=== PATIENT | male | born 1955 | race Two or more races ===

== ENCOUNTER 2020-09-11 06:14 | Outpatient (REF) | payer MEDICARE, MEDICAID, SELFPAY ==
[2020-09-11 07:39] LABS: Alanine Aminotransferase 26 U/L (0-40); Albumin Level 4.2 g/dL (3.5-5.0); Alkaline Phosphatase 49 U/L (39-117); Anion Gap 14 (12-20); Aspartate Amino Transferase 20 U/L (5-37); Bilirubin Total 0.4 mg/dL (0.0-1.0); Blood Urea Nitrogen 15 mg/dL (9-16); Calcium 9.2 mg/dL (8.4-10.2); Carbon Dioxide 29 mmol/L (22-29); Chloride 104 mmol/L (96-108); Cholesterol 137 mg/dL; Estimated Glomerular Filt Rate > 60; Glucose Fasting 113 mg/dL (60-99); HDL Cholesterol 34 mg/dL; LDL Cholesterol Calculated 79 mg/dl; Potassium 4.1 mmol/l (3.3-5.1); Sodium 143 mmol/L (135-145); Total Protein 7.2 g/dL (6.5-8.0); Triglycerides 120 mg/dL
[2020-09-11 07:48] LABS: Vitamin D 25-OH Total 33.4 ng/mL (>30)
== END 2020-09-11 06:15 | disposition home or self-care (01) ==
LOC: HO.LAB 06:14
PROVIDERS: Visit Provider Internal Medicine
DX: E11.9 Type 2 diabetes mellitus without complications (principal); E78.00 Pure hypercholesterolemia, unspecified; E55.9 Vitamin D deficiency, unspecified
CPT/HCPCS: 36415; 80053; 80061; 82306

== ENCOUNTER → 2020-10-04 09:25 | Outpatient (BNVA) | payer MEDICARE, MEDICAID, SELFPAY | PROVIDERS: PCP Internal Medicine; Visit Provider Internal Medicine Cardiovascular Disease | DX: I35.0 Nonrheumatic aortic (valve) stenosis (principal); I25.10 Atherosclerotic heart disease of native coronary artery without angina pectoris; I10 Essential (primary) hypertension; Z86.73 Personal history of transient ischemic attack (TIA), and cerebral infarction without residual deficits | CPT/HCPCS: 93005; 99212 ==

== ENCOUNTER 2020-10-22 11:17 | Emergency (ER) | payer MEDICARE, MEDICAID, SELFPAY ==
[2020-10-22 11:24] VITALS: BP 148/76; PULSE 82; RESP 17; TEMP 36.8; O2SAT 96; BMI 28.7
== END 2020-10-22 14:22 | disposition left against medical advice (07) ==
PROVIDERS: Emergency Provider Emergency Medicine; PCP Internal Medicine
DX: S19.9XXA Unspecified injury of neck, initial encounter (principal); M25.512 Pain in left shoulder; M25.511 Pain in right shoulder; M54.2 Cervicalgia; W01.0XXA Fall on same level from slipping, tripping and stumbling without subsequent striking against object, initial encounter; Y93.9 Activity, unspecified; Y92.002 Bathroom of unspecified non-institutional (private) residence as the place of occurrence of the external cause; Y99.9 Unspecified external cause status
CPT/HCPCS: 99282

== ENCOUNTER 2020-11-08 10:00 | Outpatient (RCR) | payer MEDICARE, MEDICAID, SELFPAY ==
--- NOTE | 2020-10-13 09:54 | MHC.PT.EP ---
[facility] [place] [facility] [place] [facility] [place] [facility] [address] Nael Souza [address] [phone] F: [phone] F: [phone] F: [phone] F: [phone] Physical Therapy Plan of Care Date of Evaluation: 10/13/20 Date of Surgery: L Shoulder Surgery 2014 Diagnosis: Pain in Left Shoulder Assessment: Darrius is a 65-year-old male presenting to physical therapy with a diagnosis of left shoulder pain. He displays significant upper trapezius tightness and guarding, decreased global cervical strength, decreased cervical ROM, and impaired posture. 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 Darrius would benefit from skilled physical therapy to address the aforementioned impairments to reduce his pain and improve his overall quality of life. Frequency and Duration: The patient will be seen 2 visits per week for 4 weeks. Short Term Goals: 1.) Pt will report <2/10 pain at rest to allow him to sleep through the night within 2 weeks. 2.) Pt will display BL cervical rotation >75 degrees to allow him to safely check blind spots when driving within 2 weeks. Image Editor Goals: 1.) Pt will independently check and correct seated posture every 30 minutes when sitting at home to prevent symptom aggravation within 4 weeks. 2.) Pt will be independent with HEP for symptom management and maintenance following discharge from therapy within 4 weeks. Treatment Plan: Modalities to reduce pain, spasms and effusion. Manual therapy to restore motion and function. Therapeutic exercise to improve strength and flexibility. Neuromuscular re-education for posture and balance. Therapeutic activities to return to functional activities of daily living. Electronically signed by: Majo Weems, PT, DPT Please sign and return to therapist. Thank you for your referral.
--- NOTE | 2020-11-08 12:13 | MHC.PT.DC ---
[facility] [place] [facility] [place] [facility] [place] [facility] [address] Nael Souza 140 [facility] [phone] F: [phone] F: [phone] F: [phone] F: [phone] Physical Therapy Discharge Report Diagnosis: Pain in Left Shoulder Date of Surgery: L Shoulder Surgery 2014 Date of Evaluation: 10/13/20 Date of Discharge: 11/08/20 Treatments to Date: 8 Cancellations to Date: 0 No Shows to Date: 0 Discharge Status: Recommend MD Follow-up Discharge Summary: Pt has been able to perform all exercises without any pain and with proper form, however he continues to state that the ball in his shoulder bothers him all of the time. Pt continues to have a trigger point in his R UT, however it has improved significantly since he first began therapy. Pt repeatedly states that he thinks he needs surgery. He is being discharged from therapy today due to lack of progress and continued reports of discomfort in his R shoulder. He states that he has a follow-up appointment schedule with his physician in November. Electronically signed by: Majo Weems DPT Please sign and return to therapist. Thank you for your referral.
== END 2020-11-08 12:15 | disposition other institution (70) ==
LOC: HO.PT 10:00
PROVIDERS: PCP Internal Medicine; Visit Provider Internal Medicine
DX: M25.512 Pain in left shoulder (principal)
CPT/HCPCS: 97110; 97112; 97140; 97161

== ENCOUNTER → 2020-11-09 14:38 | Outpatient (REF) | payer MEDICARE, MEDICAID, SELFPAY ==
--- NOTE | 2020-11-09 14:41 | CA_ITS ---
Transthoracic Echocardiogram Patient (Last, First, Middle): Darrius Arnold, Gender: Male Date of : 1955 Age: 65 Procedure Date: 11/09/2020 Procedure Type: Transthoracic Echocardiogram Location: OP Height: 167.64 cm Weight: 84.37 kg BSA: 1.94 m2 Heart Rate: bpm BP: 130 / 90 mmHg Drafter Geological: CLAUDIA Mast MD: Wilfredo Boland MD Ship Boat Or Barge Mate: Geronimo Ha MD Symptoms: I35.0 - Nonrheumatic aortic (valve) stenosis Study Quality: Good ECG Rhythm: Sinus Conclusions: - 1. Normal LV systolic function with mild LVH with impaired relaxation filling pattern 2. Mildly dilated left atrium 3. Moderate to severe aortic stenosis with mean gradient of 29 mm of mercury 4. Normal RV systolic pressure 5. No pericardial effusion Findings Left Ventricle Normal left ventricular size and systolic function. There is mildly increased left ventricular wall thickness. The visually estimated ejection fraction is between 55-60%. Spectral Doppler is indicative of an impaired relaxation filling pattern. E/E prime ratio is between 8 and 15 consistent with indeterminate filling pressures. Wall Motion Rest Echo Findings The basal inferior segment is hypokinetic. All other scored wall segments showed normal motion. Right Ventricle Normal right ventricular cavity size and systolic function. Atria The left atrium is mildly dilated. There is lipomatous hypertrophy of the interatrial septum. There is no evidence of interatrial shunt. The right atrium is normal in size. Aortic Valve There is moderate calcification of the aortic valve. There is moderate thickening of the aortic valve. There is moderate to severe aortic valve stenosis. The peak aortic gradient is 55 mmHg.The mean gradient is 29 mmHg. The aortic valve area is 1.04 cm2. There is mild aortic valve regurgitation. Mitral Valve There is moderate anterior and posterior mitral leaflet thickening. There is moderate mitral annular calcification. There is trace mitral valve regurgitation. There is no mitral valve stenosis. Pulmonic Valve The pulmonic valve is likely normal. There is trace pulmonic valve regurgitation. Tricuspid Valve Normal tricuspid valve structure. There is mild tricuspid valve regurgitation. The right ventricular systolic pressure is normal. The right ventricular systolic pressure is 30 mmHg. Normal right atrial pressure. There is no evidence of pulmonary hypertension. Great Vessels All visible segments of the aorta are normal in size. The pulmonary artery was not well visualized. Venous The inferior vena cava is normal in size and collapses greater than 50% with inspiration. Pericardium/Pleural There is no evidence of pericardial effusion. Prior Study Comparison Changes noted compared to prior study dated: 07/03/2018. Aortic stenosis is marginally worse Measurements 2D Linear Measurements IVSd: 1.16 0.6-0.9/0.6-1.0 cm LVIDd: 4.94 3.9-5.3/4.2-5.9 cm LVIDd Index: 2.55 2.4-3.2/2.2-3.1 cm/m2 LVIDs: 3.36 2.0-3.6 cm LVPWd: 1.18 0.7-1.1 cm Ao Root: 3.60 2.1-3.5 cm LA Diam: 4.40 2.7-3.8/3.0-4.0 cm LAIDs Index: 2.27 1.5-2.3 cm/m2 LV Mass: 275.89 67-162/88-224 g LV Mass Index: 142.21 43-95/49-115 g/m2 LVOT Diam: 2.20 3.0+(-)1.3 cm Mitral Valve MV Pk E: 0.51 MV PK A: 0.82 MV Decel Time: 278.00 E/A: 0.60 E'Lateral: 3.59 E'Medial: 4.90 E/E' Med: 10.40 E/E' Lat: 14.20 PHT: 82.00 MVA PHT: 2.68 Decel Tate: 1.83 Aortic Valve AoV Pk Evelio: 3.72 AoV Mn Evelio: 2.51 AoV VTI: 0.79 AoV Pk Grad: 55.00 Aov Mn Grad: 29.00 CORNELIUS Cont.VTI: 1.04 AI Pk Evelio: 4.37 AI Tate: 3.77 LVOT LVOT Pk Evelio: 1.02 LVOT Mn Evelio: 0.66 LVOT VTI: 0.22 LVOT Pk Grad: 4.00 LVOT Mn Grad: 2.00 LVOT Diam: 2.20 LVOT Area: 3.80 Diastolic Function MV Pk E: 0.51 MV Pk A: 0.82 E/A: 0.60 E'Medial: 4.90 E/E' Med: 10.40 E' Laterial: 3.59 E/E' Lat: 14.20 Tricuspid Valve TR Pk Evelio: 2.62 TR Pk Grad: 27.00 RA Press: 3.00 RVSP: 30.00 Great Vessels Aorta Ao Root-2D: 3.60 2.0-3.7 cm Ao Asc: 3.40 2.1-3.4 cm Ao Arch: 2.80 Updated in Other Vendor System with Status of Final Geronimo Ha MD electronically signed on 11/10/2020 2:56:33 PM with status of Final
== END ==
LOC: HO.CARD 14:38
PROVIDERS: Visit Provider Internal Medicine Cardiovascular Disease
DX: I35.0 Nonrheumatic aortic (valve) stenosis (principal)
CPT/HCPCS: 93306

== ENCOUNTER 2020-12-11 06:09 | Outpatient (REF) | payer MEDICARE, MEDICAID, SELFPAY ==
[2020-12-11 07:53] LABS: Alanine Aminotransferase 26 U/L (0-40); Albumin Level 4.2 g/dL (3.5-5.0); Alkaline Phosphatase 56 U/L (39-117); Anion Gap 11 (12-20); Aspartate Amino Transferase 17 U/L (5-37); Bilirubin Total 0.8 mg/dL (0.0-1.0); Blood Urea Nitrogen 18 mg/dL (9-16); Calcium 9.3 mg/dL (8.4-10.2); Carbon Dioxide 29 mmol/L (22-29); Chloride 101 mmol/L (96-108); Cholesterol 145 mg/dL; Estimated Glomerular Filt Rate > 60; Glucose Fasting 141 mg/dL (60-99); HDL Cholesterol 29 mg/dL; LDL Cholesterol Calculated 82 mg/dl; Potassium 4.3 mmol/L (3.3-5.1); Sodium 137 mmol/L (135-145); Total Protein 7.3 g/dL (6.5-8.0); Triglycerides 172 mg/dL
== END 2020-12-11 06:10 | disposition home or self-care (01) ==
LOC: HO.LAB 06:09
PROVIDERS: PCP Internal Medicine; Visit Provider Internal Medicine
DX: E78.5 Hyperlipidemia, unspecified (principal); E11.65 Type 2 diabetes mellitus with hyperglycemia
CPT/HCPCS: 36415; 80053; 80061

== ENCOUNTER → 2021-02-07 08:42 | Outpatient (BNVA) | payer MEDICARE, MEDICAID, SELFPAY | PROVIDERS: PCP Internal Medicine; Referring Provider Internal Medicine; Visit Provider Internal Medicine Cardiovascular Disease | DX: I25.10 Atherosclerotic heart disease of native coronary artery without angina pectoris (principal); I35.0 Nonrheumatic aortic (valve) stenosis; I10 Essential (primary) hypertension | CPT/HCPCS: 99212 ==

== ENCOUNTER → 2021-03-07 09:05 | Outpatient (BNVA) | payer MEDICARE, MEDICAID, SELFPAY | PROVIDERS: PCP Internal Medicine; Referring Provider Internal Medicine; Visit Provider Internal Medicine Endocrinology, Diabetes & Metabolism | DX: E55.9 Vitamin D deficiency, unspecified (principal); E83.52 Hypercalcemia | CPT/HCPCS: 99212 ==

== ENCOUNTER 2021-05-21 06:28 | Outpatient (REF) | payer MEDICARE, MEDICAID, SELFPAY ==
[2021-05-21 08:16] LABS: Alanine Aminotransferase 22 U/L (0-40); Albumin Level 3.9 g/dL (3.5-5.0); Alkaline Phosphatase 51 U/L (39-117); Anion Gap 12 (12-20); Aspartate Amino Transferase 14 U/L (5-37); Bilirubin Total 0.5 mg/dL (0.0-1.0); Blood Urea Nitrogen 16 mg/dL (9-16); Calcium 10.1 mg/dL (8.4-10.2); Carbon Dioxide 25 mmol/L (22-29); Chloride 102 mmol/L (96-108); Cholesterol 142 mg/dL; Estimated Glomerular Filt Rate > 60; Glucose Fasting 166 mg/dL (60-99); HDL Cholesterol 26 mg/dL; LDL Cholesterol Calculated 75 mg/dl; Potassium 4.1 mmol/L (3.3-5.1); Sodium 135 mmol/L (135-145); Total Protein 6.8 g/dL (6.5-8.0); Triglycerides 207 mg/dL
[2021-05-21 09:47] LABS: Creatinine Urine 155.94 mg/dL; Microalbum/Creatinine Ratio Ur 12.1 ug/mg cr
[2021-05-22 16:16] LABS: Calcium (PTHI) 9.6 mg/dL (8.6-10.3); PTHI 21 pg/mL (14-64)
[2021-05-26 13:16] LABS: Vitamin D 25-OH, D2 <4 ng/mL; Vitamin D 25-OH, D3 24 ng/mL; Vitamin D 25-OH, Total 24 ng/mL (30-100)
== END 2021-05-21 06:29 | disposition home or self-care (01) ==
LOC: HO.LAB 06:28
PROVIDERS: PCP Internal Medicine; Visit Provider Internal Medicine
DX: E11.65 Type 2 diabetes mellitus with hyperglycemia (principal); R79.89 Other specified abnormal findings of blood chemistry; E55.9 Vitamin D deficiency, unspecified; E78.5 Hyperlipidemia, unspecified
CPT/HCPCS: 36415; 80053; 80061; 82043; 82306; 83970

== ENCOUNTER → 2021-08-08 08:51 | Outpatient (BNVA) | payer MEDICARE, MEDICAID, SELFPAY | PROVIDERS: PCP Internal Medicine; Referring Provider Internal Medicine; Visit Provider Internal Medicine Cardiovascular Disease | DX: I25.10 Atherosclerotic heart disease of native coronary artery without angina pectoris (principal); I35.0 Nonrheumatic aortic (valve) stenosis; I10 Essential (primary) hypertension | CPT/HCPCS: 99212 ==

== ENCOUNTER 2021-10-01 07:01 | Outpatient (REF) | payer MEDICARE, MEDICAID, SELFPAY ==
[2021-10-01 08:04] LABS: Chloride 106 mmol/L (96-108)
[2021-10-01 08:05] LABS: Alanine Aminotransferase 18 U/L (0-40); Albumin Level 4.2 g/dL (3.5-5.0); Alkaline Phosphatase 56 U/L (39-117); Anion Gap 12 (12-20); Aspartate Amino Transferase 16 U/L (5-37); Bilirubin Total 0.5 mg/dL (0.0-1.0); Blood Urea Nitrogen 17 mg/dL (9-16); Calcium 9.7 mg/dL (8.4-10.2); Carbon Dioxide 28 mmol/L (22-29); Cholesterol 136 mg/dL; Estimated Glomerular Filt Rate > 60; Glucose Fasting 152 mg/dL (60-99); HDL Cholesterol 24 mg/dL; LDL Cholesterol Calculated 82 mg/dl; Potassium 4.1 mmol/L (3.3-5.1); Sodium 142 mmol/L (135-145); Total Protein 7.3 g/dL (6.5-8.0); Triglycerides 154 mg/dL
[2021-10-01 09:11] LABS: Creatinine Urine 133.73 mg/dL; Microalbum/Creatinine Ratio Ur 14.2 ug/mg cr
[2021-10-06 13:11] LABS: Vitamin D 25-OH, D2 <4 ng/mL; Vitamin D 25-OH, D3 25 ng/mL; Vitamin D 25-OH, Total 25 ng/mL (30-100)
== END 2021-10-01 07:02 | disposition home or self-care (01) ==
LOC: HO.LAB 07:01
PROVIDERS: PCP Internal Medicine; Visit Provider Internal Medicine
DX: E11.9 Type 2 diabetes mellitus without complications (principal); E55.9 Vitamin D deficiency, unspecified; E78.5 Hyperlipidemia, unspecified; I10 Essential (primary) hypertension
CPT/HCPCS: 36415; 80053; 80061; 82043; 82306

== ENCOUNTER → 2021-10-10 14:27 | Outpatient (REF) | payer MEDICARE, MEDICAID, SELFPAY ==
--- NOTE | 2021-10-10 14:29 | CA_ITS ---
Transthoracic Echocardiogram Patient (Last, First, Middle): Darrius Rodríguez, Gender: Male Date of : 1955 Age: 66 Procedure Date: 10/10/2021 Procedure Type: Transthoracic Echocardiogram Location: OP Height: 175.26 cm Weight: 85.73 kg BSA: 2.02 m2 Heart Rate: bpm BP: 124 / 78 mmHg Legal Document Assistant: Referring MD: Wilfredo Boland MD Dish Network Installer: Wilfredo Boland MD Symptoms: I35.0 - Nonrheumatic aortic (valve) stenosis Study Quality: Good ECG Rhythm: Sinus Conclusions: - Normal left ventricular size and systolic function. There is moderately increased left ventricular wall thickness. The visually estimated ejection fraction is between 55-60%. - E/E prime ratio is between 8 and 15 consistent with indeterminate filling pressures. - Normal right ventricular cavity size and systolic function. - The left atrium is mildly dilated. - There is moderate aortic valve stenosis. - There is mild dilatation of the ascending aorta measuring 3.40 cm. Findings Left Ventricle Normal left ventricular size and systolic function. There is moderately increased left ventricular wall thickness. The visually estimated ejection fraction is between 55-60%. There is no evidence of regional wall motion abnormalities. Abnormal diastolic function is noted. Spectral Doppler is indicative of an impaired relaxation filling pattern. E/E prime ratio is between 8 and 15 consistent with indeterminate filling pressures. Right Ventricle Normal right ventricular cavity size and systolic function. Atria The left atrium is mildly dilated. Aortic Valve There is a normal trileaflet aortic valve. There is moderate calcification of the aortic valve. There is moderate thickening of the aortic valve. There is moderate aortic valve stenosis. The peak aortic velocity is 3.50 m/s. The mean gradient is 28 mmHg. The aortic valve area is 1.02 cm2. There is trace (trivial) aortic valve regurgitation. Mitral Valve There is moderate mitral annular calcification. There is trace mitral valve regurgitation. There is no mitral valve stenosis. Pulmonic Valve Normal pulmonic valve structure and function. There is no pulmonic valve regurgitation. Tricuspid Valve Normal tricuspid valve structure and function. There is trace tricuspid valve regurgitation. Tricuspid regurgitation envelope is inadequate for calculation of right ventricular systolic pressure. Normal right atrial pressure. Great Vessels There is mild dilatation of the ascending aorta measuring 3.40 cm. The visualized portions of the pulmonary artery and branches are normal. Venous The inferior vena cava is normal in size and collapses greater than 50% with inspiration. Pericardium/Pleural There is no evidence of pericardial effusion. Prior Study Comparison No significant change compared to prior study dated: 11/09/2020. Measurements 2D Linear Measurements IVSd: 1.38 0.6-0.9/0.6-1.0 cm LVIDd: 4.92 3.9-5.3/4.2-5.9 cm LVIDd Index: 2.44 2.4-3.2/2.2-3.1 cm/m2 LVIDs: 2.88 2.0-3.6 cm LVPWd: 1.35 0.7-1.1 cm Ao Root: 3.40 2.1-3.5 cm LA Diam: 4.20 2.7-3.8/3.0-4.0 cm LAIDs Index: 2.08 1.5-2.3 cm/m2 LV Mass: 341.75 67-162/88-224 g LV Mass Index: 169.18 43-95/49-115 g/m2 LVOT Diam: 2.10 3.0+(-)1.3 cm Mitral Valve MV Pk E: 0.54 MV PK A: 0.92 MV Decel Time: 229.00 E/A: 0.60 E'Lateral: 3.59 E'Medial: 4.68 E/E' Med: 11.60 E/E' Lat: 15.20 PHT: 67.00 MVA PHT: 3.28 Decel [place]: 2.38 Aortic Valve AoV Pk Evelio: 3.50 AoV Mn Evelio: 2.48 AoV VTI: 0.66 AoV Pk Grad: 49.00 Aov Mn Grad: 28.00 CORNELIUS Cont.VTI: 1.02 LVOT LVOT Pk Evelio: 0.92 LVOT Mn Evelio: 0.62 LVOT VTI: 0.19 LVOT Pk Grad: 3.00 LVOT Mn Grad: 2.00 LVOT Diam: 2.10 LVOT Area: 3.46 Diastolic Function MV Pk E: 0.54 MV Pk A: 0.92 E/A: 0.60 E'Medial: 4.68 E/E' Med: 11.60 E' Laterial: 3.59 E/E' Lat: 15.20 Tricuspid Valve TR Pk Evelio: 1.69 TR Pk Grad: 11.00 Great Vessels Aorta Ao Root-2D: 3.40 2.0-3.7 cm Ao Asc: 3.40 2.1-3.4 cm Pulmonary Valve PV Pk Evelio: 0.91 Peak PV Grad: 3.00 Updated in Other Vendor System with Status of Final Wilfredo Boland MD electronically signed on 10/11/2021 12:26:22 PM with status of Final
== END ==
LOC: HO.CARD 14:27
PROVIDERS: PCP Internal Medicine; Visit Provider Internal Medicine Cardiovascular Disease
DX: I35.0 Nonrheumatic aortic (valve) stenosis (principal)
CPT/HCPCS: 93306

== ENCOUNTER 2021-10-27 09:18 | Outpatient (REF) | payer MEDICARE, MEDICAID, SELFPAY ==
[2021-10-27 10:35] LABS: Alanine Aminotransferase 14 U/L (0-40); Albumin Level 3.9 g/dL (3.5-5.0); Alkaline Phosphatase 51 U/L (39-117); Anion Gap 12 (12-20); Aspartate Amino Transferase 16 U/L (5-37); Bilirubin Total 0.6 mg/dL (0.0-1.0); Blood Urea Nitrogen 8 mg/dL (9-16); Calcium 9.7 mg/dL (8.4-10.2); Carbon Dioxide 29 mmol/L (22-29); Chloride 102 mmol/L (96-108); Estimated Glomerular Filt Rate > 60; Glucose Random 161 mg/dL (60-115); Potassium 3.5 mmol/L (3.3-5.1); Sodium 139 mmol/L (135-145); Total Protein 6.8 g/dL (6.5-8.0)
== END 2021-10-27 09:19 | disposition home or self-care (01) ==
LOC: HO.LAB 09:18
PROVIDERS: PCP Internal Medicine; Visit Provider Nurse Practitioner Family
DX: R19.7 Diarrhea, unspecified (principal)
CPT/HCPCS: 36415; 80053

== ENCOUNTER 2021-11-05 08:00 | Outpatient (REF) | payer MEDICARE, MEDICAID, SELFPAY ==
[2021-11-05 09:16] LABS: CDiff Gene PCR NEGATIVE (Negative)
[2021-11-05 09:26] LABS: Leukocytes Stool Qualitative NEGATIVE (NEGATIVE)
== END 2021-11-05 08:01 | disposition home or self-care (01) ==
LOC: HO.LNP 08:00
PROVIDERS: Visit Provider Nurse Practitioner Family
DX: R19.7 Diarrhea, unspecified (principal)
CPT/HCPCS: 87045; 87046; 87493; 89055

== ENCOUNTER → 2021-12-05 13:31 | Outpatient (BNVA) | payer MEDICARE, MEDICAID, SELFPAY | PROVIDERS: PCP Internal Medicine; Referring Provider Internal Medicine; Visit Provider Internal Medicine Cardiovascular Disease | DX: I25.10 Atherosclerotic heart disease of native coronary artery without angina pectoris (principal); I35.0 Nonrheumatic aortic (valve) stenosis; I10 Essential (primary) hypertension | CPT/HCPCS: 93005; 99212 ==

== ENCOUNTER 2022-01-07 13:14 | Outpatient (REF) | payer MEDICARE, MEDICAID, SELFPAY ==
--- NOTE | ~2022-01-07 | XR_ITS ---
EXAMINATION: XR CHEST CLINICAL INFORMATION: Cough COMPARISON: Previous chest x-ray most recent January [address] June 2018 TECHNIQUE: 2 views of the chest were obtained. FINDINGS: The cardiac and mediastinal contours are stable. There are emphysematous changes. There is increased interstitial markings. There also appears to be increased perihilar attenuation possibly representing groundglass acute alveolitis or pneumonitis. This appears increased from previous exam There is no pleural effusion or pneumothorax. There are degenerative changes of the spine. XR/XR chest 2V IMPRESSION: Emphysema. Increased interstitial markings suggestive of interstitial lung disease. Increased perihilar attenuation questionable for acute alveolitis or pneumonitis. This appears increased from previous exam July 2020.
== END 2022-01-07 13:15 | disposition home or self-care (01) ==
LOC: HO.XRAY 13:14
PROVIDERS: PCP Internal Medicine; Visit Provider Internal Medicine
DX: J44.9 Chronic obstructive pulmonary disease, unspecified (principal); R05.9 Cough, unspecified; Z72.0 Tobacco use
CPT/HCPCS: 71046; 99202

== ENCOUNTER 2022-02-15 07:01 | Outpatient (REF) | payer MEDICARE, MEDICAID, SELFPAY ==
[2022-02-15 08:23] LABS: Alanine Aminotransferase 19 U/L (0-40); Albumin Level 4.1 g/dL (3.5-5.0); Alkaline Phosphatase 58 U/L (39-117); Anion Gap 13 (12-20); Aspartate Amino Transferase 14 U/L (5-37); Bilirubin Total 0.8 mg/dL (0.0-1.0); Blood Urea Nitrogen 17 mg/dL (9-16); Calcium 9.8 mg/dL (8.4-10.2); Carbon Dioxide 29 mmol/L (22-29); Chloride 100 mmol/L (96-108); Cholesterol 137 mg/dL; Estimated Glomerular Filt Rate > 60; Glucose Random 227 mg/dL (60-115); HDL Cholesterol 27 mg/dL; LDL Cholesterol Calculated 79 mg/dl; Potassium 4.1 mmol/L (3.3-5.1); Sodium 138 mmol/L (135-145); Total Protein 7.2 g/dL (6.5-8.0); Triglycerides 157 mg/dL
[2022-02-15 09:38] LABS: Creatinine Urine 115.63 mg/dL; Microalbum/Creatinine Ratio Ur 9.5 ug/mg cr
== END 2022-02-15 07:02 | disposition home or self-care (01) ==
LOC: HO.LAB 07:01
PROVIDERS: PCP Internal Medicine; Visit Provider Internal Medicine
DX: I10 Essential (primary) hypertension (principal); E78.5 Hyperlipidemia, unspecified; E11.9 Type 2 diabetes mellitus without complications
CPT/HCPCS: 36415; 80053; 80061; 82043

== ENCOUNTER → 2022-02-18 08:59 | Outpatient (BNVA) | payer MEDICARE, MEDICAID, SELFPAY | PROVIDERS: PCP Internal Medicine; Visit Provider Internal Medicine | DX: J44.9 Chronic obstructive pulmonary disease, unspecified (principal); R05.9 Cough, unspecified; F17.210 Nicotine dependence, cigarettes, uncomplicated | CPT/HCPCS: 99212 ==

== ENCOUNTER 2022-03-14 13:45 | Outpatient (REF) | payer MEDICARE, MEDICAID, SELFPAY ==
--- NOTE | 2022-03-14 15:05 | PFT_ITS ---
INDICATION: COPD. SPIROMETRY: FEV1 to FVC 72% with an FEV1 of 3.03 L, which is 103% predicted and FVC of 4.23 L, which is 110% predicted. No significant response to bronchodilators noted. Maximum voluntary ventilation 101% predicted. LUNG VOLUMES: Total lung capacity 100% predicted. DIFFUSION CAPACITY: DLCO 56% predicted. COMPARISONS: None. INTERPRETATION: No definitive obstructive nor restrictive ventilatory defects identified. No significant response to bronchodilators noted. Normal maximum voluntary ventilation, although his flow volume loop appears to show some degree of concavity in the expiratory limb consistent with an an obstructive physiology. Lung volumes are within normal limits. The patient does have a moderate isolated diffusion impairment, likely secondary to emphysema and/or the parenchymal lung condition should be considered. Should also correct for hemoglobin. Clinical correlation warranted. Ken Abbasi MD MR/MODL / [id number]
== END 2022-03-14 13:46 | disposition home or self-care (01) ==
LOC: HO.RESP 13:45
PROVIDERS: PCP Internal Medicine; Visit Provider Internal Medicine
DX: J44.9 Chronic obstructive pulmonary disease, unspecified (principal); R05.9 Cough, unspecified; Z72.0 Tobacco use
CPT/HCPCS: 94060; 94727; 94729

== ENCOUNTER 2022-03-15 13:27 | Outpatient (REF) | payer MEDICARE, MEDICAID, SELFPAY ==
--- NOTE | ~2022-03-15 | CT_ITS ---
EXAMINATION: CT CHEST SCREENING CLINICAL INFORMATION: F17.210 - Nicotine dependence, cigarettes, uncomplicated. Current smoker, 53 pack-years. COMPARISON: Chest radiographs 01/07/2022, 02/07/2020, CT chest noncontrast 07/07/2018. TECHNIQUE: Multidetector volumetric CT imaging of the chest is performed without contrast using low dose technique. Additional 2D coronal and sagittal reformatted images and axial 3D maximum intensity projection (MIP) images are generated on the CT workstation. This CT examination was performed using dose optimization techniques as appropriate, variously including the following: *Automated exposure control *Adjustment of mA and/or kV according to patient size (this includes techniques or standardized protocols for targeted exams where dose is matched to indication/reason for exam; i.e. extremities or head) *Use of iterative reconstruction technique DLP: 67 mGy-cm FINDINGS: LUNGS: There are again numerous cysts of varying size in the apices and upper zones with sparing of the lingula and anterior right middle lobe and sparing costophrenic angles. Severity is similar to prior CT 2018 and better characterized on prior exam with standard dose. 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 There is no interval mass or significant nodule, airspace consolidation, or groundglass opacity. Left lung has small nodule under 6 mm lateral upper lobe series 6/179, not seen with certainty on prior CT 2018. There is a stable smaller nodule anterior left upper lobe series 6/114 and an incidental stable calcified granuloma central anterior upper lobe series 6/158. Right lung has stable nodule under 5 mm lateral lower lobe, possibly endobronchial location, stable from 2018 consistent with benign nodule, series 6/286. There is no central endobronchial lesion and no bronchiectasis. There is mild coarsening of the bronchiolar markings likely related to the smoking history. MEDIASTINUM: No hilar or mediastinal adenopathy. No pericardial effusion. There is moderate coronary artery atherosclerotic calcifications. PLEURA: There is no pleural effusion. No pleural mass or thickening. AXILLA: No lymphadenopathy. UPPER ABDOMEN: Incidental splenule left upper quadrant again seen just under 2 cm. OSSEOUS STRUCTURES: Unremarkable. CT/CT lung screening IMPRESSION: -Nodule under 6 mm lateral left upper lobe, not seen with certainty on prior CT 2018. -Other smaller nodule stable. 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 ASSESSMENT: Lung-RADS category 2: Benign RECOMMENDATION: Routine annual low-dose CT screening in 12 months.
== END 2022-03-15 13:28 | disposition home or self-care (01) ==
LOC: HO.CT 13:27
PROVIDERS: PCP Internal Medicine; Visit Provider Physician Assistant Medical
DX: F17.210 Nicotine dependence, cigarettes, uncomplicated (principal)
CPT/HCPCS: 71271; G0296

== ENCOUNTER → 2022-03-19 12:42 | Outpatient (BNVA) | payer MEDICARE, MEDICAID, SELFPAY | PROVIDERS: PCP Internal Medicine; Visit Provider Internal Medicine Endocrinology, Diabetes & Metabolism | DX: E11.65 Type 2 diabetes mellitus with hyperglycemia (principal) | CPT/HCPCS: 82947; 99202 ==

== ENCOUNTER 2022-03-21 07:03 | Outpatient (REF) | payer MEDICARE, MEDICAID, SELFPAY ==
[2022-03-21 08:43] LABS: Creatinine Urine 97.19 mg/dL; Microalbum/Creatinine Ratio Ur 20.5 ug/mg cr
[2022-03-26 19:27] LABS: Glutamic acid decarboxylase Ab <5 IU/mL (<5)
== END 2022-03-21 07:04 | disposition home or self-care (01) ==
LOC: HO.LAB 07:03
PROVIDERS: PCP Internal Medicine; Visit Provider Internal Medicine Endocrinology, Diabetes & Metabolism
DX: E11.65 Type 2 diabetes mellitus with hyperglycemia (principal)
CPT/HCPCS: 36415; 82043; 86341

== ENCOUNTER → 2022-04-01 08:18 | Outpatient (BNVA) | payer MEDICARE, MEDICAID, SELFPAY | PROVIDERS: PCP Internal Medicine; Visit Provider Registered Nurse Diabetes Educator | DX: E11.65 Type 2 diabetes mellitus with hyperglycemia (principal) | CPT/HCPCS: 99211 ==

== ENCOUNTER → 2022-05-07 08:50 | Outpatient (BNVA) | payer MEDICARE, MEDICAID, SELFPAY | PROVIDERS: PCP Internal Medicine; Visit Provider Dietitian, Registered | DX: E11.65 Type 2 diabetes mellitus with hyperglycemia (principal); Z71.3 Dietary counseling and surveillance | CPT/HCPCS: 97803 ==

== ENCOUNTER → 2022-05-29 09:31 | Outpatient (REF) | payer MEDICARE, MEDICAID, SELFPAY ==
--- NOTE | 2022-05-29 09:33 | CA_ITS ---
Transthoracic Echocardiogram Patient (Last, First, Middle): Darrius Rodríguez, Gender: Male Date of : 1955 Age: 67 Procedure Date: 05/29/2022 Procedure Type: Transthoracic Echocardiogram Location: OP Height: 167.64 cm Weight: 79.38 kg BSA: 1.89 m2 Heart Rate: bpm BP: 122 / 80 mmHg Marketing Operations Consultant: Referring MD: Wilfredo Boland MD Forest Fire Lookout: Wilfredo Boland MD Symptoms: I35.0 - Nonrheumatic aortic (valve) stenosis Study Quality: Good ECG Rhythm: Sinus Conclusions: - Normal left ventricular size and systolic function. There is moderately increased left ventricular wall thickness. The visually estimated ejection fraction is between 60-65%. - E/E prime ratio is >15, consistent with elevated filling pressures. - Normal right ventricular cavity size and systolic function. - There is moderate calcification of the aortic valve. There is moderate thickening of the aortic valve. There is moderate to severe aortic valve stenosis. The peak aortic velocity is 3.62 m/s. The mean gradient is 29 mmHg. The aortic valve area is 0.87 cm2. Findings Left Ventricle Normal left ventricular size and systolic function. There is moderately increased left ventricular wall thickness. The visually estimated ejection fraction is between 60-65%. There is no evidence of regional wall motion abnormalities. Abnormal diastolic function is noted. Spectral Doppler is indicative of an impaired relaxation filling pattern. E/E prime ratio is >15, consistent with elevated filling pressures. Right Ventricle Normal right ventricular cavity size and systolic function. Atria The left atrium is moderately dilated. Aortic Valve There is moderate calcification of the aortic valve. There is moderate thickening of the aortic valve. There is moderate to severe aortic valve stenosis. The peak aortic velocity is 3.62 m/s. The mean gradient is 29 mmHg. The aortic valve area is 0.87 cm2. There is trace (trivial) aortic valve regurgitation. Mitral Valve There is moderate mitral annular calcification. There is no mitral valve regurgitation. There is no mitral valve stenosis. Pulmonic Valve Normal pulmonic valve structure and function. There is trace pulmonic valve regurgitation. Tricuspid Valve Normal tricuspid valve structure and function. There is trace tricuspid valve regurgitation. Tricuspid regurgitation envelope is inadequate for calculation of right ventricular systolic pressure. Normal right atrial pressure. Great Vessels The visualized portions of the pulmonary artery and branches are normal. Venous The inferior vena cava is normal in size and collapses greater than 50% with inspiration. Pericardium/Pleural There is no evidence of pericardial effusion. Prior Study Comparison Changes noted compared to prior study. Moderate to severe present. Measurements 2D Linear Measurements IVSd: 1.56 0.6-0.9/0.6-1.0 cm LVIDd: 4.91 3.9-5.3/4.2-5.9 cm LVIDd Index: 2.60 2.4-3.2/2.2-3.1 cm/m2 LVIDs: 3.16 2.0-3.6 cm LVPWd: 1.46 0.7-1.1 cm Ao Root: 3.60 2.1-3.5 cm LA Diam: 4.50 2.7-3.8/3.0-4.0 cm LAIDs Index: 2.38 1.5-2.3 cm/m2 LV Mass: 395.52 67-162/88-224 g LV Mass Index: 209.27 43-95/49-115 g/m2 LVOT Diam: 2.00 3.0+(-)1.3 cm Mitral Valve MV Pk E: 0.69 MV PK A: 0.91 MV Decel Time: 203.00 E/A: 0.80 E'Lateral: 3.59 E'Medial: 4.03 E/E' Med: 17.00 E/E' Lat: 19.10 PHT: 60.00 MVA PHT: 3.67 Decel [place]: 3.37 Aortic Valve AoV Pk Evelio: 3.62 AoV Mn Evelio: 2.53 AoV VTI: 0.83 AoV Pk Grad: 52.00 Aov Mn Grad: 29.00 CORNELIUS Cont.VTI: 0.87 LVOT LVOT Pk Evelio: 0.89 LVOT Mn Evelio: 0.62 LVOT VTI: 0.23 LVOT Pk Grad: 3.00 LVOT Mn Grad: 2.00 LVOT Diam: 2.00 LVOT Area: 3.14 Diastolic Function MV Pk E: 0.69 MV Pk A: 0.91 E/A: 0.80 E'Medial: 4.03 E/E' Med: 17.00 E' Laterial: 3.59 E/E' Lat: 19.10 Tricuspid Valve TR Pk Evelio: 2.40 TR Pk Grad: 23.00 Great Vessels Aorta Ao Root-2D: 3.60 2.0-3.7 cm Ao Asc: 3.50 2.1-3.4 cm Pulmonary Valve PV Pk Evelio: 0.93 Peak PV Grad: 3.00 Updated in Other Vendor System with Status of Final Wilfredo Boland MD electronically signed on 05/29/2022 9:26:48 PM with status of Final
== END ==
LOC: HO.CARD 09:31
PROVIDERS: Visit Provider Internal Medicine Cardiovascular Disease
DX: I35.0 Nonrheumatic aortic (valve) stenosis (principal)
CPT/HCPCS: 93306

== ENCOUNTER → 2022-06-17 09:49 | Outpatient (BNVA) | payer MEDICARE, MEDICAID, SELFPAY | PROVIDERS: PCP Internal Medicine; Visit Provider Internal Medicine | DX: J44.9 Chronic obstructive pulmonary disease, unspecified (principal); F17.210 Nicotine dependence, cigarettes, uncomplicated | CPT/HCPCS: 99212 ==

== ENCOUNTER → 2022-06-19 12:38 | Outpatient (BNVA) | payer MEDICARE, MEDICAID, SELFPAY | PROVIDERS: PCP Internal Medicine; Referring Provider Internal Medicine; Visit Provider Internal Medicine Cardiovascular Disease | DX: I35.0 Nonrheumatic aortic (valve) stenosis (principal); I10 Essential (primary) hypertension; J44.9 Chronic obstructive pulmonary disease, unspecified | CPT/HCPCS: 99212 ==

== ENCOUNTER → 2022-06-27 09:11 | Outpatient (BNVA) | payer MEDICARE, MEDICAID, SELFPAY | PROVIDERS: PCP Internal Medicine; Visit Provider Internal Medicine Endocrinology, Diabetes & Metabolism | DX: E11.65 Type 2 diabetes mellitus with hyperglycemia (principal) | CPT/HCPCS: 82947; 83036; 99212 ==

== ENCOUNTER → 2022-07-01 07:48 | Outpatient (BNVA) | payer MEDICARE, MEDICAID, SELFPAY | PROVIDERS: PCP Internal Medicine; Visit Provider Registered Nurse Diabetes Educator | DX: E11.65 Type 2 diabetes mellitus with hyperglycemia (principal) | CPT/HCPCS: 99211 ==

== ENCOUNTER 2022-07-02 07:33 | Outpatient (REF) | payer MEDICARE, MEDICAID, SELFPAY ==
[2022-07-02 10:58] LABS: Microalbum/Creatinine Ratio Ur 14.4 ug/mg cr
[2022-07-02 11:28] LABS: Alanine Aminotransferase 21 U/L (0-40); Albumin Level 4.3 g/dL (3.5-5.0); Alkaline Phosphatase 51 U/L (39-117); Anion Gap 18 (12-20); Aspartate Amino Transferase 19 U/L (5-37); Bilirubin Total 0.5 mg/dL (0.0-1.0); Blood Urea Nitrogen 12 mg/dL (9-16); Calcium 9.9 mg/dL (8.4-10.2); Carbon Dioxide 26 mmol/L (22-29); Chloride 103 mmol/L (96-108); Cholesterol 120 mg/dL; Estimated Glomerular Filt Rate > 60; HDL Cholesterol 27 mg/dL; LDL Cholesterol Calculated 71 mg/dl; Potassium 4.2 mmol/L (3.3-5.1); Sodium 143 mmol/L (135-145); Total Protein 7.4 g/dL (6.5-8.0); Triglycerides 110 mg/dL
[2022-07-02 11:48] LABS: Vitamin D 25-OH Total 30.4 ng/mL (>30)
[2022-07-02 12:43] LABS: Glucose Fasting 129 mg/dL (60-99)
== END 2022-07-02 07:34 | disposition home or self-care (01) ==
LOC: HO.LAB 07:33
PROVIDERS: PCP Internal Medicine; Visit Provider Internal Medicine
DX: E78.5 Hyperlipidemia, unspecified (principal); E55.9 Vitamin D deficiency, unspecified; E11.9 Type 2 diabetes mellitus without complications
CPT/HCPCS: 36415; 80053; 80061; 82043; 82306

== ENCOUNTER → 2022-07-12 11:24 | Outpatient (BNVA) | payer MEDICARE, MEDICAID, SELFPAY | PROVIDERS: PCP Internal Medicine; Visit Provider Dietitian, Registered | DX: E11.65 Type 2 diabetes mellitus with hyperglycemia (principal) | CPT/HCPCS: 97803 ==

== ENCOUNTER 2022-07-25 13:55 | Outpatient (REF) | payer OTHER, SELFPAY ==
[2022-07-25 15:26] LABS: Magnesium 1.3 mg/dL (1.6-2.6); Potassium 4.4 mmol/L (3.3-5.1)
== END 2022-07-25 13:56 | disposition home or self-care (01) ==
LOC: HO.LAB 13:55
PROVIDERS: PCP Internal Medicine; Visit Provider Internal Medicine
DX: E83.42 Hypomagnesemia (principal); E87.6 Hypokalemia
CPT/HCPCS: 36415; 83735; 84132

== ENCOUNTER 2022-08-02 15:12 | Outpatient (REF) | payer OTHER, SELFPAY ==
--- NOTE | ~2022-08-02 | US_ITS ---
EXAMINATION: US EXTRACRANIAL CAROTID DUPLEX, BILATERAL CLINICAL INFORMATION: This is a 67-year-old male with syncope and collapse. Carotid artery disease. COMPARISON: None TECHNIQUE: Real-time ultrasound and Doppler techniques (integrating B-mode 2-D vascular images, Doppler spectral analysis and color-flow Doppler imaging) were utilized to interrogate the extracranial carotid arteries, the vertebral arteries and proximal subclavian arteries bilaterally. The degree of stenosis is determined by criteria similar to NASCET. FINDINGS: Right Side: 1. There is moderate atherosclerotic plaque seen in the bifurcation/proximal ICA region. 2. The common carotid artery PSV proximally is 80 cm/s and distally 77 cm/s. 3. The proximal internal carotid artery velocities are 143 cm/s systolic and T8 cm/s diastolic. 4. The proximal external carotid artery PSV is 74 cm/s. 5. The vertebral artery shows antegrade flow. 6. The subclavian artery waveforms are normal. Left Side: 1. There is a mall atherosclerotic plaque seen in the bifurcation/proximal ICA region. 2. The common carotid artery PSV proximally is 93 cm/s and distally 74 cm/s. 3. The proximal internal carotid artery velocities are 87 cm/s systolic and 31 cm/s diastolic. 4. The proximal external carotid artery PSV is 74 cm/s. 5. The vertebral artery shows antegrade flow. 6. The subclavian artery waveforms are normal. US/US carotid duplex BI IMPRESSION: 1. RIGHT: Moderate, hemodynamically significant stenosis of the proximal right internal carotid artery corresponding to a 50-79% stenosis by velocity criteria. 2. LEFT: Minimal, non-hemodynamically significant stenosis of the proximal left internal carotid artery corresponding to a 0-49% stenosis by velocity criteria.
== END 2022-08-02 15:13 | disposition home or self-care (01) ==
LOC: HO.US 15:12
PROVIDERS: Visit Provider Internal Medicine
DX: R55 Syncope and collapse (principal); I25.10 Atherosclerotic heart disease of native coronary artery without angina pectoris
CPT/HCPCS: 93880

== ENCOUNTER → 2022-09-24 14:10 | Outpatient (BNVA) | payer OTHER, MEDICAID, SELFPAY | PROVIDERS: PCP Internal Medicine; Visit Provider Surgery Vascular Surgery | DX: I65.29 Occlusion and stenosis of unspecified carotid artery (principal); E11.9 Type 2 diabetes mellitus without complications; F17.210 Nicotine dependence, cigarettes, uncomplicated; Z79.02 Long term (current) use of antithrombotics/antiplatelets; Z79.899 Other long term (current) drug therapy | CPT/HCPCS: 99202 ==

== ENCOUNTER → 2022-09-26 08:05 | Outpatient (BNVA) | payer OTHER, MEDICAID, SELFPAY | PROVIDERS: PCP Internal Medicine; Visit Provider Internal Medicine Endocrinology, Diabetes & Metabolism | DX: E11.65 Type 2 diabetes mellitus with hyperglycemia (principal); Z79.84 Long term (current) use of oral hypoglycemic drugs | CPT/HCPCS: 82947; 83036; 99212 ==

== ENCOUNTER → 2022-09-30 10:16 | Outpatient (REF) | payer OTHER, MEDICAID, SELFPAY ==
--- NOTE | 2022-09-30 10:19 | CA_ITS ---
Transthoracic Echocardiogram Patient (Last, First, Middle): Darrius Rodríguez, Gender: Male Date of : 1955 Age: 67 Procedure Date: 09/30/2022 Procedure Type: Transthoracic Echocardiogram Location: OP Height: 167.64 cm Weight: 81.65 kg BSA: 1.91 m2 Heart Rate: bpm BP: 108 / 74 mmHg Trucking Contractor: RIK Referring MD: Wilfredo Boland MD Grain Cleaner And Transfer Operator: Wilfredo Boland MD Symptoms: I35.0 - Nonrheumatic aortic (valve) stenosis Study Quality: Adequate Conclusions: - Normal left ventricular size and systolic function. There is mildly increased left ventricular wall thickness. The visually estimated ejection fraction is between 60-65%. - Elevated filling pressures. - Normal right ventricular cavity size and systolic function. - There is severe aortic valve stenosis. - There is mild dilatation of the sinuses of Valsalva measuring 3.70 cm and mild dilatation of the ascending aorta measuring 3.50 cm. Findings Left Ventricle Normal left ventricular size and systolic function. There is mildly increased left ventricular wall thickness. The visually estimated ejection fraction is between 60-65%. There is evidence of regional wall motion abnormalities. Abnormal diastolic function is noted. Spectral Doppler is indicative of an impaired relaxation filling pattern. Elevated filling pressures. Global longitudinal strain reduced at -14.5%. Wall Motion Rest Echo Findings The basal inferior segment is akinetic. Right Ventricle Normal right ventricular cavity size and systolic function. Atria The left atrium is mildly dilated. The right atrium is normal in size. Aortic Valve There is a normal trileaflet aortic valve. There is severe calcification of the aortic valve. There is moderate thickening of the aortic valve. There is severe aortic valve stenosis. The peak aortic velocity is 3.83 m/s. The mean gradient is 36 mmHg. The aortic valve area is 0.87 cm2. There is trace (trivial) aortic valve regurgitation. Mitral Valve There is mild anterior mitral leaflet thickening. There is moderate mitral annular calcification. There is trace mitral valve regurgitation. There is no mitral valve stenosis. Pulmonic Valve The pulmonic valve is likely normal. Tricuspid Valve Normal tricuspid valve structure and function. There is trace tricuspid valve regurgitation. Normal right atrial pressure. There is no evidence of pulmonary hypertension. Great Vessels The pulmonary artery was not well visualized. There is mild dilatation of the sinuses of Valsalva measuring 3.70 cm and mild dilatation of the ascending aorta measuring 3.50 cm. Venous The inferior vena cava is normal in size and collapses greater than 50% with inspiration. Pericardium/Pleural There is no evidence of pericardial effusion. Prior Study Comparison Changes noted compared to prior study dated: 05/29/2022. Severe present. Measurements 2D Linear Measurements IVSd: 1.34 0.6-0.9/0.6-1.0 cm LVIDd: 5.03 3.9-5.3/4.2-5.9 cm LVIDd Index: 2.63 2.4-3.2/2.2-3.1 cm/m2 LVIDs: 3.27 2.0-3.6 cm LVPWd: 1.34 0.7-1.1 cm LA Diam: 4.10 2.7-3.8/3.0-4.0 cm LAIDs Index: 2.15 1.5-2.3 cm/m2 LV Mass: 344.29 67-162/88-224 g LV Mass Index: 180.26 43-95/49-115 g/m2 LVOT Diam: 2.00 3.0+(-)1.3 cm 2D Systolic Function EF 4C: 62.50 >55% EF 2C: 57.60 >55% EF BiP: 59.30 >55% Mitral Valve MV Pk E: 0.71 MV PK A: 0.97 MV Decel Time: 242.00 E/A: 0.70 E'Lateral: 3.26 E'Medial: 4.13 E/E' Med: 17.20 E/E' Lat: 21.80 PHT: 71.00 MVA PHT: 3.10 Decel F[place]: 2.93 Aortic Valve AoV Pk Evelio: 3.83 AoV Mn Evelio: 2.89 AoV VTI: 0.86 AoV Pk Grad: 59.00 Aov Mn Grad: 36.00 CORNELIUS Cont.VTI: 0.87 LVOT LVOT Pk Evelio: 1.06 LVOT Mn Evelio: 0.73 LVOT VTI: 0.22 LVOT Pk Grad: 4.00 LVOT Mn Grad: 2.00 LVOT Diam: 2.00 LVOT Area: 3.14 Diastolic Function MV Pk E: 0.71 MV Pk A: 0.97 E/A: 0.70 E'Medial: 4.13 E/E' Med: 17.20 E' Laterial: 3.26 E/E' Lat: 21.80 Right Ventricle TAPSE (mm): 21.20 TVS' Evelio: 16.60 Tricuspid Valve TR Pk Evelio: 2.62 TR Pk Grad: 27.00 RA Press: 3.00 RVSP: 30.00 Great Vessels Aorta Sinus of Valsalva: 3.70 2.0-3.[address] [place]: 2.79 1.7-3.4 cm Ao Asc: 3.50 2.1-3.4 cm Updated in Other Vendor System with Status of Final Wilfredo Boland MD electronically signed on 10/02/2022 12:42:29 PM with status of Final
== END ==
LOC: HO.CARD 10:16
PROVIDERS: PCP Internal Medicine; Visit Provider Internal Medicine Cardiovascular Disease
DX: I35.0 Nonrheumatic aortic (valve) stenosis (principal)
CPT/HCPCS: 93306; 93356

== ENCOUNTER 2022-10-18 09:52 | Outpatient (REF) | payer OTHER, MEDICAID, SELFPAY ==
--- NOTE | ~2022-10-18 | CT_ITS ---
EXAMINATION: CT HEAD WITHOUT CONTRAST CLINICAL INFORMATION: Syncope and collapse. COMPARISON: None. TECHNIQUE: Contiguous axial imaging was performed from the skull base to vertex without intravenous administration of contrast. This CT examination was performed using dose optimization techniques as appropriate, variously including the following: *Automated exposure control *Adjustment of mA and/or kV according to patient size (this includes techniques or standardized protocols for targeted exams where dose is matched to indication/reason for exam; i.e. extremities or head) *Use of iterative reconstruction technique DLP: 763 mGy-cm. FINDINGS: There is no acute intra-axial, extra-axial bleed, masses or midline shift. There is a focal hypodensity in the left central ovale likely lacunar infarction, new since 07/14/2018. There is no acute infarction in evolution. There is no edema. [id number] matter differentiation is maintained normal. Both lateral ventricles are symmetrical size and configuration with mild enlargement. There is mild prominence of cortical sulci. Bone windows reveal no calvarial abnormality. There is diffuse mucoperiosteal thickening bilateral ethmoid and frontal sinuses. CT/CT head/brain wo IV con IMPRESSION: No acute intracranial process seen. Lacunar infarction left centrum semiovale. However, patient has a history of stroke on 07/22/2018 CT head exam but no findings were noted. Chronic pansinusitis.
--- NOTE | 2022-10-18 12:58 | HM_ITS ---
* Total monitoring time about 2 days and 2 hours. * Underlying rhythm is sinus. Average ventricular rate 81/Min. Range 66 to 121/Min. * Occasional PVCs the burden of 1.5%. Some couplets. 3 brief runs noted. Longest 4 beats. * Occasional supraventricular ectopy with a burden of 0.5%. * No significant pauses or AV blocks. * Patient marker used in association with sinus rhythm and PVC. * No diary submitted. MTDD
== END 2022-10-18 09:53 | disposition home or self-care (01) ==
LOC: HO.CT 09:52
PROVIDERS: PCP Internal Medicine; Visit Provider Internal Medicine
DX: R55 Syncope and collapse (principal)
CPT/HCPCS: 70450; 93225

== ENCOUNTER 2022-11-04 08:21 | Outpatient (REF) | payer OTHER, MEDICAID, SELFPAY ==
[2022-11-04 10:15] LABS: Creatinine Urine 185.37 mg/dL
[2022-11-04 10:31] LABS: Cholesterol 129 mg/dL; HDL Cholesterol 27 mg/dL; LDL Cholesterol Calculated 83 mg/dl; Triglycerides 98 mg/dL
[2022-11-04 10:39] LABS: Vitamin D 25-OH Total 26.5 ng/mL (>30)
== END 2022-11-04 08:22 | disposition home or self-care (01) ==
LOC: HO.LAB 08:21
PROVIDERS: PCP Internal Medicine; Visit Provider Internal Medicine
DX: E55.9 Vitamin D deficiency, unspecified (principal); E11.9 Type 2 diabetes mellitus without complications; E78.5 Hyperlipidemia, unspecified
CPT/HCPCS: 36415; 80061; 82043; 82306

== ENCOUNTER → 2022-11-18 12:29 | Outpatient (BNVA) | payer OTHER, MEDICAID, SELFPAY | PROVIDERS: PCP Internal Medicine; Referring Provider Internal Medicine; Visit Provider Internal Medicine Cardiovascular Disease | DX: I35.0 Nonrheumatic aortic (valve) stenosis (principal); R55 Syncope and collapse | CPT/HCPCS: 93005; 99212 ==

== ENCOUNTER 2022-12-16 06:13 | Outpatient (REF) | payer OTHER, MEDICAID, SELFPAY ==
[2022-12-16 08:02] LABS: Basophils Absolute Auto 0.1 X10*3/uL (0.0-0.2); Basophils Percent Auto 0.7 % (0-2); Eosinophils Absolute Auto 0.2 X10*3/uL (0.0-0.4); Eosinophils Percent Auto 2.1 % (0-4); Hematocrit 46.8 % (42.0-52.0); Hemoglobin 15.2 g/dl (14.0-18.0); Imm Gran Abs Auto 0.03 X10*3/uL (0.00-0.03); Imm Gran Pct Auto 0.3 % (0.0-0.4); Lymphocytes Percent Auto 33.4 % (20-40); MANUAL DIFF FLAG NO; Mean Corpuscular HGB Conc 32.5 g/dl (31.0-36.0); Mean Corpuscular Hemoglobin 30.3 pg (27.0-33.0); Mean Corpuscular Volume 93.4 fL (80.0-98.0); Mean Platelet Volume 10.6 fL (9.4-12.4); Monocytes Absolute Auto 0.6 X10*3/uL (0.1-1.2); Monocytes Percent Auto 6.2 % (2-11); Neutrophils Absolute Auto 5.1 x10*3/uL (2.0-8.3); Neutrophils Percent Auto 57.3 % (45-73); Platelet Count 225 X10*3/uL (160-400); Red Blood Count 5.01 X10*6/uL (4.60-5.80); Red Cell Distribution Width 14.2 % (11.0-16.0); White Blood Count 8.9 X10*3/uL (4.8-10.8)
[2022-12-16 08:15] LABS: INTERNATIONAL NORM RATIO 1.1 (0.9-1.1); Prothrombin Time 12.8 SEC (10.0-13.1)
[2022-12-16 08:48] LABS: Anion Gap 14 (12-20); Blood Urea Nitrogen 14 mg/dL (9-16); Calcium 9.9 mg/dL (8.4-10.2); Carbon Dioxide 30 mmol/L (22-29); Chloride 103 mmol/L (96-108); Estimated Glomerular Filt Rate > 60; Glucose Random 114 mg/dL (60-115); Potassium 4.2 mmol/L (3.3-5.1); Sodium 143 mmol/L (135-145)
== END 2022-12-16 06:14 | disposition home or self-care (01) ==
LOC: HO.LAB 06:13
PROVIDERS: PCP Internal Medicine; Visit Provider Internal Medicine Cardiovascular Disease
DX: Z01.812 Encounter for preprocedural laboratory examination (principal); Z20.2 Contact with and (suspected) exposure to infections with a predominantly sexual mode of transmission
CPT/HCPCS: 36415; 80048; 85025; 85610

== ENCOUNTER → 2022-12-18 10:22 | Outpatient (BNVA) | payer OTHER, MEDICAID, SELFPAY | PROVIDERS: PCP Internal Medicine; Visit Provider Internal Medicine | DX: J44.9 Chronic obstructive pulmonary disease, unspecified (principal); R05.9 Cough, unspecified; Z87.891 Personal history of nicotine dependence | CPT/HCPCS: 99212 ==

== ENCOUNTER → 2023-01-09 14:37 | Outpatient (BNVA) | payer OTHER, SELFPAY | PROVIDERS: PCP Internal Medicine; Referring Provider Internal Medicine; Visit Provider Internal Medicine Cardiovascular Disease | DX: R55 Syncope and collapse (principal); I35.0 Nonrheumatic aortic (valve) stenosis; I65.29 Occlusion and stenosis of unspecified carotid artery; Z86.73 Personal history of transient ischemic attack (TIA), and cerebral infarction without residual deficits; F17.210 Nicotine dependence, cigarettes, uncomplicated; Z79.02 Long term (current) use of antithrombotics/antiplatelets | CPT/HCPCS: 99212 ==

== ENCOUNTER → 2023-01-10 09:48 | Outpatient (BNVA) | payer OTHER, SELFPAY | PROVIDERS: PCP Internal Medicine; Visit Provider Registered Nurse Diabetes Educator | DX: E11.9 Type 2 diabetes mellitus without complications (principal) | CPT/HCPCS: 99211 ==

== ENCOUNTER 2023-02-17 16:05 | Observation (INO) | payer OTHER, SELFPAY ==
[2023-02-17] VITALS (13 sets, daily range): BP systolic 61–135; BP diastolic 39–99; PULSE 63–98; RESP 12–18; TEMP 36.2–36.9; O2SAT 88–97; BMI 32.9; BMI 29.6
--- NOTE | ~2023-02-17 | XR_ITS ---
EXAMINATION: XR CHEST CLINICAL INFORMATION: Weakness, hypertension. Rule out pneumonia COMPARISON: None available. TECHNIQUE: Frontal view of the chest was obtained. FINDINGS: The lungs are hyperinflated with increased bilateral interstitial markings but no acute consolidation seen. By CT patient has multiple cysts in the upper lungs No pleural effusion or thickening. Heart size and the great vessels are normal caliber. No gross bony abnormality seen. XR/XR chest 1V IMPRESSION: Hyperinflated lungs likely emphysematous disease with mild increase interstitial markings likely chronic. The findings are stable to several chest x-rays and CT the last being 03/15/2022. There is no acute consolidation or pleural effusion.
--- NOTE | 2023-02-17 16:22 | ED_ITS ---
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 According to his , the patient has been having dizzy spells over the past 2 months. The patient did have a syncopal episode in October of 2022 and apparently was admitted to [facility] for workup. Today, while the patient was in his kitchen he felt dizzy and he almost passed out. His brought him to the emergency department and his blood pressure at triage was 60/40 with a heart rate of 70. He was brought immediately to ED bed and the patient's blood pressure was 75/39. The patient denies fever, chills, rhinorrhea, sore throat. He states that he has a cough secondary to his COPD. He denied chest pain, shortness of breath, dyspnea on exertion, nausea, vomiting, diarrhea. He has not noticed any dark black stools, bloody stools or changes bowel movements. Related Data Home Medications Medication Instructions Recorded Confirmed metformin 500 mg tablet 500 mg PO QPM 06/27/22 01/09/23 Previous Rx's Medication Instructions Recorded blood-glucose meter (FreeStyle #1 ea 03/19/22 Lite Meter kit) blood sugar diagnostic (FreeStyle #100 ea 09/10/22 Test strips) budesonide-formoterol HFA 80 2 puff inhalation BID 30 days 09/10/22 mcg-4.5 mcg/actuation aerosol #10.2 grams inhaler (Symbicort) gabapentin 100 mg capsule 100 mg PO BEDTIME 90 days #90 caps 09/10/22 lancets 28 gauge (FreeStyle #100 ea 09/10/22 Lancets) metoprolol succinate 25 mg 25 mg PO DAILY 90 days #90 tabs 09/10/22 tablet,extended release 24 hr omeprazole 20 mg capsule,delayed 20 mg PO DAILY #90 caps 09/10/22 release blood sugar diagnostic (Accu-Chek #100 ea 09/21/22 Carla Plus test strips) blood-glucose meter (Accu-Chek #1 ea 09/21/22 Carla Plus Meter) lancets (Accu-Chek Softclix #100 ea 09/21/22 Lancets) blood sugar diagnostic (Accu-Chek #100 ea 09/24/22 Guide test strips) blood-glucose meter (Accu-Chek #1 ea 09/24/22 Guide Glucose Meter) lancets (Accu-Chek Softclix #100 ea 09/24/22 Lancets) aspirin 81 mg tablet,delayed 81 mg PO DAILY 90 days #90 tabs 10/22/22 release clopidogrel 75 mg tablet 75 mg PO DAILY #90 tabs 01/09/23 magnesium oxide 400 mg (241.3 mg 400 mg PO DAILY 90 days #90 tabs 01/09/23 magnesium) tablet zolpidem 10 mg tablet 10 mg PO BEDTIME 30 days #30 tabs 01/14/23 cholecalciferol (vitamin D3) 25 25 mcg PO DAILY 90 days #90 caps 01/23/23 mcg (1,000 unit) capsule dulaglutide 1.5 mg/0.5 mL 1.5 mg (0.5 mL) subcut QWEEK #2 mL 02/11/23 subcutaneous [facility]or ([facility]) atorvastatin 80 mg tablet 80 mg PO DAILY 90 days #90 tabs 02/13/23 oxycodone 10 mg tablet 10 mg PO Q6H PRN pain 30 days #120 02/13/23 tabs tamsulosin 0.4 mg capsule 0.4 mg PO BEDTIME 90 days #90 caps 02/13/23 dapagliflozin 5 mg-metformin ER 1 tab PO DAILY 90 days #90 ea 02/17/23 1,000 mg tablet,extended release 24hr (Xigduo XR) lisinopril 40 mg tablet 40 mg PO DAILY 90 days #90 tabs 02/17/23 pioglitazone 15 mg tablet 15 mg PO DAILY 90 days #90 tabs 02/17/23 Allergies Allergy/AdvReac Type Severity Reaction Status Date / Time cyclobenzaprine Allergy Intermediate inadequate Verified 02/17/23 16:37 response morphine Allergy Intermediate urinary Verified 02/17/23 16:37 retention Review of Systems Review of Systems: Yes all other systems are reviewed and are negative [facility] Past Medical History [facility] Narrative: Social history: He does smoke cigarettes. He denies tobacco use. He denies alcohol use. Medical History Aortic stenosis BPH (benign prostatic hyperplasia) Chronic left shoulder pain COPD (chronic obstructive pulmonary disease) Coronary artery disease Cough Essential hypertension GERD (gastroesophageal reflux disease) History of CVA (cerebrovascular accident) (~2017) Hypercalcemia Hyperlipidemia LDL goal <100 Hypertensive retinopathy of both eyes Hypovitaminosis D Inguinal hernia, left Insomnia Left shoulder pain Low serum parathyroid hormone (PTH) Neck pain Type 2 diabetes mellitus with hyperglycemia Surgical History History of cardiac cath History of colonoscopy History of left inguinal hernia repair (~2018) History of right inguinal hernia repair (~1993) History of squamous cell carcinoma excision (~2010) History of surgery on arm (~1995) Family History Family History Father Prostate cancer Mother No problems noted. Brother No problems noted. Sister No problems noted. Son No problems noted. Social History Social History Household Members: Spouse Household Members Other:: sometimes lives with patient Housing: Apartment Alcohol intake: never Patient Tobacco Use Status: Current everyday Tobacco user Tobacco use type: Cigarette Cigarette Packs Per Day: 1.5 Cigarettes Per Day: 20 Years Smoked: (onset 13yo, 1ppd x 53yrs, 50pyh) Smoked in Last 30 Days: Yes e-Cigarette/Vaping Use: Never Used Second Hand Smoke Exposure: Yes Use of substances other than those prescribed or required for medical reasons: No Advance Directives: No Advance Directives Information Provided: No service: No Current occupational status: retired Cognitive needs: No Hearing needs: No Vision needs: Yes Physical Exam Vital Signs: Vital Signs: Last Vital Signs Temp 97.9 F 02/17/23 18:03 Pulse 68 02/17/23 18:03 Resp 14 02/17/23 18:03 BP 112/65 02/17/23 18:03 Pulse Ox 96 02/17/23 18:03 O2 Del Method Room Air 02/17/23 18:03 O2 Flow Rate 1 02/17/23 16:56 BMI result Body Mass Index 32.9 Const: Other: Patient appears weak, he is able answer questions without difficulty, has no complaints except for weakness HEENT: Head: Yes normal to inspection, Yes normocephalic and Yes atraumatic Ears: external ears normal General nose exam: Normal external nose present Face and sinus: Yes normal facial exam Mouth: Normal oral and palatal mucosa present Throat: Yes posterior oropharynx normal Eyes: General: appearance normal, both eyes and all related structures Pupils: Equal, round and reactive pupils present Neck: Neck: Yes normal visual inspection, Yes no lymphadenopathy, Yes trachea midline and Yes supple Chest: Chest palpation & inspection: normal inspection of the chest and normal palpation of entire chest wall Resp: Effort & Inspection: normal respiratory effort and able to speak in complete sentences Auscultation: clear to auscultation bilaterally Cardio: Rate: regular rate Rhythm: regular rhythm Heart sounds: S1 normal heart sound present, S2 normal heart sound present and no murmurs GI: Inspection: Yes normal to inspection Palpation (GI): Soft to palpation, nontender and no guarding Auscultation: normal bowel sounds : General: Yes no CVA tenderness Back/Spine/Pelvis: Back: no CVA tenderness Skin: General skin exam: no rashes or lesions noted Neuro: Cranial nerves: Yes CN's II-XII intact bilaterally and Yes Equal, round and reactive pupils present Cognition (Neuro): normal cognition Motor exam (neuro): 5/5 motor strength present throughout Extrem: General: Yes normal to inspection Psych: Appearance: grossly normal Speech and movement: Normal speech and movement present Affect: normal affect Attitude: cooperative Course Course Course Narrative: RME - 67 y/o Cameroonian speaking male with history of severe aortic stenosis with planned TAVR at [facility] February 28, hx syncope, DM, carotid stenosis, COPD who presents to the ER for evaluation of feeling like he is going to pass out with dizziness and blurred vision. it started this afternoon when he was in his kitchen. BP 60/40s in triage. [place] in color, wax/wane mental status Plan: go to back to treatment room now. Dr. Camarena at bedside Medications Administered Discontinued Medications Generic Name Dose Route Start Last Admin Trade Name Freq PRN Reason Stop Dose Admin Sodium Chloride 1,000 mls @ 999 mls/hr 02/17/23 16:34 02/17/23 16:51 Ns IV 02/17/23 17:34 999 mls/hr .Q1H1M STA Administration Sodium Chloride 500 mls @ 500 mls/hr 02/17/23 17:30 02/17/23 17:23 Ns IV 02/17/23 18:29 500 mls/hr .Q1H CHANTE Administration Medical Decision Making Medical Decision Making [facility] Narrative: 67-year-old male with history of diabetes, hypertension, hyperlipidemia, COPD, GERD, aortic stenosis schedule for procedure February 2023 [facility], BPH, coronary disease, CVA who presents emergency department for evaluation of a syncopal episode and hypotension. Patient did have low blood pressures on presentation to the emergency department with normal pulse. His exam was otherwise unremarkable. Following tests were ordered on the patient: CBC, BMP, liver panel, lipase, BNP, lactic acid, magnesium, troponin, alcohol level, TSH, PT/INR, PTT, blood cultures x2, 12 EKG, chest x-ray 1944 The patient was hypotensive on presentation and was ordered to get normal saline IV bolus. His blood pressure did come up but he was orthostatic on standing so was given another 500 cc of normal saline IV. Patient's laboratory evaluation was unremarkable Patient's magnesium was low 1.3 was ordered to get magnesium 1 g IV. Potassium was also at 3.2 use ordered to get potassium 40 mg consult orally after his magnesium bolus Patient is on metoprolol and lisinopril which may be causing his low blood pressure. I will discuss admission with the covering hospitalist. Differential Diagnosis Differential Diagnoses: The differential diagnosis associated with the presentation includes Differential diagnosis includes was not limited to cardiac arrhythmia, myocardial infarction, myocardial ischemia, electrolyte abnormality, anemia, volume depletion/dehydration, static hypotension, medication related hypot ension, aortic stenosis Admission/Observation Consideration of admission/observation: Escalation of care including admission/observation considered Lab Data [facility] Lab Attestation statement: I reviewed the patient's lab results. [facility] is as follows: [place] [address] with no anemia. INR elevated 1.2. D-dimer below detectable limits. Potassium was low 3.2. Glucose was elevated 128. LFTs normal. Lipase normal. TSH normal. ETOH below detectable limits. COVID- 19 negative. Magnesium was low 1.3. High sensitive troponin I was detectable but not elevated 5.7, repeat will be done in 3 hours. 02/17/23 16:39 02/17/23 16:59 Labs: Lab Results 02/17/23 02/17/23 02/17/23 Range/Units 16:35 16:37 16:39 WBC 10.9 H (4.8-10.8) X10*3/uL RBC 4.90 (4.60-5.80) X10*6/uL Hgb 14.7 (14.0-18.0) g/dl Hct 44.4 (42.0-52.0) % MCV 90.6 (80.0-98.0) fL MCH 30.0 (27.0-33.0) pg MCHC 33.1 (31.0-36.0) g/dl RDW 14.6 (11.0-16.0) % Plt Count 205 (160-400) X10*3/uL MPV 10.2 (9.4-12.4) fL Immature Gran % (Auto) 0.4 (0.0-0.4) % Neut % (Auto) 66.5 (45-73) % Lymph % (Auto) 26.6 (20-40) % Bollinger % (Auto) 5.2 (2-11) % Eos % (Auto) 0.8 (0-4) % Baso % (Auto) 0.5 (0-2) % Lymph # (Auto) 2.9 (1.2-4.9) X10*3/uL Bollinger # (Auto) 0.6 (0.1-1.2) X10*3/uL Eos # (Auto) 0.1 (0.0-0.4) X10*3/uL Baso # (Auto) 0.1 (0.0-0.2) X10*3/uL Abs Immat Gran (auto) 0.04 H (0.00-0.03) X10*3/uL Absolute Neuts (auto) 7.2 (2.0-8.3) x10*3/uL Absolute Nucleated RBC 0.000 (0.0-0.012) X10*3/uL Nucleated RBC % (auto) 0.0 (0.0-0.2) /100WBC PT (10.0-13.1) SEC INR (0.9-1.1) APTT (26.0-36.4) SEC D-Dimer High Sensitivty NG/ML Sodium (135-145) mmol/L Potassium (3.3-5.1) mmol/L Chloride (96-108) mmol/L Carbon Dioxide (22-29) mmol/L Anion Gap (12-20) BUN (9-16) mg/dL Creatinine (0.5-1.4) mg/dL Estim Creat Clear Calc Estimated GFR POC Glucose 138 H (60-115) mg/dL Random Glucose (60-115) mg/dL Lactic Acid 1.6 (0.5-2.0) mmol/L Calcium (8.4-10.2) mg/dL Magnesium (1.6-2.6) mg/dL Total Bilirubin (0.0-1.0) mg/dL AST (5-37) U/L ALT (0-40) U/L Alkaline Phosphatase (39-117) U/L Troponin I High Sens (<3.5-35.0) ng/L B-Natriuretic Peptide (<100) pg/mL Total Protein (6.5-8.0) g/dL Albumin (3.5-5.0) g/dL Lipase (8-78) U/L TSH (0.32-4.0) uIU/mL Ethyl Alcohol mg/dL COVID-19 ([facility]) (Negative) COVID-19 Clin Com Blood Type Antibody Screen 02/17/23 02/17/23 02/17/23 Range/Units 16:39 16:39 16:39 WBC (4.8-10.8) X10*3/uL RBC (4.60-5.80) X10*6/uL Hgb (14.0-18.0) g/dl Hct (42.0-52.0) % MCV (80.0-98.0) fL MCH (27.0-33.0) pg MCHC (31.0-36.0) g/dl RDW (11.0-16.0) % Plt Count (160-400) X10*3/uL MPV (9.4-12.4) fL Immature Gran % (Auto) (0.0-0.4) % Neut % (Auto) (45-73) % Lymph % (Auto) (20-40) % Bollinger % (Auto) (2-11) % Eos % (Auto) (0-4) % Baso % (Auto) (0-2) % Lymph # (Auto) (1.2-4.9) X10*3/uL Bollinger # (Auto) (0.1-1.2) X10*3/uL Eos # (Auto) (0.0-0.4) X10*3/uL Baso # (Auto) (0.0-0.2) X10*3/uL Abs Immat Gran (auto) (0.00-0.03) X10*3/uL Absolute Neuts (auto) (2.0-8.3) x10*3/uL Absolute Nucleated RBC (0.0-0.012) X10*3/uL Nucleated RBC % (auto) (0.0-0.2) /100WBC PT 13.5 H (10.0-13.1) SEC INR 1.2 H (0.9-1.1) APTT 27.7 (26.0-36.4) SEC D-Dimer High Sensitivty NG/ML Sodium (135-145) mmol/L Potassium (3.3-5.1) mmol/L Chloride (96-108) mmol/L Carbon Dioxide (22-29) mmol/L Anion Gap (12-20) BUN (9-16) mg/dL Creatinine (0.5-1.4) mg/dL Estim Creat Clear Calc Estimated GFR POC Glucose (60-115) mg/dL Random Glucose (60-115) mg/dL Lactic Acid (0.5-2.0) mmol/L Calcium (8.4-10.2) mg/dL Magnesium 1.3 L* (1.6-2.6) mg/dL Total Bilirubin (0.0-1.0) mg/dL AST (5-37) U/L ALT (0-40) U/L Alkaline Phosphatase (39-117) U/L Troponin I High Sens 5.6 (<3.5-35.0) ng/L B-Natriuretic Peptide (<100) pg/mL Total Protein (6.5-8.0) g/dL Albumin (3.5-5.0) g/dL Lipase (8-78) U/L TSH (0.32-4.0) uIU/mL Ethyl Alcohol mg/dL COVID-19 ([facility]) (Negative) COVID-19 Clin [facility] Blood Type Antibody Screen 02/17/23 02/17/23 02/17/23 Range/Units 16:39 16:39 16:39 WBC (4.8-10.8) X10*3/uL RBC (4.60-5.80) X10*6/uL Hgb (14.0-18.0) g/dl Hct (42.0-52.0) % MCV (80.0-98.0) fL MCH (27.0-33.0) pg MCHC (31.0-36.0) g/dl RDW (11.0-16.0) % Plt Count (160-400) X10*3/uL MPV (9.4-12.4) fL Immature Gran % (Auto) (0.0-0.4) % Neut % (Auto) (45-73) % Lymph % (Auto) (20-40) % Bollinger % (Auto) (2-11) % Eos % (Auto) (0-4) % Baso % (Auto) (0-2) % Lymph # (Auto) (1.2-4.9) X10*3/uL Bollinger # (Auto) (0.1-1.2) X10*3/uL Eos # (Auto) (0.0-0.4) X10*3/uL Baso # (Auto) (0.0-0.2) X10*3/uL Abs Immat Gran (auto) (0.00-0.03) X10*3/uL Absolute Neuts (auto) (2.0-8.3) x10*3/uL Absolute Nucleated RBC (0.0-0.012) X10*3/uL Nucleated RBC % (auto) (0.0-0.2) /100WBC PT (10.0-13.1) SEC INR (0.9-1.1) APTT (26.0-36.4) SEC D-Dimer High Sensitivty NG/ML Sodium (135-145) mmol/L Potassium (3.3-5.1) mmol/L Chloride (96-108) mmol/L Carbon Dioxide (22-29) mmol/L Anion Gap (12-20) BUN (9-16) mg/dL Creatinine (0.5-1.4) mg/dL Estim Creat Clear Calc Estimated GFR POC Glucose (60-115) mg/dL Random Glucose (60-115) mg/dL Lactic Acid (0.5-2.0) mmol/L Calcium (8.4-10.2) mg/dL Magnesium (1.6-2.6) mg/dL Total Bilirubin (0.0-1.0) mg/dL AST (5-37) U/L ALT (0-40) U/L Alkaline Phosphatase (39-117) U/L Troponin I High Sens (<3.5-35.0) ng/L B-Natriuretic Peptide 71 (<100) pg/mL Total Protein (6.5-8.0) g/dL Albumin (3.5-5.0) g/dL Lipase (8-78) U/L TSH 0.36 (0.32-4.0) uIU/mL Ethyl Alcohol mg/dL COVID-19 ([facility]) Negative (Negative) COVID-19 Clin Com See Note Blood Type Antibody Screen 02/17/23 02/17/23 02/17/23 Range/Units 16:59 16:59 16:59 WBC (4.8-10.8) X10*3/uL RBC (4.60-5.80) X10*6/uL Hgb (14.0-18.0) g/dl Hct (42.0-52.0) % MCV (80.0-98.0) fL MCH (27.0-33.0) pg MCHC (31.0-36.0) g/dl RDW (11.0-16.0) % Plt Count (160-400) X10*3/uL MPV (9.4-12.4) fL Immature Gran % (Auto) (0.0-0.4) % Neut % (Auto) (45-73) % Lymph % (Auto) (20-40) % Bollinger % (Auto) (2-11) % Eos % (Auto) (0-4) % Baso % (Auto) (0-2) % Lymph # (Auto) (1.2-4.9) X10*3/uL Bollinger # (Auto) (0.1-1.2) X10*3/uL Eos # (Auto) (0.0-0.4) X10*3/uL Baso # (Auto) (0.0-0.2) X10*3/uL Abs Immat Gran (auto) (0.00-0.03) X10*3/uL Absolute Neuts (auto) (2.0-8.3) x10*3/uL Absolute Nucleated RBC (0.0-0.012) X10*3/uL Nucleated RBC % (auto) (0.0-0.2) /100WBC PT (10.0-13.1) SEC INR (0.9-1.1) APTT (26.0-36.4) SEC D-Dimer High Sensitivty < 150 NG/ML Sodium 138 (135-145) mmol/L Potassium 3.2 L D (3.3-5.1) mmol/L Chloride 106 (96-108) mmol/L Carbon Dioxide 23 (22-29) mmol/L Anion Gap 12 (12-20) BUN 16 (9-16) mg/dL Creatinine 0.78 (0.5-1.4) mg/dL Estim Creat Clear Calc 85.0 Estimated GFR > 60 POC Glucose (60-115) mg/dL Random Glucose 128 H (60-115) mg/dL Lactic Acid (0.5-2.0) mmol/L Calcium 9.4 (8.4-10.2) mg/dL Magnesium (1.6-2.6) mg/dL Total Bilirubin 0.5 (0.0-1.0) mg/dL AST 17 (5-37) U/L ALT 17 (0-40) U/L Alkaline Phosphatase 39 (39-117) U/L Troponin I High Sens (<3.5-35.0) ng/L B-Natriuretic Peptide (<100) pg/mL Total Protein 5.9 L (6.5-8.0) g/dL Albumin 3.3 L (3.5-5.0) g/dL Lipase 34 (8-78) U/L TSH (0.32-4.0) uIU/mL Ethyl Alcohol < 10 mg/dL COVID-19 ([facility]) (Negative) COVID-19 Clin Com Blood Type A Positive Antibody Screen NEGATIVE Independent Interpretation I performed an independent interpretation of an: EKG and Plain X-Ray (One-view chest x-ray) Interpretation: My independent interpretation patient's one-view chest x-ray is as follows: Increased interstitial markings consistent with COPD My independent interpretation patient's 12 EKG done at 16:41 is as follows: Sinus rhythm with a rate of 68, first-degree AV block with OH interval 204 milliseconds, inverted T-wave in 3 and V1, no ST segment elevation, no ST segment depression, occasional PVC. Radiology Impression Discussion of test interpretation with radiology: I discussed test interpr etation with the radiologist and I have reviewed the radiologist's reading. Radiologist Impression: XR chest 1V IMPRESSION: Hyperinflated lungs likely emphysematous disease with mild increase interstitial markings likely chronic. The findings are stable to several chest x-rays and CT the last being 03/15/2022. There is no acute consolidation or pleural effusion. Dictated By:Yoel Gregg MD Critical Care Time Critical Care Time Critical Care Time: Yes Total Critical Care Time: 45 Attestation: Critical Care: The patient was critically ill with a high probability of imminent or life threatening deterioration. I spent greater than 30 minutes of discontinuous time evaluating the patient,delivering critical care at the bedside, discussing and evaluating pertinent data with consultants. Critical care time does not include time spent performing separately billable procedures or teaching. Total time spent performing critical care was 45 minutes. Discharge Plan Discharge Clinical Impression: Near syncope, Aortic valve stenosis, Orthostatic hypotension, Fluid volume depletion Prescriptions: No Action (DME) FreeStyle Test Strip See Rx Instructions .Route Qty: 100 3RF Rx Instructions: Use 1 test strip once a day budesonide-formoterol [Symbicort] 80-4.5 mcg/actuation HFA aerosol inhaler 2 puff inhalation BID 30 Days Qty: 10.2 6RF gabapentin 100 mg capsule 100 mg PO BEDTIME 90 Days Qty: 90 1RF (DME) lancets [FreeStyle Lancets] 28 gauge misc See Rx Instructions .Route Qty: 100 3RF Rx Instructions: Use 1 lancet once a day metoprolol succinate 25 mg tablet extended release 24 hr 25 mg PO DAILY 90 Days Qty: 90 4RF omeprazole 20 mg capsule,delayed release(DR/EC) 20 mg PO DAILY Qty: 90 3RF (DME) Accu-Chek Carla Plus test strp Strip See Rx Instructions .Route Qty: 100 3RF Rx Instructions: Use 1 test strip once a day (DME) blood-glucose meter [Accu-Chek Carla Plus Meter] Misc See Rx Instructions .Route Qty: 1 0RF Rx Instructions: As directed (DME) lancets [Accu-Chek Softclix Lancets] Misc See Rx Instructions .Route Qty: 100 3RF Rx Instructions: Use 1 lancet once a day (DME) blood-glucose meter [Accu-Chek Guide Glucose Meter] Misc See Rx Instructions .Route Qty: 1 0RF Rx Instructions: As directed (DME) Accu-Chek Guide test strips Strip See Rx Instructions .Route Qty: 100 3RF Rx Instructions: Use 1 test strip once a day (DME) lancets [Accu-Chek Softclix Lancets] Misc See Rx Instructions .Route Qty: 100 3RF Rx Instructions: Use 1 lancet once a day aspirin 81 mg tablet,delayed release (DR/EC) 81 mg PO DAILY 90 Days Qty: 90 1RF clopidogrel 75 mg tablet 75 mg PO DAILY Qty: 90 3RF magnesium oxide 400 mg (241.3 mg magnesium) tablet 400 mg PO DAILY 90 Days Qty: 90 1RF zolpidem 10 mg tablet 10 mg PO BEDTIME 30 Days Qty: 30 0RF cholecalciferol (vitamin D3) 25 mcg (1,000 unit) capsule 25 mcg PO DAILY 90 Days Qty: 90 4RF Trulicity 1.5 mg/0.5 mL pen injector 1.5 mg subcut QWEEK Qty: 2 4RF atorvastatin 80 mg tablet 80 mg PO DAILY 90 Days Qty: 90 3RF oxycodone 10 mg tablet 10 mg PO Q6H PRN (Reason: pain) 30 Days Qty: 120 0RF tamsulosin 0.4 mg capsule 0.4 mg PO BEDTIME 90 Days Qty: 90 0RF Xigduo XR 5-1,000 mg tablet, IR - ER, biphasic 24hr 1 tab PO DAILY 90 Days Qty: 90 3RF lisinopril 40 mg tablet 40 mg PO DAILY 90 Days Qty: 90 3RF pioglitazone 15 mg tablet 15 mg PO DAILY 90 Days Qty: 90 1RF (DME) blood-glucose meter [FreeStyle Lite Meter] Kit See Rx Instructions .Route Qty: 1 0RF Rx Instructions: tests 4 X/day metformin 500 mg tablet 500 mg PO QPM
--- NOTE | 2023-02-17 16:26 | ECG_ITS ---
Test Reason : HYPOTENSION Blood Pressure : / mmHG Vent. Rate : 068 BPM Atrial Rate : 068 BPM P-R Int : 204 ms QRS Dur : 094 ms QT Int : 410 ms P-R-T Axes : -08 067 024 degrees QTc Int : 435 ms Sinus rhythm with occasional Premature ventricular complexes Otherwise normal ECG When compared to the previous EKG of Premature ventricular complexes Present Referred By: Eduardo Camarena Electronically Signed By:Wilfredo Boland
[2023-02-17 16:47] LABS: Glucose, Whole Blood 138 mg/dL (60-115)
[2023-02-17 16:47] LABS: MANUAL DIFF FLAG NO
[2023-02-17] MEDS: 0.9 % Sodium Chloride 1,000 ML 999 ML IV (16:51)
--- NOTE | 2023-02-17 16:53 | PC.NURSE ---
patient a&ox3, pt lethargic upon arrival to room, assisted to bed by RN, ekg monitor tech applied nrs 60s, ivs inserted, labs drawn, ivf hung on pressure bag per request of md, covid swab obtained, ekg obtained, pt denies pain/discomfort, call hernadez within reach, will continue to monitor.
--- NOTE | 2023-02-17 16:56 | PC.NURSE ---
pts O2 sat upon arrival initially was 88%, pt placed on 2L NC and titrated down to 1L NC is holding sats in low 90s.
[2023-02-17 17:03] LABS: Basophils Absolute Auto 0.1 X10*3/uL (0.0-0.2); Basophils Percent Auto 0.5 % (0-2); Eosinophils Absolute Auto 0.1 X10*3/uL (0.0-0.4); Eosinophils Percent Auto 0.8 % (0-4); Hematocrit 44.4 % (42.0-52.0); Hemoglobin 14.7 g/dl (14.0-18.0); Imm Gran Abs Auto 0.04 X10*3/uL (0.00-0.03); Imm Gran Pct Auto 0.4 % (0.0-0.4); Lymphocytes Absolute Auto 2.9 X10*3/uL (1.2-4.9); Lymphocytes Percent Auto 26.6 % (20-40); Mean Corpuscular HGB Conc 33.1 g/dl (31.0-36.0); Mean Corpuscular Volume 90.6 fL (80.0-98.0); Mean Platelet Volume 10.2 fL (9.4-12.4); Monocytes Absolute Auto 0.6 X10*3/uL (0.1-1.2); Monocytes Percent Auto 5.2 % (2-11); Neutrophils Absolute Auto 7.2 x10*3/uL (2.0-8.3); Neutrophils Percent Auto 66.5 % (45-73); Platelet Count 205 X10*3/uL (160-400); Red Cell Distribution Width 14.6 % (11.0-16.0); White Blood Count 10.9 X10*3/uL (4.8-10.8)
[2023-02-17 17:13] LABS: Lactic Acid 1.6 mmol/L (0.5-2.0)
--- NOTE | 2023-02-17 17:15 | PC.NURSE ---
orthostats performed, 500ml bag of ns hung per verbal request of provider
[2023-02-17 17:19] LABS: COVID-19 Test Negative (Negative); IDNOW Serial# 08D9AD1C; INTERNATIONAL NORM RATIO 1.2 (0.9-1.1); Prothrombin Time 13.5 SEC (10.0-13.1)
[2023-02-17 17:21] LABS: B Type Natriuretic Peptide 71 pg/mL (<100)
[2023-02-17 17:22] LABS: Partial Thromboplastin Time 27.7 SEC (26.0-36.4)
[2023-02-17] MEDS: 0.9 % Sodium Chloride 500 ML IV (17:23)
--- NOTE | 2023-02-17 17:24 | PC.NURSE ---
pt alert and oriented, orthostatics performed showing positive decrease in BP, NS administered per provider order, XR in room per orders, pt's BP is soft but steadily increasing, crackles noted in both lower lobes upon auscultation, another set of orthostatics will be performed when IVF is finished, call hernadez within reach, will continue to monitor.
[2023-02-17 17:26] LABS: Troponin-I High Sensitivity 5.6 ng/L (<3.5-35.0)
[2023-02-17 17:37] LABS: Alanine Aminotransferase 17 U/L (0-40); Albumin Level 3.3 g/dL (3.5-5.0); Alkaline Phosphatase 39 U/L (39-117); Anion Gap 12 (12-20); Aspartate Amino Transferase 17 U/L (5-37); Bilirubin Total 0.5 mg/dL (0.0-1.0); Blood Urea Nitrogen 16 mg/dL (9-16); Calcium 9.4 mg/dL (8.4-10.2); Carbon Dioxide 23 mmol/L (22-29); Chloride 106 mmol/L (96-108); Estimated Glomerular Filt Rate > 60; Ethanol < 10 mg/dL; Glucose Random 128 mg/dL (60-115); Lipase 34 U/L (8-78); Potassium 3.2 mmol/L (3.3-5.1); Sodium 138 mmol/L (135-145); Total Protein 5.9 g/dL (6.5-8.0)
[2023-02-17 17:40] LABS: Magnesium 1.3 mg/dL (1.6-2.6); TSH reflex Free T4 0.36 uIU/mL (0.32-4.0)
[2023-02-17 17:57] LABS: D Dimer High Sensitivity < 150 NG/ML
--- NOTE | 2023-02-17 18:09 | PC.NURSE ---
pt vitals reassessed, VSS, pt tolerating fluid bolus, NSR on monitoring tech, call hernadez within reach, will continue to monitor.
[2023-02-17] MEDS: Magnesium Sulfate/D5W 1 GM/100 ML PIGGYBACK IV (20:04)
[2023-02-17] MEDS: Potassium Chloride Packet 20 MEQ PACKET 40 MEQ PO (20:05)
--- NOTE | 2023-02-17 20:17 | PC.NURSE ---
patient received in bed with eyes open patient stated he stated he is not in any pain at this time patient received all medications with no issues patient ortho vitals are recorded patient will continue to be monitored patient was notified he is being admitted
[2023-02-17 20:26] LABS: Glucose, Whole Blood 140 mg/dL (60-115)
--- NOTE | 2023-02-17 20:43 | PC.NURSE ---
patient up in bed with a snack due to patient stated he was hungry patient swallows with nio issues patient in the process of being admitted patient will continue to be montiored for safety
--- NOTE | 2023-02-17 21:01 | P.HPHOSP_ITS ---
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 Patient reports that every time he stood or walked he started feeling very dizzy and lightheaded and passed it he denied head chest pain, no palpitations shortness of breath. Had no nausea or vomiting, no diarrhea constipation, no urinary symptoms and no lower extremity edema. Reports eating and drinking well, no recent outside or yd work, and no evidence of dehydration. On arrival to the ED patient noted to have a blood pressure in the 60s over 40s, with significantly positive orthostatic vitals. Patient given IV fluids with improvement his blood pressure. Labs are significant for WBC count of 10.9, magnesium of 1.3, labs otherwise unremarkable Chest x-ray negative Review of Systems Review of Systems: Yes all other systems are reviewed and are negative [facility] Medical History Aortic stenosis BPH (benign prostatic hyperplasia) Chronic left shoulder pain COPD (chronic obstructive pulmonary disease) Coronary artery disease Cough Essential hypertension GERD (gastroesophageal reflux disease) History of CVA (cerebrovascular accident) (~2017) Hypercalcemia Hyperlipidemia LDL goal <100 Hypertensive retinopathy of both eyes Hypovitaminosis D Inguinal hernia, left Insomnia Left shoulder pain Low serum parathyroid hormone (PTH) Neck pain Type 2 diabetes mellitus with hyperglycemia Family History Father Prostate cancer Mother No problems noted. Brother No problems noted. Sister No problems noted. Son No problems noted. Surgical History History of cardiac cath History of colonoscopy History of left inguinal hernia repair (~2018) History of right inguinal hernia repair (~1993) History of squamous cell carcinoma excision (~2010) History of surgery on arm (~1995) Social History Household Members: Spouse Household Members Other:: sometimes lives with patient Housing: Apartment Alcohol intake: never Patient Tobacco Use Status: Current everyday Tobacco user Tobacco use type: Cigarette Cigarette Packs Per Day: 1.5 Cigarettes Per Day: 20 Years Smoked: (onset 13yo, 1ppd x 53yrs, 50pyh) Smoked in Last 30 Days: Yes e-Cigarette/Vaping Use: Never Used Patient Interested in Nicotine Replacement: No Patient Given Instructions on How to Stop Smoking: Yes Date Education Initiated: 02/17/23 Second Hand Smoke Exposure: Yes Use of substances other than those prescribed or required for medical reasons: No Advance Directives: No (Pt would like to wait to discuss tomorrow once his GF comes) Advance Directives Information Provided: No service: No Current occupational status: retired Cognitive needs: No Hearing needs: No Vision needs: Yes Meds Allergies Allergy/AdvReac Type Severity Reaction Status Date / Time cyclobenzaprine Allergy Intermediate inadequate Verified 02/17/23 16:37 response morphine Allergy Intermediate urinary Verified 02/17/23 16:37 retention Active Medications: Current Medications Pharmacy Consult (Consult Rx Perform Med Rec) 1 each MISCELLANE ONCE PRN PRN Reason: Consult order Home Medications Medication Instructions Recorded Confirmed Last Taken Type dulaglutide 1.5 mg/0.5 mL 1.5 mg subcut TH 02/17/23 02/17/23 Unknown History subcutaneous pen injector (Trulicity) terazosin 10 mg capsule 10 mg PO BEDTIME 02/17/23 02/17/23 Unknown History Physical Exam Vital Signs and Narrative: Vital Signs: Last Vital Signs Temp 98.4 F 02/17/23 20:00 Pulse 70 02/17/23 20:14 Resp 16 02/17/23 20:00 BP 105/67 02/17/23 20:14 Pulse Ox 94 02/17/23 20:00 O2 Del Method Room Air 02/17/23 20:00 O2 Flow Rate 1 02/17/23 16:56 BMI result Body Mass Index 32.9 Const: General: cooperative and no acute distress Orientation/consciousness: patient oriented x3 Eyes: General: appearance normal, both eyes and all related structures Resp: Effort & Inspection: normal respiratory effort Auscultation: clear to auscultation bilaterally Cardio: Rate: regular rate Rhythm: regular rhythm GI: Palpation (GI): Soft to palpation Auscultation: normal bowel sounds Skin: General skin exam: no rashes or lesions noted Neuro: General: patient oriented x3 Cognition (Neuro): normal cognition Extrem: General: Yes normal to inspection and Yes no pedal edema Results Labs 02/17/23 16:39 02/17/23 16:59 Labs: Laboratory Results - last 24 hr 02/17/23 02/17/23 02/17/23 16:35 16:37 16:39 MCV 90.6 MCH 30.0 MCHC 33.1 RDW 14.6 Plt Count 205 MPV 10.2 Immature Gran % (Auto) 0.4 Neut % (Auto) 66.5 Lymph % (Auto) 26.6 [place] % (Auto) 5.2 Eos % (Auto) 0.8 Baso % (Auto) 0.5 Lymph # (Auto) 2.9 [place] # (Auto) 0.6 Eos # (Auto) 0.1 Baso # (Auto) 0.1 Abs Immat Gran (auto) 0.04 H Absolute Neuts (auto) 7.2 Absolute Nucleated RBC 0.000 Nucleated RBC % (auto) 0.0 PT INR APTT D-Dimer High Sensitivty Anion Gap Estim Creat Clear Calc Estimated GFR POC Glucose 138 H Random Glucose Lactic Acid 1.6 Calcium Magnesium Total Bilirubin AST ALT Alkaline Phosphatase Troponin I High Sens B-Natriuretic Peptide Total Protein Albumin Lipase TSH Ethyl Alcohol COVID-19 ([facility]) COVIDDocuSpeak Blood Type Antibody Screen 02/17/23 02/17/23 02/17/23 16:39 16:39 16:39 MCV MCH MCHC RDW Plt Count MPV Immature Gran % (Auto) Neut % (Auto) Lymph % (Auto) [place] % (Auto) Eos % (Auto) Baso % (Auto) Lymph # (Auto) [place] # (Auto) Eos # (Auto) Baso # (Auto) Abs Immat Gran (auto) Absolute Neuts (auto) Absolute Nucleated RBC Nucleated RBC % (auto) PT 13.5 H INR 1.2 H APTT 27.7 D-Dimer High Sensitivty Anion Gap Estim Creat Clear Calc Estimated GFR POC Glucose Random Glucose Lactic Acid Calcium Magnesium 1.3 L* Total Bilirubin AST ALT Alkaline Phosphatase Troponin I High Sens 5.6 B-Natriuretic Peptide Total Protein Albumin Lipase TSH Ethyl Alcohol COVID-19 ([facility]) COVIDDocuSpeak Blood Type Antibody Screen 02/17/23 02/17/23 02/17/23 16:39 16:39 16:39 MCV MCH MCHC RDW Plt Count MPV Immature Gran % (Auto) Neut % (Auto) Lymph % (Auto) [place] % (Auto) Eos % (Auto) Baso % (Auto) Lymph # (Auto) [place] # (Auto) Eos # (Auto) Baso # (Auto) Abs Immat Gran (auto) Absolute Neuts (auto) Absolute Nucleated RBC Nucleated RBC % (auto) PT INR APTT D-Dimer High Sensitivty Anion Gap Estim Creat Clear Calc Estimated GFR POC Glucose Random Glucose Lactic Acid Calcium Magnesium Total Bilirubin AST ALT Alkaline Phosphatase Troponin I High Sens B-Natriuretic Peptide 71 Total Protein Albumin Lipase TSH 0.36 Ethyl Alcohol COVID-19 ([facility]) Negative COVID-19 Site Lock Com See Note Blood Type Antibody Screen 02/17/23 02/17/23 02/17/23 16:59 16:59 16:59 MCV MCH MCHC RDW Plt Count MPV Immature Gran % (Auto) Neut % (Auto) Lymph % (Auto) [place] % (Auto) Eos % (Auto) Baso % (Auto) Lymph # (Auto) [place] # (Auto) Eos # (Auto) Baso # (Auto) Abs Immat Gran (auto) Absolute Neuts (auto) Absolute Nucleated RBC Nucleated RBC % (auto) PT INR APTT D-Dimer High Sensitivty < 150 Anion Gap 12 Estim Creat Clear Calc 85.0 Estimated GFR > 60 POC Glucose Random Glucose 128 H Lactic Acid Calcium 9.4 Magnesium Total Bilirubin 0.5 AST 17 ALT 17 Alkaline Phosphatase 39 Troponin I High Sens B-Natriuretic Peptide Total Protein 5.9 L Albumin 3.3 L Lipase 34 TSH Ethyl Alcohol < 10 COVID-19 ([facility]) COVID-19 Site Lock Com Blood Type A Positive Antibody Screen NEGATIVE 02/17/23 20:22 MCV MCH MCHC RDW Plt Count MPV Immature Gran % (Auto) Neut % (Auto) Lymph % (Auto) [place] % (Auto) Eos % (Auto) Baso % (Auto) Lymph # (Auto) [place] # (Auto) Eos # (Auto) Baso # (Auto) Abs Immat Gran (auto) Absolute Neuts (auto) Absolute Nucleated RBC Nucleated RBC % (auto) PT INR APTT D-Dimer High Sensitivty Anion Gap Estim Creat Clear Calc Estimated GFR POC Glucose 140 H Random Glucose Lactic Acid Calcium Magnesium Total Bilirubin AST ALT Alkaline Phosphatase Troponin I High Sens B-Natriuretic Peptide Total Protein Albumin Lipase TSH Ethyl Alcohol COVID-19 ([facility]) COVID-19 Clin Com Blood Type Antibody Screen Imaging Radiologist's Impressions: Impressions Chest X-Ray 02/17/23 17:24 IMPRESSION: Hyperinflated lungs likely emphysematous disease with mild increase interstitial markings likely chronic. The findings are stable to several chest x-rays and CT the last being 03/15/2022. There is no acute consolidation or pleural effusion. Assessment and Plan (1) Near syncope: Status: Acute (2) Aortic stenosis: Status: Acute (3) Orthostatic hypotension: Status: Acute Plan 67-year-old male with past medical history of severe aortic stenosis planned for surgical intervention in February she presents with for near syncope and hypotension # near syncope - pre secondary to orthostatic hypotension versus aortic stenosis - treated with IV fluids - will place on IV fluid - repeat orthostatic vitals before discharge - given his severe aortic stenosis patient is very sensitive to volume depletion # orthostatic hypotension - unclear etiology - does not appear to be dehydrated - will hold lisinopril, continue metoprolol - re-evaluate prior to discharge # diabetes - hold oral antihyperglycemics - placed on low-dose sliding scale insulin - diabetic diet # hypotension - not due to sepsis - no evidence of infection - likely secondary to dehydration - resolved with IV fluids - hold lisinopril - monitor # hyperlipidemia - continue statin # history of CAD - continue aspirin, Plavix DVT prophylaxis: Early ambulation Time Spent With Patient Time: Total time managing care of this patient today ____ minutes. Quality Stroke Does the patient have a stroke diagnosis?: No VTE Prior VTE?: No VTE Risk Level:: Medical - low VTE Device Contraindication: Treatment Not Indicated VTE Drug Contraindication: N/A - Med Ordered
[2023-02-17 21:04] LABS: Amphetamine Screen Urine Not Detected (Not Detect); Barbiturates, Urine Not Detected (Not Detect); Benzodiazepines Screen Urine Not Detected (Not Detect); Cannabinoid Screen Urine Not Detected (Not Detect); Cocaine Screen Urine Not Detected (Not Detect); Fentanyl, urine Not Detected (Not Detect); Opiate Screen Urine Not Detected (Not Detect); Phencyclidine Screen Urine Not Detected (Not Detect)
[2023-02-17 21:12] LABS: Magnesium 1.8 mg/dL (1.6-2.6)
[2023-02-17 21:19] LABS: Troponin-I High Sensitivity 2.9 ng/L (<3.5-35.0)
--- NOTE | 2023-02-17 21:21 | PHA.MEDREC ---
Pharmacy Consult ? Medication Reconciliation Pharmacy has completed the medication reconciliation. Patient confirmed all medications. Yumiko Berman, JonnieD
[2023-02-17 21:33] LABS: Appearance Urine Clear; Color Urine Yellow; Glucose Urine UA >=1000 mg/dL (Negative); Leukocyte Esterase Urine Negative (Negative); Nitrite Urine Negative (Negative); UMIC TRIGGER UACC YES; Urine Blood Negative (Negative); Urine Ketones Negative (Negative); Urine Protein Negative (Neg-Trace)
[2023-02-17] MEDS: polyethylene glycoL 3350 17 GM POWD.PACK PO (21:43)
[2023-02-17 21:45] LABS: Bacteria Urine None Seen (None Seen); Hyaline Casts Urine 0-2 /LPF (0-2); RBC Urine 0-2 /HPF (0-2); Squamous Epithelial Cell Urine 0-2 /HPF (0-2); WBC Urine 0-5 /HPF (0-5)
--- NOTE | 2023-02-17 22:45 | PC.NURSE ---
patient report was given to darrell the receiving nurse patient will continue to be monitored for safety
[2023-02-17] MEDS: 0.9 % Sodium Chloride Flush 3 ML SYRINGE IVFLUSH (23:52)
[2023-02-18] VITALS (9 sets, daily range): BP systolic 125–148; BP diastolic 65–85; PULSE 71–87; RESP 18–20; TEMP 36.8–37.3; O2SAT 92–93
[2023-02-18] MEDS: Lactated Ringers 1,000 ML 100 ML IVCONT (06:23)
[2023-02-18 06:49] LABS: Alanine Aminotransferase 20 U/L (0-40); Albumin Level 3.7 g/dL (3.5-5.0); Alkaline Phosphatase 48 U/L (39-117); Anion Gap 13 (12-20); Aspartate Amino Transferase 19 U/L (5-37); Bilirubin Total 0.5 mg/dL (0.0-1.0); Blood Urea Nitrogen 12 mg/dL (9-16); Calcium 10.2 mg/dL (8.4-10.2); Carbon Dioxide 23 mmol/L (22-29); Chloride 107 mmol/L (96-108); Creatinine Clr Calc Pharmacy 95.4; Estimated Glomerular Filt Rate > 60; Glucose Random 113 mg/dL (60-115); Potassium 4.3 mmol/L (3.3-5.1); Sodium 139 mmol/L (135-145); Total Protein 7.2 g/dL (6.5-8.0)
[2023-02-18 06:50] LABS: Magnesium 1.6 mg/dL (1.6-2.6)
[2023-02-18] MEDS: Omeprazole 20 MG CAPSULE.DR PO (08:06)
[2023-02-18] MEDS: Magnesium Oxide 400 MG TABLET PO (08:06)
[2023-02-18] MEDS: Clopidogrel Bisulfate 75 MG TABLET PO (08:06)
[2023-02-18] MEDS: Atorvastatin Calcium 80 MG TABLET PO (08:06)
[2023-02-18] MEDS: Aspirin Enteric Coated 81 MG TABLET.DR PO (08:06)
[2023-02-18] MEDS: Metoprolol Succinate ER 25 MG TAB.ER.24H PO (08:06)
[2023-02-18] MEDS: polyethylene glycoL 3350 17 GM POWD.PACK PO (08:06)
[2023-02-18] MEDS: Cholecalciferol (Vitamin D3) 25 MCG TABLET PO (08:06)
--- NOTE | 2023-02-18 09:02 | MHC.CM.PN ---
CM met with Patient at bedside with the assist of a Guidance Counselor and addressed HERNANDEZ with Patient (original was given to him and a copy has been placed on the chart). 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 Home/self care vs new VNA is the goal and CM has initiated and will follow for dc planning. Patient's Girlfriend is his HCP and his PCP is Dr. Angela Franco. Patient is tita william.
[2023-02-18 10:54] LABS: Glucose, Whole Blood 108 mg/dL (60-115)
[2023-02-18 11:06] LABS: Glucose, Whole Blood 78 mg/dL (60-115)
--- NOTE | 2023-02-18 12:50 | PM.DS ---
DS: Providers Provider Date of Service: 02/18/23 Date of admission: 02/17/23 20:59 Primary care physician: Angela Nava MD DS: Diagnosis Discharge Diagnosis (1) Near syncope: Status: Acute (2) Aortic stenosis: Status: Acute (3) Orthostatic hypotension: Status: Acute DS: Summary Hospital Course Hospital Course: Date of Service: 02/17/23 Chief Complaint: Near syncope, dizziness Occitan-speaking, history is obtained with the help of an rosin barrel filler ?67-year-old male past medical history of aortic stenosis plan for surgery in February, type 2 diabetes, COPD, HTN, HLD, presents the hospital with complaints of near syncopal episode and feeling very dizzy.? Patient reports that every time he stood or walked he started feeling very dizzy and lightheaded and passed it he denied head chest pain, no palpitations shortness of breath.? Had no nausea or vomiting, no diarrhea constipation, no urinary symptoms and no lower extremity edema.? Reports eating and drinking well, no recent outside or yd work, and no evidence of dehydration.? On arrival to the ED patient noted to have a blood pressure in the 60s over 40s, with significantly positive orthostatic vitals.? Patient given IV fluids with improvement his blood pressure.? Labs are significant for WBC count of 10.9, magnesium of 1.3, labs otherwise unremarkable Chest x-ray negative hospital course: 67-year-old male with past medical history of severe aortic stenosis planned for surgical intervention in February she presents with for near syncope and hypotension # near syncope likely secondary to orthostatic hypotension patient treated with IV fluids repeat orthostatic blood pressures have normalized, given his severe aortic stenosis patient is very sensitive to volume depletion, recommend to discontinue metoprolol and follow-up with PCP and Cardiology as outpatient. # diabetes type 2 now on insulin continue home medications follow blood sugars and adjust dose of medication if noted to have low blood sugars. # history of CAD - continue aspirin, Plavix and statins # hypo magnesemia repleted and normalized. Time Spent with Patient Time attestation: Total time managing care of this patient today ____ minutes. Discharge coordination time: Greater than 30 minutes Quality: Safe Use of Opioids Does Pt have an Active Cancer Diagnosis on the Problem List?: No Quality: Stroke Does the patient have a stroke diagnosis?: No Physical Exam Vital Signs: Vital Signs: Last Vital Signs Temp 98.3 F 02/18/23 11:15 Pulse 87 02/18/23 12:14 Resp 20 02/18/23 11:15 BP 125/71 02/18/23 12:14 Pulse Ox 93 02/18/23 11:15 O2 Del Method Room Air 02/18/23 11:15 O2 Flow Rate 1 02/17/23 16:56 BMI result Body Mass Index 29.6 Const: Other: General awake alert x3, sitting comfortably in no acute distress. Neck is supple no JVD. CVS regular rate rhythm, systolic murmur left sternal border Respiratory lungs clear to auscultation, no respiratory distress, no wheeze, no rhonchi. Gastrointestinal abdomen soft, nontender, bowel sounds audible, no guarding , no rigidity. Extremities no edema. Neuro nonfocal Skin no rash psych appropriate affect DS: Data Data Completed and Pending Labs on day of discharge: Laboratory Results - last 24 hr 02/17/23 02/17/23 02/17/23 16:35 16:37 16:39 WBC 10.9 H RBC 4.90 Hgb 14.7 Hct 44.4 MCV 90.6 MCH 30.0 MCHC 33.1 RDW 14.6 Plt Count 205 MPV 10.2 Immature Gran % (Auto) 0.4 Neut % (Auto) 66.5 Lymph % (Auto) 26.6 [place] % (Auto) 5.2 Eos % (Auto) 0.8 Baso % (Auto) 0.5 Lymph # (Auto) 2.9 [place] # (Auto) 0.6 Eos # (Auto) 0.1 Baso # (Auto) 0.1 Abs Immat Gran (auto) 0.04 H Absolute Neuts (auto) 7.2 Absolute Nucleated RBC 0.000 Nucleated RBC % (auto) 0.0 PT INR APTT D-Dimer High Sensitivty Sodium Potassium Chloride Carbon Dioxide Anion Gap BUN Creatinine Estim Creat Clear Calc Estimated GFR POC Glucose 138 H Random Glucose Lactic Acid 1.6 Calcium Magnesium Total Bilirubin AST ALT Alkaline Phosphatase Troponin I High Sens B-Natriuretic Peptide Total Protein Albumin Lipase TSH Urine Color Urine Appearance Urine pH Ur Specific [place] Urine Protein Urine Glucose (UA) Urine Ketones Urine Blood Urine Nitrite Ur Leukocyte Esterase Urine RBC Urine WBC Ur Squamous Epith Cells Urine Bacteria Hyaline Casts Urine Opiates Screen Urine Fentanyl Screen Ur Barbiturates Screen Ur Phencyclidine Scrn Ur Amphetamines Screen U Benzodiazepines Scrn Urine Cocaine Screen U Marijuana (THC) Screen Ethyl Alcohol COVID-19 ([facility]) COVID-19 [employer] Blood Type Antibody Screen 02/17/23 02/17/23 02/17/23 16:39 16:39 16:39 WBC RBC Hgb Hct MCV MCH MCHC RDW Plt Count MPV Immature Gran % (Auto) Neut % (Auto) Lymph % (Auto) [place] % (Auto) Eos % (Auto) Baso % (Auto) Lymph # (Auto) [place] # (Auto) Eos # (Auto) Baso # (Auto) Abs Immat Gran (auto) Absolute Neuts (auto) Absolute Nucleated RBC Nucleated RBC % (auto) PT 13.5 H INR 1.2 H APTT 27.7 D-Dimer High Sensitivty Sodium Potassium Chloride Carbon Dioxide Anion Gap BUN Creatinine Estim Creat Clear Calc Estimated GFR POC Glucose Random Glucose Lactic Acid Calcium Magnesium 1.3 L* Total Bilirubin AST ALT Alkaline Phosphatase Troponin I High Sens 5.6 B-Natriuretic Peptide Total Protein Albumin Lipase TSH Urine Color Urine Appearance Urine pH Ur Specific [place] Urine Protein Urine Glucose (UA) Urine Ketones Urine Blood Urine Nitrite Ur Leukocyte Esterase Urine RBC Urine WBC Ur Squamous Epith Cells Urine Bacteria Hyaline Casts Urine Opiates Screen Urine Fentanyl Screen Ur Barbiturates Screen Ur Phencyclidine Scrn Ur Amphetamines Screen U Benzodiazepines Scrn Urine Cocaine Screen U Marijuana (THC) Screen Ethyl Alcohol COVID-19 ([facility]) COVID-19 [employer] Blood Type Antibody Screen 02/17/23 02/17/23 02/17/23 16:39 16:39 16:39 WBC RBC Hgb Hct MCV MCH MCHC RDW Plt Count MPV Immature Gran % (Auto) Neut % (Auto) Lymph % (Auto) [place] % (Auto) Eos % (Auto) Baso % (Auto) Lymph # (Auto) [place] # (Auto) Eos # (Auto) Baso # (Auto) Abs Immat Gran (auto) Absolute Neuts (auto) Absolute Nucleated RBC Nucleated RBC % (auto) PT INR APTT D-Dimer High Sensitivty Sodium Potassium Chloride Carbon Dioxide Anion Gap BUN Creatinine Estim Creat Clear Calc Estimated GFR POC Glucose Random Glucose Lactic Acid Calcium Magnesium Total Bilirubin AST ALT Alkaline Phosphatase Troponin I High Sens B-Natriuretic Peptide 71 Total Protein Albumin Lipase TSH 0.36 Urine Color Urine Appearance Urine pH Ur Specific [place] Urine Protein Urine Glucose (UA) Urine Ketones Urine Blood Urine Nitrite Ur Leukocyte Esterase Urine RBC Urine WBC Ur Squamous Epith Cells Urine Bacteria Hyaline Casts Urine Opiates Screen Urine Fentanyl Screen Ur Barbiturates Screen Ur Phencyclidine Scrn Ur Amphetamines Screen U Benzodiazepines Scrn Urine Cocaine Screen U Marijuana (THC) Screen Ethyl Alcohol COVID-19 ([facility]) Negative COVID-19 Clin Com See Note Blood Type Antibody Screen 02/17/23 02/17/23 02/17/23 16:59 16:59 16:59 WBC RBC Hgb Hct MCV MCH MCHC RDW Plt Count MPV Immature Gran % (Auto) Neut % (Auto) Lymph % (Auto) [place] % (Auto) Eos % (Auto) Baso % (Auto) Lymph # (Auto) [place] # (Auto) Eos # (Auto) Baso # (Auto) Abs Immat Gran (auto) Absolute Neuts (auto) Absolute Nucleated RBC Nucleated RBC % (auto) PT INR APTT D-Dimer High Sensitivty < 150 Sodium 138 Potassium 3.2 L D Chloride 106 Carbon Dioxide 23 Anion Gap 12 BUN 16 Creatinine 0.78 Estim Creat Clear Calc 85.0 Estimated GFR > 60 POC Glucose Random Glucose 128 H Lactic Acid Calcium 9.4 Magnesium Total Bilirubin 0.5 AST 17 ALT 17 Alkaline Phosphatase 39 Troponin I High Sens B-Natriuretic Peptide Total Protein 5.9 L Albumin 3.3 L Lipase 34 TSH Urine Color Urine Appearance Urine pH Ur Specific [place] Urine Protein Urine Glucose (UA) Urine Ketones Urine Blood Urine Nitrite Ur Leukocyte Esterase Urine RBC Urine WBC Ur Squamous Epith Cells Urine Bacteria Hyaline Casts Urine Opiates Screen Urine Fentanyl Screen Ur Barbiturates Screen Ur Phencyclidine Scrn Ur Amphetamines Screen U Benzodiazepines Scrn Urine Cocaine Screen U Marijuana (THC) Screen Ethyl Alcohol < 10 COVID-19 ([facility]) COVID-19 Clin Com Blood Type A Positive Antibody Screen NEGATIVE 02/17/23 02/17/23 02/17/23 20:22 20:44 20:44 WBC RBC Hgb Hct MCV MCH MCHC RDW Plt Count MPV Immature Gran % (Auto) Neut % (Auto) Lymph % (Auto) [place] % (Auto) Eos % (Auto) Baso % (Auto) Lymph # (Auto) [place] # (Auto) Eos # (Auto) Baso # (Auto) Abs Immat Gran (auto) Absolute Neuts (auto) Absolute Nucleated RBC Nucleated RBC % (auto) PT INR APTT D-Dimer High Sensitivty Sodium Potassium Chloride Carbon Dioxide Anion Gap BUN Creatinine Estim Creat Clear Calc Estimated GFR POC Glucose 140 H Random Glucose Lactic Acid Calcium Magnesium Total Bilirubin AST ALT Alkaline Phosphatase Troponin I High Sens B-Natriuretic Peptide Total Protein Albumin Lipase TSH Urine Color Yellow Urine Appearance Clear Urine pH 7.0 Ur Specific [place] 1.010 Urine Protein Negative Urine Glucose (UA) >=1000 H Urine Ketones Negative Urine Blood Negative Urine Nitrite Negative Ur Leukocyte Esterase Negative Urine RBC 0-2 Urine WBC 0-5 Ur Squamous Epith Cells 0-2 Urine Bacteria None Seen Hyaline Casts 0-2 Urine Opiates Screen Not Detected Urine Fentanyl Screen Not Detected Ur Barbiturates Screen Not Detected Ur Phencyclidine Scrn Not Detected Ur Amphetamines Screen Not Detected U Benzodiazepines Scrn Not Detected Urine Cocaine Screen Not Detected U Marijuana (THC) Screen Not Detected Ethyl Alcohol COVID-19 ([facility]) COVID-19 Clin Com Blood Type Antibody Screen 02/17/23 02/17/23 02/18/23 20:44 20:44 06:21 WBC RBC Hgb Hct MCV MCH MCHC RDW Plt Count MPV Immature Gran % (Auto) Neut % (Auto) Lymph % (Auto) [place] % (Auto) Eos % (Auto) Baso % (Auto) Lymph # (Auto) [place] # (Auto) Eos # (Auto) Baso # (Auto) Abs Immat Gran (auto) Absolute Neuts (auto) Absolute Nucleated RBC Nucleated RBC % (auto) PT INR APTT D-Dimer High Sensitivty Sodium 139 Potassium 4.3 D Chloride 107 Carbon Dioxide 23 Anion Gap 13 BUN 12 Creatinine 0.76 Estim Creat Clear Calc 95.4 Estimated GFR > 60 POC Glucose Random Glucose 113 Lactic Acid Calcium 10.2 D Magnesium 1.8 Total Bilirubin 0.5 AST 19 ALT 20 Alkaline Phosphatase 48 Troponin I High Sens 2.9 B-Natriuretic Peptide Total Protein 7.2 Albumin 3.7 Lipase TSH Urine Color Urine Appearance Urine pH Ur Specific [place] Urine Protein Urine Glucose (UA) Urine Ketones Urine Blood Urine Nitrite Ur Leukocyte Esterase Urine RBC Urine WBC Ur Squamous Epith Cells Urine Bacteria Hyaline Casts Urine Opiates Screen Urine Fentanyl Screen Ur Barbiturates Screen Ur Phencyclidine Scrn Ur Amphetamines Screen U Benzodiazepines Scrn Urine Cocaine Screen U Marijuana (THC) Screen Ethyl Alcohol COVID-19 ([facility]) COVID-19 Clin Com Blood Type Antibody Screen 02/18/23 02/18/23 02/18/23 06:21 07:14 10:57 WBC RBC Hgb Hct MCV MCH MCHC RDW Plt Count MPV Immature Gran % (Auto) Neut % (Auto) Lymph % (Auto) [place] % (Auto) Eos % (Auto) Baso % (Auto) Lymph # (Auto) [place] # (Auto) Eos # (Auto) Baso # (Auto) Abs Immat Gran (auto) Absolute Neuts (auto) Absolute Nucleated RBC Nucleated RBC % (auto) PT INR APTT D-Dimer High Sensitivty Sodium Potassium Chloride Carbon Dioxide Anion Gap BUN Creatinine Estim Creat Clear Calc Estimated GFR POC Glucose 108 78 Random Glucose Lactic Acid Calcium Magnesium 1.6 Total Bilirubin AST ALT Alkaline Phosphatase Troponin I High Sens B-Natriuretic Peptide Total Protein Albumin Lipase TSH Urine Color Urine Appearance Urine pH Ur Specific [place] Urine Protein Urine Glucose (UA) Urine Ketones Urine Blood Urine Nitrite Ur Leukocyte Esterase Urine RBC Urine WBC Ur Squamous Epith Cells Urine Bacteria Hyaline Casts Urine Opiates Screen Urine Fentanyl Screen Ur Barbiturates Screen Ur Phencyclidine Scrn Ur Amphetamines Screen U Benzodiazepines Scrn Urine Cocaine Screen U Marijuana (THC) Screen Ethyl Alcohol COVID-19 ([facility]) COVID-19 Clin Com Blood Type Antibody Screen Discharge Plan Discharge Anticipated Discharge Date/Time: 02/18/23 12:42 Patient Disposition: Home, Self-Care Discharge Diagnosis: orthostatic hypotension Referrals: Angela Guzman MD [Primary Care Provider] - 1 Week Discharge Medications: Continued (DME) FreeStyle Test Strip See Rx Instructions .Route Qty: 100 3RF Rx Instructions: Use 1 test strip once a day budesonide-formoterol [Symbicort] 80-4.5 mcg/actuation HFA aerosol inhaler 2 puff inhalation BID 30 Days Qty: 10.2 6RF (DME) lancets [FreeStyle Lancets] 28 gauge misc See Rx Instructions .Route Qty: 100 3RF Rx Instructions: Use 1 lancet once a day metoprolol succinate 25 mg tablet extended release 24 hr 25 mg PO DAILY 90 Days Qty: 90 4RF omeprazole 20 mg capsule,delayed release(DR/EC) 20 mg PO DAILY Qty: 90 3RF (DME) Accu-Chek Carla Plus test strp Strip See Rx Instructions .Route Qty: 100 3RF Rx Instructions: Use 1 test strip once a day (DME) blood-glucose meter [Accu-Chek Carla Plus Meter] Misc See Rx Instructions .Route Qty: 1 0RF Rx Instructions: As directed (DME) lancets [Accu-Chek Softclix Lancets] Misc See Rx Instructions .Route Qty: 100 3RF Rx Instructions: Use 1 lancet once a day (DME) blood-glucose meter [Accu-Chek Guide Glucose Meter] Misc See Rx Instructions .Route Qty: 1 0RF Rx Instructions: As directed (DME) Accu-Chek Guide test strips Strip See Rx Instructions .Route Qty: 100 3RF Rx Instructions: Use 1 test strip once a day (DME) lancets [Accu-Chek Softclix Lancets] Mis See Rx Instructions .Route Qty: 100 3RF Rx Instructions: Use 1 lancet once a day aspirin 81 mg tablet,delayed release (DR/EC) 81 mg PO DAILY 90 Days Qty: 90 1RF clopidogrel 75 mg tablet 75 mg PO DAILY Qty: 90 3RF magnesium oxide 400 mg (241.3 mg magnesium) tablet 400 mg PO DAILY 90 Days Qty: 90 1RF zolpidem 10 mg tablet 10 mg PO BEDTIME 30 Days Qty: 30 0RF cholecalciferol (vitamin D3) 25 mcg (1,000 unit) capsule 25 mcg PO DAILY 90 Days Qty: 90 4RF atorvastatin 80 mg tablet 80 mg PO DAILY 90 Days Qty: 90 3RF oxycodone 10 mg tablet 10 mg PO Q6H PRN (Reason: pain) 30 Days Qty: 120 0RF tamsulosin 0.4 mg capsule 0.4 mg PO BEDTIME 90 Days Qty: 90 0RF Xigduo XR 5-1,000 mg tablet, IR - ER, biphasic 24hr 1 tab PO DAILY 90 Days Qty: 90 3RF pioglitazone 15 mg tablet 15 mg PO DAILY 90 Days Qty: 90 1RF terazosin 10 mg capsule 10 mg PO BEDTIME Trulicity 1.5 mg/0.5 mL pen injector 1.5 mg subcut TH (DME) blood-glucose meter [FreeStyle Lite Meter] Kit See Rx Instructions .Route Qty: 1 0RF Rx Instructions: tests 4 X/day Discontinued lisinopril 40 mg tablet 40 mg PO DAILY 90 Days Qty: 90 3RF Discharge Orders: Discharge Order (Routine); Ordered 02/18/23 Ordered By: Emperatriz Arriaga Diet: Diabetic diet Activity on Discharge: As tolerated Stand Alone Forms: Patient Portal Discharge page Care Plan Goals: stop lisinopril due to low blood pressures and dizziness minimize use of narcotics follow blood sugars if noted to have low blood sugars discuss home medications with PCP Health Concerns: aortic stenosis/diabetes mellitus Plan of Treatment: outpatient follow-up with PCP call for appointment. Assessment: as above
--- NOTE | 2023-02-18 13:01 | MHC.CM.PN ---
Patient has been medically cleared for dc to home today, self care.
== END 2023-02-18 14:03 | disposition home or self-care (01) ==
LOC: HO.ED 20:04 → HO.EDOVER 21:03 → HO.IMC 22:10
PROVIDERS: Physician Assistant; Admitting Provider Internal Medicine; Emergency Provider Emergency Medicine Emergency Medical Services; PCP Internal Medicine; Visit Provider Hospitalist
DX: I35.0 Nonrheumatic aortic (valve) stenosis (principal); I95.1 Orthostatic hypotension; E86.9 Volume depletion, unspecified; J44.9 Chronic obstructive pulmonary disease, unspecified; H53.8 Other visual disturbances; I10 Essential (primary) hypertension; I25.10 Atherosclerotic heart disease of native coronary artery without angina pectoris; N40.0 Benign prostatic hyperplasia without lower urinary tract symptoms; E78.5 Hyperlipidemia, unspecified; E11.9 Type 2 diabetes mellitus without complications; Z79.899 Other long term (current) drug therapy
CPT/HCPCS: 36415; 71045; 80053; 80307; 81001; 81003; 82947; 83605; 83690; 83735; 83880; 84443; 84484; 85025; 85379; 85610; 85730; 86850; 86900; 86901; 87040; 87635; 93005; 96361; 96365; 96366; 99222; 99285; J3475

== ENCOUNTER 2023-03-06 06:39 | Outpatient (REF) | payer OTHER, SELFPAY ==
[2023-03-06 07:59] LABS: Estimated Average Glucose 123 mg/dL; Hemoglobin A1c % 5.9 %
[2023-03-06 08:44] LABS: Alanine Aminotransferase 22 U/L (0-40); Albumin Level 3.9 g/dL (3.5-5.0); Alkaline Phosphatase 57 U/L (39-117); Anion Gap 13 (12-20); Aspartate Amino Transferase 18 U/L (5-37); Bilirubin Total 0.5 mg/dL (0.0-1.0); Blood Urea Nitrogen 15 mg/dL (9-16); Calcium 10.5 mg/dL (8.4-10.2); Carbon Dioxide 28 mmol/L (22-29); Chloride 102 mmol/L (96-108); Cholesterol 137 mg/dL; Estimated Glomerular Filt Rate > 60; Glucose Fasting 119 mg/dL (60-99); HDL Cholesterol 27 mg/dL; LDL Cholesterol Calculated 85 mg/dl; Magnesium 1.4 mg/dL (1.6-2.6); Potassium 3.9 mmol/L (3.3-5.1); Sodium 139 mmol/L (135-145); Total Protein 7.4 g/dL (6.5-8.0); Triglycerides 126 mg/dL
[2023-03-06 08:58] LABS: Vitamin D 25-OH Total 34.8 ng/mL (>30)
[2023-03-06 10:45] LABS: Creatinine Urine 105.85 mg/dL; Microalbum/Creatinine Ratio Ur 11.3 ug/mg cr
== END 2023-03-06 06:40 | disposition home or self-care (01) ==
LOC: HO.LAB 06:39
PROVIDERS: PCP Internal Medicine; Visit Provider Internal Medicine
DX: E78.5 Hyperlipidemia, unspecified (principal); I65.29 Occlusion and stenosis of unspecified carotid artery; E11.40 Type 2 diabetes mellitus with diabetic neuropathy, unspecified; E55.9 Vitamin D deficiency, unspecified
CPT/HCPCS: 36415; 80053; 80061; 82043; 82306; 83036; 83735

== ENCOUNTER 2023-03-10 13:31 | Outpatient (AMB) | payer OTHER, MEDICAID, SELFPAY ==
--- NOTE | 2023-03-10 13:55 | A.OFFPC_ITS ---
Vital Signs 03/10/23 13:56 Height 5 ft 6 in Weight 181 lb BMI 29.2 BP 118/80 Blood Pressure Location Lt brachial Position Sitting Intake Visit Reasons: dm Intake Note: Patient here for a follow up DM Bull Bucker Required: No Accompanied by: Self / Same As Patient Allergies cyclobenzaprine Allergy (Intermediate, Verified 03/10/23 14:18) inadequate response morphine Allergy (Intermediate, Verified 03/10/23 14:18) urinary retention Medication List - Last Reconciled 03/10/23 by Angela Nava MD aspirin 81 mg PO DAILY 90 days atorvastatin 80 mg PO DAILY 90 days blood sugar diagnostic (FreeStyle Test strips) Use 1 test strip once a day blood sugar diagnostic (Accu-Chek Carla Plus test strips) Use 1 test strip once a day blood sugar diagnostic (Accu-Chek Guide test strips) Use 1 test strip once a day blood-glucose meter (Accu-Chek Carla Plus Meter) As directed blood-glucose meter (Accu-Chek Guide Glucose Meter) As directed blood-glucose meter (FreeStyle Lite Meter kit) tests 4 X/day budesonide-formoterol 80-4.5 mcg/actuation (Symbicort) 2 puffs inhalation BID 30 days cholecalciferol (vitamin D3) 25 mcg PO DAILY 90 days clopidogrel 75 mg PO DAILY dapagliflozin-metformin 5-1,000 mg ER (Xigduo XR) 1 tab PO DAILY 90 days dulaglutide (Trulicity) 1.5 mg subcut TH famotidine 40 mg PO DAILY 90 days lancets (Accu-Chek Softclix Lancets) Use 1 lancet once a day lancets (Accu-Chek Softclix Lancets) Use 1 lancet once a day lancets (FreeStyle Lancets) Use 1 lancet once a day magnesium oxide 400 mg PO DAILY 90 days metoprolol succinate ER 25 mg PO DAILY 90 days oxycodone 10 mg PO Q6H PRN 30 days pioglitazone 15 mg PO DAILY 90 days tamsulosin 0.4 mg PO BEDTIME 90 days terazosin 10 mg PO BEDTIME zolpidem 10 mg PO BEDTIME 30 days Tobacco use date assessed: 11/06/22 Fall risk assessment: No Falls in past year Last assessed Fall Risk: 03/10/23 Dental Screening Dental Screen Date: 03/10/23 Did you have a dental visit in the last 12 months?: No Did you have a dental problem in the last 6 months where you did not have access to dental care?: No Was dental information given to patient?: Patient declined HPI HPI Comments History of Present Illness Details This is a 67-year-old male with diabetes mellitus type 2, hy perlipidemia, COPD, chronic GERD and hypomagnesemia that comes today for follow- up on his conditions. Blood glucose well control. LDL close to goal. COPD stable with Symbicort and use rescue inhaler as needed about once a month. Has low magnesium and this is why I will replace omeprazole with famotidine for his GERD. Denies any symptoms such as tachycardia, did any and seizures. Will continue magnesium supplement and magnesium will be repeated in about month. Also has elevated calcium that will also be repeated. [facility] Medical History Aortic stenosis Aortic stenosis BPH (benign prostatic hyperplasia) Chronic left shoulder pain COPD (chronic obstructive pulmonary disease) Coronary artery disease Cough Essential hypertension GERD (gastroesophageal reflux disease) History of CVA (cerebrovascular accident) (~2017) Hypercalcemia Hyperlipidemia LDL goal <100 Hypertensive retinopathy of both eyes Hypovitaminosis D Inguinal hernia, left Insomnia Left shoulder pain Low serum parathyroid hormone (PTH) Neck pain Type 2 diabetes mellitus with hyperglycemia Surgical History History of cardiac cath History of colonoscopy History of left inguinal hernia repair (~2018) History of right inguinal hernia repair (~1993) History of squamous cell carcinoma excision (~2010) History of surgery on arm (~1995) Family History Father Prostate cancer Mother No problems noted. Brother No problems noted. Sister No problems noted. Son No problems noted. Social History Household Members: Spouse Household Members Other:: sometimes lives with patient Housing: Apartment Alcohol intake: never Patient Tobacco Use Status: Current everyday Tobacco user Tobacco use type: Cigarette Cigarette Packs Per Day: 1.5 Cigarettes Per Day: 20 Years Smoked: (onset 13yo, 1ppd x 53yrs, 50pyh) e-Cigarette/Vaping Use: Never Used Second Hand Smoke Exposure: Yes service: No Current occupational status: retired Cognitive needs: No Hearing needs: No Vision needs: Yes Questionnaire Thrive Questionnaire Date Thrive assessed: 02/18/23 EARNESTINE-7 AMB Questionnaire EARNESTINE-7 Date EARNESTINE - 7 assessed: 11/06/22 Source: Developed by Drs. Lenard Donald, Dina Lopez, Phil Law and colleagues, with an educational stan from [employer]. Review of Systems Const All systems reviewed & are unremarkable except as noted in HPI and below Eyes Reports no additional complaints, Denies change in vision and Denies other visual disturbances Card Denies chest pain at rest, Denies chest pain with activity, Denies edema, Denies irregular heart rhythm, Denies claudication, Denies dyspnea, Denies dyspnea on exertion, Denies orthopnea, Denies paroxysmal nocturnal dyspnea and Denies slow heart rate Resp Denies cough, Denies dyspnea and Denies dyspnea on exertion GI Denies abdominal pain, Denies change in bowel habits, Denies excessive flatus, Denies nausea and Denies vomiting Denies urinary hesitancy, Denies urinary incontinence and Denies urinary urgency Musc Denies abnormal gait, Denies atrophy, Denies deformity and Denies limited range of motion Skin/Breast Denies bleeding lesions, Denies changing lesions and Denies rash Neuro Denies abnormal gait and Denies lack of coordination Physical exam (Primary Care) Vital Signs: Last Vital Signs BP 118/80 03/10/23 13:56 BMI result Body Mass Index 29.2 Tobacco/Smoking Status: Tobacco use Status Tobacco use date assessed 11/06/22 03/10/23 14:00 Patient Tobacco Use Status Current everyday Tobacco 03/10/23 14:00 Tobacco use type Cigarette 03/10/23 14:00 e-Cigarette/Vaping Use Never Used 03/10/23 14:00 Thrive Assessment: Date of Thrive Assessment Date Thrive assessed 02/18/23 03/10/23 14:00 Eyes General: appearance normal, both eyes and all related structures Eyelids: Yes eyelids normal Conjunctivae: conjunctivae normal Neck Neck: Yes normal visual inspection and Yes supple Resp Effort & Inspection: normal respiratory effort Auscultation: clear to auscultation bilaterally Cardio Jugular venous distension: no JVD Rate: regular rate Rhythm: regular rhythm Heart sounds: S1 normal heart sound present and S2 normal heart sound present Extrem General: Yes full ROM Assessment and Plan Assessment & Plan (1) Diabetes mellitus, controlled: Code(s): E11.9 - Type 2 diabetes mellitus without complications Plan: Continue Trulicity and Xigduo. A1c goal is equal or less than 7%. (2) Hyperlipidemia LDL goal <70: Code(s): E78.5 - Hyperlipidemia, unspecified Plan: Continue statins. LDL goal should be less than 70. (3) Hypomagnesemia: Code(s): E83.42 - Hypomagnesemia Plan: Continue magnesium supplements. Discontinue omeprazole. (4) COPD (chronic obstructive pulmonary disease): Comment: Pulmonary function test is basically normal except for decreased DLCO.( sec to Emphysematous changes ) (TX : Use Symbicort 80-4.5 2 puffs b.i.d. but only p.r.n.. Code(s): J44.9 - Chronic obstructive pulmonary disease, unspecified Qualifiers: COPD type: unspecified COPD Qualified Code(s): J44.9 - Chronic obstructive pulmonary disease, unspecified Plan: Continue Symbicort. Use rescue inhaler as needed. (5) GERD (gastroesophageal reflux disease): Code(s): K21.9 - Gastro-esophageal reflux disease without esophagitis Qualifiers: Esophagitis presence: esophagitis presence not specified Qualified Code(s): K21.9 - Gastro-esophageal reflux disease without esophagitis Plan: Discontinue omeprazole. Start famotidine. Orders: Orders Creatinine Today E83.42 - Hypomagnesemia Magnesium, Random Urine Today E83.42 - Hypomagnesemia Medications: Discontinued dulaglutide 1.5 mg (0.5 mL) subcut QWEEK 2 mL 4RF Coding Level of Care Code Est Pt Level 4 (53469) Diagnoses Diabetes mellitus, controlled E11.9 Hyperlipidemia LDL goal <70 E78.5 Hypomagnesemia E83.42 COPD (chronic obstructive pulmonary disease) J44.9 COPD type: unspecified COPD GERD (gastroesophageal reflux disease) K21.9 Esophagitis presence: esophagitis presence not specified Time Spent (min) 24
[2023-03-10 13:56] VITALS: BP 118/80; BMI 29.2
== END 2023-03-10 14:35 | disposition home or self-care (01) ==
PROVIDERS: PCP Internal Medicine; Visit Provider Internal Medicine
DX: E11.9 Type 2 diabetes mellitus without complications (principal); E83.42 Hypomagnesemia; J44.9 Chronic obstructive pulmonary disease, unspecified; K21.9 Gastro-esophageal reflux disease without esophagitis; E78.5 Hyperlipidemia, unspecified
CPT/HCPCS: 99214

== ENCOUNTER 2023-03-11 09:44 | Outpatient (REF) | payer OTHER, SELFPAY ==
--- NOTE | ~2023-03-11 | US_ITS ---
EXAMINATION: US EXTRACRANIAL CAROTID DUPLEX, BILATERAL CLINICAL INFORMATION: Carotid occlusion and stenosis. COMPARISON: Carotid ultrasound 08/02/2022. TECHNIQUE: Real-time ultrasound and Doppler techniques (integrating B-mode 2-D vascular images, Doppler spectral analysis and color-flow Doppler imaging) were utilized to interrogate the extracranial carotid arteries, the vertebral arteries and proximal subclavian arteries bilaterally. The degree of stenosis is determined by criteria similar to NASCET. FINDINGS: RIGHT SIDE: There is moderate atherosclerotic plaque seen in the bifurcation/proximal ICA region. The common carotid artery PSV proximally is 53 cm/s and distally 69 cm/s. The proximal internal carotid artery velocities are 136 cm/s systolic and 47 cm/s diastolic. The proximal external carotid artery PSV is 101 cm/s. The vertebral artery shows antegrade flow. The subclavian artery waveforms are normal. LEFT SIDE: There is mild atherosclerotic plaque seen in the bifurcation/proximal ICA region. The common carotid artery PSV proximally is 84 cm/s and distally 75 cm/s. The proximal internal carotid artery velocities are 61 cm/s systolic and 27 cm/s diastolic. The proximal external carotid artery PSV is 104 cm/s. The vertebral artery shows antegrade flow. The subclavian artery waveforms are normal. US/US carotid duplex BI IMPRESSION: 1. RIGHT: Moderate, hemodynamically significant stenosis of the proximal right internal carotid artery corresponding to a 50-79% stenosis by velocity criteria. 2. LEFT: Minimal, non-hemodynamically significant stenosis of the proximal left internal carotid artery corresponding to a 0-49% stenosis by velocity criteria. 3. There is no change in the category severity of disease when compared to the previous study dated 08/02/2022.
== END 2023-03-11 09:45 | disposition home or self-care (01) ==
LOC: HO.US 09:44
PROVIDERS: PCP Internal Medicine; Visit Provider Surgery Vascular Surgery
DX: I65.23 Occlusion and stenosis of bilateral carotid arteries (principal)
CPT/HCPCS: 93880

== ENCOUNTER → 2023-04-07 13:32 | Outpatient (REF) | payer OTHER, SELFPAY ==
--- NOTE | 2023-04-07 13:35 | CA_ITS ---
Transthoracic Echocardiogram Patient (Last, First, Middle): Darrius Rodríguez, Gender: Male Date of : 1955 Age: 67 Procedure Date: 04/07/2023 Procedure Type: Transthoracic Echocardiogram Location: OP Height: 167.64 cm Weight: 81.65 kg BSA: 1.91 m2 Heart Rate: 72 bpm BP: 110 / 70 mmHg Central Office Inspector: CAMILO Mast MD: Wilfredo Boland MD Tube Mill Operator: Wilfredo Boland MD Symptoms: Z95.2 - Presence of prosthetic heart valve Study Quality: Fair ECG Rhythm: Sinus Conclusions: - 1. Normal LV ejection fraction of 60 65% with [id number] LVH with regional wall motion abnormality suggestive of underlying coronary artery disease 2. Normally functioning bioprosthetic aortic valve 3. Normal RV systolic pressure 4. Upper limits of normal normal ascending aortic size at 3.6 cm 5. No pericardial effusion Findings Left Ventricle Normal left ventricular size and systolic function. There is mildly increased left ventricular wall thickness. The visually estimated ejection fraction is between 60-65%. Spectral Doppler is indicative of an impaired relaxation filling pattern. Elevated filling pressures. E/E prime ratio is >15, consistent with elevated filling pressures. Wall Motion Rest Echo Findings The basal inferior and basal inferoseptal segments are akinetic. All other scored wall segments showed normal motion. Right Ventricle Normal right ventricular cavity size and systolic function. Atria The left atrium is likely dilated. There is lipomatous hypertrophy of the interatrial septum. There is no evidence of interatrial shunt. The right atrium is normal in size. Aortic Valve A bioprosthetic aortic valve is present. The prosthetic aortic valve appears to be functioning normally. The mean gradient is 11 mmHg. There is no aortic valve regurgitation. The bioprosthetic valve is well seated without abnormal rocking motion. Mitral Valve There is mild anterior and moderate posterior mitral leaflet thickening. There is moderate mitral annular calcification. There is trace mitral valve regurgitation. There is no mitral valve stenosis. Pulmonic Valve The pulmonic valve was not well visualized. Tricuspid Valve Likely normal tricuspid valve structure and function. There is mild tricuspid valve regurgitation. The right ventricular systolic pressure is normal. The right ventricular systolic pressure is 25 mmHg. Normal right atrial pressure. There is no evidence of pulmonary hypertension. Great Vessels The pulmonary artery was not well visualized. There is no dilatation of the ascending aorta. Venous The inferior vena cava is normal in size and collapses greater than 50% with inspiration. Pericardium/Pleural There is no evidence of pericardial effusion. Prior Study Comparison Changes noted compared to prior study dated: 09/30/2022. Normally function bioprosthetic aortic valve is noted Measurements 2D Linear Measurements IVSd: 1.50 0.6-0.9/0.6-1.0 cm LVIDd: 4.80 3.9-5.3/4.2-5.9 cm LVIDd Index: 2.51 2.4-3.2/2.2-3.1 cm/m2 LVIDs: 3.20 2.0-3.6 cm LVPWd: 1.30 0.7-1.1 cm Ao Root: 3.60 2.1-3.5 cm LA Diam: 4.20 2.7-3.8/3.0-4.0 cm LAIDs Index: 2.20 1.5-2.3 cm/m2 LV Mass: 341.52 67-162/88-224 g LV Mass Index: 178.81 43-95/49-115 g/m2 LVOT Diam: 2.20 3.0+(-)1.3 cm 2D Systolic Function EF 4C: 63.50 >55% EF 2C: 57.80 >55% EF BiP: 60.10 >55% Mitral Valve MV Pk E: 0.80 MV PK A: 1.18 MV Decel Time: 219.00 E/A: 0.70 E'Lateral: 4.13 E'Medial: 4.35 E/E' Med: 18.40 E/E' Lat: 19.30 PHT: 64.00 MVA PHT: 3.44 Decel Young: 3.64 Aortic Valve AoV Pk Evelio: 2.29 AoV Mn Evelio: 1.55 AoV VTI: 0.45 AoV Pk Grad: 21.00 Aov Mn Grad: 11.00 CORNELIUS Cont.VTI: 1.94 LVOT LVOT Pk Evelio: 1.08 LVOT Mn Evelio: 0.80 LVOT VTI: 0.23 LVOT Pk Grad: 5.00 LVOT Mn Grad: 3.00 LVOT Diam: 2.20 LVOT Area: 3.80 Diastolic Function MV Pk E: 0.80 MV Pk A: 1.18 E/A: 0.70 E'Medial: 4.35 E/E' Med: 18.40 E' Laterial: 4.13 E/E' Lat: 19.30 Right Ventricle TAPSE (mm): 23.90 TVS' Evelio: 13.30 Tricuspid Valve TR Pk Evelio: 2.33 TR Pk Grad: 22.00 RA Press: 3.00 RVSP: 25.00 Great Vessels Aorta Ao Root-2D: 3.60 2.0-3.7 cm Ao Asc: 3.60 2.1-3.4 cm Pulmonary Valve PV Pk Evelio: 0.90 Peak PV Grad: 3.00 Updated in Other Vendor System with Status of Final Geronimo Ha MD electronically signed on 04/08/2023 12:21:49 PM with status of Final
== END ==
LOC: HO.CARD 13:32
PROVIDERS: PCP Internal Medicine; Visit Provider Internal Medicine Cardiovascular Disease
DX: Z95.2 Presence of prosthetic heart valve (principal)
CPT/HCPCS: 93306

== ENCOUNTER → 2023-04-07 13:35 | Outpatient (BNV) | payer OTHER, SELFPAY | PROVIDERS: PCP Internal Medicine; Visit Provider Internal Medicine Cardiovascular Disease | DX: I34.81 Nonrheumatic mitral (valve) annulus calcification (principal); Z95.2 Presence of prosthetic heart valve | CPT/HCPCS: 93306 ==

== ENCOUNTER 2023-05-15 10:42 | Outpatient (AMB) | payer OTHER, SELFPAY ==
--- NOTE | 2023-05-15 10:43 | MHC.OFFVIS ---
Intake Vital Signs 05/15/23 10:49 05/15/23 10:50 Height 5 ft 6 in Weight 181 lb BMI 29.2 BP 118/78 126/84 Blood Pressure Location Lt brachial Rt brachial Position Sitting Sitting Intake Visit Reasons: 6 mth s/p carotid US 03/11/23 Intake Note: 6 mo follow up carotid US 03/11/23, no blurred vision or dizziness Accompanied by: Spouse Allergies cyclobenzaprine Allergy (Intermediate, Verified 05/15/23 10:53) inadequate response morphine Allergy (Intermediate, Verified 05/15/23 10:53) urinary retention HPI 6 mth s/p carotid US 03/11/23 HPI Details Very pleasant 67-year-old gentleman presents for carotid surveillance follow-up. He has had no interval issues and reports he is doing relatively well. He remains asymptomatic. He continues to smoke about a pack a day. He has been a diabetic since 2016. Of note he has quits drinking. He also reports he can easily ambulate 1 block with no difficulty. He now presents for follow-up with carotid ultrasound. [facility] Medical History Aortic stenosis Hypertensive retinopathy of both eyes Cough Hyperlipidemia LDL goal <100 Hypercalcemia Low serum parathyroid hormone (PTH) Coronary artery disease Aortic stenosis Neck pain Inguinal hernia, left History of CVA (cerebrovascular accident) (~2017) COPD (chronic obstructive pulmonary disease) BPH (benign prostatic hyperplasia) GERD (gastroesophageal reflux disease) Type 2 diabetes mellitus with hyperglycemia Essential hypertension Insomnia Chronic left shoulder pain Left shoulder pain Hypovitaminosis D Surgical History History of cardiac cath History of squamous cell carcinoma excision (~2010) History of colonoscopy History of right inguinal hernia repair (~1993) History of left inguinal hernia repair (~2018) History of surgery on arm (~1995) Family History Father Prostate cancer Mother No problems noted. Brother No problems noted. Sister No problems noted. Son No problems noted. Social History Household Members: Spouse Household Members Other:: sometimes lives with patient Housing: Apartment Alcohol intake: never Patient Tobacco Use Status: Current everyday Tobacco user Tobacco use type: Cigarette Cigarette Packs Per Day: 1.5 Cigarettes Per Day: 20 Years Smoked: (onset 13yo, 1ppd x 53yrs, 50pyh) e-Cigarette/Vaping Use: Never Used Second Hand Smoke Exposure: Yes service: No Current occupational status: retired Cognitive needs: No Hearing needs: No Vision needs: Yes Review of Systems Const All systems reviewed & are unremarkable except as noted in HPI and below Reports no additional complaints ENT Reports Normal hearing present Card Denies chest pain, Denies chest pain at rest, Denies chest pain with activity and Denies pedal edema Resp Denies cough GI Denies abdominal pain Musc Denies abnormal gait, Denies muscle cramps and Denies radiating pain into limb Skin/Breast Denies skin ulcer and Denies wounds Neuro Reports Normal hearing present and Denies abnormal gait Psych Reports no additional complaints Physical Exam Vital Signs: Last Vital Signs BP 126/84 05/15/23 10:50 BMI result Body Mass Index 29.2 Const General: cooperative, healthy appearing and comfortable Orientation/consciousness: oriented to person, oriented to place and oriented to time HEENT Head: Yes normal to inspection Neck Neck: Yes normal visual inspection Carotids: no bruits Chest Chest palpation & inspection: normal inspection of the chest Resp Effort & Inspection: normal respiratory effort and able to speak in complete sentences Auscultation: clear to auscultation bilaterally, no crackles, no rales, no rhonchi and no wheezes Cardio Rate: regular rate Rhythm: regular rhythm Heart sounds: S1 normal heart sound present and S2 normal heart sound present Bruits: no carotid bruits Peripheral pulses: Peripheral pulses 2+ throughout GI Inspection: Yes normal to inspection Skin Wounds: no wounds Hair: normal Neuro General: oriented to person, oriented to place and oriented to time Cranial nerves: Yes CN's II-XII intact bilaterally and Yes Normal hearing present Cognition (Neuro): normal cognition Motor exam (neuro): 5/5 motor strength present throughout Extrem Other: venous exam: No significant superficial varicosities or spider telangiectasias, minimal edema General: No clubbing, No cyanosis and No edema Psych Appearance: grossly normal Mental Status: mental status grossly normal Speech and movement: Normal speech and movement present Results Reviewed Results Reviewed: Carotid ultrasound dated 03/11/2023 demonstrates right side 50-79 with a peak systolic of 136 and the left side 0-49 with a peak systolic of 61. Assessment & Plan Assessment & Plan (1) Carotid artery stenosis: Code(s): I65.29 - Occlusion and stenosis of unspecified carotid artery Qualifiers: Laterality: bilateral Qualified Code(s): I65.23 - Occlusion and stenosis of bilateral carotid arteries Plan: In short patient has asymptomatic carotid disease. We have reviewed signs and symptoms of a stroke. We also discussed risk factor modification inclusive a healthy diet low in cholesterol. The patient will follow up with us with surveillance ultrasound of the carotids 1 year. Should there be any changes or signs or symptoms of a stroke we will be happy to see them back sooner. Thank you for allowing us to participate in this patient's care. If there are any questions or concerns please do not hesitate to contact us. Orders: Orders US carotid duplex BI 364 Days I65.23 - Occlusion and stenosis of bilateral carotid arteries Coding Level of Care Code Est Pt Level 4 (46903) Diagnoses Bilateral carotid artery stenosis I65.23 Laterality: bilateral
[2023-05-15 10:49] VITALS: BP 118/78; BMI 29.2
[2023-05-15 10:50] VITALS: BP 126/84
== END 2023-05-15 11:13 | disposition home or self-care (01) ==
PROVIDERS: PCP Internal Medicine; Visit Provider Surgery Vascular Surgery
DX: I65.23 Occlusion and stenosis of bilateral carotid arteries (principal)
CPT/HCPCS: 99213

== ENCOUNTER → 2023-05-15 10:42 | Outpatient (BNVA) | payer OTHER, SELFPAY | PROVIDERS: PCP Internal Medicine; Visit Provider Surgery Vascular Surgery | DX: I65.23 Occlusion and stenosis of bilateral carotid arteries (principal); F17.210 Nicotine dependence, cigarettes, uncomplicated; Z98.890 Other specified postprocedural states | CPT/HCPCS: 99212 ==

== ENCOUNTER 2023-06-18 10:09 | Outpatient (AMB) | payer OTHER, SELFPAY ==
--- NOTE | 2023-06-18 10:31 | A.OFFVIS_ITS ---
Intake Vital Signs 06/18/23 10:34 Height 5 ft 6 in Weight 180 lb BMI 29.0 BP 130/72 Blood Pressure Location Rt brachial Position Sitting Pulse 80 Pulse Source Pulse Oximeter Pulse Oximetry (%) 95 Oxygen Delivery Method Room Air Intake Visit Reasons: COPD Intake Note: pt is here for follow up and states he is feeling good no issues. Respiratory Therapy Manager Required: Yes Respiratory Therapy Manager Name: [id number] Allergies cyclobenzaprine Allergy (Intermediate, Verified 06/18/23 11:04) inadequate response morphine Allergy (Intermediate, Verified 06/18/23 11:04) urinary retention Medication List - Last Reconciled 06/18/23 by Khoa Bolton MD aspirin 81 mg PO DAILY 90 days atorvastatin 80 mg PO DAILY 90 days blood sugar diagnostic (FreeStyle Test strips) Use 1 test strip once a day blood sugar diagnostic (Accu-Chek Guide test strips) Use 1 test strip once a day blood sugar diagnostic (Accu-Chek Carla Plus test strips) Use 1 test strip once a day blood-glucose meter (Accu-Chek Carla Plus Meter) As directed blood-glucose meter (Accu-Chek Guide Glucose Meter) As directed blood-glucose meter (FreeStyle Lite Meter kit) tests 4 X/day budesonide-formoterol 80-4.5 mcg/actuation (Symbicort) 2 puffs inhalation BID PRN cholecalciferol (vitamin D3) 25 mcg PO DAILY 90 days clopidogrel 75 mg PO DAILY dapaglifloz propaned-metformin 5-1,000 mg ER (Xigduo XR) 1 tab PO DAILY 90 days dulaglutide (Trulicity) 1.5 mg (0.5 mL) subcut QWEEK 90 days famotidine 40 mg PO DAILY 90 days lancets (Accu-Chek Softclix Lancets) Use 1 lancet once a day lancets (Accu-Chek Softclix Lancets) Use 1 lancet once a day lancets (FreeStyle Lancets) Use 1 lancet once a day magnesium oxide 400 mg PO DAILY 90 days metoprolol succinate ER 25 mg PO DAILY 90 days oxycodone 10 mg PO Q6H PRN 30 days pantoprazole 40 mg PO DAILY PRN 90 days pioglitazone 15 mg PO DAILY 90 days tamsulosin 0.4 mg PO BEDTIME 90 days terazosin 10 mg PO BEDTIME 90 days zolpidem 10 mg PO BEDTIME 30 days Do you need a note to return to daycare/school/sports/work: No HPI COPD HPI Details 68 years old gentleman, Congolese-speaking , very pleasant, is here for 6 months follow-up. He still smoking 1 pack of cigarettes a day. He has mild intermittent cough. Denies any shortness of breath or attacks of wheezing. Uses Symbicort 80-4.5 1 or 2 puffs only p.r.n. not on a daily basis. He has had no respiratory infection. He was admitted to [facility] in January of this year but this was m ainly due to syncope and. Question of a rhythm problem [facility] Medical History Aortic stenosis Hypertensive retinopathy of both eyes Cough Hyperlipidemia LDL goal <100 Hypercalcemia Low serum parathyroid hormone (PTH) Coronary artery disease Aortic stenosis Neck pain Inguinal hernia, left History of CVA (cerebrovascular accident) (~2017) COPD (chronic obstructive pulmonary disease) BPH (benign prostatic hyperplasia) GERD (gastroesophageal reflux disease) Type 2 diabetes mellitus with hyperglycemia Essential hypertension Insomnia Chronic left shoulder pain Left shoulder pain Hypovitaminosis D Surgical History History of cardiac cath History of squamous cell carcinoma excision (~2010) History of colonoscopy History of right inguinal hernia repair (~1993) History of left inguinal hernia repair (~2018) History of surgery on arm (~1995) Family History Father Prostate cancer Mother No problems noted. Brother No problems noted. Sister No problems noted. Son No problems noted. Social History Household Members: Spouse Household Members Other:: sometimes lives with patient Housing: Apartment Alcohol intake: never Patient Tobacco Use Status: Current everyday Tobacco user Tobacco use type: Cigarette Cigarette Packs Per Day: 1.5 Cigarettes Per Day: 20 Years Smoked: (onset 13yo, 1ppd x 53yrs, 50pyh) e-Cigarette/Vaping Use: Never Used Second Hand Smoke Exposure: Yes service: No Current occupational status: retired Cognitive needs: No Hearing needs: No Vision needs: Yes Review of Systems Const All systems reviewed & are unremarkable except as noted in HPI and below Eyes Reports no additional complaints ENT Reports no additional complaints Card Denies chest pain, Denies pedal edema, Denies irregular heart rhythm and Reports dyspnea on exertion (Mild ) Resp Reports as per HPI and Reports dyspnea on exertion (Mild ) GI Reports heartburn (Controlled with med) Reports nocturia Musc Reports back pain and Reports arthralgias (Shoulders) Skin/Breast Reports system reviewed and no additional complaints, except as documented Neuro Reports no additional complaints Psych Reports no additional complaints Physical Exam Vital Signs: Last Vital Signs Pulse 80 06/18/23 10:34 BP 130/72 06/18/23 10:34 Pulse Ox 95 06/18/23 10:34 Oxygen Delivery Method Room Air 06/18/23 10:34 BMI result Body Mass Index 29.0 Const General: comfortable, no acute distress, alert and awake Orientation/consciousness: patient oriented x3 HEENT Head: Yes normal to inspection Ears: hearing grossly normal bilaterally General nose exam: No nasal polyps present and No nasal discharge present Face and sinus: Yes sinuses nontender Mouth: oropharynx normal Throat: Yes posterior oropharynx normal Eyes General: appearance normal, both eyes and all related structures Neck Neck: Yes normal visual inspection, Yes no lymphadenopathy, Yes trachea midline and Yes no JVD Thyroid: Thyroid normal Chest Chest palpation & inspection: normal inspection of the chest, normal palpation of entire chest wall and no tenderness Resp Other: Percussion note resonant, good breath sounds on both sides , No wheezes or rhonchi are heard , a few basilar crepitations over the right base. Cardio Palpation: normal PMI Rate: regular rate Rhythm: regular rhythm Heart sounds: no gallops and no murmurs GI Palpation (GI): Soft to palpation, nontender, No hepatosplenomegaly present, no masses and Other GI palpation findings present (Abdomen is slightly protuberant) Auscultation: normal bowel sounds Back/Spine/Pelvis Thoracic/Lumbar Spine: thoracic and lumbar spine normal to inspection Skin General skin exam: no rashes or lesions noted Neuro General: patient oriented x3 and no focal motor deficits Cranial nerves: Yes CN's II-XII intact bilaterally Extrem General: Yes normal to inspection, Yes no clubbing, cyanosis or edema and Yes no calf tenderness Psych Appearance: grossly normal and well kempt Speech and movement: Normal speech and movement present Assessment & Plan Assessment & Plan (1) COPD (chronic obstructive pulmonary disease): Comment: Pulmonary function test is basically normal except for decreased DLCO.( sec to Emphysematous changes ) ([place] : Use Symbicort 80-4.5 2 puffs b.i.d. but only p.r.n.. Code(s): J44.9 - Chronic obstructive pulmonary disease, unspecified Qualifiers: COPD type: unspecified COPD Qualified Code(s): J44.9 - Chronic obstructive pulmonary disease, unspecified (2) Personal history of nicotine dependence: Comment: (current smoker - onset 13yo, 1ppd x 53yrs, 50pyh) Tried to quit smoking by using nicotine patches but failed. He continues to smoke 1 pack of cigarettes a day. Counseled once again but he has no intention to quit. Advised to continue participating in the annual lung screening program. Code(s): Z87.891 - Personal history of nicotine dependence Coding Level of Care Code Est Pt Level 3 (91562) Diagnoses Chronic obstructive pulmonary disease, unspecified COPD type J44.9 COPD type: unspecified COPD Personal history of nicotine dependence Z87.891
[2023-06-18 10:34] VITALS: BP 130/72; PULSE 80; O2SAT 95; BMI 29.0
== END 2023-06-18 11:05 | disposition home or self-care (01) ==
PROVIDERS: PCP Internal Medicine; Visit Provider Internal Medicine
DX: J44.9 Chronic obstructive pulmonary disease, unspecified (principal); Z87.891 Personal history of nicotine dependence
CPT/HCPCS: 99213

== ENCOUNTER → 2023-06-18 10:09 | Outpatient (BNVA) | payer OTHER, SELFPAY | PROVIDERS: Visit Provider Internal Medicine | DX: J44.9 Chronic obstructive pulmonary disease, unspecified (principal); Z87.891 Personal history of nicotine dependence | CPT/HCPCS: 99212 ==

== ENCOUNTER 2023-07-18 07:09 | Outpatient (REF) | payer OTHER, SELFPAY ==
[2023-07-18 07:55] LABS: Estimated Glomerular Filt Rate > 60
[2023-07-18 07:57] LABS: Vitamin D 25-OH Total 37.5 ng/mL (>30)
[2023-07-18 08:24] LABS: Magnesium 1.4 mg/dL (1.6-2.6)
[2023-07-21 14:23] LABS: Calcium (PTHI) 9.9 mg/dL (8.6-10.3); PTHI 22 pg/mL (16-77)
[2023-07-21 16:18] LABS: Calcium, Random Urine 1.2 mg/dL
[2023-07-21 23:48] LABS: Calcium, Ionized 5.3 mg/dL (4.7-5.5)
[2023-07-21 23:48] LABS: Creatinine, Random Urine 136 mg/dL (20-320); Magnesium, Random Urine 4 mg/g creat (22-130)
[2023-07-22 15:43] LABS: Calcitonin <2 pg/mL (<=10)
== END 2023-07-18 07:10 | disposition home or self-care (01) ==
LOC: HO.LAB 07:09
PROVIDERS: PCP Internal Medicine; Visit Provider Internal Medicine
DX: E83.42 Hypomagnesemia (principal); E83.52 Hypercalcemia
CPT/HCPCS: 36415; 82306; 82308; 82310; 82330; 82565; 83735; 83970

== ENCOUNTER 2023-07-22 13:45 | Outpatient (AMB) | payer OTHER, SELFPAY ==
--- NOTE | 2023-07-22 13:49 | MHC.PC.OV ---
Vital Signs 07/22/23 13:53 Height 5 ft 6 in Weight 180 lb BMI 29.0 BP 122/80 Blood Pressure Location Lt brachial Position Sitting Intake Visit Reasons: dm Intake Note: Patient here for a follow up DM Can Sorter Required: No Accompanied by: Self / Same As Patient Allergies cyclobenzaprine Allergy (Intermediate, Verified 07/22/23 14:05) inadequate response morphine Allergy (Intermediate, Verified 07/22/23 14:05) urinary retention Medication List - Last Reconciled 07/22/23 by Angela Nava MD aspirin 81 mg PO DAILY 90 days atorvastatin 80 mg PO DAILY 90 days blood sugar diagnostic (FreeStyle Test strips) Use 1 test strip once a day blood sugar diagnostic (Accu-Chek Guide test strips) Use 1 test strip once a day blood sugar diagnostic (Accu-Chek Carla Plus test strips) Use 1 test strip once a day blood-glucose meter (Accu-Chek Carla Plus Meter) As directed blood-glucose meter (Accu-Chek Guide Glucose Meter) As directed blood-glucose meter (FreeStyle Lite Meter kit) tests 4 X/day budesonide-formoterol 80-4.5 mcg/actuation (Symbicort) 2 puffs inhalation BID PRN cholecalciferol (vitamin D3) 25 mcg PO DAILY 90 days clopidogrel 75 mg PO DAILY dapaglifloz propaned-metformin 5-1,000 mg ER (Xigduo XR) 1 tab PO DAILY 90 days dulaglutide (Trulicity) 1.5 mg (0.5 mL) subcut QWEEK 90 days famotidine 40 mg PO DAILY 90 days lancets (Accu-Chek Softclix Lancets) Use 1 lancet once a day lancets (Accu-Chek Softclix Lancets) Use 1 lancet once a day lancets (FreeStyle Lancets) Use 1 lancet once a day magnesium oxide 400 mg PO BID 90 days metoprolol succinate ER 25 mg PO DAILY 90 days oxycodone 10 mg PO Q6H PRN 30 days pantoprazole 40 mg PO DAILY PRN 90 days pioglitazone 15 mg PO DAILY 90 days tamsulosin 0.4 mg PO BEDTIME 90 days terazosin 10 mg PO BEDTIME 90 days zolpidem 10 mg PO BEDTIME 30 days Tobacco use date assessed: 11/06/22 Fall risk assessment: No Falls in past year Last assessed Fall Risk: 07/22/23 Dental Screening Dental Screen Date: 07/22/23 Did you have a dental visit in the last 12 months?: No Did you have a dental problem in the last 6 months where you did not have access to dental care?: No Was dental information given to patient?: Patient has dentist HPI HPI Comments History of Present Illness Details This is a 68-year-old male with diabetes mellitus type 2, hyperlipidemia, COPD and hypomagnesemia that comes today for follow-up on his conditions. A1c within goal. Cholesterol was stable with statins. COPD well controlled with Symbicort which she use as needed and I told him to discuss that with pulmonology. Magnesium is low and I will increase magnesium supplement to twice a day. No chest pain or shortness of breath. [facility] Medical History Aortic stenosis Hypertensive retinopathy of both eyes Cough Hyperlipidemia LDL goal <100 Hypercalcemia Low serum parathyroid hormone (PTH) Coronary artery disease Aortic stenosis Neck pain Inguinal hernia, left History of CVA (cerebrovascular accident) (~2017) COPD (chronic obstructive pulmonary disease) BPH (benign prostatic hyperplasia) GERD (gastroesophageal reflux disease) Type 2 diabetes mellitus with hyperglycemia Essential hypertension Insomnia Chronic left shoulder pain Left shoulder pain Hypovitaminosis D Surgical History History of cardiac cath History of squamous cell carcinoma excision (~2010) History of colonoscopy History of right inguinal hernia repair (~1993) History of left inguinal hernia repair (~2018) History of surgery on arm (~1995) Family History Father Prostate cancer Mother No problems noted. Brother No problems noted. Sister No problems noted. Son No problems noted. Social History Household Members: Spouse Household Members Other:: sometimes lives with patient Housing: Apartment Alcohol intake: never Patient Tobacco Use Status: Current everyday Tobacco user Tobacco use type: Cigarette Cigarette Packs Per Day: 1.5 Cigarettes Per Day: 20 Years Smoked: (onset 13yo, 1ppd x 53yrs, 50pyh) e-Cigarette/Vaping Use: Never Used Second Hand Smoke Exposure: Yes service: No Current occupational status: retired Cognitive needs: No Hearing needs: No Vision needs: Yes Questionnaire Thrive Questionnaire Date Thrive assessed: 02/18/23 EARNESTINE-7 AMB Questionnaire EARNESTINE-7 Date EARNESTINE - 7 assessed: 11/06/22 Source: Developed by Drs. Lenard Donald, Dina Lopez, Phil Law and colleagues, with an educational stan from [employer]. Review of Systems Const All systems reviewed & are unremarkable except as noted in HPI and below Eyes Reports no additional complaints, Denies change in vision and Denies other visual disturbances Card Denies chest pain at rest, Denies chest pain with activity, Denies edema, Denies irregular heart rhythm, Denies claudication, Denies dyspnea, Denies dyspnea on exertion, Denies orthopnea, Denies paroxysmal nocturnal dyspnea and Denies slow heart rate Resp Denies cough, Denies dyspnea and Denies dyspnea on exertion GI Denies abdominal pain, Denies change in bowel habits, Denies excessive flatus, Denies nausea and Denies vomiting Denies urinary hesitancy, Denies urinary incontinence and Denies urinary urgency Musc Denies abnormal gait, Denies atrophy, Denies deformity and Denies limited range of motion Skin/Breast Denies bleeding lesions, Denies changing lesions and Denies rash Neuro Denies abnormal gait, Denies behavioral changes and Denies lack of coordination Psych Denies behavioral changes Physical exam (Primary Care) Vital Signs: Last Vital Signs BP 122/80 07/22/23 13:53 BMI result Body Mass Index 29.0 Tobacco/Smoking Status: Tobacco use Status Tobacco use date assessed 11/06/22 07/22/23 13:49 Patient Tobacco Use Status Current everyday Tobacco 07/22/23 13:49 Tobacco use type Cigarette 07/22/23 13:49 e-Cigarette/Vaping Use Never Used 07/22/23 13:49 Thrive Assessment: Date of Thrive Assessment Date Thrive assessed 02/18/23 07/22/23 13:49 Eyes General: appearance normal, both eyes and all related structures Eyelids: Yes eyelids normal Conjunctivae: conjunctivae normal Neck Neck: Yes normal visual inspection and Yes supple Resp Effort & Inspection: normal respiratory effort Auscultation: clear to auscultation bilaterally Cardio Jugular venous distension: no JVD Rate: regular rate Rhythm: regular rhythm Heart sounds: S1 normal heart sound present and S2 normal heart sound present Extrem General: Yes full ROM Office Procedures Flu Questionnaire Does the patient have a severe egg allergy?: No Results AMB Hemoglobin A1c AMB Hemoglobin A1c 6.9 % Last Edit by JAMIA Hirsch on 07/22/23 13:59 Immunizations flu vacc [id number] 6mos up(PF) 60 mcg(15 mcgx4)/0.5 mL IM syringe Performing Provider: Angela Nava MD Performing Location: [facility] Documented (not given) by: JAMIA Hirsch on 07/22/23 13:49 Reason Not Given: Patient Refused Results Reviewed Results Reviewed: Laboratory Last Values Hgb A1c (Clinic) 6.9 % (4.0-6.0) H 07/22/23 13:48 Assessment and Plan Assessment & Plan (1) Diabetes mellitus, controlled: Code(s): E11.9 - Type 2 diabetes mellitus without complications Plan: Continue Xigduo and Actos. A1c goal is equal or less than 7% (2) Hyperlipidemia LDL goal <70: Code(s): E78.5 - Hyperlipidemia, unspecified Plan: Continue statins. LDL goal is less than 70. (3) COPD (chronic obstructive pulmonary disease): Comment: Pulmonary function test is basically normal except for decreased DLCO.( sec to Emphysematous changes ) ([place] : Use Symbicort 80-4.5 2 puffs b.i.d. but only p.r.n.. Code(s): J44.9 - Chronic obstructive pulmonary disease, unspecified Qualifiers: COPD type: unspecified COPD Qualified Code(s): J44.9 - Chronic obstructive pulmonary disease, unspecified Plan: Continue Symbicort. Use rescue inhaler as needed. Follow-up with pulmonology. (4) Hypomagnesemia: Code(s): E83.42 - Hypomagnesemia Plan: Increase magnesium supplement to twice a day. Orders: Orders Vitamin D 25-OH Total 4 Months E55.9 - Vitamin D deficiency, unspecified AMB Hemoglobin A1c Today E11.9 - Type 2 diabetes mellitus without complications Influenza [id number] Immunization Today Z23 - Encounter for immunization Lipid Panel 4 Months E78.5 - Hyperlipidemia, unspecified Microalbumin, Random (w Creat) 4 Months E11.9 - Type 2 diabetes mellitus without complications Comprehensive [place]. Panel Fast 4 Months E11.9 - Type 2 diabetes mellitus without complications Magnesium 4 Months E83.42 - Hypomagnesemia Medications: Discontinued famotidine Discontinued Reason: Patient Completed Course 40 mg PO DAILY 90 days 90 tabs 1RF Coding Level of Care Code Est Pt Level 4 (17118) Diagnoses Diabetes mellitus, controlled E11.9 Hyperlipidemia LDL goal <70 E78.5 Chronic obstructive pulmonary disease, unspecified COPD type J44.9 COPD type: unspecified COPD Hypomagnesemia E83.42 Time Spent (min) 23
[2023-07-22 13:53] VITALS: BP 122/80; BMI 29.0
== END 2023-07-22 14:15 | disposition home or self-care (01) ==
PROVIDERS: PCP Internal Medicine; Visit Provider Internal Medicine
DX: E11.69 Type 2 diabetes mellitus with other specified complication (principal); E78.5 Hyperlipidemia, unspecified; J44.9 Chronic obstructive pulmonary disease, unspecified; E83.42 Hypomagnesemia
CPT/HCPCS: 83036; 99214

== ENCOUNTER 2023-11-17 07:10 | Outpatient (REF) | payer OTHER, SELFPAY ==
[2023-11-17 08:42] LABS: Alanine Aminotransferase 20 U/L (0-40); Albumin Level 3.8 g/dL (3.5-5.0); Alkaline Phosphatase 76 U/L (39-117); Anion Gap 13 (12-20); Aspartate Amino Transferase 15 U/L (5-37); Bilirubin Total 0.5 mg/dL (0.0-1.0); Blood Urea Nitrogen 16 mg/dL (9-16); Calcium 9.6 mg/dL (8.4-10.2); Carbon Dioxide 27 mmol/L (22-29); Chloride 103 mmol/L (96-108); Cholesterol 145 mg/dL (<200); Estimated Glomerular Filt Rate > 60; Glucose Fasting 140 mg/dL (60-99); HDL Cholesterol 29 mg/dL (>40); LDL Cholesterol Calculated 89 mg/dL (<100); Magnesium 1.6 mg/dL (1.6-2.6); Potassium 3.9 mmol/L (3.3-5.1); Sodium 139 mmol/L (135-145); Total Protein 7.5 g/dL (6.5-8.0); Triglycerides 138 mg/dL (<150)
[2023-11-17 08:45] LABS: Creatinine Urine 128.72 mg/dL
[2023-11-17 08:52] LABS: Vitamin D 25-OH Total 28.3 ng/mL (>30)
== END 2023-11-17 07:11 | disposition home or self-care (01) ==
LOC: HO.LAB 07:10
PROVIDERS: PCP Internal Medicine; Visit Provider Internal Medicine
DX: E78.5 Hyperlipidemia, unspecified (principal); E11.9 Type 2 diabetes mellitus without complications; E55.9 Vitamin D deficiency, unspecified
CPT/HCPCS: 36415; 80053; 80061; 82043; 82306; 82570; 83735

== ENCOUNTER 2023-11-19 12:39 | Outpatient (AMB) | payer OTHER, SELFPAY ==
--- NOTE | 2023-11-19 12:55 | MHC.PC.OV ---
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 Required: No Accompanied by: Self / Same As Patient Allergies cyclobenzaprine Allergy (Intermediate, Verified 11/19/23 13:18) inadequate response morphine Allergy (Intermediate, Verified 11/19/23 13:18) urinary retention Medication List - Last Reconciled 11/19/23 by Angela Nava MD aspirin 81 mg PO DAILY 90 days atorvastatin 80 mg PO DAILY 90 days blood sugar diagnostic (FreeStyle Test strips) Use 1 test strip once a day blood sugar diagnostic (Accu-Chek Guide test strips) Use 1 test strip once a day blood sugar diagnostic (Accu-Chek Carla Plus test strips) Use 1 test strip once a day blood-glucose meter (Accu-Chek Carla Plus Meter) As directed blood-glucose meter (Accu-Chek Guide Glucose Meter) As directed blood-glucose meter (FreeStyle Lite Meter kit) tests 4 X/day budesonide-formoterol 80-4.5 mcg/actuation (Symbicort) 2 puffs inhalation BID PRN cholecalciferol (vitamin D3) 25 mcg PO DAILY 90 days clopidogrel 75 mg PO DAILY dapaglifloz propaned-metformin 5-1,000 mg ER (Xigduo XR) 1 tab PO DAILY 90 days dulaglutide (Trulicity) 1.5 mg (0.5 mL) subcut QWEEK 90 days lancets (Accu-Chek Softclix Lancets) Use 1 lancet once a day lancets (Accu-Chek Softclix Lancets) Use 1 lancet once a day lancets (FreeStyle Lancets) Use 1 lancet once a day magnesium oxide 400 mg PO BID 90 days metoprolol succinate ER 25 mg PO DAILY 90 days oxycodone 10 mg PO Q6H PRN 30 days pantoprazole 40 mg PO DAILY PRN 90 days pioglitazone 15 mg PO DAILY 90 days tamsulosin 0.4 mg PO BEDTIME 90 days terazosin 10 mg PO BEDTIME 90 days zolpidem 10 mg PO BEDTIME 30 days Tobacco use date assessed: 11/19/23 Fall risk assessment: No Falls in past year Last assessed Fall Risk: 11/19/23 Dental Screening Dental Screen Date: 11/19/23 Did you have a dental visit in the last 12 months?: No Did you have a dental problem in the last 6 months where you did not have access to dental care?: No Was dental information given to patient?: Patient has dentist HPI HPI Comments History of Present Illness Details This is a 68-year-old male with diabetes mellitus type 2, hypertension, hyperlipidemia, COPD, GERD and chronic left shoulder pain that comes today for follow-up on his conditions. A1c slightly elevated today and I will increase Actos from 15 mg to 30 mg. Blood pressure stable. LDL close to goal and dietary changes were advised. COPD stable with long-acting inhaler and this is follow by pulmonology. Denies any chest pain or shortness of breath. GERD stable with PPIs. Chronic left shoulder pain has been well control with opiates as needed. Patient is aware that opiates can cause addiction and sedation. Complains of occasional constipation most likely due to opiates and I will give senna as needed. [facility] Medical History (Updated 11/19/23 @ 13:46 by Angela Nava MD) Diabetes mellitus, controlled Aortic stenosis Hypertensive retinopathy of both eyes Cough Hyperlipidemia LDL goal <100 Hypercalcemia Low serum parathyroid hormone (PTH) Coronary artery disease Aortic stenosis Neck pain Inguinal hernia, left History of CVA (cerebrovascular accident) (~2017) COPD (chronic obstructive pulmonary disease) BPH (benign prostatic hyperplasia) GERD (gastroesophageal reflux disease) Type 2 diabetes mellitus with hyperglycemia Essential hypertension Insomnia Chronic left shoulder pain Left shoulder pain Hypovitaminosis D Surgical History History of cardiac cath History of squamous cell carcinoma excision (~2010) History of colonoscopy History of right inguinal hernia repair (~1993) History of left inguinal hernia repair (~2018) History of surgery on arm (~1995) Family History Father Prostate cancer Mother No problems noted. Brother No problems noted. Sister No problems noted. Son No problems noted. Social History Household Members: Spouse Household Members Other:: sometimes lives with patient Housing: Apartment Alcohol intake: never Patient Tobacco Use Status: Current everyday Tobacco user Tobacco use type: Cigarette Cigarette Packs Per Day: 1 Cigarettes Per Day: 20 Years Smoked: (onset 13yo, 1ppd x 53yrs, 50pyh) e-Cigarette/Vaping Use: Never Used Second Hand Smoke Exposure: Yes service: No Current occupational status: retired Cognitive needs: No Hearing needs: No Vision needs: Yes Questionnaire PHQ-9 Over the last 2 weeks, how often have you been bothered by any of the following problems? 1. Little interest or pleasure in doing things: not at all 2. Feeling down, depressed, or hopeless: not at all 3. Trouble falling or staying asleep, or sleeping too much: not at all 4. Feeling tired or having little energy: not at all 5. Poor appetite or overeating: not at all 6. Feeling bad about yourself - or that you are a failure or have let yourself or your family down: not at all 7. Trouble concentrating on things, such as reading the newspaper or watching television: not at all 8. Moving or speaking so slowly that other people could have noticed. Or the opposite - being so fidgety or restless that you have been moving around a lot more than usual: not at all 9. Thoughts that you would be better off or of hurting yourself in some way: not at all Total score: 0 Depression Screening Interpretation: Negative Depression Screening Done: Yes 58002 - PHQ-9 Billing: Yes Source: Developed by Drs. Lenard Donald, Dina Lopez, Phil Law and colleagues, with an educational stan from [employer]. Thrive Questionnaire Date Thrive assessed: 11/19/23 I am a: Patient What is your living situation today?: I have a steady place to live Within the past 12 months, did the food you bought not last and you didn't have the money to get more?: Never true Within the past 12 months, did you worry whether your food would run out before you got money to buy more?: Never true Do you have trouble paying for medicines?: No Do you have trouble getting transportation to medical appointments?: No Do you have trouble paying your heating and electricity bill?: No Do you have trouble taking care of your child, family member or friend?: No Do you have trouble with day-to-day activities such as bathing, preparing meals, shopping, managing finances, etc.?: No Are you currently unemployed and looking for a job?: No Are you interested in more education?: No Please select the resources that you would like help with: None Currently or been in a relationship where the following occur: no concerns reported THRIVE Score: 0 AUDIT C Alcohol Use Questionnaire (AUDIT-C) 1. How often do you have a drink containing alcohol?: Never Total Score: 0 Score Reviewed/Action Taken: No EARNESTINE-7 AMB Questionnaire EARNESTINE-7 Date EARNESTINE - 7 assessed: 11/19/23 Feeling nervous, anxious, or on edge: 0 = Not at all Not being able to stop or control worryin = Not at all Worrying too much about different things: 0 = Not at all Trouble relaxin = Not at all Being so restless that it is hard to sit still: 0 = Not at all Becoming easily annoyed or irritable: 0 = Not at all Feeling afraid as if something awful might happen: 0 = Not at all Total EARNESTINE-7 score (0-4 normal; 5-9 mild; 10-14 moderate; 15-21 severe): 0 Source: Developed by Drs. Lenard Donald, Dina Lopez, Phil Law and colleagues, with an educational stan from [employer]. EARNESTINE-7 Assessment Billing EARNESTINE-7 Assessment Tool: EARNESTINE-7 Assessment 93857 Review of Systems Const All systems reviewed & are unremarkable except as noted in HPI and below Eyes Reports no additional complaints, Denies change in vision and Denies other visual disturbances Card Denies chest pain at rest, Denies chest pain with activity, Denies edema, Denies irregular heart rhythm, Denies claudication, Denies dyspnea, Denies dyspnea on exertion, Denies orthopnea, Denies paroxysmal nocturnal dyspnea and Denies slow heart rate Resp Denies cough, Denies dyspnea and Denies dyspnea on exertion GI Denies abdominal pain, Denies change in bowel habits, Reports constipation, Denies excessive flatus, Denies nausea and Denies vomiting Denies urinary hesitancy, Denies urinary incontinence and Denies urinary urgency Physical exam (Primary Care) Vital Signs: Last Vital Signs BP 122/80 11/19/23 12:56 BMI result Body Mass Index 29.5 Tobacco/Smoking Status: Tobacco use Status Tobacco use date assessed 11/19/23 11/19/23 13:01 Patient Tobacco Use Status Current everyday Tobacco 11/19/23 13:01 Tobacco use type Cigarette 11/19/23 13:01 e-Cigarette/Vaping Use Never Used 11/19/23 13:01 PHQ-9: PHQ-9 Score PHQ-9: Total score 0 11/19/23 13:31 Depression Screening Interpretation: Negative Thrive Assessment: Date of Thrive Assessment Date Thrive assessed 11/19/23 11/19/23 13:01 Currently or been in a relationship where the following occur: no concerns reported Resp Effort & Inspection: normal respiratory effort Auscultation: clear to auscultation bilaterally Cardio Jugular venous distension: no JVD Rate: regular rate Rhythm: regular rhythm Heart sounds: S1 normal heart sound present and S2 normal heart sound present Extrem General: Yes full ROM Results AMB Hemoglobin A1c AMB Hemoglobin A1c 7.1 % Last Edit by JAMIA Hirsch on 11/19/23 13:01 Results Reviewed Results Reviewed: Laboratory Last Values Hgb A1c (Clinic) 7.1 % (4.0-6.0) H 11/19/23 12:52 Assessment and Plan Assessment & Plan (1) Diabetes mellitus, without long-term current use of insulin: Code(s): E11.9 - Type 2 diabetes mellitus without complications Qualifiers: Diabetes mellitus type: type 2 Diabetes mellitus complication status: with hyperglycemia Qualified Code(s): E11.65 - Type 2 diabetes mellitus with hyperglycemia Plan: Continue Xigduo and Trulicity. Increase Actos to 30 mg. A1c goal is equal or less than 7%. (2) Hyperlipidemia LDL goal <70: Code(s): E78.5 - Hyperlipidemia, unspecified Plan: Continue statins. LDL goal is less than 70. (3) Essential hypertension: Code(s): I10 - Essential (primary) hypertension Plan: Continue metoprolol. Blood pressure goal is equal or less than 130/80. (4) COPD (chronic obstructive pulmonary disease): Comment: Pulmonary function test is basically normal except for decreased DLCO.( sec to Emphysematous changes ) ([place] : Use Symbicort 80-4.5 2 puffs b.i.d. but only p.r.n.. Code(s): J44.9 - Chronic obstructive pulmonary disease, unspecified Qualifiers: COPD type: unspecified COPD Qualified Code(s): J44.9 - Chronic obstructive pulmonary disease, unspecified Plan: Continue Symbicort. Use rescue inhaler as needed. Follow-up with pulmonology. (5) GERD (gastroesophageal reflux disease): Code(s): K21.9 - Gastro-esophageal reflux disease without esophagitis Qualifiers: Esophagitis presence: esophagitis presence not specified Qualified Code(s): K21.9 - Gastro-esophageal reflux disease without esophagitis Plan: Continue PPIs as needed. (6) Chronic left shoulder pain: Comment: History of rotator cuff tear partial Code(s): M25.512 - Pain in left shoulder; G89.29 - Other chronic pain Plan: Continue opiates as needed. Orders: Orders Comprehensive [place]. Panel Fast 4 Months E11.9 - Type 2 diabetes mellitus without complications Magnesium 4 Months E83.42 - Hypomagnesemia AMB Hemoglobin A1c Today E11.9 - Type 2 diabetes mellitus without complications Lipid Panel 4 Months E78.5 - Hyperlipidemia, unspecified Microalbumin, Random (w Creat) 4 Months E11.9 - Type 2 diabetes mellitus without complications Vitamin D 25-OH Total 4 Months E55.9 - Vitamin D deficiency, unspecified Complete Blood Count Auto Diff 4 Months J44.9 - Chronic obstructive pulmonary disease, unspecified Referrals Gastroenterology Referral Z12.11 - Encounter for screening for malignant neoplasm of colon Medications: New sennosides (senna) 8.6 mg PO BEDTIME 30 days PRN 30 caps 0RF constipation pioglitazone 30 mg PO DAILY 90 days 90 tabs 1RF E11.9 - Type 2 diabetes mellitus without complications Refilled dulaglutide (Trulicity) 1.5 mg (0.5 mL) subcut QWEEK 90 days 6.5 mL 3RF Discontinued pioglitazone Discontinued Reason: No Longer Medically Relevant 15 mg PO DAILY 90 days 90 tabs 1RF E11.65 - Type 2 diabetes mellitus with hyperglycemia Coding Level of Care Code Est Pt Level 4 (52055) Diagnoses Type 2 diabetes mellitus with hyperglycemia, without long-term current use of insulin E11.65 Diabetes mellitus type: type 2 Diabetes mellitus complication status: with hyperglycemia Hyperlipidemia LDL goal <70 E78.5 Essential hypertension I10 Chronic obstructive pulmonary disease, unspecified COPD type J44.9 COPD type: unspecified COPD Gastroesophageal reflux disease, unspecified whether esophagitis present K21.9 Esophagitis presence: esophagitis presence not specified Chronic left shoulder pain M25.512; G89.29 Additional Codes EARNESTINE-7 Assessment Billing - EARNESTINE-7 Assessment Tool: EARNESTINE-7 Assessment 10982 ([id number]) Time Spent (min) 25
[2023-11-19 12:56] VITALS: BP 122/80; BMI 29.5
== END 2023-11-19 13:29 | disposition home or self-care (01) ==
PROVIDERS: PCP Internal Medicine; Visit Provider Internal Medicine
DX: E11.65 Type 2 diabetes mellitus with hyperglycemia (principal); E78.5 Hyperlipidemia, unspecified; I10 Essential (primary) hypertension; J44.9 Chronic obstructive pulmonary disease, unspecified; K21.9 Gastro-esophageal reflux disease without esophagitis; M25.512 Pain in left shoulder; G89.29 Other chronic pain; E11.9 Type 2 diabetes mellitus without complications
CPT/HCPCS: 83036; 99214

== ENCOUNTER 2023-12-17 10:31 | Outpatient (AMB) | payer OTHER, SELFPAY ==
[2023-12-17 10:37] VITALS: BP 110/60; PULSE 74; O2SAT 96; BMI 30.4
--- NOTE | 2023-12-17 10:37 | A.OFFVIS_ITS ---
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 Allergies cyclobenzaprine Allergy (Intermediate, Verified 12/17/23 10:44) inadequate response morphine Allergy (Intermediate, Verified 12/17/23 10:44) urinary retention Medication List - Last Reconciled 12/17/23 by Khoa Bolton MD aspirin 81 mg PO DAILY 90 days atorvastatin 80 mg PO DAILY 90 days blood sugar diagnostic (FreeStyle Test strips) Use 1 test strip once a day blood sugar diagnostic (Accu-Chek Guide test strips) Use 1 test strip once a day blood sugar diagnostic (Accu-Chek Carla Plus test strips) Use 1 test strip once a day blood-glucose meter (Accu-Chek Carla Plus Meter) As directed blood-glucose meter (Accu-Chek Guide Glucose Meter) As directed blood-glucose meter (FreeStyle Lite Meter kit) tests 4 X/day budesonide-formoterol 80-4.5 mcg/actuation (Symbicort) 2 puffs inhalation BID PRN cholecalciferol (vitamin D3) 25 mcg PO DAILY 90 days clopidogrel 75 mg PO DAILY dapaglifloz propaned-metformin 5-1,000 mg ER (Xigduo XR) 1 tab PO DAILY 90 days dulaglutide (Trulicity) 1.5 mg (0.5 mL) subcut QWEEK 90 days dulaglutide (Trulicity) 0.75 mg (0.5 mL) subcut QWEEK 30 days lancets (Accu-Chek Softclix Lancets) Use 1 lancet once a day lancets (Accu-Chek Softclix Lancets) Use 1 lancet once a day lancets (FreeStyle Lancets) Use 1 lancet once a day magnesium oxide 400 mg PO BID 90 days metoprolol succinate ER 25 mg PO DAILY 90 days oxycodone 10 mg PO Q6H PRN 30 days pantoprazole 40 mg PO DAILY PRN 90 days pioglitazone 30 mg PO DAILY 90 days sennosides (senna) 8.6 mg PO BEDTIME PRN 30 days tamsulosin 0.4 mg PO BEDTIME 90 days terazosin 10 mg PO BEDTIME 90 days tirzepatide (Mounjaro) 2.5 mg (0.5 mL) subcut QWEEK 4 weeks zolpidem 10 mg PO BEDTIME 30 days Do you need a note to return to daycare/school/sports/work: No HPI HPI COPD: Details: 68 years old gentleman is here for 6 months follow-up. He is an ongoing smoker, with mild chronic obstructive pulmonary disease manifesting in the form of intermittent cough. Uses Symbicort 80-4.5 1 or 2 puffs only as needed, not on regular basis. He claims that breathing handy he has been stable. He does get short of breath when he walks fast or climbs stairs. Continues to smoke 1 pack of 6 cigarettes a day, a light brand. He used to be in annual lung screening program, last CT scan in 2021 and then he missed last year. [facility] Medical History (Updated 12/17/23 @ 10:56 by Khoa Bolton MD) Diabetes mellitus, controlled Aortic stenosis Hypertensive retinopathy of both eyes Cough Hyperlipidemia LDL goal <100 Hypercalcemia Low serum parathyroid hormone (PTH) Coronary artery disease Aortic stenosis Neck pain Inguinal hernia, left History of CVA (cerebrovascular accident) (~2017) COPD (chronic obstructive pulmonary disease) BPH (benign prostatic hyperplasia) GERD (gastroesophageal reflux disease) Type 2 diabetes mellitus with hyperglycemia Essential hypertension Insomnia Chronic left shoulder pain Left shoulder pain Hypovitaminosis D Surgical History History of cardiac cath History of squamous cell carcinoma excision (~2010) History of colonoscopy History of right inguinal hernia repair (~1993) History of left inguinal hernia repair (~2018) History of surgery on arm (~1995) Family History Father Prostate cancer Mother No problems noted. Brother No problems noted. Sister No problems noted. Son No problems noted. Social History Household Members: Spouse Household Members Other:: sometimes lives with patient Housing: Apartment Alcohol intake: never Patient Tobacco Use Status: Current everyday Tobacco user Tobacco use type: Cigarette Cigarette Packs Per Day: 1 Cigarettes Per Day: 20 Years Smoked: (onset 13yo, 1ppd x 53yrs, 50pyh) e-Cigarette/Vaping Use: Never Used Second Hand Smoke Exposure: Yes service: No Current occupational status: retired Cognitive needs: No Hearing needs: No Vision needs: Yes Review of Systems Const All systems reviewed & are unremarkable except as noted in HPI and below Eyes Reports no additional complaints ENT Reports no additional complaints Card Denies chest pain, Denies pedal edema, Denies irregular heart rhythm and Reports dyspnea on exertion (Mild ) Resp Reports as per HPI and Reports dyspnea on exertion (Mild ) GI Reports heartburn (Controlled with med) Reports nocturia Musc Reports back pain and Reports arthralgias (Shoulders) Skin/Breast Reports system reviewed and no additional complaints, except as documented Neuro Reports no additional complaints Psych Reports no additional complaints Physical Exam Vital Signs: Last Vital Signs Pulse 74 12/17/23 10:37 BP 110/60 12/17/23 10:37 Pulse Ox 96 12/17/23 10:37 Oxygen Delivery Method Room Air 12/17/23 10:37 BMI result Body Mass Index 30.4 Const General: comfortable, no acute distress, alert and awake Orientation/consciousness: patient oriented x3 HEENT Head: Yes normal to inspection Ears: hearing grossly normal bilaterally General nose exam: No nasal polyps present and No nasal discharge present Face and sinus: Yes sinuses nontender Mouth: oropharynx normal Throat: Yes posterior oropharynx normal Eyes General: appearance normal, both eyes and all related structures Neck Neck: Yes normal visual inspection, Yes no lymphadenopathy, Yes trachea midline and Yes no JVD Thyroid: Thyroid normal Chest Chest palpation & inspection: normal inspection of the chest, normal palpation of entire chest wall and no tenderness Resp Other: Percussion note resonant, good breath sounds on both sides , No wheezes , creps or rhonchi are heard . Cardio Palpation: normal PMI Rate: regular rate Rhythm: regular rhythm Heart sounds: no gallops and no murmurs GI Palpation (GI): Soft to palpation, nontender, No hepatosplenomegaly present, no masses and Other GI palpation findings present (Abdomen is slightly protuberant) Auscultation: normal bowel sounds Back/Spine/Pelvis Thoracic/Lumbar Spine: thoracic and lumbar spine normal to inspection Skin General skin exam: no rashes or lesions noted Neuro General: patient oriented x3 and no focal motor deficits Cranial nerves: Yes CN's II-XII intact bilaterally Extrem General: Yes normal to inspection, Yes no clubbing, cyanosis or edema and Yes no calf tenderness Psych Appearance: grossly normal and well kempt Speech and movement: Normal speech and movement present Assessment & Plan Assessment & Plan (1) COPD (chronic obstructive pulmonary disease): Comment: Pulmonary function test is basically normal except for decreased DLCO.( sec to Emphysematous changes ) Code(s): J44.9 - Chronic obstructive pulmonary disease, unspecified Category: Medical Qualifiers: COPD type: unspecified COPD Qualified Code(s): J44.9 - Chronic obstructive pulmonary disease, unspecified Plan: (TX : Use Symbicort 80-4.5 2 puffs b.i.d. but only p.r.n.. (2) Cough: Comment: (chronic intermittent cough , smokers, cough . Code(s): R05.9 - Cough, unspecified Category: Medical Plan: Explained that the cough is usually related to smoking and he should try to quit smoking (3) Personal history of nicotine dependence: Comment: (current smoker - onset 13yo, 1ppd x 53yrs, 50pyh) Tried to quit smoking by using nicotine patches but failed. He continues to smoke 1 pack of cigarettes a day. Code(s): Z87.891 - Personal history of nicotine dependence Category: Medical Plan: Counseled once again but he has no intention to quit. Advised to continue participating in the annual lung screening program. He is referred once again . Coding Level of Care Code Est Pt Level 3 (13908) Diagnoses Chronic obstructive pulmonary disease, unspecified COPD type J44.9 COPD type: unspecified COPD Cough R05.9 Personal history of nicotine dependence Z87.891
== END 2023-12-17 10:53 | disposition home or self-care (01) ==
PROVIDERS: PCP Internal Medicine; Visit Provider Internal Medicine
DX: J44.9 Chronic obstructive pulmonary disease, unspecified (principal); R05.9 Cough, unspecified; Z87.891 Personal history of nicotine dependence
CPT/HCPCS: 99213

== ENCOUNTER → 2023-12-17 10:31 | Outpatient (BNVA) | payer OTHER, SELFPAY | PROVIDERS: PCP Internal Medicine; Visit Provider Internal Medicine | DX: J44.9 Chronic obstructive pulmonary disease, unspecified (principal); R50.9 Fever, unspecified; Z87.891 Personal history of nicotine dependence | CPT/HCPCS: 99212 ==

== ENCOUNTER 2024-02-18 09:11 | Outpatient (REF) | payer OTHER, SELFPAY ==
--- NOTE | ~2024-02-18 | CT_ITS ---
EXAMINATION: CT CHEST LOW-DOSE SCREENING WITHOUT CONTRAST HISTORY: Asymptomatic patient meeting criteria for lung screening. PATIENT PACK-YEAR HISTORY: 55 Current Smoker: Yes If former smoker, years since quitting: COMPARISON: 03/15/2022 TECHNIQUE: Multidetector volumetric non-contrast CT imaging of the chest was performed using low dose screening CT technique. Axial thin section 0.625 mm reformations in soft tissue and lung windows were obtained. Sagittal and coronal reformations were obtained. Axial MIP images were also created and reviewed. RECONSTRUCTED WIDTH: 1.25 mm x 1.25 mm TOTAL EXAM DLP: 53 mGy-cm CTDIvol: 1.33 L mGy FINDINGS: LUNGS: Moderate to marked centrilobular and paraseptal emphysema. No suspicious pulmonary nodule. There are numerous pulmonary nodules new from prior study. The largest nodule in the right hemithorax measures 6 mm on image 153 series 6. The largest nodule in the left hemithorax measures 7 mm on image 137 of series 6. Subpleural reticular changes at the lung bases. Central airways are patent. PLEURA: No pleural effusion. LYMPH NODES: No bulky mediastinal, hilar or axillary adenopathy or free fluid collection. MEDIASTINUM: Great vessels are of normal caliber. Heart size is normal. Status post TAVR. No pericardial effusion. CORONARY ARTERY CALCIFICATIONS: Marked. CHEST WALL/BREASTS: No acute abnormality. UPPER ABDOMEN: This study was performed without contrast and with lower than standard dose, reducing the sensitivity for detection of small lesions in the upper abdomen. OSSEOUS STRUCTURES: No destructive bone lesions. CT/CT lung screening IMPRESSION: Multiple new pulmonary nodules measuring up to 7 mm. LUNG-RADS CATEGORY ASSESSMENT: 3. Probably benign. Probably benign findings, including nodules with a low likelihood of becoming a clinically active cancer. Recommend 6 month followup low-dose CT scan. Probability of malignancy 1 to 2%. INCIDENTAL FINDINGS (S CATEGORY): Finding: No incidental findings. Significance category: Normal or normal variant. RECOMMENDATION: Low dose lung CT. overall in 6 months. Visual estimate of coronary calcified plaque burden: Severe. However, this exam cannot replace a dedicated cardiac CT calcium score for accurate assessment. LUNG-RADS CATEGORY: 3 -- PROBABLY BENIGN
== END 2024-02-18 09:12 | disposition home or self-care (01) ==
LOC: HO.CT 09:11
PROVIDERS: PCP Internal Medicine; Visit Provider Physician Assistant Medical
DX: Z12.2 Encounter for screening for malignant neoplasm of respiratory organs (principal); F17.210 Nicotine dependence, cigarettes, uncomplicated
CPT/HCPCS: 71271

== ENCOUNTER 2024-03-09 14:30 | Outpatient (AMB) | payer OTHER, SELFPAY ==
--- NOTE | 2024-03-09 14:58 | MHC.OFFVIS ---
Vital Signs 03/09/24 15:05 Height 5 ft 6 in Weight 192 lb 3.889 oz BMI 31.0 BP 146/76 H Blood Pressure Location Lt brachial Position Sitting Pulse 66 Pulse Source Pulse Oximeter Pulse Oximetry (%) 95 Oxygen Delivery Method Room Air Intake Visit Reasons: Colonoscopy screening Intake Note: Darrius presents in office today for a scheduled colo scrn. CC; Pt states that they are doing well and they are here for recall colo purposes. 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 male with past medical history of CAD, aortic stenosis, status post TAVR, hypertension, hyperlipidemia, diabetes, COPD, GERD, hypokalemia, hypomagnesemia, BPH, hypocalcemia is here today for pre colonoscopy screening.? Patient was sent to us by his PCP.? Last colonoscopy 01/16/[address] Singh. Hyperplastic polyp found..? Patient denies any gastrointestinal symptoms in the past or at present.? Denies any personal or family history of gastrointestinal disease, colon polyps, or CRC.? Denies history of difficulty with sedation or anesthesia in the past.? Negative for history of sleep apnea.? Denies any history of cardiac, renal, pulmonary, or hepatic disease.?? No history of infectious? diseases like hepatitis A, B, C, HIV or tuberculosis.? Patient is on low-dose aspirin and Plavix. [facility] Medical History History of CVA (cerebrovascular accident) (~2017) Coronary artery disease Aortic stenosis Aortic stenosis Hypertensive retinopathy of both eyes Essential hypertension Hyperlipidemia LDL goal <100 Diabetes mellitus, without long-term current use of insulin COPD (chronic obstructive pulmonary disease) Cough Nicotine dependence, cigarettes, uncomplicated GERD (gastroesophageal reflux disease) BPH (benign prostatic hyperplasia) Hypercalcemia Low serum parathyroid hormone (PTH) Neck pain Inguinal hernia, left Insomnia Chronic left shoulder pain Left shoulder pain Hypovitaminosis D Surgical History History of cardiac cath History of squamous cell carcinoma excision (~2010) History of colonoscopy History of right inguinal hernia repair (~1993) History of left inguinal hernia repair (~2018) History of surgery on arm (~1995) Family History Father Prostate cancer Mother No problems noted. Brother No problems noted. Sister No problems noted. Son No problems noted. Social History Household Members: Spouse Household Members Other:: sometimes lives with patient Housing: Apartment Alcohol intake: never Patient Tobacco Use Status: Current everyday Tobacco user Tobacco use type: Cigarette Cigarette Packs Per Day: 1 Cigarettes Per Day: 20 Years Smoked: (onset 13yo, 1ppd x 53yrs, 50pyh) e-Cigarette/Vaping Use: Never Used Second Hand Smoke Exposure: Yes service: No Current occupational status: retired Cognitive needs: No Hearing needs: No Vision needs: Yes Review of Systems Const Denies weight gain and Denies weight loss ENT Reports no additional complaints, Denies dysphagia and Denies odynophagia Card Reports no additional complaints Resp Reports no additional complaints GI Denies abdominal pain, Denies belching, Denies melena, Denies bloating, Denies change in bowel habits, Denies dysphagia, Denies excessive flatus, Denies dyspepsia, Denies heartburn, Denies diarrhea, Denies loose stools, Denies nausea, Denies odynophagia and Denies vomiting Reports no additional complaints Musc Reports no additional complaints Neuro Reports no additional complaints Psych Reports no additional complaints Endo Reports no additional complaints Physical Exam Vital Signs: Last Vital Signs Pulse 66 03/09/24 15:05 BP 146/76 H 03/09/24 15:05 Pulse Ox 95 03/09/24 15:05 Oxygen Delivery Method Room Air 03/09/24 15:05 BMI result Body Mass Index 31.0 Const General: healthy appearing, no acute distress and well developed Nutritional Appearance: well nourished Orientation/consciousness: patient oriented x3 Resp Effort & Inspection: normal respiratory effort, able to speak in complete sentences, no tracheal deviation and symmetric chest movement Auscultation: clear to auscultation bilaterally Cardio Rate: regular rate GI Inspection: Yes normal to inspection and No distended Palpation (GI): Soft to palpation, not firm, nontender and No hepatosplenomegaly present Auscultation: normal bowel sounds General: Yes no CVA tenderness Back/Spine/Pelvis Back: no CVA tenderness Skin General skin exam: elasticity normal, turgor normal and dry skin Neuro General: patient oriented x3 Psych Appearance: grossly normal Mental Status: mental status grossly normal Assessment & Plan Assessment & Plan (1) Screen for colon cancer: Code(s): Z12.11 - Encounter for screening for malignant neoplasm of colon Category: Medical (2) GERD (gastroesophageal reflux disease): Code(s): K21.9 - Gastro-esophageal reflux disease without esophagitis Category: Medical Qualifiers: Esophagitis presence: esophagitis presence not specified Qualified Code(s): K21.9 - Gastro-esophageal reflux disease without esophagitis Plan Patient denies any GI, cardiac or respiratory symptoms.? Denies any issues with anesthesia in the past.? Denies any history of sleep apnea.? No history infectious diseases in the past or present.? Patient is on low-dose aspirin and Plavix. History of TAVR, coronary artery disease. Patient has not followed up with Dr. Boland for over a year. Will send him for follow-up and clearance for procedure. ? No family or personal history of colon cancer or polyps.? Patient denies melena, hematochezia, unintentional weight loss or ribbon like stools.? What to expect before during and after procedure discussed with patient. The importance of clear liquid diet and good bowel prep stressed before procedure. Follow-up in the office after the procedure, sooner on as needed basis. He is agreeable to this plan and verbalizes understanding of instructions. He was given the opportunity to ask questions and all questions answered. Thank you for allowing me to participate in his care Medications: New bisacodyl (Dulcolax (bisacodyl)) take 4 tabs at noon the day before your colonoscopy 20 mg (4 x 5 mg) PO ONCE 1 day 4 tabs 0RF Z12.11 - Encounter for screening for malignant neoplasm of colon polyethylene glycol 3350 (Miralax) As directed by gastroenterology department at [facility] 238 grams PO ONCE 238 grams 0RF Z12.11 - Encounter for screening for malignant neoplasm of colon Discontinued dulaglutide (Trulicity) Discontinued Reason: Patient no longer taking 0.75 mg (0.5 mL) subcut QWEEK 30 days 2.5 mL 0RF dulaglutide (Trulicity) Discontinued Reason: Patient no longer taking 1.5 mg (0.5 mL) subcut QWEEK 90 days 6.5 mL 3RF Coding Level of Care Code New Pt Level 3 (03582) Diagnoses Screen for colon cancer Z12.11 Gastroesophageal reflux disease, unspecified whether esophagitis present K21.9 Esophagitis presence: esophagitis presence not specified Time Spent (min) 40 Comment 30 minutes spent with patient and additional 10 minutes spent reviewing his records
[2024-03-09 15:05] VITALS: BP 146/76; PULSE 66; O2SAT 95; BMI 31.0
== END 2024-03-09 16:07 | disposition home or self-care (01) ==
PROVIDERS: PCP Internal Medicine; Visit Provider Nurse Practitioner Family
DX: Z01.818 Encounter for other preprocedural examination (principal); Z12.11 Encounter for screening for malignant neoplasm of colon; K21.9 Gastro-esophageal reflux disease without esophagitis
CPT/HCPCS: 99024

== ENCOUNTER → 2024-03-09 14:30 | Outpatient (BNVA) | payer OTHER, SELFPAY | PROVIDERS: PCP Internal Medicine; Visit Provider Nurse Practitioner Family | DX: Z01.818 Encounter for other preprocedural examination (principal); K21.9 Gastro-esophageal reflux disease without esophagitis | CPT/HCPCS: 99212 ==

== ENCOUNTER 2024-03-22 06:08 | Outpatient (REF) | payer OTHER, SELFPAY ==
[2024-03-22 06:25] LABS: MANUAL DIFF FLAG NO
[2024-03-22 07:31] LABS: Basophils Absolute Auto 0.1 X10*3/uL (0.0-0.2); Basophils Percent Auto 0.8 % (0-2); Eosinophils Absolute Auto 0.2 X10*3/uL (0.0-0.4); Eosinophils Percent Auto 2.1 % (0-4); Hematocrit 48.2 % (42.0-52.0); Imm Gran Abs Auto 0.02 X10*3/uL (0.00-0.03); Imm Gran Pct Auto 0.2 % (0.0-0.4); Lymphocytes Absolute Auto 3.5 X10*3/uL (1.2-4.9); Lymphocytes Percent Auto 38.6 % (20-40); Mean Corpuscular HGB Conc 33.2 g/dl (31.0-36.0); Mean Corpuscular Hemoglobin 30.1 pg (27.0-33.0); Mean Corpuscular Volume 90.8 fL (80.0-98.0); Mean Platelet Volume 10.4 fL (9.4-12.4); Monocytes Absolute Auto 0.6 X10*3/uL (0.1-1.2); Monocytes Percent Auto 6.5 % (2-11); Neutrophils Absolute Auto 4.7 x10*3/uL (2.0-8.3); Neutrophils Percent Auto 51.8 % (45-73); Platelet Count 187 X10*3/uL (160-400); Red Blood Count 5.31 X10*6/uL (4.60-5.80); Red Cell Distribution Width 15.6 % (11.0-16.0)
[2024-03-22 08:16] LABS: Vitamin D 25-OH Total 35.2 ng/mL (>30)
[2024-03-22 08:17] LABS: Alanine Aminotransferase 20 U/L (0-40); Alkaline Phosphatase 61 U/L (39-117); Anion Gap 12 (12-20); Aspartate Amino Transferase 18 U/L (5-37); Bilirubin Total 0.4 mg/dL (0.0-1.0); Blood Urea Nitrogen 15 mg/dL (9-16); Calcium 10.1 mg/dL (8.4-10.2); Carbon Dioxide 29 mmol/L (22-29); Chloride 103 mmol/L (96-108); Cholesterol 136 mg/dL (<200); Estimated Glomerular Filt Rate > 60; Glucose Fasting 135 mg/dL (60-99); HDL Cholesterol 25 mg/dL (>40); LDL Cholesterol Calculated 87 mg/dL (<100); Potassium 4.1 mmol/L (3.3-5.1); Sodium 140 mmol/L (135-145); Total Protein 7.6 g/dL (6.5-8.0); Triglycerides 121 mg/dL (<150)
[2024-03-22 08:19] LABS: Magnesium 1.4 mg/dL (1.6-2.6)
[2024-03-22 09:22] LABS: Creatinine Urine 131.01 mg/dL; Microalbum/Creatinine Ratio Ur 10.6 ug/mg cr (<30)
== END 2024-03-22 06:09 | disposition home or self-care (01) ==
LOC: HO.LAB 06:08
PROVIDERS: PCP Internal Medicine; Visit Provider Internal Medicine
DX: E83.42 Hypomagnesemia (principal); E78.5 Hyperlipidemia, unspecified; E11.9 Type 2 diabetes mellitus without complications; J44.9 Chronic obstructive pulmonary disease, unspecified; E55.9 Vitamin D deficiency, unspecified
CPT/HCPCS: 36415; 80053; 80061; 82043; 82306; 82570; 83735; 85025

== ENCOUNTER 2024-03-22 14:30 | Outpatient (AMB) | payer OTHER, SELFPAY ==
[2024-03-22 14:33] VITALS: BP 134/78; BMI 30.3
--- NOTE | 2024-03-22 14:33 | A.OFFPC_ITS ---
Vital Signs 03/22/24 14:33 Height 5 ft 6 in Weight 188 lb BMI 30.3 BP 134/78 Blood Pressure Location Lt brachial Position Sitting Intake Visit Reasons: f/u - see comments Intake Note: Patient here for a follow up Arts Administrator Or Manager Required: No Accompanied by: Self / Same As Patient Allergies cyclobenzaprine Allergy (Intermediate, Verified 03/22/24 14:48) inadequate response morphine Allergy (Intermediate, Verified 03/22/24 14:48) urinary retention Medication List - Last Reconciled 03/22/24 by Angela Nava MD aspirin 81 mg PO DAILY 90 days atorvastatin 80 mg PO DAILY 90 days bisacodyl (Dulcolax (bisacodyl)) 20 mg (4 x 5 mg) PO ONCE 1 day blood sugar diagnostic (FreeStyle Test strips) Use 1 test strip once a day blood sugar diagnostic (Accu-Chek Guide test strips) Use 1 test strip once a day blood sugar diagnostic (Accu-Chek Carla Plus test strips) Use 1 test strip once a day blood-glucose meter (Accu-Chek Carla Plus Meter) As directed blood-glucose meter (Accu-Chek Guide Glucose Meter) As directed blood-glucose meter (FreeStyle Lite Meter kit) tests 4 X/day budesonide-formoterol 80-4.5 mcg/actuation (Symbicort) 2 puffs inhalation BID PRN cholecalciferol (vitamin D3) 25 mcg PO DAILY 90 days clopidogrel 75 mg PO DAILY dapaglifloz propaned-metformin 5-1,000 mg ER (Xigduo XR) 1 tab PO DAILY 90 days lancets (Accu-Chek Softclix Lancets) Use 1 lancet once a day lancets (Accu-Chek Softclix Lancets) Use 1 lancet once a day lancets (FreeStyle Lancets) Use 1 lancet once a day magnesium oxide 400 mg PO BID 90 days metoprolol succinate ER 25 mg PO DAILY 90 days oxycodone 10 mg PO Q6H PRN 30 days pantoprazole 40 mg PO DAILY PRN 90 days pioglitazone 30 mg PO DAILY 90 days polyethylene glycol 3350 (Miralax) 238 grams PO ONCE sennosides (senna) 8.6 mg PO BEDTIME PRN 30 days tamsulosin 0.4 mg PO BEDTIME 90 days terazosin 10 mg PO BEDTIME 90 days tirzepatide (Mounjaro) 2.5 mg (0.5 mL) subcut QWEEK 4 weeks zolpidem 10 mg PO BEDTIME 30 days Tobacco use date assessed: 11/19/23 Fall risk assessment: No Falls in past year Last assessed Fall Risk: 03/22/24 Dental Screening Dental Screen Date: 11/19/23 HPI HPI Comments History of Present Illness Details This is a 68-year-old male with COPD, diabetes mellitus type 2, hypertension and hyperlipidemia that comes today for follow-up on his conditions. A1c about the same as last time which is very close to goal. COPD stable with long-acting inhaler and follow by pulmonology. Blood pressure stable. LDL also close to goal. He denies any chest pain or shortness on breath. No leg swelling. He has low magnesium and I will increase magnesium to twice a day. Hypomagnesemia is most likely due to pantoprazole. CT of the chest was discussed and aware that needs to be repeated in 6 months. [facility] Medical History (Updated 03/22/24 @ 15:04 by Angela Nava MD) History of CVA (cerebrovascular accident) (~2017) Coronary artery disease Aortic stenosis Aortic stenosis Hypertensive retinopathy of both eyes Essential hypertension Hyperlipidemia LDL goal <100 Diabetes mellitus, without long-term current use of insulin COPD (chronic obstructive pulmonary disease) Cough Nicotine dependence, cigarettes, uncomplicated GERD (gastroesophageal reflux disease) BPH (benign prostatic hyperplasia) Hypercalcemia Low serum parathyroid hormone (PTH) Neck pain Inguinal hernia, left Insomnia Chronic left shoulder pain Left shoulder pain Hypovitaminosis D Surgical History History of cardiac cath History of squamous cell carcinoma excision (~2010) History of colonoscopy History of right inguinal hernia repair (~1993) History of left inguinal hernia repair (~2018) History of surgery on arm (~1995) Family History Father Prostate cancer Mother No problems noted. Brother No problems noted. Sister No problems noted. Son No problems noted. Social History Household Members: Spouse Household Members Other:: sometimes lives with patient Housing: Apartment Alcohol intake: never Patient Tobacco Use Status: Current everyday Tobacco user Tobacco use type: Cigarette Cigarette Packs Per Day: 1 Cigarettes Per Day: 20 Years Smoked: (onset 13yo, 1ppd x 53yrs, 50pyh) e-Cigarette/Vaping Use: Never Used Second Hand Smoke Exposure: Yes service: No Current occupational status: retired Cognitive needs: No Hearing needs: No Vision needs: Yes Questionnaire Thrive Questionnaire Date Thrive assessed: 11/19/23 EARNESTINE-7 AMB Questionnaire EARNESTINE-7 Date EARNESTINE - 7 assessed: 11/19/23 Source: Developed by Drs. Lenard Donald, Dina Lopez, Phil Law and colleagues, with an educational stan from [employer]. Review of Systems Const All systems reviewed & are unremarkable except as noted in HPI and below Card Denies chest pain at rest, Denies chest pain with activity, Denies edema, Denies irregular heart rhythm, Denies claudication, Denies dyspnea, Denies dyspnea on exertion, Denies orthopnea, Denies paroxysmal nocturnal dyspnea and Denies slow heart rate Resp Denies cough, Denies dyspnea and Denies dyspnea on exertion Neuro Denies behavioral changes and Denies lack of coordination Psych Denies behavioral changes Physical exam (Primary Care) Vital Signs: Last Vital Signs BP 134/78 03/22/24 14:33 BMI result Body Mass Index 30.3 Tobacco/Smoking Status: Tobacco use Status Tobacco use date assessed 11/19/23 03/22/24 14:41 Patient Tobacco Use Status Current everyday Tobacco 03/22/24 14:41 Tobacco use type Cigarette 03/22/24 14:41 e-Cigarette/Vaping Use Never Used 03/22/24 14:41 Are you ready to quit: No Tobacco cessation counseling provided: Yes Relapse Prevention: discussed negative mood or depression after quitting and weight gain after smoking is common Number of minutes spent counselin CPT code: Less than 3 minutes Thrive Assessment: Date of Thrive Assessment Date Thrive assessed 11/19/23 03/22/24 14:41 Resp Effort & Inspection: normal respiratory effort Auscultation: clear to auscultation bilaterally Cardio Jugular venous distension: no JVD Rate: regular rate Rhythm: regular rhythm Heart sounds: S1 normal heart sound present and S2 normal heart sound present Extrem General: Yes full ROM Results AMB Hemoglobin A1c AMB Hemoglobin A1c 7.1 % Last Edit by JAMIA Hirsch on 03/22/24 14:4 4 Results Reviewed Results Reviewed: Laboratory Last Values Hgb A1c (Clinic) 7.1 % (4.0-6.0) H 03/22/24 14:32 Assessment and Plan Assessment & Plan (1) Diabetes mellitus, without long-term current use of insulin: Code(s): E11.9 - Type 2 diabetes mellitus without complications Qualifiers: Diabetes mellitus type: type 2 Diabetes mellitus complication status: with hyperglycemia Qualified Code(s): E11.65 - Type 2 diabetes mellitus with hyperglycemia Plan: Continue Xigduo. A1c goal is equal or less than 7%. (2) COPD (chronic obstructive pulmonary disease): Comment: Pulmonary function test is basically normal except for decreased DLCO.( sec to Emphysematous changes ) Code(s): J44.9 - Chronic obstructive pulmonary disease, unspecified Qualifiers: COPD type: unspecified COPD Qualified Code(s): J44.9 - Chronic obstructive pulmonary disease, unspecified Plan: Continue long-acting inhaler. Use rescue inhaler as needed. Follow-up with pulmonology. (3) Hyperlipidemia LDL goal <70: Code(s): E78.5 - Hyperlipidemia, unspecified Plan: Continue statins. LDL goal is less than 70. (4) Hypomagnesemia: Code(s): E83.42 - Hypomagnesemia Plan: Increase magnesium to twice a day. Orders: Orders Magnesium 4 Months E83.42 - Hypomagnesemia AMB Hemoglobin A1c Today E11.65 - Type 2 diabetes mellitus with hyperglycemia Medications: New methocarbamol 750 mg PO Q8H 7 days 21 tabs 0RF Refilled magnesium oxide 400 mg PO BID 90 days 180 tabs 1RF Discontinued tamsulosin Discontinued Reason: Patient Completed Course 0.4 mg PO BEDTIME 90 days 90 caps 0RF Coding Level of Care Code Est Pt Level 4 (23203) Complex EM visit Add On G2211 Diagnoses Type 2 diabetes mellitus with hyperglycemia, without long-term current use of insulin E11.65 Diabetes mellitus type: type 2 Diabetes mellitus complication status: with hyperglycemia Chronic obstructive pulmonary disease, unspecified COPD type J44.9 COPD type: unspecified COPD Hyperlipidemia LDL goal <70 E78.5 Hypomagnesemia E83.42 Time Spent (min) 24
== END 2024-03-22 15:00 | disposition home or self-care (01) ==
PROVIDERS: PCP Internal Medicine; Visit Provider Internal Medicine
DX: E11.65 Type 2 diabetes mellitus with hyperglycemia (principal); J44.9 Chronic obstructive pulmonary disease, unspecified; E78.5 Hyperlipidemia, unspecified; E83.42 Hypomagnesemia
CPT/HCPCS: 83036; 99214; G2211

== ENCOUNTER 2024-03-31 13:51 | Outpatient (AMB) | payer OTHER, SELFPAY ==
--- NOTE | 2024-03-31 13:57 | MHC.OFFVIS ---
Vital Signs 03/31/24 13:58 Height 5 ft 6 in Weight 185 lb 3.013 oz BMI 29.9 BP 130/80 Blood Pressure Location Lt brachial Position Sitting Pulse 74 Intake Visit Reasons: clear for gastric procedures KM pt Intake Note: Pre-op clearance gastric procedure feeling good Trucksmith Required: Yes Trucksmith Services: Trucksmith Present Trucksmith Name: Karla [id number] Allergies cyclobenzaprine Allergy (Intermediate, Verified 03/22/24 14:48) inadequate response morphine Allergy (Intermediate, Verified 03/22/24 14:48) urinary retention HPI Comments Details: 68-year-old male presents today with a overdue follow-up and for pre-operative clearance for a colonoscopy. He has a history of coronary artery disease, CVA, aortic stenosis s/p TAVR, current smoker, hypertension, hyperlipidemia, and diabetes. He had last seen Dr. Boland in December 2022. He says he doesnt do too much as his neuropathy in his feet bother him. Denies any chest pains, shortness of breath, swelling, palpitations, or orthopnea. [facility] Medical History (Updated 04/01/24 @ 08:05 by Moni Carias NP) Pre-operative cardiovascular examination History of CVA (cerebrovascular accident) (~2017) Coronary artery disease Aortic stenosis Aortic stenosis Hypertensive retinopathy of both eyes Essential hypertension Hyperlipidemia LDL goal <100 Diabetes mellitus, without long-term current use of insulin COPD (chronic obstructive pulmonary disease) Cough Nicotine dependence, cigarettes, uncomplicated GERD (gastroesophageal reflux disease) BPH (benign prostatic hyperplasia) Hypercalcemia Low serum parathyroid hormone (PTH) Neck pain Inguinal hernia, left Insomnia Chronic left shoulder pain Left shoulder pain Hypovitaminosis D Surgical History History of cardiac cath History of squamous cell carcinoma excision (~2010) History of colonoscopy History of right inguinal hernia repair (~1993) History of left inguinal hernia repair (~2018) History of surgery on arm (~1995) Family History Father Prostate cancer Mother No problems noted. Brother No problems noted. Sister No problems noted. Son No problems noted. Social History Household Members: Spouse Household Members Other:: sometimes lives with patient Housing: Apartment Alcohol intake: never Patient Tobacco Use Status: Current everyday Tobacco user Tobacco use type: Cigarette Cigarette Packs Per Day: 1 Cigarettes Per Day: 20 Years Smoked: (onset 13yo, 1ppd x 53yrs, 50pyh) e-Cigarette/Vaping Use: Never Used Second Hand Smoke Exposure: Yes service: No Current occupational status: retired Cognitive needs: No Hearing needs: No Vision needs: Yes Review of Systems Const Denies chills, Denies fatigue, Denies fever(s), Denies frequent falls, Denies weakness, Denies weight gain and Denies weight loss ENT Denies dizziness Card Denies chest pain, Denies leg edema, Denies lightheadedness, Denies palpitations, Denies dyspnea, Denies dyspnea on exertion, Denies orthopnea and Denies other (loss of consciousness) Resp Denies cough, Denies dyspnea and Denies dyspnea on exertion GI Denies hematochezia and Denies change in stool character Musc Denies abnormal gait, Denies muscle weakness, Denies numbness, Denies radiating pain into limb and Denies tingling Neuro Denies abnormal gait, Denies dizziness, Denies frequent falls, Denies numbness, Denies tingling and Denies weakness Endo Denies fatigue and Denies palpitations Physical Exam Vital Signs: Last Vital Signs Pulse 74 03/31/24 13:58 BP 130/80 03/31/24 13:58 BMI result Body Mass Index 29.9 Const General: healthy appearing and no acute distress Orientation/consciousness: patient oriented x3 HEENT Head: Yes normal to inspection Eyes General: appearance normal, both eyes and all related structures Neck Neck: Yes normal visual inspection Chest Chest palpation & inspection: normal inspection of the chest Resp Effort & Inspection: normal respiratory effort Auscultation: clear to auscultation bilaterally Cardio Jugular venous distension: no JVD Palpation: normal PMI Rate: regular rate Rhythm: regular rhythm Heart sounds: S1 normal heart sound present, S2 normal heart sound present, no click, no gallops, no murmurs and no rubs GI Inspection: Yes normal to inspection Palpation (GI): Soft to palpation Skin General skin exam: no rashes or lesions noted Neuro General: patient oriented x3 Extrem General: Yes normal to inspection Psych Appearance: grossly normal Office Procedures EKG Details: EKG today. Normal Sinus Rhythm. Rate 74 bpm. QRS 92ms. QTc 410ms. CA 130ms. [id number], Complete Assessment & Plan Assessment & Plan (1) Coronary artery disease: Code(s): I25.10 - Atherosclerotic heart disease of [place] coronary artery without angina pectoris Category: Medical (2) Pre-operative cardiovascular examination: Code(s): Z01.810 - Encounter for preprocedural cardiovascular examination Category: Medical (3) Hyperlipidemia LDL goal <70: Code(s): E78.5 - Hyperlipidemia, unspecified Category: Medical (4) Essential hypertension: Code(s): I10 - Essential (primary) hypertension Category: Medical (5) Aortic stenosis: Comment: severe aortic stenosis Code(s): I35.0 - Nonrheumatic aortic (valve) stenosis Category: Medical Plan Patient due for colonoscopy soon. Will order echocardiogram and pharmacological stress test to assess for structural changes, valve replacement, and ischemia. Multiple risk factors/comorbities. His last LDL was 87 and last A1C was 7.1. Patient is on low dose aspirin, beta blockers, statins. Blood pressure within range. Orders: Orders CA echo transthoracic complete 03/31/24 I25.10 - Atherosclerotic heart disease of [place] coronary artery without angina pectoris CA lexiscan stress w jj 03/31/24 I25.10 - Atherosclerotic heart disease of [place] coronary artery without angina pectoris NM cardiolite stress test 03/31/24 I25.10 - Atherosclerotic heart disease of [place] coronary artery without angina pectoris Coding Level of Care Code Est Pt Level 4 (58648) Diagnoses Coronary artery disease I25.10 Pre-operative cardiovascular examination Z01.810 Hyperlipidemia LDL goal <70 E78.5 Essential hypertension I10 Aortic stenosis I35.0 CPT Codes EKG - CPT: [id number], Complete ([id number])
[2024-03-31 13:58] VITALS: BP 130/80; PULSE 74; BMI 29.9
== END 2024-03-31 14:31 | disposition home or self-care (01) ==
PROVIDERS: PCP Internal Medicine; Visit Provider Nurse Practitioner
DX: I25.10 Atherosclerotic heart disease of native coronary artery without angina pectoris (principal); Z01.810 Encounter for preprocedural cardiovascular examination; E78.5 Hyperlipidemia, unspecified; I10 Essential (primary) hypertension; I35.0 Nonrheumatic aortic (valve) stenosis
CPT/HCPCS: 93010; 99214

== ENCOUNTER → 2024-03-31 13:51 | Outpatient (BNVA) | payer OTHER, SELFPAY | PROVIDERS: PCP Internal Medicine; Visit Provider Nurse Practitioner | DX: Z01.810 Encounter for preprocedural cardiovascular examination (principal); I25.10 Atherosclerotic heart disease of native coronary artery without angina pectoris; I10 Essential (primary) hypertension; I35.0 Nonrheumatic aortic (valve) stenosis; E78.5 Hyperlipidemia, unspecified | CPT/HCPCS: 93005; 99212 ==

== ENCOUNTER 2024-04-28 12:44 | Outpatient (REF) | payer OTHER, SELFPAY ==
--- NOTE | ~2024-04-28 | US_ITS ---
EXAMINATION: US EXTRACRANIAL CAROTID DUPLEX, BILATERAL CLINICAL INFORMATION: Carotid stenosis. COMPARISON: Carotid ultrasound 03/11/2023. TECHNIQUE: Real-time ultrasound and Doppler techniques (integrating B-mode 2-D vascular images, Doppler spectral analysis and color-flow Doppler imaging) were utilized to interrogate the extracranial carotid arteries, the vertebral arteries and proximal subclavian arteries bilaterally. The degree of stenosis is determined by criteria similar to NASCET. FINDINGS: Right Side: 1. There is moderate atherosclerotic plaque seen in the bifurcation/proximal ICA region. 2. The common carotid artery PSV proximally is 80 cm/s and distally 106 cm/s. 3. The proximal internal carotid artery velocities are 76 cm/s systolic and 20 cm/s diastolic. 4. The proximal external carotid artery PSV is 76 cm/s. 5. The vertebral artery shows antegrade flow. 6. The subclavian artery waveforms are biphasic. Left Side: 1. There is moderate atherosclerotic plaque seen in the bifurcation/proximal ICA region. 2. The common carotid artery PSV proximally is 133 cm/s and distally 82 cm/s. 3. The proximal internal carotid artery velocities are 82 cm/s systolic and 37 cm/s diastolic. 4. The proximal external carotid artery PSV is 89 cm/s. 5. The vertebral artery shows antegrade flow. 6. The subclavian artery waveforms are biphasic. US/US carotid duplex BI IMPRESSION: 1. RIGHT: Minimal, non-hemodynamically significant stenosis of the proximal right internal carotid artery corresponding to a 0-49% stenosis by velocity criteria. 2. LEFT: Minimal, non-hemodynamically significant stenosis of the proximal left internal carotid artery corresponding to a 0-49% stenosis by velocity criteria. 3. Disease severity has decreased on the right by velocity criteria which could potentially be technical. No change on the left. Electronically signed by: Pacheco Cutler MD 04/29/2024 09:40 AM EDT
== END 2024-04-28 12:45 | disposition home or self-care (01) ==
LOC: HO.US 12:44
PROVIDERS: PCP Internal Medicine; Visit Provider Surgery Vascular Surgery
DX: I65.23 Occlusion and stenosis of bilateral carotid arteries (principal)
CPT/HCPCS: 93880

== ENCOUNTER → 2024-05-05 07:40 | Outpatient (REF) | payer OTHER, SELFPAY ==
--- NOTE | 2024-05-05 07:53 | CA_ITS ---
Transthoracic Echocardiogram Patient (Last, First, Middle): Darrius Rodríguez, Gender: Male Date of : 1955 Age: 68 Procedure Date: 05/05/2024 Procedure Type: Transthoracic Echocardiogram Location: OP Height: 167.64 cm Weight: 81. kg BSA: 1.91 m2 Heart Rate: bpm BP: 130 / 80 mmHg Environmental Science Instructor: CLAUDIA Mast MD: Moni Carias NP Business Travel Consultant: Geronimo Ha MD Symptoms: I25.10 - Atherosclerotic heart disease of [place] coronary artery without... Study Quality: Fair ECG Rhythm: Sinus Conclusions: - 1. Normal LV ejection fraction of 55-60% with mild LVH with impaired relaxation filling pattern and elevated filling pressures 2. Mildly dilated left atrium 3. Normally function bioprosthetic aortic valve with mean gradient of 12 mmHg 4. Normal RV systolic pressure 5. Upper limits of normal ascending aortic size at 3.6 cm 6. No gross pericardial effusion Findings Left Ventricle Normal left ventricular size and systolic function. There is mildly increased left ventricular wall thickness. The visually estimated ejection fraction is between 55-60%. Spectral Doppler is indicative of an impaired relaxation filling pattern. Elevated filling pressures. E/E prime ratio is >15, consistent with elevated filling pressures. Wall Motion Rest Echo Findings The basal inferior, basal inferoseptal, and basal inferolateral segments are hypokinetic. All other scored wall segments showed normal motion. Right Ventricle Normal right ventricular cavity size and systolic function. Atria The left atrium is mildly dilated. There is no evidence of interatrial shunt. The right atrium is normal in size. Aortic Valve A bioprosthetic aortic valve is present. The prosthetic aortic valve appears to be functioning normally. The mean gradient is 12 mmHg. There is trace (trivial) aortic valve regurgitation. Mitral Valve There is mild anterior and moderate posterior mitral leaflet thickening. There is moderate mitral annular calcification. There is trace mitral valve regurgitation. There is no mitral valve stenosis. Pulmonic Valve The pulmonic valve was not well visualized. Tricuspid Valve Likely normal tricuspid valve structure and function. There is trace tricuspid valve regurgitation. The right ventricular systolic pressure is normal. The right ventricular systolic pressure is 18 mmHg. Normal right atrial pressure. There is no evidence of pulmonary hypertension. Great Vessels The pulmonary artery was not well visualized. Small plaque is seen in the sino tubular ridge. Venous The inferior vena cava is normal in size and collapses greater than 50% with inspiration. Pericardium/Pleural There is no evidence of pericardial effusion. Prior Study Comparison No significant change compared to prior study dated: 04/07/2023. Measurements 2D Linear Measurements IVSd: 1.21 0.6-0.9/0.6-1.0 cm LVIDd: 5.00 3.9-5.3/4.2-5.9 cm LVIDd Index: 2.62 2.4-3.2/2.2-3.1 cm/m2 LVIDs: 3.28 2.0-3.6 cm LVPWd: 1.21 0.7-1.1 cm Ao Root: 3.60 2.1-3.5 cm LA Diam: 4.40 2.7-3.8/3.0-4.0 cm LAIDs Index: 2.30 1.5-2.3 cm/m2 LV Mass: 294.86 67-162/88-224 g LV Mass Index: 154.38 43-95/49-115 g/m2 LVOT Diam: 2.00 3.0+(-)1.3 cm Mitral Valve MV Pk E: 0.61 MV PK A: 1.10 MV Decel Time: 299.00 E/A: 0.60 E'Lateral: 3.37 E'Medial: 3.59 E/E' Med: 17.10 E/E' Lat: 18.20 PHT: 88.00 MVA PHT: 2.50 Decel [place]: 2.05 Aortic Valve AoV Pk Evelio: 2.47 AoV Mn Evelio: 1.66 AoV VTI: 0.51 AoV Pk Grad: 24.00 Aov Mn Grad: 12.00 CORNELIUS Cont.VTI: 1.27 LVOT LVOT Pk Evelio: 0.83 LVOT Mn Evelio: 0.59 LVOT VTI: 0.21 LVOT Pk Grad: 3.00 LVOT Mn Grad: 2.00 LVOT Diam: 2.00 LVOT Area: 3.14 Diastolic Function MV Pk E: 0.61 MV Pk A: 1.10 E/A: 0.60 E'Medial: 3.59 E/E' Med: 17.10 E' Laterial: 3.37 E/E' Lat: 18.20 Right Ventricle TAPSE (mm): 23.20 TVS' Evelio: 12.00 Tricuspid Valve TR Pk Evelio: 1.93 TR Pk Grad: 15.00 RA Press: 3.00 RVSP: 18.00 Great Vessels Aorta Ao Root-2D: 3.60 2.0-3.7 cm Ao Asc: 3.60 2.1-3.4 cm Updated in Other Vendor System with Status of Final Geronimo Ha MD electronically signed on 05/05/2024 1:42:15 PM with status of Final
== END ==
LOC: HO.CARD 07:40
PROVIDERS: PCP Internal Medicine; Visit Provider Nurse Practitioner
DX: I25.10 Atherosclerotic heart disease of native coronary artery without angina pectoris (principal)
CPT/HCPCS: 93306

== ENCOUNTER → 2024-05-05 07:53 | Outpatient (BNV) | payer OTHER, SELFPAY | PROVIDERS: PCP Internal Medicine; Visit Provider Internal Medicine Cardiovascular Disease | DX: I34.81 Nonrheumatic mitral (valve) annulus calcification (principal); Z95.3 Presence of xenogenic heart valve | CPT/HCPCS: 93306 ==

== ENCOUNTER → 2024-05-12 08:17 | Outpatient (REF) | payer OTHER, SELFPAY ==
--- NOTE | ~2024-05-12 | NM_ITS ---
Lexiscan Myocardial perfusion study Indication: Preoperative cardiac evaluation Technique: The patient was brought in for a Lexiscan perfusion study on 05/12/2024 and was injected 0.4 mg of Lexiscan intravenously. Within a minute of this injection 30 mCi of sestamibi was given intravenously. Images were obtained using the SPECT gamma camera interlaced with the gating device. Images were obtained in supine position. Resting perfusion study was performed on 05/13/2024. Patient was administered 30 mCi of sestamibi intravenously at rest. Images were then obtained in supine position. Total DLP 99 mGy-cm. Images were processed with the software and compared side to side in short axis, horizontal long axis and vertical long axis views. Findings: Raw aquisition reviewed. The stress perfusion study showed markedly diminished radiotracer uptake along the inferior wall, most prominently in the basal portion. There is also adjacent subdiaphragmatic tracer uptake. With CT attenuation correction, there is improvement. The gated study shows normal LV systolic function with calculated LVEF of 64%. LV cavity is normal in size. The gated study shows diminished contractility in the inferior wall. Resting study shows markedly diminished tracer uptake in the inferior wall, basal and midportion. There is also adjacent subdiaphragmatic tracer uptake. With CT attenuation correction, some improvement. Gating at rest reveals diminished contractility in the basal to midportion of inferior wall that gated LVEF 46%. The findings are consistent with mostly fixed perfusion defect along the inferior wall with some reversibility towards the apex. Some improvement with CT admission correction as well as presence of subdiaphragmatic uptake could indicate at least some artifactual components. NM/NM cardiolite stress test Impression: 1. Myocardial perfusion imaging study shows infarct pattern in the basal to mid inferior wall with some ischemia towards the apex, with some artifactual components due to diaphragmatic attenuation artifact and subdiaphragmatic tracer uptake. 2. Gated LVEF is 64% during stress and 46% during rest. Correlate with echocardiogram. 3. Transient ischemic dilatation not present. EKG component of the test reported separately. Electronically signed by: Jose Rushing MD 05/13/2024 03:54 PM EDT
--- NOTE | 2024-05-12 08:21 | CA_ITS ---
Acquisition Time: 2024-05-12 08:25:50 Total Exercise Time: 00:02:00 Test Indications: PREOP Medications: SEE H Protocol: LEXISCAN Max HR: 086 BPM 56% of Pred: 152 BPM Max BP: 118/072 mmHG Max Work Load: 1.0 METS Pharmacological stress test with Lexiscan injection while sirtting and kicking his legs, without anginal symptoms, with isolated PVCs, venticular cuplet, with normotensive response to injection, with nondiagnositiic EKGs. Aminophylline 75mg IVP given to reverse Lexiscan. Nuclear images pending. Test reviewed with Dr. Ha Referred By: Moni Carias Overread By: Moni Carias
== END ==
LOC: HO.CARD 08:17
PROVIDERS: PCP Internal Medicine; Visit Provider Nurse Practitioner
DX: I25.10 Atherosclerotic heart disease of native coronary artery without angina pectoris (principal)
CPT/HCPCS: 78452; 93017; A9500; J0280; J2785

== ENCOUNTER → 2024-05-12 08:21 | Outpatient (BNV) | payer OTHER, SELFPAY | PROVIDERS: PCP Internal Medicine; Visit Provider Nurse Practitioner | DX: Z01.810 Encounter for preprocedural cardiovascular examination (principal) | CPT/HCPCS: 78452; 93016; 93018 ==

== ENCOUNTER 2024-05-25 12:46 | Outpatient (AMB) | payer OTHER, SELFPAY ==
--- NOTE | 2024-05-25 12:47 | MHC.OFFVIS ---
Vital Signs 05/25/24 12:51 Height 5 ft 6 in Weight 180 lb 12.465 oz BMI 29.2 BP 110/60 Blood Pressure Location Lt brachial Position Sitting Pulse 78 Pulse Source Pulse Oximeter Intake Visit Reasons: f/up mibi/ echo Qualitative Executive Researcher Required: Yes Qualitative Executive Researcher Services: Qualitative Executive Researcher Offered & Declined Allergies cyclobenzaprine Allergy (Intermediate, Verified 03/22/24 14:48) inadequate response morphine Allergy (Intermediate, Verified 03/22/24 14:48) urinary retention Medication List - Last Reconciled 05/25/24 by Moni Carias NP aspirin 81 mg PO DAILY 90 days atorvastatin 80 mg PO DAILY 90 days bisacodyl (Dulcolax (bisacodyl)) 20 mg (4 x 5 mg) PO ONCE 1 day blood sugar diagnostic (FreeStyle Test strips) Use 1 test strip once a day blood sugar diagnostic (Accu-Chek Guide test strips) Use 1 test strip once a day blood sugar diagnostic (Accu-Chek Carla Plus test strips) Use 1 test strip once a day blood-glucose meter (Accu-Chek Carla Plus Meter) As directed blood-glucose meter (Accu-Chek Guide Glucose Meter) As directed blood-glucose meter (FreeStyle Lite Meter kit) tests 4 X/day budesonide-formoterol 80-4.5 mcg/actuation (Symbicort) 2 puffs inhalation BID PRN cholecalciferol (vitamin D3) 25 mcg PO DAILY 90 days clopidogrel 75 mg PO DAILY dapaglifloz propaned-metformin 5-1,000 mg ER (Xigduo XR) 1 tab PO DAILY 90 days lancets (Accu-Chek Softclix Lancets) Use 1 lancet once a day lancets (Accu-Chek Softclix Lancets) Use 1 lancet once a day lancets (FreeStyle Lancets) Use 1 lancet once a day lisinopril 40 mg PO DAILY magnesium oxide 400 mg PO BID 90 days metoprolol succinate ER 25 mg PO DAILY 90 days oxycodone 10 mg PO Q6H PRN 30 days pantoprazole 40 mg PO DAILY PRN 90 days pioglitazone 30 mg PO DAILY 90 days pioglitazone 15 mg PO DAILY polyethylene glycol 3350 (Miralax) 238 grams PO ONCE tamsulosin 0.4 mg PO BEDTIME terazosin 10 mg PO BEDTIME 90 days tirzepatide (Mounjaro) 5 mg (0.5 mL) subcut QWEEK 4 weeks zolpidem 10 mg PO BEDTIME 30 days HPI Comments Details: 68-year-old male presents today with for pre-operative clearance for a colonoscopy and test results. He has a history of coronary artery disease, CVA, aortic stenosis s/p TAVR, current smoker, hypertension, hyperlipidemia, and diabetes. He had last seen Dr. Boland in December 2022. He says he doesn't do too much as his neuropathy in his feet bother him. Denies any chest pains, shortness of breath, swelling, palpitations, or orthopnea. [facility] Medical History Pre-operative cardiovascular examination History of CVA (cerebrovascular accident) (~2017) Coronary artery disease Aortic stenosis Aortic stenosis Hypertensive retinopathy of both eyes Essential hypertension Hyperlipidemia LDL goal <100 Diabetes mellitus, without long-term current use of insulin COPD (chronic obstructive pulmonary disease) Cough Nicotine dependence, cigarettes, uncomplicated GERD (gastroesophageal reflux disease) BPH (benign prostatic hyperplasia) Hypercalcemia Low serum parathyroid hormone (PTH) Neck pain Inguinal hernia, left Insomnia Chronic left shoulder pain Left shoulder pain Hypovitaminosis D Surgical History History of cardiac cath History of squamous cell carcinoma excision (~2010) History of colonoscopy History of right inguinal hernia repair (~1993) History of left inguinal hernia repair (~2018) History of surgery on arm (~1995) Family History Father Prostate cancer Mother No problems noted. Brother No problems noted. Sister No problems noted. Son No problems noted. Social History Household Members: Spouse Household Members Other:: sometimes lives with patient Housing: Apartment Alcohol intake: never Patient Tobacco Use Status: Current everyday Tobacco user Tobacco use type: Cigarette Cigarette Packs Per Day: 1 Cigarettes Per Day: 20 Years Smoked: (onset 13yo, 1ppd x 53yrs, 50pyh) e-Cigarette/Vaping Use: Never Used Second Hand Smoke Exposure: Yes service: No Current occupational status: retired Cognitive needs: No Hearing needs: No Vision needs: Yes Review of Systems Const Denies weakness ENT Denies dizziness Card Denies chest pain, Denies chest pain with activity, Denies syncope, Denies rapid heart rate, Denies pedal edema, Denies edema, Denies leg edema, Denies lightheadedness, Denies palpitations, Denies dyspnea, Denies dyspnea on exertion and Denies orthopnea Resp Denies cough, Denies dyspnea and Denies dyspnea on exertion GI Denies hematochezia and Denies change in stool character Musc Denies abnormal gait, Denies muscle cramps, Denies muscle weakness, Denies numbness, Denies radiating pain into limb and Denies tingling Neuro Denies abnormal gait, Denies dizziness, Denies syncope, Denies numbness, Denies tingling and Denies weakness Endo Denies palpitations Physical Exam Const General: healthy appearing and no acute distress Orientation/consciousness: patient oriented x3 HEENT Head: Yes normal to inspection Eyes General: appearance normal, both eyes and all related structures Neck Neck: Yes normal visual inspection Chest Chest palpation & inspection: normal inspection of the chest Resp Effort & Inspection: normal respiratory effort Auscultation: clear to auscultation bilaterally Cardio Jugular venous distension: no JVD Palpation: normal PMI Rate: regular rate Rhythm: regular rhythm Heart sounds: S1 normal heart sound present, S2 normal heart sound present, no click, no gallops, no murmurs and no rubs GI Inspection: Yes normal to inspection Palpation (GI): Soft to palpation Skin General skin exam: no rashes or lesions noted Neuro General: patient oriented x3 Extrem General: Yes normal to inspection Psych Appearance: grossly normal Results Reviewed Results Reviewed: NM/NM cardiolite stress test Impression: 1. Myocardial perfusion imaging study shows infarct pattern in the basal to mid inferior wall with some ischemia towards the apex, with some artifactual components due to diaphragmatic attenuation artifact and subdiaphragmatic tracer uptake. 2. Gated LVEF is 64% during stress and 46% during rest. Correlate with echocardiogram. 3. Transient ischemic dilatation not present. Conclusions: - 1. Normal LV ejection fraction of 55-60% with mild LVH with impaired relaxation filling pattern and elevated filling pressures 2. Mildly dilated left atrium 3. Normally function bioprosthetic aortic valve with mean gradient of 12 mmHg 4. Normal RV systolic pressure 5. Upper limits of normal ascending aortic size at 3.6 cm 6. No gross pericardial effusion Assessment & Plan Assessment & Plan (1) Pre-operative cardiovascular examination: Code(s): Z01.810 - Encounter for preprocedural cardiovascular examination Category: Medical (2) Essential hypertension: Code(s): I10 - Essential (primary) hypertension Category: Medical Plan: On lisinopril. Stable. (3) Coronary artery disease: Code(s): I25.10 - Atherosclerotic heart disease of [place] coronary artery without angina pectoris Category: Medical Plan: On beta omid, aspirin, and statins. Continue (4) Aortic stenosis: Comment: severe aortic stenosis Code(s): I35.0 - Nonrheumatic aortic (valve) stenosis Category: Medical Plan: A bioprosthetic aortic valve is present. The prosthetic aortic valve appears to be functioning normally. Plan Cardiac catherization showed no significant CAD. Echocardiogra shows no significant changes. Nuclear images showed infarct pattern in the basal to mid inferior wall with some ischemia towards the apex No transient ischemic dilation present. Intermidiate cardiac risk for upcoming procedure. He understands in the meantime if he experiences any new symptoms to call or go to the emergency room. He is on aspirin indefinitely, may hold as needed for procedure and resume as soon as able. Coding Level of Care Code Est Pt Level 4 (21883) Diagnoses Pre-operative cardiovascular examination Z01.810 Essential hypertension I10 Coronary artery disease I25.10 Aortic stenosis I35.0
[2024-05-25 12:51] VITALS: BP 110/60; PULSE 78; BMI 29.2
== END 2024-05-25 13:14 | disposition home or self-care (01) ==
PROVIDERS: PCP Internal Medicine; Visit Provider Nurse Practitioner
DX: Z01.810 Encounter for preprocedural cardiovascular examination (principal); I10 Essential (primary) hypertension; I25.10 Atherosclerotic heart disease of native coronary artery without angina pectoris; I35.0 Nonrheumatic aortic (valve) stenosis
CPT/HCPCS: 99214

== ENCOUNTER → 2024-05-25 12:46 | Outpatient (BNVA) | payer OTHER, SELFPAY | PROVIDERS: PCP Internal Medicine; Visit Provider Nurse Practitioner | DX: Z01.810 Encounter for preprocedural cardiovascular examination (principal); I25.10 Atherosclerotic heart disease of native coronary artery without angina pectoris; I10 Essential (primary) hypertension; I35.0 Nonrheumatic aortic (valve) stenosis; E78.5 Hyperlipidemia, unspecified; F17.210 Nicotine dependence, cigarettes, uncomplicated; Z86.73 Personal history of transient ischemic attack (TIA), and cerebral infarction without residual deficits | CPT/HCPCS: 99212 ==

== ENCOUNTER 2024-05-27 13:44 | Outpatient (AMB) | payer OTHER, SELFPAY ==
--- NOTE | 2024-05-27 13:49 | A.OFFVIS_ITS ---
Intake Visit Reasons: 1yr follow up s/p carotid US 04/28/24 Intake Note: Patient presents for 1 year follow up carotid . He has no complaints. Allergies cyclobenzaprine Allergy (Intermediate, Verified 05/27/24 13:51) inadequate response morphine Allergy (Intermediate, Verified 05/27/24 13:51) urinary retention HPI HPI 1yr follow up s/p carotid US 04/28/24: Details: Very pleasant 69-year-old gentleman presents for routine surveillance follow-up regarding his carotids. He has no interval issues. He reports he smokes about a pack a day. He has been a diabetic since 2016. He also reports that he can walk about a block with no difficulty. He now presents for routine carotid surveillance. [facility] Medical History Pre-operative cardiovascular examination History of CVA (cerebrovascular accident) (~2017) Coronary artery disease Aortic stenosis Aortic stenosis Hypertensive retinopathy of both eyes Essential hypertension Hyperlipidemia LDL goal <100 Diabetes mellitus, without long-term current use of insulin COPD (chronic obstructive pulmonary disease) Cough Nicotine dependence, cigarettes, uncomplicated GERD (gastroesophageal reflux disease) BPH (benign prostatic hyperplasia) Hypercalcemia Low serum parathyroid hormone (PTH) Neck pain Inguinal hernia, left Insomnia Chronic left shoulder pain Left shoulder pain Hypovitaminosis D Surgical History History of cardiac cath History of squamous cell carcinoma excision (~2010) History of colonoscopy History of right inguinal hernia repair (~1993) History of left inguinal hernia repair (~2018) History of surgery on arm (~1995) Family History Father Prostate cancer Mother No problems noted. Brother No problems noted. Sister No problems noted. Son No problems noted. Social History Household Members: Spouse Household Members Other:: sometimes lives with patient Housing: Apartment Alcohol intake: never Patient Tobacco Use Status: Current everyday Tobacco user Tobacco use type: Cigarette Cigarette Packs Per Day: 1 Cigarettes Per Day: 20 Years Smoked: (onset 13yo, 1ppd x 53yrs, 50pyh) e-Cigarette/Vaping Use: Never Used Second Hand Smoke Exposure: Yes service: No Current occupational status: retired Cognitive needs: No Hearing needs: No Vision needs: Yes Review of Systems Const All systems reviewed & are unremarkable except as noted in HPI and below Reports no additional complaints ENT Reports Normal hearing present Card Denies chest pain, Denies chest pain at rest, Denies chest pain with activity and Denies pedal edema Resp Denies cough GI Denies abdominal pain Musc Denies abnormal gait, Denies muscle cramps and Denies radiating pain into limb Skin/Breast Denies skin ulcer and Denies wounds Neuro Reports Normal hearing present and Denies abnormal gait Psych Reports no additional complaints Physical Exam Const General: cooperative, healthy appearing and comfortable Orientation/consciousness: oriented to person, oriented to place and oriented to time HEENT Head: Yes normal to inspection Neck Neck: Yes normal visual inspection Carotids: no bruits Chest Chest palpation & inspection: normal inspection of the chest Resp Effort & Inspection: normal respiratory effort and able to speak in complete sentences Auscultation: clear to auscultation bilaterally, no crackles, no rales, no rh onchi and no wheezes Cardio Rate: regular rate Rhythm: regular rhythm Heart sounds: S1 normal heart sound present and S2 normal heart sound present Bruits: no carotid bruits Peripheral pulses: Peripheral pulses 2+ throughout GI Inspection: Yes normal to inspection Skin Wounds: no wounds Hair: normal Neuro General: oriented to person, oriented to place and oriented to time Cranial nerves: Yes CN's II-XII intact bilaterally and Yes Normal hearing present Cognition (Neuro): normal cognition Motor exam (neuro): 5/5 motor strength present throughout Extrem Other: venous exam: No significant superficial varicosities or spider telangiectasias, minimal edema General: No clubbing, No cyanosis and No edema Psych Appearance: grossly normal Mental Status: mental status grossly normal Speech and movement: Normal speech and movement present Results Reviewed Results Reviewed: Noninvasive carotid testing dated 04/28/2024 demonstrates bilateral 0-49% stenosis with peak systolic on the right of 76 and on the left of 82. Suspect it is on the lower end of that spectrum. Assessment & Plan Assessment & Plan (1) Carotid artery stenosis: Code(s): I65.29 - Occlusion and stenosis of unspecified carotid artery Category: Medical Qualifiers: Laterality: bilateral Qualified Code(s): I65.23 - Occlusion and stenosis of bilateral carotid arteries Plan: In short patient has asymptomatic carotid disease. We have reviewed signs and symptoms of a stroke. We also discussed risk factor modification inclusive a healthy diet low in cholesterol. The patient will follow up with us with surveillance ultrasound of the carotids 1 year. Should there be any changes or signs or symptoms of a stroke we will be happy to see them back sooner. Thank you for allowing us to participate in this patient's care. If there are any questions or concerns please do not hesitate to contact us. Please note a longitudinal relationship has been created with the patient and we have been following and surveillance this chronic condition. Orders: Orders US carotid duplex BI 1 Year I65.23 - Occlusion and stenosis of bilateral carotid arteries Coding Level of Care Code Est Pt Level 4 (25322) Complex EM visit Add On G2211 Diagnoses Bilateral carotid artery stenosis I65.23 Laterality: bilateral
== END 2024-05-27 14:06 | disposition home or self-care (01) ==
PROVIDERS: PCP Internal Medicine; Visit Provider Surgery Vascular Surgery
DX: I65.23 Occlusion and stenosis of bilateral carotid arteries (principal)
CPT/HCPCS: 99214; G2211

== ENCOUNTER → 2024-05-27 13:44 | Outpatient (BNVA) | payer OTHER, SELFPAY | PROVIDERS: PCP Internal Medicine; Visit Provider Surgery Vascular Surgery | DX: I65.23 Occlusion and stenosis of bilateral carotid arteries (principal) | CPT/HCPCS: 99212 ==

== ENCOUNTER 2024-06-14 10:15 | Outpatient (AMB) | payer OTHER, SELFPAY ==
[2024-06-14 10:39] VITALS: BP 120/74; PULSE 69; O2SAT 96; BMI 30.1
--- NOTE | 2024-06-14 10:39 | MHC.OFFVIS ---
Vital Signs 06/14/24 10:39 Height 5 ft 6 in Weight 186 lb 4.65 oz BMI 30.1 BP 120/74 Blood Pressure Location Lt brachial Position Sitting Pulse 69 Pulse Source Pulse Oximeter Pulse Oximetry (%) 96 Oxygen Delivery Method Room Air Intake Visit Reasons: COPD Intake Note: pt is here for follow up of breathing and states he is doing well. Coordinator Of Genetic Services Required: No Allergies cyclobenzaprine Allergy (Intermediate, Verified 06/14/24 11:01) inadequate response morphine Allergy (Intermediate, Verified 06/14/24 11:01) urinary retention Medication List - Last Reconciled 06/14/24 by Khoa Bolton MD aspirin 81 mg PO DAILY 90 days atorvastatin 80 mg PO DAILY 90 days bisacodyl (Dulcolax (bisacodyl)) 20 mg (4 x 5 mg) PO ONCE 1 day blood sugar diagnostic (FreeStyle Test strips) Use 1 test strip once a day blood sugar diagnostic (Accu-Chek Guide test strips) Use 1 test strip once a day blood sugar diagnostic (Accu-Chek Carla Plus test strips) Use 1 test strip once a day blood-glucose meter (Accu-Chek Carla Plus Meter) As directed blood-glucose meter (Accu-Chek Guide Glucose Meter) As directed blood-glucose meter (FreeStyle Lite Meter kit) tests 4 X/day budesonide-formoterol 80-4.5 mcg/actuation (Symbicort) 2 puffs inhalation BID PRN cholecalciferol (vitamin D3) 25 mcg PO DAILY 90 days clopidogrel 75 mg PO DAILY dapaglifloz propaned-metformin 5-1,000 mg ER (Xigduo XR) 1 tab PO DAILY 90 days lancets (Accu-Chek Softclix Lancets) Use 1 lancet once a day lancets (Accu-Chek Softclix Lancets) Use 1 lancet once a day lancets (FreeStyle Lancets) Use 1 lancet once a day lisinopril 40 mg PO DAILY magnesium oxide 400 mg PO BID 90 days metoprolol succinate ER 25 mg PO DAILY 90 days oxycodone 10 mg PO Q6H PRN 30 days pantoprazole 40 mg PO DAILY PRN 90 days pioglitazone 30 mg PO DAILY 90 days pioglitazone 15 mg PO DAILY polyethylene glycol 3350 (Miralax) 238 grams PO ONCE tamsulosin 0.4 mg PO BEDTIME terazosin 10 mg PO BEDTIME 90 days tirzepatide (Mounjaro) 5 mg (0.5 mL) subcut QWEEK 4 weeks zolpidem 10 mg PO BEDTIME 30 days Do you need a note to return to daycare/school/sports/work: No HPI HPI COPD: Details: 69 YEARS OLD GENTLEMAN IS A CASE OF SMOKING AND CHRONIC OBSTRUCTIVE PULMONARY DISEASE. HE COMES AFTER 6 MONTHS FOR ROUTINE FOLLOW-UP AND LUCKILY HE HAS HAD NO ACUTE EXACERBATION IN THE LAST 6 MONTHS. STILL SMOKES 1 PACK A DAY OF CIGARLETS , OFFERS HIS APOLOGIES SAYING THAT HE JUST CAN NOT QUIT. BREATHING HAS BEEN FAIRLY STABLE. HE USES BUDESONIDE-FORMOTEROL 80-4.5 ONLY P.R.N. AND ALTERNATES WITH VENTOLIN 2 PUFFS P.R.N.. MOST OF THE TIME HE IS OKAY WITHOUT MUCH COUGH OR WHEEZING. HE CAN WALK AROUND WITHOUT SHORTNESS OF BREATH. [facility] Medical History Pre-operative cardiovascular examination History of CVA (cerebrovascular accident) (~2017) Coronary artery disease Aortic stenosis Aortic stenosis Hypertensive retinopathy of both eyes Essential hypertension Hyperlipidemia LDL goal <100 Diabetes mellitus, without long-term current use of insulin COPD (chronic obstructive pulmonary disease) Cough Nicotine dependence, cigarettes, uncomplicated GERD (gastroesophageal reflux disease) BPH (benign prostatic hyperplasia) Hypercalcemia Low serum parathyroid hormone (PTH) Neck pain Inguinal hernia, left Insomnia Chronic left shoulder pain Left shoulder pain Hypovitaminosis D Surgical History History of cardiac cath History of squamous cell carcinoma excision (~2010) History of colonoscopy History of right inguinal hernia repair (~1993) History of left inguinal hernia repair (~2018) History of surgery on arm (~1995) Family History Father Prostate cancer Mother No problems noted. Brother No problems noted. Sister No problems noted. Son No problems noted. Social History Household Members: Spouse Household Members Other:: sometimes lives with patient Housing: Apartment Alcohol intake: never Patient Tobacco Use Status: Current everyday Tobacco user Tobacco use type: Cigarette Cigarette Packs Per Day: 1 Cigarettes Per Day: 20 Years Smoked: (onset 13yo, 1ppd x 53yrs, 50pyh) e-Cigarette/Vaping Use: Never Used Second Hand Smoke Exposure: Yes service: No Current occupational status: retired Cognitive needs: No Hearing needs: No Vision needs: Yes Review of Systems Const All systems reviewed & are unremarkable except as noted in HPI and below Eyes Reports no additional complaints ENT Reports no additional complaints Card Denies chest pain, Denies pedal edema, Denies irregular heart rhythm and Reports dyspnea on exertion (Mild ) Resp Reports as per HPI and Reports dyspnea on exertion (Mild ) GI Reports heartburn (Controlled with med) Reports nocturia Musc Reports back pain and Reports arthralgias (Shoulders) Skin/Breast Reports system reviewed and no additional complaints, except as documented Neuro Reports no additional complaints Psych Reports no additional complaints Physical Exam Vital Signs: Last Vital Signs Pulse 69 06/14/24 10:39 BP 120/74 06/14/24 10:39 Pulse Ox 96 06/14/24 10:39 Oxygen Delivery Method Room Air 06/14/24 10:39 BMI result Body Mass Index 30.1 Const General: comfortable, no acute distress, alert and awake Orientation/consciousness: patient oriented x3 HEENT Head: Yes normal to inspection Ears: hearing grossly normal bilaterally General nose exam: No nasal polyps present and No nasal discharge present Face and sinus: Yes sinuses nontender Mouth: oropharynx normal Throat: Yes posterior oropharynx normal Eyes General: appearance normal, both eyes and all related structures Neck Neck: Yes normal visual inspection, Yes no lymphadenopathy, Yes trachea midline and Yes no JVD Thyroid: Thyroid normal Chest Chest palpation & inspection: normal inspection of the chest, normal palpation of entire chest wall and no tenderness Resp Other: Percussion note resonant . Breath sounds are equal on both sides, slightly distant. No wheezes , creps or rhonchi are heard . Cardio Palpation: normal PMI Rate: regular rate Rhythm: regular rhythm Heart sounds: no gallops and no murmurs GI Palpation (GI): Soft to palpation, nontender, No hepatosplenomegaly present, no masses and Other GI palpation findings present (Abdomen is slightly protuberant) Auscultation: normal bowel sounds Back/Spine/Pelvis Thoracic/Lumbar Spine: thoracic and lumbar spine normal to inspection Skin General skin exam: no rashes or lesions noted Neuro General: patient oriented x3 and no focal motor deficits Cranial nerves: Yes CN's II-XII intact bilaterally Extrem General: Yes normal to inspection, Yes no clubbing, cyanosis or edema and Yes no calf tenderness Psych Appearance: grossly normal and well kempt Speech and movement: Normal speech and movement present Assessment & Plan Assessment & Plan (1) COPD (chronic obstructive pulmonary disease): Comment: Pulmonary function test is basically normal except for decreased DLCO.( sec to Emphysematous changes ) Breathing status has been very stable, except for occasional need to use the rescue inhaler. Code(s): J44.9 - Chronic obstructive pulmonary disease, unspecified Category: Medical Qualifiers: COPD type: unspecified COPD Qualified Code(s): J44.9 - Chronic obstructive pulmonary disease, unspecified Plan: Symbicort 80-4.5 2 puffs b.i.d. to use only p.r.n. if there are any bouts of acute cough or wheezing. Ordinarily just use Ventolin 2 puffs Q 6 hours p.r.n.. (2) Cough: Comment: (chronic intermittent cough , smokers cough . Code(s): R05.9 - Cough, unspecified Category: Medical Plan: Best thing is to quit smoking (3) Nicotine dependence, cigarettes, uncomplicated: Comment: (current smoker - onset 13yo, 1ppd x 53yrs, 50pyh) He smokes cigarlets , and admits that it is just difficult for him to quit. Code(s): F17.210 - Nicotine dependence, cigarettes, uncomplicated Category: Medical Plan: Continue in annual lung screening program Coding Level of Care Code Est Pt Level 3 (92750) Diagnoses Chronic obstructive pulmonary disease, unspecified COPD type J44.9 COPD type: unspecified COPD Cough R05.9 Nicotine dependence, cigarettes, uncomplicated F17.210
== END 2024-06-14 11:01 | disposition home or self-care (01) ==
PROVIDERS: PCP Internal Medicine; Visit Provider Internal Medicine
DX: J44.9 Chronic obstructive pulmonary disease, unspecified (principal); R05.9 Cough, unspecified; F17.210 Nicotine dependence, cigarettes, uncomplicated
CPT/HCPCS: 99213

== ENCOUNTER → 2024-06-14 10:15 | Outpatient (BNVA) | payer OTHER, SELFPAY | PROVIDERS: PCP Internal Medicine; Visit Provider Internal Medicine | DX: J44.9 Chronic obstructive pulmonary disease, unspecified (principal); R05.9 Cough, unspecified; F17.210 Nicotine dependence, cigarettes, uncomplicated | CPT/HCPCS: 99212 ==

== ENCOUNTER 2024-07-16 06:56 | Outpatient (REF) | payer OTHER, SELFPAY ==
[2024-07-16 08:11] LABS: Magnesium 1.9 mg/dL (1.6-2.6)
== END 2024-07-16 06:57 | disposition home or self-care (01) ==
LOC: HO.LAB 06:56
PROVIDERS: PCP Internal Medicine; Visit Provider Internal Medicine
DX: E83.42 Hypomagnesemia (principal)
CPT/HCPCS: 36415; 83735

== ENCOUNTER 2024-07-19 12:32 | Outpatient (AMB) | payer OTHER, SELFPAY ==
--- NOTE | 2024-07-19 12:44 | A.OFFPC_ITS ---
Vital Signs 07/19/24 12:45 Height 5 ft 6 in Weight 180 lb BMI 29.0 BP 126/80 Blood Pressure Location Lt brachial Position Sitting Intake Visit Reasons: dm 4 MONTH - see comments Intake Note: Patient here for a 4 month follow up Numerical Control Programmer Required: No Accompanied by: Self / Same As Patient Allergies cyclobenzaprine Allergy (Intermediate, Verified 07/19/24 13:03) inadequate response morphine Allergy (Intermediate, Verified 07/19/24 13:03) urinary retention Medication List - Last Reconciled 07/19/24 by Angela Nava MD aspirin 81 mg PO DAILY 90 days atorvastatin 80 mg PO DAILY 90 days bisacodyl (Dulcolax (bisacodyl)) 20 mg (4 x 5 mg) PO ONCE 1 day blood sugar diagnostic (FreeStyle Test strips) Use 1 test strip once a day blood sugar diagnostic (Accu-Chek Guide test strips) Use 1 test strip once a day blood sugar diagnostic (Accu-Chek Carla Plus test strips) Use 1 test strip once a day blood-glucose meter (Accu-Chek Carla Plus Meter) As directed blood-glucose meter (Accu-Chek Guide Glucose Meter) As directed blood-glucose meter (FreeStyle Lite Meter kit) tests 4 X/day budesonide-formoterol 80-4.5 mcg/actuation (Symbicort) 2 puffs inhalation BID PRN cholecalciferol (vitamin D3) 25 mcg PO DAILY 90 days clopidogrel 75 mg PO DAILY dapaglifloz propaned-metformin 5-1,000 mg ER (Xigduo XR) 1 tab PO DAILY 90 days lancets (Accu-Chek Softclix Lancets) Use 1 lancet once a day lancets (Accu-Chek Softclix Lancets) Use 1 lancet once a day lancets (FreeStyle Lancets) Use 1 lancet once a day lisinopril 40 mg PO DAILY magnesium oxide 400 mg PO BID 90 days metoprolol succinate ER 25 mg PO DAILY 90 days oxycodone 10 mg PO Q6H PRN 30 days pantoprazole 40 mg PO DAILY PRN 90 days pioglitazone 30 mg PO DAILY 90 days pioglitazone 15 mg PO DAILY polyethylene glycol 3350 (Miralax) 238 grams PO ONCE tamsulosin 0.4 mg PO BEDTIME terazosin 10 mg PO BEDTIME 90 days tirzepatide (Mounjaro) 5 mg (0.5 mL) subcut QWEEK 4 weeks zolpidem 10 mg PO BEDTIME 30 days Tobacco use date assessed: 11/19/23 Fall risk assessment: No Falls in past year Last assessed Fall Risk: 07/19/24 Dental Screening Dental Screen Date: 07/19/24 Did you have a dental visit in the last 12 months?: No Did you have a dental problem in the last 6 months where you did not have access to dental care?: No Was dental information given to patient?: Patient has dentist HPI HPI Comments History of Present Illness Details The patient is a 69-year-old male presenting for follow-up care of essential hypertension, diabetes mellitus, hyperlipidemia, and chronic obstructive pulmonary disease (COPD). The patient is currently managed on a regimen that includes lisinopril, atorvastatin, and multiple other medications. Reports indicate a recent evaluation of magnesium, which is currently maintained within normal limits. The patient's hypertension is being managed with lisinopril and metoprolol, with pressures reported to be stable. The diabetes is managed with Cigduo and Monjaro, with the most recent hemoglobin A1c recorded at 6.4%. Hyperlipidemia management includes atorvastatin, and lipid levels were previously close to normal range. COPD management includes the use of Symbicort. The patient also reports recent ischemic changes identified in a cardiac evaluation, and he is on aspirin and clopidogrel. The patient experiences chronic shoulder pain for which oxycodone was initially prescribed. He also takes pantoprazole for gastroesophageal reflux disease and tamsulosin for prostate enlargement. Lastly, he uses zolpidem for insomnia without reported episodes of chest pain or dyspnea lately. [facility] Medical History Pre-operative cardiovascular examination History of CVA (cerebrovascular accident) (~2018) Coronary artery disease Aortic stenosis Aortic stenosis Hypertensive retinopathy of both eyes Essential hypertension Hyperlipidemia LDL goal <100 Diabetes mellitus, without long-term current use of insulin COPD (chronic obstructive pulmonary disease) Cough Nicotine dependence, cigarettes, uncomplicated GERD (gastroesophageal reflux disease) BPH (benign prostatic hyperplasia) Hypercalcemia Low serum parathyroid hormone (PTH) Neck pain Inguinal hernia, left Insomnia Chronic left shoulder pain Left shoulder pain Hypovitaminosis D Surgical History History of cardiac cath History of squamous cell carcinoma excision (~2010) History of colonoscopy History of right inguinal hernia repair (~1993) History of left inguinal hernia repair (~2018) History of surgery on arm (~1995) Family History Father Prostate cancer Mother No problems noted. Brother No problems noted. Sister No problems noted. Son No problems noted. Social History Household Members: Spouse Household Members Other:: sometimes lives with patient Housing: Apartment Alcohol intake: never Patient Tobacco Use Status: Current everyday Tobacco user Tobacco use type: Cigarette Cigarette Packs Per Day: 1 Cigarettes Per Day: 20 Years Smoked: (onset 13yo, 1ppd x 53yrs, 50pyh) e-Cigarette/Vaping Use: Never Used Second Hand Smoke Exposure: Yes service: No Current occupational status: retired Cognitive needs: No Hearing needs: No Vision needs: Yes Questionnaire Thrive Questionnaire Date Thrive assessed: 11/19/23 EARNESTINE-7 AMB Questionnaire EARNESTINE-7 Date EARNESTINE - 7 assessed: 11/19/23 Source: Developed by Drs. Lenard Donald, Dina Lopez, Phil Law and colleagues, with an educational stan from [employer]. Review of Systems Const All systems reviewed & are unremarkable except as noted in HPI and below Card Denies chest pain at rest, Denies chest pain with activity, Denies edema, Denies irregular heart rhythm, Denies claudication, Denies dyspnea, Denies dyspnea on exertion, Denies orthopnea, Denies paroxysmal nocturnal dyspnea and Denies slow heart rate Resp Denies cough, Denies dyspnea and Denies dyspnea on exertion Physical exam (Primary Care) Vital Signs: Last Vital Signs BP 126/80 07/19/24 12:45 BMI result Body Mass Index 29.0 BMI Assessment/Plan discussion: High BMI High, discussed plan: lifestyle, weight reduction, dietary and physical activity Tobacco/Smoking Status: Tobacco use Status Tobacco use date assessed 11/19/23 07/19/24 12:52 Patient Tobacco Use Status Current everyday Tobacco 07/19/24 12:52 Tobacco use type Cigarette 07/19/24 12:52 e-Cigarette/Vaping Use Never Used 07/19/24 12:52 Are you ready to quit: No Tobacco cessation counseling provided: Yes Items discussed: Nicotine replacement and QuitWorks Relapse Prevention: discussed the importance of a supportive environment Number of minutes spent counselin CPT code: Less than 3 minutes Thrive Assessment: Date of Thrive Assessment Date Thrive assessed 11/19/23 07/19/24 12:52 Resp Effort & Inspection: normal respiratory effort Auscultation: clear to auscultation bilaterally Cardio Jugular venous distension: no JVD Rate: regular rate Rhythm: regular rhythm Heart sounds: S1 normal heart sound present and S2 normal heart sound present Extrem General: Yes full ROM Office Procedures Flu Questionnaire Does the patient have a severe egg allergy?: No Results AMB Hemoglobin A1c AMB Hemoglobin A1c 6.4 % Last Edit by JAMIA Hirsch on 07/19/24 13:0 5 Immunizations Fluarix Triv [id number] (PF) 45 mcg (15 mcg x 3)/0.5 mL IM syringe Performing Provider: Angela Nava MD [facility] Documented (not given) by: JAMIA Hirsch on 07/19/24 13:15 Reason Not Given: Not Given Results Reviewed Results Reviewed: Laboratory Last Values Hgb A1c (Clinic) 6.4 % (4.0-6.0) H 07/19/24 12:43 Coding Level of Care Code Est Pt Level 4 (21403) Complex EM visit Add On G2211 Diagnoses Essential hypertension I10 Type 2 diabetes mellitus with hyperglycemia, without long-term current use of insulin E11.65 Diabetes mellitus type: type 2 Diabetes mellitus complication status: with hyperglycemia Hyperlipidemia LDL goal <70 E78.5 Chronic obstructive pulmonary disease, unspecified COPD type J44.9 COPD type: unspecified COPD Time Spent (min) 21 Assessment & Plan Assessment & Plan (1) Essential hypertension: Code(s): I10 - Essential (primary) hypertension Category: Medical (2) Diabetes mellitus, without long-term current use of insulin: Code(s): E11.9 - Type 2 diabetes mellitus without complications Category: Medical Qualifiers: Diabetes mellitus type: type 2 Diabetes mellitus complication status: with hyperglycemia Qualified Code(s): E11.65 - Type 2 diabetes mellitus with hyperglycemia (3) Hyperlipidemia LDL goal <70: Code(s): E78.5 - Hyperlipidemia, unspecified Category: Medical (4) COPD (chronic obstructive pulmonary disease): Comment: Pulmonary function test is basically normal except for decreased DLCO.( sec to Emphysematous changes ) Breathing status has been very stable, except for occasional need to use the rescue inhaler. Code(s): J44.9 - Chronic obstructive pulmonary disease, unspecified Category: Medical Qualifiers: COPD type: unspecified COPD Qualified Code(s): J44.9 - Chronic obstructive pulmonary disease, unspecified Plan - Essential Hypertension: Continue current antihypertensive regimen. Re-assess blood pressure at routine intervals. - Diabetes Mellitus: Continue current medications, recheck A1c in four months. - Hyperlipidemia: Continue atorvastatin, retest lipid panel in four months. - Chronic Obstructive Pulmonary Disease COPD): Continue Symbicort. Monitor for changes in symptoms. - Prostate Enlargement: Continue taking tamsulosin; monitor symptoms. - Gastroesophageal Reflux Disease: Continue pantoprazole therapy. - Shoulder Pain: Evaluate need for ongoing pain management if current therapy insufficient. - Ischemic Heart Disease: Continue aspirin and clopidogrel; follow-up with interlocking installer scheduled for November. - Insomnia: Continue zolpidem; reassess if symptoms persist. Patient was informed and verbally consented to the use of an ambient scribe for clinic note documentation during this visit. During the visit, I discussed at length the current management of his chronic conditions including hypertension, diabetes, hyperlipidemia, and COPD. I emphasized the importance of maintaining adherence to the prescribed medications including lisinopril, atorvastatin, and diabetes medications. We reviewed his recent cardiac study, which showed patterns suggestive of ischemic heart disease. I explained the rationale for continued use of aspirin and clopidogrel. I encouraged smoking cessation given its impact on his COPD and overall cardiovascular risk. I provided reassurance regarding his stable A1c and lipid l evels. We discussed future follow-up plans, including retesting his lipid panel and A1c in four months and the upcoming appointment with his interlocking installer. Orders: Orders AMB Hemoglobin A1c Today E11.65 - Type 2 diabetes mellitus with hyperglycemia Lipid Panel 4 Months E78.5 - Hyperlipidemia, unspecified Microalbumin, Random (w Creat) 4 Months R80.9 - Proteinuria, unspecified Vitamin D 25-OH Total 4 Months E55.9 - Vitamin D deficiency, unspecified Comprehensive [place]. Panel Fast 4 Months I25.10 - Atherosclerotic heart disease of [place] coronary artery without angina pectoris Magnesium 4 Months E83.42 - Hypomagnesemia Influenza [id number] Immunization Today Z23 - Encounter for immunization Patient Instructions: - Continue all current medications as prescribed. - Maintain follow-up appointments with specialists, particularly the interlocking installer in November. - Return for lab work in four months to monitor cholesterol and blood sugar levels. - Consider strategies for smoking cessation and discuss any support needed. - Monitor and report any new symptoms, including chest pain or shortness of breath, immediately.
[2024-07-19 12:45] VITALS: BP 126/80; BMI 29.0
== END 2024-07-19 13:17 | disposition home or self-care (01) ==
PROVIDERS: PCP Internal Medicine; Visit Provider Internal Medicine
DX: I10 Essential (primary) hypertension (principal); E11.65 Type 2 diabetes mellitus with hyperglycemia; E78.5 Hyperlipidemia, unspecified; J44.9 Chronic obstructive pulmonary disease, unspecified; Z23 Encounter for immunization

== ENCOUNTER → 2024-07-19 12:32 | Outpatient (BNVA) | payer OTHER, SELFPAY | PROVIDERS: PCP Internal Medicine; Visit Provider Internal Medicine | DX: I10 Essential (primary) hypertension (principal); E11.65 Type 2 diabetes mellitus with hyperglycemia; E78.5 Hyperlipidemia, unspecified; J44.9 Chronic obstructive pulmonary disease, unspecified | CPT/HCPCS: 83036; 90471; 99212 ==

== ENCOUNTER 2024-10-15 06:49 | Outpatient (REF) | payer OTHER, SELFPAY ==
--- OUTSIDE RECORDS SUMMARY | 2024-10-15 06:51 | XMS_ITS | Clinical Summary ---
Author Organization [facility] Address [address] [place] [address] Care Team Providers Care Epic Ambulatory Analyst Name Role Phone Unavailable Primary Care Provider Unavailabl e Allergies No known active allergies Medications atorvastatin (Lipitor) 80 MG tablet TAKE 1 TABLET ORALLY DAILY FOR 90 DAYS 3 Active D3-1000 25 MCG (1000 UT) capsule Take 25 mcg by mouth in the morning. 3 Active prazosin (Minipress) 1 MG capsule TAKE 1 CAPSULE BY MOUTH EVERY DAY AT BEDTIME 2 Active tamsulosin (Flomax) 0.4 MG 24 hr capsule Take 0.4 mg by mouth at bedtime. 3 Active lisinopril 40 MG tablet TAKE 1 TABLET ORALLY DAILY FOR 90 DAYS 3 Active pioglitazone (Actos) 15 MG tablet Take 15 mg by mouth in the morning. 3 Active clopidogrel (Plavix) 75 MG tablet Take 75 mg by mouth in the morning. 3 Active magnesium oxide (Mag-Ox) 400 MG tablet Take 1 tablet by mouth in the morning. 3 Active Xigduo XR 5-1000 MG Take 1 tablet by mouth in the morning. 3 Active metoprolol succinate XL (Toprol-XL) 25 MG 24 hr tablet Take 25 mg by mouth in the morning. 3 Active pantoprazole (ProtoNix) 40 MG EC tablet TAKE 1 TABLET BY MOUTH EVERY DAY NEEDED FOR HEARTBURN 3 Active terazosin (Hytrin) 10 MG capsule Take 10 mg by mouth at bedtime. 3 Active zolpidem (Ambien) 10 MG tablet Take 10 mg by mouth at bedtime. 3 Active Symbicort 80-4.5 MCG/ACT inhaler TAKE 2 PUFF INHALED 2 TIMES A DAY FOR 30 DAYS 3 Active famotidine (Pepcid) 40 MG tablet Take 40 mg by mouth in the morning. 3 Active Trulicity 1.5 MG/0.5ML solution pen-injector INJECT 1 PREFILLED SYRINGE SUBCUTANEOUSLY EVERY WEEK FOR 90 DAYS 3 Active Accu-Chek Guide test strip USE 1 TEST STRIP ONCE A DAY 3 Active Social History Tobacco Use Types Packs/Day Years Used Date Smoking Tobacco: Every Day Cigarettes Smokeless Tobacco: Never Tobacco Cessation:Ready to Q uit: No; Counseling Given: No Alcohol Use Standard Drinks/Week Comments Never 0 (1 standard drink = 0.6 oz pur e alcohol) Sex and Gender Information Value Date Recorded Sex Assigned at Male 04/02/2023 2:44 PM EDT Legal Sex Male 2:37 PM EDT Gender Identity Male 04/02/2023 2:44 PM EDT Sexual Orientation Straight 04/02/2023 2: 44 PM EDT Plan of Treatment Health Maintenance Due Date Last Done Comments CT Colonography 1955 Colonoscopy 1955 Colorectal Cancer Screening 1955 Dental Oral Exam 1955 Dental Prophylaxis 1955 Dental X-Ray: Bitewings 1955 Dental X-Ray: Full Mouth 1955 Depression Screening 1955 FIT DNA/Cologuard 1955 FIT 1955 FOBT 1955 Lipid Panel 1955 SDOH Screening 1955 Sigmoidoscopy 1955 Alcohol/Substance Use Screening 1967 Hepatitis C Screening 1973 DTaP/Tdap/Td Vaccines (1 - Tdap) 1974 Zoster Vaccines (1 of 2) 2005 Tobacco Screening 04/08/2024 04/08/2023 COVID-19 Vaccine ( season) 2024 01/09/2022, 07/21/2021, 12/06/2020, Additional history exists Influenza Vaccine (#1) 2024 2, 06/28/2020, 2019, Additional history exists RSV Patients and Patients Aged 60 years or older (1 - 1-dose 75+ series) 2030 Pneumococcal Vaccine: 50+ Years Completed 02/12/2023, 09/01/2015 HIB Vaccines Aged Out No longer eligi ble based on patient's age to complete this topic HPV Vaccines Aged Out No longer eligi ble based on patient's age to complete this topic Hepatitis A Vaccines Aged Out No long er eligible based on patient's age to complete this topic Hepatitis B Vaccines Aged Out No long er eligible based on patient's age to complete this topic IPV Vaccines Aged Out No longer eligi ble based on patient's age to complete this topic Meningococcal Vaccine Aged Out No barb laurie eligible based on patient's age to complete this topic RSV under 20 months Aged Out No longe r eligible based on patient's age to complete this topic Rotavirus Vaccines Aged Out No longer eligible based on patient's age to complete this topic
[2024-10-15 08:23] LABS: Alanine Aminotransferase 32 U/L (0-40); Alkaline Phosphatase 68 U/L (39-117); Anion Gap 10 (12-20); Aspartate Amino Transferase 29 U/L (5-37); Bilirubin Total 0.4 mg/dL (0.0-1.0); Blood Urea Nitrogen 13 mg/dL (9-16); Calcium 9.8 mg/dL (8.4-10.2); Carbon Dioxide 29 mmol/L (22-29); Chloride 103 mmol/L (96-108); Cholesterol 137 mg/dL (<200); Estimated Glomerular Filt Rate > 60; Glucose Fasting 101 mg/dL (60-99); HDL Cholesterol 33 mg/dL (>40); LDL Cholesterol Calculated 86 mg/dL (<100); Magnesium 1.7 mg/dL (1.6-2.6); Potassium 4.2 mmol/L (3.3-5.1); Sodium 138 mmol/L (135-145); Total Protein 7.8 g/dL (6.5-8.0); Triglycerides 92 mg/dL (<150)
[2024-10-15 08:32] LABS: Creatinine Urine 91.73 mg/dL; Microalbum/Creatinine Ratio Ur 7.6 ug/mg cr (<30)
[2024-10-15 08:43] LABS: Vitamin D 25-OH Total 32.8 ng/mL (>30)
== END 2024-10-15 06:50 | disposition home or self-care (01) ==
LOC: HO.LAB 06:49
PROVIDERS: PCP Internal Medicine; Visit Provider Internal Medicine
DX: R05.3 Chronic cough (principal); I25.10 Atherosclerotic heart disease of native coronary artery without angina pectoris; E78.5 Hyperlipidemia, unspecified; E83.42 Hypomagnesemia; R80.9 Proteinuria, unspecified; E55.9 Vitamin D deficiency, unspecified
CPT/HCPCS: 36415; 80053; 80061; 82043; 82306; 82570; 83735; 96127; 99212

== ENCOUNTER 2024-10-15 08:13 | Outpatient (AMB) | payer OTHER, SELFPAY ==
--- OUTSIDE RECORDS SUMMARY | 2024-10-15 08:16 | XMS_ITS | Clinical Summary ---
Author Organization [facility] Address [address] [place] [address] Care Team Providers Care Collection Card Clerk Name Role Phone Unavailable Primary Care Provider [...]
--- NOTE | 2024-10-15 08:44 | A.OFFPC_ITS ---
Vital Signs 10/15/24 08:47 Height 5 ft 6 in Weight 185 lb 6 oz BMI 29.9 BP 110/70 Blood Pressure Location Rt brachial Pulse 51 Pulse Source Pulse Oximeter Temp 97.3 F Temp Source Temporal Artery Scan Pulse Oximetry (%) 98 Oxygen Delivery Method Room Air Intake Visit Reasons: sore throat Intake Note: Patient is here to follow up on sore throat. Manager Facility Required: Yes Manager Facility Language: Labor Supervisor Name: Carlos ([id number]) Information Interpreted: non-clinical & clinical Assistant Winemaker: Not Required per policy Accompanied by: Self / Same As Patient Allergies cyclobenzaprine Allergy (Intermediate, Verified 10/15/24 08:47) inadequate response morphine Allergy (Intermediate, Verified 10/15/24 08:47) urinary retention Tobacco use date assessed: 10/15/24 Fall risk assessment: No Falls in past year Last assessed Fall Risk: 10/15/24 Dental Screening Dental Screen Date: 10/15/24 Did you have a dental visit in the last 12 months?: Yes Did you have a dental problem in the last 6 months where you did not have access to dental care?: No Was dental information given to patient?: Patient has dentist HPI HPI Comments History of Present Illness Details 69 y/o male patient who presents to the clinic for the same day appointment. Pt c/o throat swelling , cough and feeling like something growing inside his throat. Reports voice changes. Denies problems with swallowing. He does have a long h/o chronic cigarette smoking with dry cough. [facility] Medical History (Updated 10/15/24 @ 09:21 by Soni Levine NP) History of transcatheter aortic valve replacement (TAVR) Pre-operative cardiovascular examination Nicotine dependence, cigarettes, uncomplicated Diabetes mellitus, without long-term current use of insulin Hypertensive retinopathy of both eyes Cough Hyperlipidemia LDL goal <100 Hypercalcemia Low serum parathyroid hormone (PTH) Coronary artery disease Aortic stenosis Neck pain Inguinal hernia, left History of CVA (cerebrovascular accident) (~2017) COPD (chronic obstructive pulmonary disease) BPH (benign prostatic hyperplasia) GERD (gastroesophageal reflux disease) Essential hypertension Insomnia Chronic left shoulder pain Left shoulder pain Hypovitaminosis D Surgical History History of cardiac cath History of squamous cell carcinoma excision (~2010) History of colonoscopy History of right inguinal hernia repair (~1993) History of left inguinal hernia repair (~2018) History of surgery on arm (~1995) Family History Father Prostate cancer Mother No problems noted. Brother No problems noted. Sister No problems noted. Son No problems noted. Social History Household Members: Spouse Household Members Other:: sometimes lives with patient Housing: Apartment Alcohol intake: never Patient Tobacco Use Status: Current everyday Tobacco user Tobacco use type: Cigarette Cigarette Packs Per Day: 1 Cigarettes Per Day: 20 Years Smoked: (onset 13yo, 1ppd x 53yrs, 50pyh) e-Cigarette/Vaping Use: Never Used Second Hand Smoke Exposure: Yes service: No Current occupational status: retired Cognitive needs: No Hearing needs: No Vision needs: Yes Questionnaire PHQ-9 Over the last 2 weeks, how often have you been bothered by any of the following problems? 1. Little interest or pleasure in doing things: not at all 2. Feeling down, depressed, or hopeless: not at all 3. Trouble falling or staying asleep, or sleeping too much: not at all 4. Feeling tired or having little energy: not at all 5. Poor appetite or overeating: not at all 6. Feeling bad about yourself - or that you are a failure or have let yourself or your family down: not at all 7. Trouble concentrating on things, such as reading the newspaper or watching television: not at all 8. Moving or speaking so slowly that other people could have noticed. Or the opposite - being so fidgety or restless that you have been moving around a lot more than usual: not at all 9. Thoughts that you would be better off or of hurting yourself in some way: not at all Total score: 0 Depression Screening Interpretation: Negative Depression Screening Done: Yes Source: Developed by Drs. Lenard Donald, Dina Lopez, Phil Law and colleagues, with an educational stan from [employer]. Thrive Questionnaire Date Thrive assessed: 10/15/24 I am a: Patient What is your living situation today?: I have a steady place to live Within the past 12 months, did the food you bought not last and you didn't have the money to get more?: Never true Within the past 12 months, did you worry whether your food would run out before you got money to buy more?: Never true Do you have trouble paying for medicines?: No Do you have trouble getting transportation to medical appointments?: No Do you have trouble paying your heating and electricity bill?: No Do you have trouble taking care of your child, family member or friend?: No Do you have trouble with day-to-day activities such as bathing, preparing meals, shopping, managing finances, etc.?: No Are you currently unemployed and looking for a job?: No Are you interested in more education?: No Please select the resources that you would like help with: None Currently or been in a relationship where the following occur: No concerns reported THRIVE Score: 0 AUDIT C Alcohol Use Questionnaire (AUDIT-C) 1. How often do you have a drink containing alcohol?: Never Total Score: 0 EARNESTINE-7 AMB Questionnaire EARNESTINE-7 Date EARNESTINE - 7 assessed: 10/15/24 Feeling nervous, anxious, or on edge: 0 = Not at all Not being able to stop or control worryin = Not at all Worrying too much about different things: 0 = Not at all Trouble relaxin = Not at all Being so restless that it is hard to sit still: 0 = Not at all Becoming easily annoyed or irritable: 0 = Not at all Feeling afraid as if something awful might happen: 0 = Not at all Total EARNESTINE-7 score (0-4 normal; 5-9 mild; 10-14 moderate; 15-21 severe): 0 Source: Developed by Drs. Lenard Donald, Dina Lopez, Phil Law and colleagues, with an educational stan from [employer]. Review of Systems Const All systems reviewed & are unremarkable except as noted in HPI and below Physical exam (Primary Care) Vital Signs: Last Vital Signs Temp 97.3 F 10/15/24 08:47 Pulse 51 10/15/24 08:47 BP 110/70 10/15/24 08:47 Pulse Ox 98 10/15/24 08:47 Oxygen Delivery Method Room Air 10/15/24 08:47 BMI result Body Mass Index 29.9 Tobacco/Smoking Status: Tobacco use Status Tobacco use date assessed 10/15/24 10/15/24 08:55 Patient Tobacco Use Status Current everyday Tobacco 10/15/24 08:55 Tobacco use type Cigarette 10/15/24 08:55 e-Cigarette/Vaping Use Never Used 10/15/24 08:55 PHQ-9: PHQ-9 Score PHQ-9: Total score 0 10/15/24 08:55 Depression Screening Interpretation: Negative Thrive Assessment: Date of Thrive Assessment Date Thrive assessed 10/15/24 10/15/24 08:55 Currently or been in a relationship where the following occur: No concerns reported Const General: no acute distress Orientation/consciousness: patient oriented x3 HENMT Head: Yes normocephalic Mouth: moist mucous membranes Throat: Yes uvula midline, Yes abnormal tonsil (Enlarged tonsils), No peritonsillar mass and No uvular edema Neck Neck: Yes full ROM, Yes no lymphadenopathy and Yes trachea midline Resp Effort & Inspection: normal respiratory effort and able to speak in complete sentences Auscultation: clear to auscultation bilaterally, no crackles, no rales, no rhonchi and no wheezes Cardio Heart sounds: S1 normal heart sound present and S2 normal heart sound present Neuro General: patient oriented x3 Coding Level of Care Code Est Pt Level 4 (76630) Diagnoses Chronic cough R05.3 Cough type: chronic Time Spent (min) 20 Assessment & Plan Assessment & Plan (1) Cough: Code(s): R05.9 - Cough, unspecified Category: Medical Qualifiers: Cough type: chronic Qualified Code(s): R05.3 - Chronic cough Plan: Has chronic cough hx No growth or swelling seen Advised to treat the cough now, and f/u with PCP in 1 week if symptoms not improved. Medications: New dextromethorphan polistirex ER (Delsym 12 hour) 10 mL PO Q12H 89 mL 0RF cough R05.3 - Chronic cough benzonatate 100 mg PO TID 60 caps 0RF R05.3 - Chronic cough
[2024-10-15 08:47] VITALS: BP 110/70; PULSE 51; TEMP 36.3; O2SAT 98; BMI 29.9
== END 2024-10-15 09:17 | disposition home or self-care (01) ==
PROVIDERS: PCP Internal Medicine; Visit Provider Nurse Practitioner Family
DX: R05.3 Chronic cough (principal)

== ENCOUNTER 2024-10-28 07:08 | Outpatient (REF) | payer OTHER, SELFPAY ==
--- NOTE | ~2024-10-28 | CT_ITS ---
CLINICAL HISTORY: R91.8 - Other nonspecific abnormal finding of lung field CT lung cancer screening (LDCT) Comparison: Chest CT from 02/18/2024 Technique: Axial CT images of the chest using low-dose technique. Referring provider counseled the patient on shared decision-making for LDCT screening. Additional counseling was provided on smoking cessation. Effective radiation dose total: DLP 50.1 mGycm, CTDIvol 1.4 mGy. Findings: Lung: Previous index right nodule as resolved. Index solid left lower lobe nodule measures 4 mm (image 67 of series 6), previously 7 mm (category 2) 5 mm solid pulmonary nodule is unchanged medially in the superior segment of the right lower lobe abuts medial pleural surface, image number 83 of series 4 (category 2). Moderate to severe bilateral emphysematous changes. Mild atelectasis and scarring of both lungs. Mild pleural thickening without significant pleural effusion. No pneumothorax. New mild ground-glass is nonspecific and may be infectious/inflammatory such as mild pneumonitis including periphery of the right lung Coronary artery calcifications: Severe, with mild cardiomegaly and aortic valve replacement metal Limited upper abdomen: Variant superior positioning of the imaged hepatic flexure Other: Degenerative changes include imaged spine and imaged right shoulder Impression: Category 2s: Mild ground-glass may reflect mild pneumonitis. Otherwise, Category 2: Benign appearance or behavior, continue annual screening This document has been electronically signed by: Chun Marie MD on 10/29/2024 02:11:11
--- OUTSIDE RECORDS SUMMARY | 2024-10-28 07:10 | XMS_ITS | Clinical Summary ---
Author Organization [employer] Address [address] [facility] [address] [place] [address] Care Team Providers Care Private Branch Exchange Operator Name Role Phone Unavailable Primary Care Provider [...]
== END 2024-10-28 07:09 | disposition home or self-care (01) ==
LOC: HO.CT 07:08
PROVIDERS: PCP Internal Medicine; Visit Provider Physician Assistant Medical
DX: R91.8 Other nonspecific abnormal finding of lung field (principal); F17.210 Nicotine dependence, cigarettes, uncomplicated
CPT/HCPCS: 71250

== ENCOUNTER → 2024-10-28 07:11 | Outpatient (BNV) | payer OTHER, SELFPAY | PROVIDERS: PCP Internal Medicine; Visit Provider Radiology Neuroradiology | DX: R91.8 Other nonspecific abnormal finding of lung field (principal) | CPT/HCPCS: 71250 ==

== ENCOUNTER 2024-11-16 13:39 | Outpatient (AMB) | payer OTHER, SELFPAY ==
[2024-11-16 14:08] VITALS: BP 120/72; BMI 29.4
--- NOTE | 2024-11-16 14:08 | A.OFFPC_ITS ---
Vital Signs 11/16/24 14:08 Height 5 ft 6 in Weight 182 lb BMI 29.4 BP 120/72 Blood Pressure Location Lt brachial Position Sitting Intake Visit Reasons: DM Intake Note: Patient here for a follow up DM Sales Incentive Analyst Required: Yes Sales Incentive Analyst Language: Engagement Engineer Name: Angela Nava MD Information Interpreted: non-clinical & clinical Accompanied by: Self / Same As Patient Allergies cyclobenzaprine Allergy (Intermediate, Verified 11/16/24 14:21) inadequate response morphine Allergy (Intermediate, Verified 11/16/24 14:21) urinary retention Medication List - Last Reconciled 11/16/24 by Angela Nava MD aspirin 81 mg PO DAILY 90 days atorvastatin 80 mg PO DAILY 90 days budesonide-formoterol 80-4.5 mcg/actuation (Symbicort) 2 puffs inhalation BID 30 days cholecalciferol (vitamin D3) 25 mcg PO DAILY 90 days clopidogrel 75 mg PO DAILY dapaglifloz propaned-metformin 5-1,000 mg ER (Xigduo XR) 1 tab PO DAILY 90 days lancets (Accu-Chek Softclix Lancets) Use 1 lancet once a day lancets (Accu-Chek Softclix Lancets) Use 1 lancet once a day lancets (FreeStyle Lancets) Use 1 lancet once a day lisinopril 40 mg PO DAILY magnesium oxide 400 mg PO BID 90 days metoprolol succinate ER 25 mg PO DAILY 90 days oxycodone 10 mg PO Q6H PRN 30 days pantoprazole 40 mg PO DAILY PRN 90 days pioglitazone 30 mg PO DAILY 90 days tamsulosin 0.4 mg PO BEDTIME terazosin 10 mg PO BEDTIME 90 days tirzepatide (Mounjaro) 5 mg (0.5 mL) subcut QWEEK 4 weeks zolpidem 10 mg PO BEDTIME 30 days Tobacco use date assessed: 10/15/24 Fall risk assessment: No Falls in past year Last assessed Fall Risk: 11/16/24 Dental Screening Dental Screen Date: 10/15/24 HPI HPI Comments History of Present Illness Details The patient is a 69-year-old male presenting for follow-up on his chronic medical conditions, specifically concerning a thyroid abnormality and swallowing difficulty. He has a history of Chronic Obstructive Pulmonary Disease (COPD), Type 2 Diabetes Mellitus, Hypertension, and Hyperlipidemia, among other chronic conditions. The patient's visit includes the evaluation of his thyroid after noting a protrusion on one side. An ultrasound of the thyroid has been discussed. Additionally, he reports some difficulty swallowing solids, and a barium swallow study was suggested to assess this issue further. The patient's LDL cholesterol level has decreased from a previous 88 mg/dL to 86 mg/dL, yet remains above the target of 70 mg/dL. His A1c is at 5.9%, showing good management of his diabetes. The patient experiences chronic shoulder pain, for which he takes laoxicodone. He has a previous history of using morphine, which led to urinary retention. His current medications for chronic conditions include atorvastatin, metoprolol, pantoprazole for GERD, and tamsulosin for prostatic hyperplasia. He also receives Mounjaro injections at a dosage of 2.5 mg weekly, which he reports tolerating well. [facility] Medical History (Updated 11/16/24 @ 14:42 by Angela Nava MD) Coronary artery calcification seen on CAT scan History of transcatheter aortic valve replacement (TAVR) Nicotine dependence, cigarettes, uncomplicated Diabetes mellitus, without long-term current use of insulin Hypertensive retinopathy of both eyes Cough Hyperlipidemia LDL goal <100 Hypercalcemia Low serum parathyroid hormone (PTH) Coronary artery disease Aortic stenosis Neck pain Inguinal hernia, left History of CVA (cerebrovascular accident) (~2017) COPD (chronic obstructive pulmonary disease) BPH (benign prostatic hyperplasia) GERD (gastroesophageal reflux disease) Essential hypertension Insomnia Chronic left shoulder pain Left shoulder pain Hypovitaminosis D Surgical History History of cardiac cath History of squamous cell carcinoma excision (~2010) History of colonoscopy History of right inguinal hernia repair (~1993) History of left inguinal hernia repair (~2018) History of surgery on arm (~1995) Family History Father Prostate cancer Mother No problems noted. Brother No problems noted. Sister No problems noted. Son No problems noted. Social History Household Members: Spouse Household Members Other:: sometimes lives with patient Housing: Apartment Alcohol intake: never Patient Tobacco Use Status: Current everyday Tobacco user Tobacco use type: Cigarette Cigarette Packs Per Day: 1 Cigarettes Per Day: 20 Years Smoked: (onset 13yo, 1ppd x 53yrs, 50pyh) e-Cigarette/Vaping Use: Never Used Second Hand Smoke Exposure: Yes service: No Current occupational status: retired Cognitive needs: No Hearing needs: No Vision needs: Yes Questionnaire Thrive Questionnaire Date Thrive assessed: 10/15/24 EARNESTINE-7 AMB Questionnaire EARNESTINE-7 Date EARNESTINE - 7 assessed: 10/15/24 Source: Developed by Drs. Lenard Donald, Dina Lopez, Phil Law and colleagues, with an educational stan from [employer]. Review of Systems Const All systems reviewed & are unremarkable except as noted in HPI and below ENT Reports dysphagia Card Denies chest pain at rest, Denies chest pain with activity, Denies edema, Denies irregular heart rhythm, Denies claudication, Denies dyspnea, Denies dyspnea on exertion, Denies orthopnea, Denies paroxysmal nocturnal dyspnea and Denies slow heart rate Resp Denies cough, Denies dyspnea and Denies dyspnea on exertion GI Denies abdominal pain, Denies change in bowel habits, Reports dysphagia, Denies excessive flatus, Denies nausea and Denies vomiting Physical exam (Primary Care) Vital Signs: Last Vital Signs BP 120/72 11/16/24 14:08 BMI result Body Mass Index 29.4 Tobacco/Smoking Status: Tobacco use Status Tobacco use date assessed 10/15/24 11/16/24 14:13 Patient Tobacco Use Status Current everyday Tobacco 11/16/24 14:13 Tobacco use type Cigarette 11/16/24 14:13 e-Cigarette/Vaping Use Never Used 11/16/24 14:13 Are you ready to quit: No Tobacco cessation counseling provided: No Thrive Assessment: Date of Thrive Assessment Date Thrive assessed 10/15/24 11/16/24 14:13 Neck Neck: Yes anterior neck swelling Thyroid: diffusely enlarged Resp Effort & Inspection: normal respiratory effort Auscultation: clear to auscultation bilaterally Cardio Jugular venous distension: no JVD Rate: regular rate Rhythm: regular rhythm Heart sounds: S1 normal heart sound present and S2 normal heart sound present Extrem General: Yes full ROM Results AMB Hemoglobin A1c AMB Hemoglobin A1c 5.9 % Last Edit by JAMIA Hirsch on 11/16/24 14:1 5 Results Reviewed Results Reviewed: Laboratory Last Values Hgb A1c (Clinic) 5.9 % (4.0-6.0) 11/16/24 14:05 Coding Level of Care Code Est Pt Level 4 (19337) Complex EM visit Add On G2211 Diagnoses Dysphagia R13.10 Goiter E04.9 Hyperlipidemia LDL goal <70 E78.5 Essential hypertension I10 Type 2 diabetes mellitus with hyperglycemia, without long-term current use of insulin E11.65 Diabetes mellitus type: type 2 Diabetes mellitus complication status: with hyperglycemia Chronic obstructive pulmonary disease, unspecified COPD type J44.9 COPD type: unspecified COPD Gastroesophageal reflux disease, unspecified whether esophagitis present K21.9 Esophagitis presence: esophagitis presence not specified Primary insomnia F51.01 Insomnia type: primary Time Spent (min) 24 Assessment & Plan Assessment & Plan (1) Dysphagia: Code(s): R13.10 - Dysphagia, unspecified Category: Medical (2) Goiter: Code(s): E04.9 - Nontoxic goiter, unspecified Category: Medical (3) Hyperlipidemia LDL goal <70: Code(s): E78.5 - Hyperlipidemia, unspecified Category: Medical (4) Essential hypertension: Code(s): I10 - Essential (primary) hypertension Category: Medical (5) Diabetes mellitus, without long-term current use of insulin: Code(s): E11.9 - Type 2 diabetes mellitus without complications Category: Medical Qualifiers: Diabetes mellitus type: type 2 Diabetes mellitus complication status: with hyperglycemia Qualified Code(s): E11.65 - Type 2 diabetes mellitus with hyperglycemia (6) COPD (chronic obstructive pulmonary disease): Comment: Pulmonary function test is basically normal except for decreased DLCO.( sec to Emphysematous changes ) Breathing status has been very stable, except for occasional need to use the rescue inhaler. Code(s): J44.9 - Chronic obstructive pulmonary disease, unspecified Category: Medical Qualifiers: COPD type: unspecified COPD Qualified Code(s): J44.9 - Chronic obstructive pulmonary disease, unspecified (7) GERD (gastroesophageal reflux disease): Code(s): K21.9 - Gastro-esophageal reflux disease without esophagitis Category: Medical Qualifiers: Esophagitis presence: esophagitis presence not specified Qualified Code(s): K21.9 - Gastro-esophageal reflux disease without esophagitis (8) Insomnia: Code(s): G47.00 - Insomnia, unspecified Category: Medical Qualifiers: Insomnia type: primary Qualified Code(s): F51.01 - Primary insomnia Plan Monitoring for side effects or emerging symptoms will guide any future changes in therapy. Order barium swallow for dysphagia to rule out any obstruction. Order thyroid u/s for goiter. Keep A1c within goal. Keep BP within goal. Patient was informed and verbally consented to the use of an ambient scribe for clinic note documentation during this visit. I have discussed the current management strategies for the patient's chronic conditions, including diabetes, hyperlipidemia, and COPD. We have considered adjusting medications based on laboratory results and current symptoms, emphasizing the importance of achieving LDL cholesterol control. The thyroid evaluation and swallowing difficulty prompted the recommendation of a thyroid ul trasound and a barium swallow test. I explained the purpose of these studies and the potential findings. The patient expressed understanding of his treatment plan and agreed to the indicated follow-up studies and interventions. Orders: Orders FL barium swallow Today R13.10 - Dysphagia, unspecified US thyroid Today E04.9 - Nontoxic goiter, unspecified Thyroid Stimulating Hormone 4 Months E04.9 - Nontoxic goiter, unspecified Free T4 (Free Thyroxine) 4 Months E04.9 - Nontoxic goiter, unspecified AMB Hemoglobin A1c Today E11.65 - Type 2 diabetes mellitus with hyperglycemia Vitamin D 25-OH Total 4 Months E55.9 - Vitamin D deficiency, unspecified Lipid Panel 4 Months E78.5 - Hyperlipidemia, unspecified Microalbumin, Random (w Creat) 4 Months R80.9 - Proteinuria, unspecified Comprehensive [place]. Panel Fast 4 Months E11.65 - Type 2 diabetes mellitus with hyperglycemia Magnesium 4 Months E83.42 - Hypomagnesemia Thyroid Peroxidase Antibodies 4 Months E04.9 - Nontoxic goiter, unspecified Thyroglobulin Antibodies 4 Months E04.9 - Nontoxic goiter, unspecified Patient Instructions: - Continue current medications as prescribed for chronic conditions. - Schedule and complete the thyroid ultrasound and barium swallow study as discussed. - Receive pneumococcal vaccination today. - Contact the clinic if any new symptoms develop or current symptoms worsen. - Maintain current lifestyle modifications to support overall health.
== END 2024-11-16 14:38 | disposition home or self-care (01) ==
LOC: HO.HMCH 13:39
PROVIDERS: PCP Internal Medicine; Visit Provider Internal Medicine
DX: R13.10 Dysphagia, unspecified (principal); E11.65 Type 2 diabetes mellitus with hyperglycemia; J44.9 Chronic obstructive pulmonary disease, unspecified; E04.9 Nontoxic goiter, unspecified; E78.5 Hyperlipidemia, unspecified; I10 Essential (primary) hypertension; K21.9 Gastro-esophageal reflux disease without esophagitis; F51.01 Primary insomnia

== ENCOUNTER → 2024-11-16 13:39 | Outpatient (BNVA) | payer OTHER, SELFPAY | PROVIDERS: PCP Internal Medicine; Visit Provider Internal Medicine | DX: R13.10 Dysphagia, unspecified (principal); E78.5 Hyperlipidemia, unspecified; E04.9 Nontoxic goiter, unspecified; I10 Essential (primary) hypertension; E11.65 Type 2 diabetes mellitus with hyperglycemia; J44.9 Chronic obstructive pulmonary disease, unspecified; K21.9 Gastro-esophageal reflux disease without esophagitis; F51.01 Primary insomnia | CPT/HCPCS: 83036; 99212 ==

== ENCOUNTER 2024-11-24 12:19 | Outpatient (AMB) | payer OTHER, SELFPAY ==
--- NOTE | 2024-11-24 12:44 | MHC.OFFVIS ---
Vital Signs 11/24/24 12:47 Height 5 ft 6 in Weight 183 lb 13.848 oz BMI 29.7 BP 122/64 Blood Pressure Location Lt brachial Position Sitting Pulse 76 Pulse Source Pulse Oximeter Intake Visit Reasons: 6 mth f/up Intake Note: 6 mth f/up Personal Lines Advisor Required: Yes Personal Lines Advisor Language: Receiving Teller Name: [id number] Accompanied by: Self / Same As Patient Allergies cyclobenzaprine Allergy (Intermediate, Verified 11/16/24 14:21) inadequate response morphine Allergy (Intermediate, Verified 11/16/24 14:21) urinary retention Medication List - Last Reconciled 11/24/24 by Wilfredo Boland MD aspirin 81 mg PO DAILY 90 days atorvastatin 80 mg PO DAILY 90 days budesonide-formoterol 80-4.5 mcg/actuation (Symbicort) 2 puffs inhalation BID 30 days cholecalciferol (vitamin D3) 25 mcg PO DAILY 90 days clopidogrel 75 mg PO DAILY dapaglifloz propaned-metformin 5-1,000 mg ER (Xigduo XR) 1 tab PO DAILY 90 days lancets (Accu-Chek Softclix Lancets) Use 1 lancet once a day lancets (Accu-Chek Softclix Lancets) Use 1 lancet once a day lancets (FreeStyle Lancets) Use 1 lancet once a day lisinopril 40 mg PO DAILY magnesium oxide 400 mg PO BID 90 days metoprolol succinate ER 25 mg PO DAILY 90 days oxycodone 10 mg PO Q6H PRN 30 days pantoprazole 40 mg PO DAILY PRN 90 days pioglitazone 30 mg PO DAILY 90 days tamsulosin 0.4 mg PO BEDTIME terazosin 10 mg PO BEDTIME 90 days tirzepatide (Mounjaro) 5 mg (0.5 mL) subcut QWEEK 4 weeks zolpidem 10 mg PO BEDTIME 30 days HPI Comments Details: Mr Rodríguez is here for follow-up. He was seen previously for an abnormal stress test when he developed ischemic EKG changes and hypertensive response to exercise. He did not have any perfusion defect. He also has moderate aortic stenosis. He has significant dyspnea on exertion. Due to these symptoms was taken for left and right heart catheterization. His filling pressures were normal. He had moderate coronary artery disease. He had TIA and was started on Plavix which he has been taking. He continues to smoke a pack to pack and half per day. Recently had its syncope. It appears he was standing in a line outside [facility] when he passed out. I did look through his chart at [facility] and he was thought to have vasovagal event as his blood pressure was in 70s when EMS arrived. He was also found to be hypomagnesemic but no arrhythmia was noticed. Subsequent to that he had repeat echocardiography performed which showed severe aortic valve stenosis with peak velocity of 3.83 m/sec and valve area 0.87 sent meters sq. He is here for follow-up. He has not had any further dizziness. He has some shortness of breath due to underlying lung disease and continues to smoke. He also was diagnosed with right carotid moderate stenosis and following with Dr. Soto. Denies chest discomfort. Echocardiography report discuss in detail with the patient. He was taken for cardiac catheterization again which showed no significant coronary artery disease. We confirmed severe aortic valve stenosis and referred him for transcatheter aortic valve replacement. He is due to see the heart team by end of this month. He has no significant change in status. Continues to smoke. He has dyspnea on exertion. He had few episodes of lightheadedness while changing posture but did not have any significant episodes like before. He was advised to keep himself well hydrated. 11/24/2024: He is here for follow-up. He had transcatheter aortic valve replacement in November 2022 with a 26 mm Susi S3 ultra valve. He is saying he is feeling fine. He continues to smoke and he is saying that he does not plan to quit. He got little upset when I started talking about smoking cessation. He is quite clear that this habit will kill him and he is ready for that and does not want to quit. [facility] Medical History Coronary artery calcification seen on CAT scan History of transcatheter aortic valve replacement (TAVR) Nicotine dependence, cigarettes, uncomplicated Diabetes mellitus, without long-term current use of insulin Hypertensive retinopathy of both eyes Cough Hyperlipidemia LDL goal <100 Hypercalcemia Low serum parathyroid hormone (PTH) Coronary artery disease Aortic stenosis Neck pain Inguinal hernia, left History of CVA (cerebrovascular accident) (~2018) COPD (chronic obstructive pulmonary disease) BPH (benign prostatic hyperplasia) GERD (gastroesophageal reflux disease) Essential hypertension Insomnia Chronic left shoulder pain Left shoulder pain Hypovitaminosis D Surgical History History of cardiac cath History of squamous cell carcinoma excision (~2010) History of colonoscopy History of right inguinal hernia repair (~1993) History of left inguinal hernia repair (~2018) History of surgery on arm (~1995) Family History Father Prostate cancer Mother No problems noted. Brother No problems noted. Sister No problems noted. Son No problems noted. Social History Household Members: Spouse Household Members Other:: sometimes lives with patient Housing: Apartment Alcohol intake: never Patient Tobacco Use Status: Current everyday Tobacco user Tobacco use type: Cigarette Cigarette Packs Per Day: 1 Cigarettes Per Day: 20 Years Smoked: (onset 13yo, 1ppd x 53yrs, 50pyh) e-Cigarette/Vaping Use: Never Used Second Hand Smoke Exposure: Yes service: No Current occupational status: retired Cognitive needs: No Hearing needs: No Vision needs: Yes Review of Systems Const Denies chills, Denies fatigue, Denies fever(s), Denies frequent falls, Denies weakness, Denies weight gain and Denies weight loss ENT Denies dizziness Card Denies chest pain, Denies leg edema, Denies lightheadedness, Denies palpitations, Denies dyspnea and Denies dyspnea on exertion Resp Denies cough, Denies dyspnea and Denies dyspnea on exertion GI Denies hematochezia Musc Denies abnormal gait, Denies muscle weakness, Denies numbness, Denies radiating pain into limb and Denies tingling Neuro Denies abnormal gait, Denies dizziness, Denies frequent falls, Denies numbness, Denies tingling and Denies weakness Endo Denies fatigue and Denies palpitations Physical Exam Vital Signs: Last Vital Signs Pulse 76 11/24/24 12:47 BP 122/64 11/24/24 12:47 BMI result Body Mass Index 29.7 GENERAL APPEARANCE: in no acute distress. NECK/THYROID: Left carotid bruit. SKIN: warm and dry. HEART: Normal S1 plus S2. No murmurs. LUNGS: clear to auscultation bilaterally. ABDOMEN: soft, nontender, nondistended. EXTREMITIES: no edema. PERIPHERAL PULSES: equal. NEUROLOGIC: alert and oriented, nonfocal. Assessment & Plan Assessment & Plan (1) Carotid artery stenosis: Code(s): I65.29 - Occlusion and stenosis of unspecified carotid artery Category: Medical Qualifiers: Laterality: bilateral Qualified Code(s): I65.23 - Occlusion and stenosis of bilateral carotid arteries (2) Status post transcatheter aortic valve replacement: Code(s): Z95.2 - Presence of prosthetic heart valve Category: Medical (3) Essential hypertension: Code(s): I10 - Essential (primary) hypertension Category: Medical Plan [age] year gentleman who is here for follow-up. He has background history of CVA, hypertension, diabetes and severe aortic valve stenosis status post transcatheter aortic valve replacement with Susi S3 ultra 26 mm valve in November 2022. He has been a smoker all his life and continues to smoke. We have discussed many times about smoking cessation but he plans not to quit. He was quite upset when I started talking about smoking cessation again today. He is quite clear that he is not going to stop. Blood pressure is well controlled. He has carotid bruit and had previous CVA. Continue dual antiplatelet therapy and atorvastatin. Follow-up in 1 year with nurse practitioner. Thank you for allowing me to participate in the care of your patient. Please feel free to contact me if you have any questions. Coding Level of Care Code Est Pt Level 4 (28420) Complex EM visit Add On G2211 Diagnoses Bilateral carotid artery stenosis I65.23 Laterality: bilateral Status post transcatheter aortic valve replacement Z95.2 Essential hypertension I10
[2024-11-24 12:47] VITALS: BP 122/64; PULSE 76; BMI 29.7
--- OUTSIDE RECORDS SUMMARY | 2024-11-24 14:50 | XMS_ITS | Clinical Summary ---
Author Organization [employer] Address [address] [facility] [address] [place] [address] Care Team Providers Care Typecasting Machine Operator Name Role Phone Unavailable Primary Care [...]
== END 2024-11-24 13:07 | disposition home or self-care (01) ==
LOC: HO.HCS 12:20
PROVIDERS: PCP Internal Medicine; Visit Provider Internal Medicine Cardiovascular Disease
DX: I65.23 Occlusion and stenosis of bilateral carotid arteries (principal); Z95.2 Presence of prosthetic heart valve; I10 Essential (primary) hypertension
CPT/HCPCS: 99214; G2211

== ENCOUNTER → 2024-11-24 12:19 | Outpatient (BNVA) | payer OTHER, SELFPAY | PROVIDERS: PCP Internal Medicine; Visit Provider Internal Medicine Cardiovascular Disease | DX: I65.23 Occlusion and stenosis of bilateral carotid arteries (principal); I10 Essential (primary) hypertension; Z95.2 Presence of prosthetic heart valve | CPT/HCPCS: 99212 ==

== ENCOUNTER 2024-12-01 10:44 | Outpatient (AMB) | payer OTHER, SELFPAY ==
[2024-12-01 11:00] VITALS: BP 96/58; PULSE 79; O2SAT 95; BMI 30.2
--- NOTE | 2024-12-01 11:00 | A.OFFVIS_ITS ---
Vital Signs 12/01/24 11:00 Height 5 ft 6 in Weight 187 lb 6.287 oz BMI 30.2 BP 96/58 L Blood Pressure Location Lt brachial Position Sitting Pulse 79 Pulse Source Pulse Oximeter Pulse Oximetry (%) 95 Oxygen Delivery Method Room Air Intake Visit Reasons: COPD Intake Note: pt is here for follow up and states he has a lot of phelgm, needs to discuss ct scan results per low dose program Metal Stamper Required: Yes Metal Stamper Services: Metal Stamper Present Metal Stamper Name: [id number] Allergies cyclobenzaprine Allergy (Intermediate, Verified 12/01/24 11:02) inadequate response morphine Allergy (Intermediate, Verified 12/01/24 11:02) urinary retention Medication List - Last Reconciled 12/01/24 by Khoa Bolton MD aspirin 81 mg PO DAILY 90 days atorvastatin 80 mg PO DAILY 90 days budesonide-formoterol 80-4.5 mcg/actuation (Symbicort) 2 puffs inhalation BID 30 days cholecalciferol (vitamin D3) 25 mcg PO DAILY 90 days clopidogrel 75 mg PO DAILY dapaglifloz propaned-metformin 5-1,000 mg ER (Xigduo XR) 1 tab PO DAILY 90 days lancets (Accu-Chek Softclix Lancets) Use 1 lancet once a day lancets (Accu-Chek Softclix Lancets) Use 1 lancet once a day lancets (FreeStyle Lancets) Use 1 lancet once a day lisinopril 40 mg PO DAILY magnesium oxide 400 mg PO BID 90 days metoprolol succinate ER 25 mg PO DAILY 90 days oxycodone 10 mg PO Q6H PRN 30 days pantoprazole 40 mg PO DAILY PRN 90 days pioglitazone 30 mg PO DAILY 90 days tamsulosin 0.4 mg PO BEDTIME terazosin 10 mg PO BEDTIME 90 days tirzepatide (Mounjaro) 5 mg (0.5 mL) subcut QWEEK 4 weeks zolpidem 10 mg PO BEDTIME 30 days Do you need a note to return to daycare/school/sports/work: No HPI HPI COPD: Details: THIS 69 YEARS OLD VERY PLEASANT GENTLEMAN COMES AFTER 6 MONTHS FOR FOLLOW-UP. HE CONTINUES TO SMOKE( CIGARLETS) 1 PACK A DAY, AND APOLOGIZES FOR NOT BEING ABLE TO QUIT. HAS MILD INTERMITTENT COUGH AND SOMETIMES GETS MORE CONGESTED. HE HAS MILD COPD , USES SYMBICORT 80-4.52 PUFFS B.I.D.. AND ALBUTEROL HFA A FEW TIMES A DAY NEEDED. HE HAS HAD NO ACUTE RESPIRATORY INFECTION BUT EVERY NOW AND THEN HE GETS MORE CONGESTED, WHICH IS RELATED TO SMOKING AND ALSO CHANGES IN THE WEATHER. HE WALKS AROUND WITHOUT ANY SHORTNESS OF BREATH. HE DID HAVE LOW-DOSE CT SCAN ABOUT 4 WEEKS AGO AND WANTS TO GO OVER THE FINDINGS. [facility] Medical History Coronary artery calcification seen on CAT scan History of transcatheter aortic valve replacement (TAVR) Nicotine dependence, cigarettes, uncomplicated Diabetes mellitus, without long-term current use of insulin Hypertensive retinopathy of both eyes Cough Hyperlipidemia LDL goal <100 Hypercalcemia Low serum parathyroid hormone (PTH) Coronary artery disease Aortic stenosis Neck pain Inguinal hernia, left History of CVA (cerebrovascular accident) (~2018) COPD (chronic obstructive pulmonary disease) BPH (benign prostatic hyperplasia) GERD (gastroesophageal reflux disease) Essential hypertension Insomnia Chronic left shoulder pain Left shoulder pain Hypovitaminosis D Surgical History History of cardiac cath History of squamous cell carcinoma excision (~2010) History of colonoscopy History of right inguinal hernia repair (~1993) History of left inguinal hernia repair (~2018) History of surgery on arm (~1995) Family History Father Prostate cancer Mother No problems noted. Brother No problems noted. Sister No problems noted. Son No problems noted. Social History Household Members: Spouse Household Members Other:: sometimes lives with patient Housing: Apartment Alcohol intake: never Patient Tobacco Use Status: Current everyday Tobacco user Tobacco use type: Cigarette Cigarette Packs Per Day: 1 Cigarettes Per Day: 20 Years Smoked: (onset 13yo, 1ppd x 53yrs, 50pyh) e-Cigarette/Vaping Use: Never Used Second Hand Smoke Exposure: Yes service: No Current occupational status: retired Cognitive needs: No Hearing needs: No Vision needs: Yes Review of Systems Const All systems reviewed & are unremarkable except as noted in HPI and below Eyes Reports no additional complaints ENT Reports no additional complaints Card Denies chest pain, Denies pedal edema, Denies irregular heart rhythm and Reports dyspnea on exertion (Mild ) Resp Reports as per HPI and Reports dyspnea on exertion (Mild ) GI Reports heartburn (Controlled with med) Reports nocturia Musc Reports back pain and Reports arthralgias (Shoulders) Skin/Breast Reports system reviewed and no additional complaints, except as documented Neuro Reports no additional complaints Psych Reports no additional complaints Physical Exam Vital Signs: Last Vital Signs Pulse 79 12/01/24 11:00 BP 96/58 L 12/01/24 11:00 Pulse Ox 95 12/01/24 11:00 Oxygen Delivery Method Room Air 12/01/24 11:00 BMI result Body Mass Index 30.2 Const General: comfortable, no acute distress, alert and awake Orientation/consciousness: patient oriented x3 HEENT Head: Yes normal to inspection Ears: hearing grossly normal bilaterally General nose exam: No nasal polyps present and No nasal discharge present Face and sinus: Yes sinuses nontender Mouth: oropharynx normal Throat: Yes posterior oropharynx normal Eyes General: appearance normal, both eyes and all related structures Neck Neck: Yes normal visual inspection, Yes no lymphadenopathy, Yes trachea midline and Yes no JVD Thyroid: Thyroid normal Chest Chest palpation & inspection: normal inspection of the chest, normal palpation of entire chest wall and no tenderness Resp Other: Percussion note resonant . Breath sounds are equal on both sides, slightly distant. No wheezes , creps or rhonchi are heard . Cardio Palpation: normal PMI Rate: regular rate Rhythm: regular rhythm Heart sounds: no gallops and no murmurs GI Palpation (GI): Soft to palpation, nontender, No hepatosplenomegaly present, no masses and Other GI palpation findings present (Abdomen is slightly protuberant) Auscultation: normal bowel sounds Back/Spine/Pelvis Thoracic/Lumbar Spine: thoracic and lumbar spine normal to inspection Skin General skin exam: no rashes or lesions noted Neuro General: patient oriented x3 and no focal motor deficits Cranial nerves: Yes CN's II-XII intact bilaterally Extrem General: Yes normal to inspection, Yes no clubbing, cyanosis or edema and Yes no calf tenderness Psych Appearance: grossly normal and well kempt Speech and movement: Normal speech and movement present Office Procedures Spirometry Testing Spirometry Comments: Spirometry done in the office, Dr. Bolton has the results results scanned to his chart. [id number]- Spirometry Results Reviewed Results Reviewed: LDCT 10/29/2024 Category 2s: Mild ground-glass may reflect mild pneumonitis. Otherwise, Category 2: Benign appearance or behavior, continue annual screening . SPIROMETRY : SFK=951 FEV1=99 FEV1/FVC=69 FEF 25-70 = 70 5 Assessment & Plan Assessment & Plan (1) COPD (chronic obstructive pulmonary disease): Comment: Has Mild COPOD . Pulmonary function test was basically normal except for decreased DLCO.( sec to Emphysematous changes ) Spirometry today , c/w very mild obstructive airway disorder Breathing status has been very stable, except for intermittent use of Rescue in halor . (Albuterol HFA ) Code(s): J44.9 - Chronic obstructive pulmonary disease, unspecified Category: Medical Qualifiers: COPD type: unspecified COPD Qualified Code(s): J44.9 - Chronic obstructive pulmonary disease, unspecified Plan: Continue Symbicort 80-4.52 puffs b.i.d.. Prescription renewed Albuterol HFA 2 puffs Q 6 hours p.r.n. (2) Cough: Comment: He has mild chronic COPD and is ongoing smoker. Does have mild intermittent cough, which is definitely related to smoking. Code(s): R05.9 - Cough, unspecified Category: Medical Qualifiers: Cough type: chronic Qualified Code(s): R05.3 - Chronic cough Plan: Explained that his cough is mainly related to smoking he and he has to make an effort to stop or at least cut down the smoking. (3) Nicotine dependence, cigarettes, uncomplicated: Comment: (current smoker - onset 13yo, 1ppd x 53yrs, 50pyh) He smokes cigarlets , and admits that it is just difficult for him to quit. Code(s): F17.210 - Nicotine dependence, cigarettes, uncomplicated Category: Medical Plan: Have talked to him again about at least cutting down the number of cigarettes that is. He apologizes and say is that he is not able to do it. He needs to continue having annual lung scan The findings of his recent CT scan or explained to him. 2 small nodules are unchanged and he has a very small nonspecific ground-glass opacity which is probably, inflammatory in nature. It does not represent any acute infection. Orders: Orders AMB Spirometry Testing Today J44.9 - Chronic obstructive pulmonary disease, unspecified Medications: Refilled budesonide-formoterol 80-4.5 mcg/actuation (Symbicort) 2 puffs inhalation BID 30 days 10.2 grams 5RF COPD Coding Level of Care Code Est Pt Level 3 (36636) Diagnoses Chronic obstructive pulmonary disease, unspecified COPD type J44.9 COPD type: unspecified COPD Chronic cough R05.3 Cough type: chronic Nicotine dependence, cigarettes, uncomplicated F17.210 CPT Codes Spirometry - CPT: 36039- Spirometry ([id number])
--- OUTSIDE RECORDS SUMMARY | 2024-12-01 12:27 | XMS_ITS | Clinical Summary ---
Author Organization [employer] Address [address] [facility] [facility] [address] [place] [address] Care Team Providers Care Blue Leather Sorter Name Role Phone Unavailable Primary Care Provider [...]
== END 2024-12-01 11:30 | disposition home or self-care (01) ==
LOC: HO.HPS 10:45
PROVIDERS: PCP Internal Medicine; Visit Provider Internal Medicine
DX: J44.9 Chronic obstructive pulmonary disease, unspecified (principal); R05.3 Chronic cough; F17.210 Nicotine dependence, cigarettes, uncomplicated
CPT/HCPCS: 94010; 99213

== ENCOUNTER → 2024-12-01 10:44 | Outpatient (BNVA) | payer OTHER, SELFPAY | PROVIDERS: PCP Internal Medicine; Visit Provider Internal Medicine | DX: J44.9 Chronic obstructive pulmonary disease, unspecified (principal); R05.3 Chronic cough; F17.210 Nicotine dependence, cigarettes, uncomplicated | CPT/HCPCS: 94010; 99212 ==

== ENCOUNTER 2024-12-23 11:18 | Outpatient (AMB) | payer OTHER, SELFPAY ==
--- NOTE | 2024-12-23 11:30 | AM.OFFVISNUR ---
Intake Visit Reasons: Pneumonia shot Allergies cyclobenzaprine Allergy (Intermediate, Verified 12/01/24 11:02) inadequate response morphine Allergy (Intermediate, Verified 12/01/24 11:02) urinary retention Immunizations pneumoc 20-mahendra conj-dip cr(PF) 0.5 mL IM syringe Performing Provider: Angela Nava MD Per[facility] [place] [facility] Administered by: Kamila Cason LPN on 12/23/24 11:30 Dose Route Admin Location Dispensed Lot Number Expiration Date [facility] [employer] 0.5 mL IM Left Deltoid 0.5 mL [id number] 10/22/25 2510-9246-40 [employer] VIS Given Date VIS Provided VIS Publication Date 12/23/24 Single Vaccine 21 Eligibility Eligibility Date Funding Source Not [facility] Eligible 12/23/24 Private Assessment & Plan Assessment & Plan Orders: Orders Pneumococcal 20 Immunization Today Z23 - Encounter for immunization Medications: New pneumoc 20-mahendra conj-dip cr(PF) 0.5 mL IM ONCE 0.5 mL 0RF Z23 - Encounter for immunization Coding
== END 2024-12-23 11:31 | disposition home or self-care (01) ==
LOC: HO.HMCH 11:19
PROVIDERS: PCP Internal Medicine; Visit Provider Internal Medicine
DX: Z23 Encounter for immunization (principal)

== ENCOUNTER 2024-12-23 12:22 | Outpatient (REF) | payer OTHER, SELFPAY ==
--- NOTE | ~2024-12-23 | US_ITS ---
EXAMINATION: US THYROID HISTORY: E04.9 - Nontoxic goiter, unspecified TECHNIQUE: Real-time grayscale ultrasound imaging was performed and images were reviewed. COMPARISON: There are no prior studies for comparison. FINDINGS: SIZE: The right thyroid lobe measures 4.8 x 1.8 x 1.9 cm. The left thyroid lobe measures 4.3 x 1.7 x 1.7 cm. The isthmus measures 3 mm. FLOW: Flow to the gland is normal. ECHOGENICITY: The echotexture of the gland is homogeneous. NODULES: No discrete nodules are identified. US/US thyroid IMPRESSION: Unremarkable thyroid ultrasound. ACR TI-RADS Guidelines TR1 (0 points): Benign, No follow-up or biopsy required TR2 (2 points): Not Suspicious, No biopsy or follow up indicated TR3 (3 points): Mildly Suspicious, FNA if >= 2.5 cm, Follow if >= 1.5 cm TR4 (4-6 points): Moderately Suspicious, FNA if >= 1.5 cm, Follow if >= 1.0 cm TR5 (>=7 points): Highly Suspicious, FNA if >= 1.0 cm, Follow if >= 0.5 cm Electronically signed by: Lenard Padron MD 12/24/2024 07:15 AM EDT
--- OUTSIDE RECORDS SUMMARY | 2024-12-23 14:27 | XMS_ITS | Clinical Summary ---
Author Organization [employer] Address [address] [facility] [address] [place] [address] Care Team Providers Care Supervisor Mails Name Role Phone Unavailable Primary Care Provider [...]
== END 2024-12-23 12:23 | disposition home or self-care (01) ==
LOC: HO.US 12:22
PROVIDERS: PCP Internal Medicine; Visit Provider Internal Medicine
DX: Z23 Encounter for immunization (principal); E04.9 Nontoxic goiter, unspecified
CPT/HCPCS: 76536; 90471; 90677

== ENCOUNTER → 2024-12-23 12:24 | Outpatient (BNV) | payer OTHER, SELFPAY | PROVIDERS: PCP Internal Medicine; Visit Provider Radiology Diagnostic Radiology | DX: E04.9 Nontoxic goiter, unspecified (principal) | CPT/HCPCS: 76536 ==

== ENCOUNTER 2025-02-04 09:52 | Outpatient (REF) | payer OTHER, SELFPAY ==
--- NOTE | ~2025-02-04 | FL_ITS ---
EXAMINATION: XR BARIUM SWALLOW CLINICAL INFORMATION: Dysphagia. COMPARISON: None. TECHNIQUE: Seen upright barium swallow was performed with thick barium and barium coated saltine crackers. Thin barium was administered in prone lying position. FINDINGS: On oral administration of thick barium in upright view there is normal propagation of bolus from the oral cavity through the pharynx, esophagus into stomach without any obstruction, narrowing or stricture. No laryngeal penetration or aspiration seen. No retention of barium in the valleculae or piriform sinuses. On oral administration of saltine crackers coated with barium paste there is normal oral mastication and propagation of solid food from the oral cavity through the pharynx, esophagus into stomach. No obstruction visualized. On placing patient prone lying and oral administration of thin barium there is normal distention of esophagus. There is no intrinsic filling defect or extrinsic compression. Incidental finding of aortic valve stent is noted. No reflux or hiatal hernia noted. FLUOROSCOPY TIME: 1 minute 53 seconds DOSE AREA PRODUCT: 1611 uGy-m2 (microgray-meter squared) FL/FL barium swallow IMPRESSION: Unremarkable barium swallow exam. Electronically signed by: Yoel Gregg MD 02/04/2025 01:12 PM EDT
--- OUTSIDE RECORDS SUMMARY | 2025-02-04 10:32 | XMS_ITS | Clinical Summary ---
Author Organization [employer] Address [address] [facility] [address] [place] [address] Care Team Providers Care Electronic Scale Assembler And Tester Name Role Phone Unavailable Primary Care Provider [...] 07/21/2021, 12/06/2020, Additional history exists Influenza Vaccine (Season Ended) 2025 07/03/2022, 06/28/2020, 2019, Additional history exists RSV Patients [...] patient's age to complete this topic Meningococcal B Vaccine Aged Out No l onger eligible based on patient's age to complete [...]
== END 2025-02-04 09:53 | disposition home or self-care (01) ==
LOC: HO.XRAY 09:52
PROVIDERS: PCP Internal Medicine; Visit Provider Internal Medicine
DX: R13.10 Dysphagia, unspecified (principal)
CPT/HCPCS: 74220

== ENCOUNTER → 2025-02-04 11:36 | Outpatient (BNV) | payer OTHER, SELFPAY | PROVIDERS: PCP Internal Medicine; Visit Provider Radiology Diagnostic Radiology | DX: R13.10 Dysphagia, unspecified (principal) | CPT/HCPCS: 74220 ==

== ENCOUNTER 2025-03-29 06:12 | Outpatient (REF) | payer OTHER, SELFPAY ==
[2025-03-29 08:17] LABS: Alanine Aminotransferase 28 U/L (0-40); Albumin Level 4.0 g/dL (3.5-5.0); Alkaline Phosphatase 65 U/L (39-117); Anion Gap 11 (12-20); Aspartate Amino Transferase 21 U/L (5-37); Blood Urea Nitrogen 14 mg/dL (9-16); Calcium 9.1 mg/dL (8.4-10.2); Carbon Dioxide 29 mmol/L (22-29); Chloride 104 mmol/L (96-108); Cholesterol 136 mg/dL (<200); Estimated Glomerular Filt Rate > 60; HDL Cholesterol 27 mg/dL (>40); Magnesium 1.6 mg/dL (1.6-2.6); Potassium 4.0 mmol/L (3.3-5.1); Sodium 140 mmol/L (135-145); Total Protein 7.0 g/dL (6.5-8.0); Triglycerides 133 mg/dL (<150)
[2025-03-29 08:37] LABS: Microalbum/Creatinine Ratio Ur 5.2 ug/mg cr (<30)
[2025-03-29 08:38] LABS: Free T4 (Free Thyroxine) 1.07 ng/dL (0.71-1.85); Thyroid Stimulating Hormone 2.21 uIU/mL (0.32-4.0)
[2025-03-30 18:22] LABS: Thyroglobulin Antibodies <1 IU/mL (< or = 1)
== END 2025-03-29 06:13 | disposition home or self-care (01) ==
LOC: HO.LAB 06:12
PROVIDERS: PCP Internal Medicine; Visit Provider Internal Medicine
DX: E11.65 Type 2 diabetes mellitus with hyperglycemia (principal); E83.42 Hypomagnesemia; E04.9 Nontoxic goiter, unspecified; E78.5 Hyperlipidemia, unspecified; R80.9 Proteinuria, unspecified
CPT/HCPCS: 36415; 80053; 80061; 82043; 82306; 82570; 83735; 84439; 84443; 86376; 86800

== ENCOUNTER 2025-06-01 10:52 | Outpatient (AMB) | payer OTHER, SELFPAY ==
[2025-06-01 11:04] VITALS: BP 130/72; PULSE 76; O2SAT 96; BMI 29.2
--- NOTE | 2025-06-01 11:04 | MHC.OFFVIS ---
Vital Signs 06/01/25 11:04 Height 5 ft 6 in Weight 180 lb 12.465 oz BMI 29.2 BP 130/72 Blood Pressure Location Lt brachial Position Sitting Pulse 76 Pulse Source Pulse Oximeter Pulse Oximetry (%) 96 Oxygen Delivery Method Room Air Intake Visit Reasons: COPD Intake Note: pt is her for follow up and state some coughing Dry Cleaning Checker Required: No Dry Cleaning Checker Services: Dry Cleaning Checker Offered & Declined Podopediatrician: Podopediatrician offered & declined Allergies cyclobenzaprine Allergy (Intermediate, Verified 06/01/25 11:20) inadequate response morphine Allergy (Intermediate, Verified 06/01/25 11:20) urinary retention Medication List - Last Reconciled 06/01/25 by Khoa Bolton MD aspirin 81 mg PO DAILY 90 days atorvastatin 80 mg PO DAILY 90 days budesonide-formoterol 80-4.5 mcg/actuation (Symbicort) 2 puffs inhalation Q12H cholecalciferol (vitamin D3) 25 mcg PO DAILY 90 days clopidogrel 75 mg PO DAILY dapaglifloz propaned-metformin 5-1,000 mg ER (Xigduo XR) 1 tab PO DAILY 90 days lancets (Accu-Chek Softclix Lancets) Use 1 lancet once a day lancets (Accu-Chek Softclix Lancets) Use 1 lancet once a day lancets (FreeStyle Lancets) Use 1 lancet once a day lisinopril 40 mg PO DAILY magnesium oxide 400 mg PO BID 90 days metoprolol succinate ER 25 mg PO DAILY 90 days oxycodone 10 mg PO Q6H PRN 30 days pantoprazole 40 mg PO DAILY PRN 90 days pioglitazone 30 mg PO DAILY 90 days terazosin 10 mg PO BEDTIME 90 days tirzepatide (Mounjaro) 5 mg (0.5 mL) subcut QWEEK 4 weeks zolpidem 10 mg PO BEDTIME 30 days Do you need a note to return to daycare/school/sports/work: No HPI HPI COPD: Details: 70 years old very pleasant gentleman is here for follow-up after 6 months. Continues to smoke cigars 1 pack a day and he feels remorseful but can not stop. Has only mild. Intermittent cough denies wheezing or shortness of breath He had a CT scan of the chest in October of this year, it was benign category 2. Had a barium swallow in January of this year which was normal. [facility] Medical History Coronary artery calcification seen on CAT scan History of transcatheter aortic valve replacement (TAVR) Nicotine dependence, cigarettes, uncomplicated Diabetes mellitus, without long-term current use of insulin Hypertensive retinopathy of both eyes Cough Hyperlipidemia LDL goal <100 Hypercalcemia Low serum parathyroid hormone (PTH) Coronary artery disease Aortic stenosis Neck pain Inguinal hernia, left History of CVA (cerebrovascular accident) (~2017) COPD (chronic obstructive pulmonary disease) BPH (benign prostatic hyperplasia) GERD (gastroesophageal reflux disease) Essential hypertension Insomnia Chronic left shoulder pain Left shoulder pain Hypovitaminosis D Surgical History History of cardiac cath History of squamous cell carcinoma excision (~2010) History of colonoscopy History of right inguinal hernia repair (~1993) History of left inguinal hernia repair (~2018) History of surgery on arm (~1995) Family History Father Prostate cancer Mother No problems noted. Brother No problems noted. Sister No problems noted. Son No problems noted. Social History Household Members: Spouse Household Members Other:: sometimes lives with patient Housing: Apartment Alcohol intake: never Patient Tobacco Use Status: Current everyday Tobacco user Tobacco use type: Cigarette Cigarette Packs Per Day: 1 Cigarettes Per Day: 20 Years Smoked: (onset 13yo, 1ppd x 53yrs, 50pyh) e-Cigarette/Vaping Use: Never Used Second Hand Smoke Exposure: Yes service: No Current occupational status: retired Cognitive needs: No Hearing needs: No Vision needs: Yes Review of Systems Const All systems reviewed & are unremarkable except as noted in HPI and below Eyes Reports no additional complaints ENT Reports no additional complaints Card Denies chest pain, Denies pedal edema, Denies irregular heart rhythm and Reports dyspnea on exertion (Mild ) Resp Reports as per HPI and Reports dyspnea on exertion (Mild ) GI Reports heartburn (Controlled with med) Reports nocturia Musc Reports back pain and Reports arthralgias (Shoulders) Skin/Breast Reports system reviewed and no additional complaints, except as documented Neuro Reports no additional complaints Psych Reports no additional complaints Physical Exam Vital Signs: Last Vital Signs Pulse 76 06/01/25 11:04 BP 130/72 06/01/25 11:04 Pulse Ox 96 06/01/25 11:04 Oxygen Delivery Method Room Air 06/01/25 11:04 BMI result Body Mass Index 29.2 Const General: comfortable, no acute distress, alert and awake Orientation/consciousness: patient oriented x3 HEENT Head: Yes normal to inspection Ears: hearing grossly normal bilaterally General nose exam: No nasal polyps present and No nasal discharge present Face and sinus: Yes sinuses nontender Mouth: oropharynx normal Throat: Yes posterior oropharynx normal Eyes General: appearance normal, both eyes and all related structures Neck Neck: Yes normal visual inspection, Yes no lymphadenopathy, Yes trachea midline and Yes no JVD Thyroid: Thyroid normal Chest Chest palpation & inspection: normal inspection of the chest, normal palpation of entire chest wall and no tenderness Resp Other: Percussion note resonant . Breath sounds are equal on both sides, slightly distant. No wheezes , a few creps over Rt base . Cardio Palpation: normal PMI Rate: regular rate Rhythm: regular rhythm Heart sounds: no gallops and no murmurs GI Palpation (GI): Soft to palpation, nontender, No hepatosplenomegaly present, no masses and Other GI palpation findings present (Abdomen is slightly protuberant) Auscultation: normal bowel sounds Back/Spine/Pelvis Thoracic/Lumbar Spine: thoracic and lumbar spine normal to inspection Skin General skin exam: no rashes or lesions noted Neuro General: patient oriented x3 and no focal motor deficits Cranial nerves: Yes CN's II-XII intact bilaterally Extrem General: Yes normal to inspection, Yes no clubbing, cyanosis or edema and Yes no calf tenderness Psych Appearance: grossly normal and well kempt Speech and movement: Normal speech and movement present Assessment & Plan Assessment & Plan (1) COPD (chronic obstructive pulmonary disease): Comment: Has Mild COPOD . Pulmonary function test was basically normal except for decreased DLCO.( sec to Emphysematous changes ) Spirometry on last visit , c/w very mild obstructive airway disorder Breathing status has been very stable, needs to use rescue inhaler( albuterol ) only once in a while Code(s): J44.9 - Chronic obstructive pulmonary disease, unspecified Category: Medical Qualifiers: COPD type: unspecified COPD Qualified Code(s): J44.9 - Chronic obstructive pulmonary disease, unspecified Plan: Continue Symbicort 80-4.52 puffs b.i.d. And albuterol HFA 2 puffs Q 6 hours p.r.n. (2) Cough: Comment: He has mild chronic COPD and ongoing smoker. Does have mild intermittent cough, which is definitely related to smoking. Code(s): R05.9 - Cough, unspecified Category: Medical Qualifiers: Cough type: chronic Qualified Code(s): R05.3 - Chronic cough Plan: Explained about this and cough is not a major problem in his case (3) Nicotine dependence, cigarettes, uncomplicated: Comment: (current smoker - onset 13yo, 1ppd x 53yrs, 50pyh) He smokes cigarlets , and admits that it is just difficult for him to quit. Code(s): F17.210 - Nicotine dependence, cigarettes, uncomplicated Category: Medical Plan: Patient smokes about 1 pack a day and has no plan to quit Advised to continue getting LDCT of the chest year Coding Level of Care Code Est Pt Level 3 (86795) Diagnoses Chronic obstructive pulmonary disease, unspecified COPD type J44.9 COPD type: unspecified COPD Chronic cough R05.3 Cough type: chronic Nicotine dependence, cigarettes, uncomplicated F17.210
== END 2025-06-01 11:24 | disposition home or self-care (01) ==
LOC: HO.HPS 10:53
PROVIDERS: PCP Internal Medicine; Visit Provider Internal Medicine
DX: J44.9 Chronic obstructive pulmonary disease, unspecified (principal); R05.3 Chronic cough; F17.210 Nicotine dependence, cigarettes, uncomplicated
CPT/HCPCS: 99213

== ENCOUNTER → 2025-06-01 10:52 | Outpatient (BNVA) | payer OTHER, SELFPAY | PROVIDERS: PCP Internal Medicine; Visit Provider Internal Medicine | DX: J44.9 Chronic obstructive pulmonary disease, unspecified (principal); R05.3 Chronic cough; F17.210 Nicotine dependence, cigarettes, uncomplicated | CPT/HCPCS: 99212 ==

== ENCOUNTER 2025-06-04 17:24 | Emergency (ER) | payer OTHER, SELFPAY ==
--- NOTE | ~2025-06-04 | CT_ITS ---
CLINICAL HISTORY: LLQ pain, diverticulitis? CT abdomen and pelvis with contrast Comparison: None provided Findings: No consolidation or effusion. Prior TAVR procedure. Partial mineralization of the mitral valve. The gallbladder and solid organs are within normal limits. No renal stones. No bowel obstruction, pneumoperitoneum, or pneumatosis. Calcified coronary atherosclerotic disease. Moderate calcified atherosclerotic disease of the abdominal aorta. Segmental mural thickening of the colon from the cecum to the rectum. The appendix is within normal limits. Prostate: The prostate is within normal limits. The bones are intact. L3-4: Grade 1 anterolisthesis of L3 on L4. L4-5: Severe DJD. Grade 1 retrolisthesis of L4 over L5. IMPRESSION: 1. Nonspecific colitis. 2. Moderate calcified atherosclerotic disease of the abdominal aorta. 3. Prior TAVR procedure. 4. Calcified coronary atherosclerotic disease. This document has been electronically signed by: Scottie Mark MD on 06/04/2025 21:49:04
[2025-06-04 17:32] VITALS: BP 98/57; PULSE 74; RESP 18; TEMP 36.3; O2SAT 96; BMI 26.9
--- NOTE | 2025-06-04 17:33 | ED_ITS ---
HPI - General Adult General Chief complaint: Nausea/Vomiting/Diarrhea Stated complaint: V+D Time Seen by Provider: 06/04/25 20:05 Source: patient Limitations: language barrier History of Present Illness ED Provider: Jeanne Winkler PA-C HPI narrative: 70-year-old male with a history of hypertension, hyperlipidemia, diabetes, coronary artery disease, aortic stenosis, GERD, BPH who presents with nausea vomiting diarrhea x1 day. Associated lower abdominal discomfort, left greater than right. Described as a ?twisting/squeezing sensation?. Patient states he has had multiple episodes of diarrhea, more so than the nausea vomiting. Associated subjective fevers. Denies sick contacts with similar symptoms, recent travel, recent hospitalization or use of antibiotics. Related Data Home Medications ?Medication ?Instructions ?Recorded ?Confirmed lisinopril 40 mg tablet 40 mg PO DAILY 05/25/2404/18 Previous Rx's ?Medication ?Instructions ?Recorded lancets 28 gauge (FreeStyle #100 ea 09/10/22 Lancets) lancets (Accu-Chek Softclix #100 ea 09/21/22 Lancets) lancets (Accu-Chek Softclix #100 ea 09/24/22 Lancets) metoprolol succinate 25 mg 25 mg PO DAILY 90 days #90 tabs 10/02/24 tablet,extended release 24 hr clopidogrel 75 mg tablet 75 mg PO DAILY #90 tabs 12/17 atorvastatin 80 mg tablet 80 mg PO DAILY 90 days #90 t abs 01/20/25 pioglitazone 30 mg tablet 30 mg PO DAILY 90 days #90 t abs 03/22/25 cholecalciferol (vitamin D3) 25 25 mcg PO DAILY 90 day s #90 caps 03/23/25 mcg (1,000 unit) capsule aspirin 81 mg tablet,delayed 81 mg PO DAILY 90 days #9 0 tabs 03/26/25 release dapagliflozin propaned 5 1 tab PO DAILY 90 days #90 e a 03/28/25 mg-metformin ER 1,000 mg tablet, ext rel 24hr (Xigduo XR) terazosin 10 mg capsule 10 mg PO BEDTIME 90 days #90 caps 04/11/25 magnesium oxide 400 mg (241.3 mg 400 mg PO BID 90 days #180 tabs 04/27/25 magnesium) tablet tirzepatide 5 mg/0.5 mL 5 mg (0.5 mL) subcut QWEEK 4 weeks 05/02/25 subcutaneous pen injector #2 mL (Maria G) oxycodone 10 mg tablet 10 mg PO Q6H PRN pain 30 day s #120 05/09/25 tabs pantoprazole 40 mg tablet,delayed 40 mg PO DAILY PRN h eartburn 90 05/15/25 release days #90 tabs budesonide-formoterol HFA 80 2 puff inhalation Q12H #3 0.6 ea 05/23/25 mcg-4.5 mcg/actuation aerosol inhaler (Symbicort) zolpidem 10 mg tablet 10 mg PO BEDTIME 30 days #30 tabs 05/29/25 levofloxacin 750 mg tablet 750 mg PO Q24H #6 tabs 05/25 09/18 metronidazole 500 mg tablet 500 mg PO Q8H 7 days #21 t abs 06/04/25 ondansetron 4 mg disintegrating 4 mg PO Q8H PRN nausea and 06/04/25 tablet vomiting #10 tabs Allergies Allergy/AdvReac Type Severity Reaction Status Date / Time cyclobenzaprine Allergy Intermediate inadequate Verified 06/04/25 17:32 response morphine Allergy Intermediate urinary Verified 06/04/25 17:32 retention Review of Systems 2 Review of Systems: Yes all other systems are reviewed and are negative Constitutional: Constitutional: Denies fatigue, Reports fever(s) and Reports malaise Cardiovascular: Cardiovascular: Denies chest pain and Denies dyspnea Respiratory: Respiratory: Denies cough and Denies dyspnea Gastrointestinal: Gastrointestinal: Reports abdominal pain, Reports diarrhea, Reports nausea and Reports vomiting Endocrine: Endocrine: Denies fatigue [facility] Past Medical History Attestation statement: The following information was validated with the patient. Medical History Coronary artery calcification seen on CAT scan History of transcatheter aortic valve replacement (TAVR) Nicotine dependence, cigarettes, uncomplicated Diabetes mellitus, without long-term current use of insulin Hypertensive retinopathy of both eyes Cough Hyperlipidemia LDL goal <100 Hypercalcemia Low serum parathyroid hormone (PTH) Coronary artery disease Aortic stenosis Neck pain Inguinal hernia, left History of CVA (cerebrovascular accident) (~2018) COPD (chronic obstructive pulmonary disease) BPH (benign prostatic hyperplasia) GERD (gastroesophageal reflux disease) Essential hypertension Insomnia Chronic left shoulder pain Left shoulder pain Hypovitaminosis D Surgical History History of cardiac cath History of squamous cell carcinoma excision (~2010) History of colonoscopy History of right inguinal hernia repair (~1993) History of left inguinal hernia repair (~2018) History of surgery on arm (~1995) Family History Family History Father Prostate cancer Mother No problems noted. Brother No problems noted. Sister No problems noted. Son No problems noted. Social History Social History Household Members: Spouse Household Members Other:: sometimes lives with patient Housing: Apartment Alcohol intake: never Patient Tobacco Use Status: Current everyday Tobacco user Tobacco use type: Cigarette Cigarette Packs Per Day: 1 Cigarettes Per Day: 20 Years Smoked: (onset 13yo, 1ppd x 53yrs, 50pyh) Smoked in Last 30 Days: Yes e-Cigarette/Vaping Use: Never Used Second Hand Smoke Exposure: Yes Use of substances other than those prescribed or required for medical reasons: No Advance Directives: No Advance Directives Information Provided: Yes Do you have a plan to hurt others: No Plan service: No Current occupational status: retired Cognitive needs: No Hearing needs: No Vision needs: Yes Physical Exam ED Vital Signs: Vital Signs - 24 hr 06/04/25 17:32 06/04/25 19:54 06/04/25 20:56 Temperature 97.3 F 99.2 F Pulse Rate 74 89 100 Respiratory Rate 18 20 20 Blood Pressure 98/57 L 144/71 H 106/73 Pulse Oximetry 96 93 Oxygen Delivery Method Room Air Room Air 06/04/25 21:23 Temperature 99.8 F Pulse Rate Respiratory Rate Blood Pressure Pulse Oximetry Oxygen Delivery Method BMI result Body Mass Index 26.9 Const Other: Alert overall well-appearing Orientation/consciousness: patient oriented x3 Resp Effort & Inspection: normal respiratory effort Cardio Other: Normal peripheral perfusion GI Other: Abdomen is soft, nondistended, focal tenderness to left lower quadrant with moderate tenderness and moderate involuntary guarding Skin Other: Warm dry no rash Neuro General: patient oriented x3, gait normal, no focal motor deficits and CN's II- XI intact bilaterally Psych Other: Cooperative Course Course Course Narrative: This is a Rapid Medical Examination (RME) performed by Gisele Coelho PA-C in triage. Full HPI, ROS, assessment and treatment plan per primary provider in the Main ED. Hx: 70 yo [place]ian speaking male hx DM, HTN, CAD, s/p TAVR, COPD, GERD, here for eval of abdominal cramping, nausea, nonbloody vomiting and diarrhea since yesterday. no urinary sx. reports eating beef belly yesterday prior to onset of sx - no one else consumed this meal. Plan: labs, viral swabs. zofran given in triage. Medications Administered Discontinued Medications Generic Name Dose Route Start Last Admin Trade Name Freq PRN Reason Stop Dose Admin Dicyclomine HCl 20 mg 06/04/25 20:30 06/04/25 20:53 Dicyclomine Hcl 10 Mg Capsule PO 06/04/25 20:31 20 mg ONCE ONE Administration Magnesium Sulfate 2 gm in 50 mls @ 150 mls/hr 06/04/25 20:23 06/04/25 21:12 Magnesium Sulfate/H2o IV 06/04/25 20:42 Infused ONCE ONE Infusion Sodium Chloride 500 mls @ 500 mls/hr 06/04/25 20:30 06/04/25 21:12 Ns IV 06/04/25 21:29 500 mls/hr .Q1H ONE Administration Iohexol 100 ml 06/04/25 20:41 06/04/25 20:42 Iohexol 350 Mg/Ml 100 Ml Infus..Btl IV 06/04/25 20:42 85 ml ONCE ONE Administration Ketorolac Tromethamine 15 mg 06/04/25 20:30 06/04/25 20:50 Ketorolac Tromethamine 15 Mg/Ml Vial IVPUSH 06/04/25 20:31 15 mg ONCE ONE Administration Ondansetron HCl 4 mg 06/04/25 17:38 06/04/25 17:40 Ondansetron Odt 4 Mg Tab.Rapdis TRANSLINGU 06/04/25 17:39 4 mg ONCE ONE Administration Ondansetron HCl 4 mg 06/04/25 20:30 06/04/25 20:50 Ondansetron Hcl 4 Mg/2 Ml Vial IVPUSH 06/04/25 20:31 4 mg ONCE ONE Administration Medical Decision Making Medical Decision Making [facility] Narrative: 70-year-old male with a history of hypertension, hyperlipidemia, diabetes, coronary artery disease, aortic stenosis, GERD, BPH who presents with nausea vomiting diarrhea x1 day. Associated lower abdominal discomfort, left greater than right. Described as a ?twisting/squeezing sensation?. Patient states he has had multiple episodes of diarrhea, more so than the nausea vomiting. Associated subjective fevers. Denies sick contacts with similar symptoms, recent travel, recent hospitalization or use of antibiotics. Problem: Diabetes History: Per patient I have considered the following differential diagnoses: Viral gastroenteritis, diverticulitis, colitis, C diff, traveler's diarrhea Plan: Patient having focal left lower quadrant discomfort with subjective fevers, nausea vomiting, we will obtain a CT scan to rule out diverticulitis. He has no risk factors for C diff or traveler's diarrhea. Screening labs already obtained from triage. Giving Toradol dicyclomine Zofran and IV fluid. I have independently reviewed the following tests: Labs: Slight leukocytosis with left shift, not anemic, magnesium subtly low at 1.5, no additional electrolyte abnormalities, viral panel negative tested for COVID and influenza CT abdomen and pelvis:IMPRESSION: 1. Nonspecific colitis. 2. Moderate calcified atherosclerotic disease of the abdominal aorta. 3. Prior TAVR procedure. 4. Calcified coronary atherosclerotic disease. We will treat with antibiotics given he has had fevers Differential Diagnosis Differential Diagnoses: The differential diagnosis associated with the presentation includes See medical decision-making Admission/Observation Consideration of admission/observation: Escalation of care including admission/observation considered Lab Data [facility] Lab Attestation statement: I reviewed the patient's lab results. 06/04/25 18:18 06/04/25 18:18 Labs: Lab Results 06/04/25 Range/Units 18:18 WBC 12.6 H (4.8-10.8) X10*3/uL RBC 4.99 (4.60-5.80) X10*6/uL Hgb 15.0 (14.0-18.0) g/dl Hct 46.2 (42.0-52.0) % MCV 92.6 (80.0-98.0) fL MCH 30.1 (27.0-33.0) pg MCHC 32.5 (31.0-36.0) g/dl RDW 15.1 (11.0-16.0) % Plt Count 160 (160-400) X10*3/uL MPV 10.1 (9.4-12.4) fL Immature Gran % (Auto) 0.5 H (0.0-0.4) % Neut % (Auto) 83.9 H (45-73) % Lymph % (Auto) 8.9 L (20-40) % [place] % (Auto) 5.9 (2-11) % Eos % (Auto) 0.2 (0-4) % Baso % (Auto) 0.6 (0-2) % Lymph # (Auto) 1.1 L (1.2-4.9) X10*3/uL [place] # (Auto) 0.7 (0.1-1.2) X10*3/uL Eos # (Auto) 0.0 (0.0-0.4) X10*3/uL Baso # (Auto) 0.1 (0.0-0.2) X10*3/uL Abs Immat Gran (auto) 0.06 H (0.00-0.03) X10*3/uL Absolute Neuts (auto) 10.6 H (2.0-8.3) x10*3/uL Absolute Nucleated RBC 0.000 (0.0-0.012) X10*3/uL Nucleated RBC % (auto) 0.0 (0.0-0.2) /100WBC Sodium 135 (135-145) mmol/L Potassium 3.5 (3.3-5.1) mmol/L Chloride 104 (96-108) mmol/L Carbon Dioxide 26 (22-29) mmol/L Anion Gap 9 L (12-20) BUN 19 H (9-16) mg/dL Creatinine 0.90 (0.5-1.4) mg/dL Estim Creat Clear Calc 73.8 Estimated GFR > 60 Random Glucose 104 (60-115) mg/dL Calcium 8.7 (8.4-10.2) mg/dL Magnesium 1.5 L (1.6-2.6) mg/dL Total Bilirubin 0.6 (0.0-1.0) mg/dL AST 21 (5-37) U/L ALT 18 (0-40) U/L Alkaline Phosphatase 66 (39-117) U/L Total Protein 6.8 (6.5-8.0) g/dL Albumin 3.8 (3.5-5.0) g/dL Lipase 18 (8-78) U/L COVID-19 (TOMAS) Negative (Negative) COVID-19 Clin Com See Note Influenza Type A (CARLA) Negative (Negative) Influenza Type B (CARLA) Negative (Negative) Influenza A & B Note See Note Radiology Impression Discussion of test interpretation with radiology: I have reviewed the radiologist's reading. Discharge Plan Discharge Clinical Impression: Colitis Patient Disposition: Home, Self-Care Instructions: Colitis (ED) Additional Instructions: You were found to have colitis on the CT scan. Take the Flagyl as directed, take the Levaquin as directed these are antibiotics. Be sure to complete the course of each 1. Uses Zofran as needed for nausea. Follow up with your primary care provider as needed. Prescriptions: New metronidazole 500 mg tablet 500 mg PO Q8H 7 Days Qty: 21 0RF levofloxacin 750 mg tablet 750 mg PO Q24H Qty: 6 0RF ondansetron 4 mg tablet,disintegrating 4 mg PO Q8H PRN (Reason: nausea and vomiting) Qty: 10 0RF No Action (DME) lancets [FreeStyle Lancets] 28 gauge misc See Rx Instructions .Route Qty: 100 3RF Rx Instructions: Use 1 lancet once a day (DME) lancets [Accu-Chek Softclix Lancets] Misc See Rx Instructions .Route Qty: 100 3RF Rx Instructions: Use 1 lancet once a day (DME) lancets [Accu-Chek Softclix Lancets] Misc See Rx Instructions .Route Qty: 100 3RF Rx Instructions: Use 1 lancet once a day metoprolol succinate 25 mg tablet extended release 24 hr 25 mg PO DAILY 90 Days Qty: 90 4RF clopidogrel 75 mg tablet 75 mg PO DAILY Qty: 90 3RF atorvastatin 80 mg tablet 80 mg PO DAILY 90 Days Qty: 90 3RF pioglitazone 30 mg tablet 30 mg PO DAILY 90 Days Qty: 90 1RF cholecalciferol (vitamin D3) 25 mcg (1,000 unit) capsule 25 mcg PO DAILY 90 Days Qty: 90 4RF aspirin 81 mg tablet,delayed release (DR/EC) 81 mg PO DAILY 90 Days Qty: 90 1RF Xigduo XR 5-1,000 mg tablet, IR - ER, biphasic 24hr 1 tab PO DAILY 90 Days Qty: 90 3RF terazosin 10 mg capsule 10 mg PO BEDTIME 90 Days Qty: 90 1RF magnesium oxide 400 mg (241.3 mg magnesium) tablet 400 mg PO BID 90 Days Qty: 180 1RF Mounjaro 5 mg/0.5 mL pen injector 5 mg subcut QWEEK 28 Days Qty: 2 0RF oxycodone 10 mg tablet 10 mg PO Q6H PRN (Reason: pain) 30 Days Qty: 120 0RF Rx Instructions: Partial Fill upon patient request. pantoprazole 40 mg tablet,delayed release (DR/EC) 40 mg PO DAILY PRN (Reason: heartburn) 90 Days Qty: 90 0RF budesonide-formoterol [Symbicort] 80-4.5 mcg/actuation HFA aerosol inhaler 2 puff inhalation Q12H Qty: 30.6 1RF zolpidem 10 mg tablet 10 mg PO BEDTIME 30 Days Qty: 30 0RF lisinopril 40 mg tablet 40 mg PO DAILY Print Language: Ghanaian
[2025-06-04 18:26] LABS: MANUAL DIFF FLAG NO
--- OUTSIDE RECORDS SUMMARY | 2025-06-04 18:27 | XMS_ITS | Clinical Summary ---
Author Organization [employer] Address [address] [place] [address] Care Team Providers Care Pompom Maker Name Role Phone Unavailable Primary Care Provider [...] Tobacco Screening 04/08/2024 04/08/2023 COVID-19 Vaccine ( - season) 2025 01/09/2022, 07/21/2021, 12/06/2020, Additional history exists Influenza Vaccine (#1) 2025 2, 06/28/2020, 2019, Additional history exists RSV [...]
[2025-06-04 18:28] LABS: Hematocrit 46.2 % (42.0-52.0); Hemoglobin 15.0 g/dl (14.0-18.0); Imm Gran Abs Auto 0.06 X10*3/uL (0.00-0.03); Imm Gran Pct Auto 0.5 % (0.0-0.4); Lymphocytes Absolute Auto 1.1 X10*3/uL (1.2-4.9); Mean Corpuscular HGB Conc 32.5 g/dl (31.0-36.0); Mean Corpuscular Hemoglobin 30.1 pg (27.0-33.0); Mean Corpuscular Volume 92.6 fL (80.0-98.0); NRBC Abs Auto 0.000 X10*3/uL (0.0-0.012); NRBC Pct Auto 0.0 /100WBC (0.0-0.2); Platelet Count 160 X10*3/uL (160-400); Red Blood Count 4.99 X10*6/uL (4.60-5.80); White Blood Count 12.6 X10*3/uL (4.8-10.8)
[2025-06-04 18:42] LABS: COVID-19 Test Negative (Negative); IDNOW Serial# 55D5AD1C; IDNOW Serial# 58CA691E
[2025-06-04 18:43] LABS: Influenza B2 Negative (Negative)
[2025-06-04 18:45] LABS: Alanine Aminotransferase 18 U/L (0-40); Albumin Level 3.8 g/dL (3.5-5.0); Alkaline Phosphatase 66 U/L (39-117); Anion Gap 9 (12-20); Aspartate Amino Transferase 21 U/L (5-37); Blood Urea Nitrogen 19 mg/dL (9-16); Calcium 8.7 mg/dL (8.4-10.2); Carbon Dioxide 26 mmol/L (22-29); Chloride 104 mmol/L (96-108); Creatinine Clr Calc Pharmacy 73.8; Estimated Glomerular Filt Rate > 60; Lipase 18 U/L (8-78); Magnesium 1.5 mg/dL (1.6-2.6); Potassium 3.5 mmol/L (3.3-5.1); Sodium 135 mmol/L (135-145); Total Protein 6.8 g/dL (6.5-8.0)
[2025-06-04 19:54] VITALS: BP 144/71; PULSE 89; RESP 20; TEMP 37.3; O2SAT 93
[2025-06-04] MEDS: iohexoL 350 MG/ML 100 ML INFUS..BTL IV (20:42)
[2025-06-04] MEDS: Magnesium Sulfate/H2O 2 GM/50 ML PIGGYBACK IV (20:49)
[2025-06-04 20:56] VITALS: BP 106/73; PULSE 100; RESP 20
[2025-06-04 21:23] VITALS: TEMP 37.7
[2025-06-04 22:25] VITALS: BP 121/71; PULSE 91; RESP 20; TEMP 37.6; O2SAT 97
[2025-06-04 22:33] VITALS: BP 121/71; PULSE 91; RESP 20; TEMP 37.6; O2SAT 97
== END 2025-06-04 22:34 | disposition home or self-care (01) ==
PROVIDERS: Physician Assistant Medical; Emergency Provider Emergency Medicine; PCP Internal Medicine
DX: K52.9 Noninfective gastroenteritis and colitis, unspecified (principal); R11.2 Nausea with vomiting, unspecified; I10 Essential (primary) hypertension; I25.10 Atherosclerotic heart disease of native coronary artery without angina pectoris; F17.210 Nicotine dependence, cigarettes, uncomplicated; Z11.52 Encounter for screening for COVID-19; Z79.899 Other long term (current) drug therapy
CPT/HCPCS: 74177; 80053; 83690; 83735; 85025; 87502; 87635; 96365; 96375; 99284; 99285; J1885; J2405; J3475; Q9967

== ENCOUNTER → 2025-06-04 20:31 | Outpatient (BNV) | payer OTHER, SELFPAY | PROVIDERS: Emergency Provider Emergency Medicine; PCP Internal Medicine; Visit Provider Radiology Diagnostic Radiology | DX: I70.0 Atherosclerosis of aorta (principal); I25.84 Coronary atherosclerosis due to calcified coronary lesion | CPT/HCPCS: 74177 ==

== ENCOUNTER 2025-06-08 13:34 | Outpatient (AMB) | payer OTHER, SELFPAY ==
[2025-06-08 13:36] VITALS: BP 100/60; PULSE 77; RESP 18; TEMP 36.2; O2SAT 98; BMI 27.4
--- NOTE | 2025-06-08 13:36 | MHC.PC.OV ---
Vital Signs 06/08/25 13:36 Height 5 ft 8 in Weight 180 lb 8 oz BMI 27.4 BP 100/60 Blood Pressure Location Lt brachial Position Sitting Respiration 18 Pulse 77 Pulse Source Pulse Oximeter Temp 97.2 F Temp Source Temporal Artery Scan Pulse Oximetry (%) 98 Oxygen Delivery Method Room Air Intake Visit Reasons: 4M follow up Artificial Cherry Maker Required: No Accompanied by: Self / Same As Patient Allergies cyclobenzaprine Allergy (Intermediate, Verified 06/08/25 14:02) inadequate response morphine Allergy (Intermediate, Verified 06/08/25 14:02) urinary retention Medication List - Last Reconciled 06/08/25 by Angela Nava MD aspirin 81 mg PO DAILY 90 days atorvastatin 80 mg PO DAILY 90 days budesonide-formoterol 80-4.5 mcg/actuation (Symbicort) 2 puffs inhalation Q12H cholecalciferol (vitamin D3) 25 mcg PO DAILY 90 days clopidogrel 75 mg PO DAILY dapaglifloz propaned-metformin 5-1,000 mg ER (Xigduo XR) 1 tab PO DAILY 90 days lancets (Accu-Chek Softclix Lancets) Use 1 lancet once a day lancets (Accu-Chek Softclix Lancets) Use 1 lancet once a day lancets (FreeStyle Lancets) Use 1 lancet once a day levofloxacin 750 mg PO Q24H lisinopril 40 mg PO DAILY magnesium oxide 400 mg PO BID 90 days metoprolol succinate ER 25 mg PO DAILY 90 days metronidazole 500 mg PO Q8H 7 days ondansetron 4 mg PO Q8H PRN oxycodone 10 mg PO Q6H PRN 30 days pantoprazole 40 mg PO DAILY PRN 90 days pioglitazone 30 mg PO DAILY 90 days terazosin 10 mg PO BEDTIME 90 days tirzepatide (Mounjaro) 5 mg (0.5 mL) subcut QWEEK 4 weeks zolpidem 10 mg PO BEDTIME 30 days Tobacco use date assessed: 06/08/25 Fall risk assessment: No Falls in past year Last assessed Fall Risk: 06/08/25 Dental Screening Dental Screen Date: 06/08/25 Did you have a dental visit in the last 12 months?: Yes Did you have a dental problem in the last 6 months where you did not have access to dental care?: No Was dental information given to patient?: Patient has dentist HPI HPI Comments History of Present Illness Details The patient is a 70-year-old male presenting with chronic condition management, including hypertension, hyperlipidemia, diabetes mellitus, and hypomagnesemia. He went to the hospital few days ago due to colitis and was prescribed Cipro with Flagyl which is feeling markedly improved. He also has COPD well controlled with long-acting inhaler. Hypertension has been well-controlled with lisinopril 40 mg daily, and recent blood pressure readings have been excellent. Hyperlipidemia is managed with atorvastatin 80 mg, with recent cholesterol levels reported as normal. Diabetes mellitus is monitored with an A1c of 6.3, indicating good control. The patient is on Mounjaro 5 mg and pioglitazone 30 mg for glycemic control. Hypomagnesemia has been identified, likely exacerbated by pantoprazole use, which is known to lower magnesium levels. The patient is advised to take magnesium supplements and reduce pantoprazole usage. 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 Insomnia is managed with zolpidem. [facility] Medical History Coronary artery calcification seen on CAT scan History of transcatheter aortic valve replacement (TAVR) Nicotine dependence, cigarettes, uncomplicated Diabetes mellitus, without long-term current use of insulin Hypertensive retinopathy of both eyes Cough Hyperlipidemia LDL goal <100 Hypercalcemia Low serum parathyroid hormone (PTH) Coronary artery disease Aortic stenosis Neck pain Inguinal hernia, left History of CVA (cerebrovascular accident) (~2018) COPD (chronic obstructive pulmonary disease) BPH (benign prostatic hyperplasia) GERD (gastroesophageal reflux disease) Essential hypertension Insomnia Chronic left shoulder pain Left shoulder pain Hypovitaminosis D Surgical History History of cardiac cath History of squamous cell carcinoma excision (~2010) History of colonoscopy History of right inguinal hernia repair (~1993) History of left inguinal hernia repair (~2018) History of surgery on arm (~1995) Family History Father Prostate cancer Mother No problems noted. Brother No problems noted. Sister No problems noted. Son No problems noted. Social History Household Members: Spouse Household Members Other:: sometimes lives with patient Housing: Apartment Alcohol intake: never Patient Tobacco Use Status: Current everyday Tobacco user Tobacco use type: Cigarette Cigarette Packs Per Day: 1 Cigarettes Per Day: 20 Years Smoked: (onset 13yo, 1ppd x 53yrs, 50pyh) e-Cigarette/Vaping Use: Never Used Second Hand Smoke Exposure: Yes service: No Current occupational status: retired Cognitive needs: No Hearing needs: No Vision needs: Yes Questionnaire Thrive Questionnaire Date Thrive assessed: 10/15/24 EARNESTINE-7 AMB Questionnaire EARNESTINE-7 Date EARNESTINE - 7 assessed: 10/15/24 Source: Developed by Drs. Lenard Donald, Dina Lopez, Phil Law and colleagues, with an educational stan from [employer]. Review of Systems Const All systems reviewed & are unremarkable except as noted in HPI and below Card Denies chest pain at rest, Denies chest pain with activity, Denies edema, Denies irregular heart rhythm, Denies claudication, Denies dyspnea, Denies dyspnea on exertion, Denies orthopnea, Denies paroxysmal nocturnal dyspnea and Denies slow heart rate Resp Denies cough, Denies dyspnea and Denies dyspnea on exertion Physical exam (Primary Care) Vital Signs: Last Vital Signs Temp 97.2 F 06/08/25 13:36 Pulse 77 06/08/25 13:36 Resp 18 06/08/25 13:36 BP 100/60 06/08/25 13:36 Pulse Ox 98 06/08/25 13:36 Oxygen Delivery Method Room Air 06/08/25 13:36 BMI result Body Mass Index 27.4 Tobacco/Smoking Status: Tobacco use Status Tobacco use date assessed 06/08/25 06/08/25 13:42 Patient Tobacco Use Status Current everyday Tobacco 06/08/25 13:42 Tobacco use type Cigarette 06/08/25 13:42 e-Cigarette/Vaping Use Never Used 06/08/25 13:42 Thrive Assessment: Date of Thrive Assessment Date Thrive assessed 10/15/24 06/08/25 13:42 Resp Effort & Inspection: normal respiratory effort Auscultation: clear to auscultation bilaterally Cardio Jugular venous distension: no JVD Rate: regular rate Rhythm: regular rhythm Heart sounds: S1 normal heart sound present and S2 normal heart sound present Extrem General: Yes full ROM Results AMB Hemoglobin A1c AMB Hemoglobin A1c 6.3 % Last Edit by Arianna Delacruz CMA on 06/08/25 13:58 Results Reviewed Results Reviewed: Laboratory Last Values Hgb A1c (Clinic) 6.3 % (4.0-6.0) H 06/08/25 13:48 Coding Level of Care Code Est Pt Level 4 (61287) Complex EM visit Add On G2211 Diagnoses Essential hypertension I10 Hyperlipidemia LDL goal <70 E78.5 Type 2 diabetes mellitus with hyperglycemia, without long-term current use of insulin E11.65 Diabetes mellitus type: type 2 Diabetes mellitus complication status: with hyperglycemia Hypomagnesemia E83.42 Chronic obstructive pulmonary disease, unspecified COPD type J44.9 COPD type: unspecified COPD Time Spent (min) 23 Assessment & Plan Assessment & Plan (1) Essential hypertension: Code(s): I10 - Essential (primary) hypertension Category: Medical (2) Hyperlipidemia LDL goal <70: Code(s): E78.5 - Hyperlipidemia, unspecified Category: Medical (3) Diabetes mellitus, without long-term current use of insulin: Code(s): E11.9 - Type 2 diabetes mellitus without complications Category: Medical Qualifiers: Diabetes mellitus type: type 2 Diabetes mellitus complication status: with hyperglycemia Qualified Code(s): E11.65 - Type 2 diabetes mellitus with hyperglycemia (4) Hypomagnesemia: Code(s): E83.42 - Hypomagnesemia Category: Medical (5) COPD (chronic obstructive pulmonary disease): Comment: Has Mild COPOD . Pulmonary function test was basically normal except for decreased DLCO.( sec to Emphysematous changes ) Spirometry on last visit , c/w very mild obstructive airway disorder Breathing status has been very stable, needs to use rescue inhaler( albuterol ) only once in a while Code(s): J44.9 - Chronic obstructive pulmonary disease, unspecified Category: Medical Qualifiers: COPD type: unspecified COPD Qualified Code(s): J44.9 - Chronic obstructive pulmonary disease, unspecified Plan Plan Patient was informed and verbally consented to the use of an ambient scribe for clinic note documentation during this visit. 1. Hypertension Hypertension is well-controlled with lisinopril 40 mg daily, and the patient is advised to continue monitoring blood pressure regularly. 2. Hyperlipidemia Hyperlipidemia is managed with atorvastatin 80 mg, and recent cholesterol levels are normal. 3. Diabetes Mellitus Diabetes mellitus is controlled with an A1c of 6.3, and the patient is on Mounjaro 5 mg and pioglitazone 30 mg. 4. Hypomagnesemia Hypomagnesemia is likely due to pantoprazole use, and the patient is advised to take magnesium supplements and reduce pantoprazole usage. 5. Insomnia Insomnia is managed with zolpidem, and the patient is advised to continue its use as needed. 6. COPD Continue long-acting inhaler. Orders: Orders Vitamin D 25-OH Total 4 Months E55.9 - Vitamin D deficiency, unspecified Vitamin B12 and Folate 4 Months E53.8 - Deficiency of other specified B group vitamins Lipid Panel 4 Months E78.5 - Hyperlipidemia, unspecified Magnesium 4 Months E83.42 - Hypomagnesemia AMB Hemoglobin A1c Today Z13.9 - Encounter for screening, unspecified Microalbumin, Random (w Creat) 4 Months R80.9 - Proteinuria, unspecified Comprehensive [place]. Panel Fast 4 Months E11.65 - Type 2 diabetes mellitus with hyperglycemia Medications: Changed From terazosin 10 mg PO BEDTIME 90 days 90 caps 1RF To terazosin 10 mg PO BID 180 caps 1RF 90 days Refilled magnesium oxide 400 mg PO BID 180 tabs 1RF 90 days
--- OUTSIDE RECORDS SUMMARY | 2025-06-08 17:15 | XMS_ITS | Clinical Summary ---
Author Organization [employer] Address [address] [place] [address] Care Team Providers Care Vice President Lending Name Role Phone Unavailable Primary Care Provider [...]
== END 2025-06-08 14:18 | disposition home or self-care (01) ==
LOC: HO.HMCH 13:34
PROVIDERS: PCP Internal Medicine; Visit Provider Internal Medicine
DX: I10 Essential (primary) hypertension (principal); E78.5 Hyperlipidemia, unspecified; E11.65 Type 2 diabetes mellitus with hyperglycemia; E83.42 Hypomagnesemia; J44.9 Chronic obstructive pulmonary disease, unspecified; Z13.9 Encounter for screening, unspecified

== ENCOUNTER → 2025-06-08 13:34 | Outpatient (BNVA) | payer OTHER, SELFPAY | PROVIDERS: PCP Internal Medicine; Visit Provider Internal Medicine | DX: I10 Essential (primary) hypertension (principal); E78.5 Hyperlipidemia, unspecified; E83.42 Hypomagnesemia; J44.9 Chronic obstructive pulmonary disease, unspecified; E11.65 Type 2 diabetes mellitus with hyperglycemia; G47.00 Insomnia, unspecified | CPT/HCPCS: 83036; 99212 ==

== ENCOUNTER 2025-06-13 12:44 | Outpatient (REF) | payer OTHER, SELFPAY ==
--- NOTE | ~2025-06-13 | US_ITS ---
EXAMINATION: BILATERAL CAROTID ULTRASOUND WITH DOPPLER HISTORY: I65.23 - Occlusion and stenosis of bilateral carotid arteries COMPARISON: Comparison is made with the prior examination dated 04/28/2024. TECHNIQUE: Real time and Color and Spectral doppler ultrasonography of the carotid and vertebral arteries was performed in multiple planes. FINDINGS: There is a small plaque in both internal carotid arteries. VERTEBRAL FLOW DIRECTION: Antegrade bilaterally. PEAK SYSTOLIC VELOCITIES (in cm/sec): RIGHT: CCA: Prox: 76.0 Dist: 70.0 ICA: Prox: 74.2 Mid: 127 Dist: 123 ICA/CCA Ratio: 1.67 ECA: 87.5 Peak ICA end diastolic velocity (EDV): 59.6 LEFT: CCA: Prox: 81.2 Dist: 55.7 ICA: Prox: 30.4 Mid: 66.9 Dist: 105 ICA/CCA Ratio: 1.29 ECA: 80.2 Peak ICA end diastolic velocity (EDV): 40.1 US/US carotid duplex BI IMPRESSION: Findings consistent with 50-79% stenosis of the right internal carotid artery and 0-49% stenosis of the left internal carotid artery. Electronically signed by: Lenard Padron MD 06/13/2025 01:52 PM EDT
== END 2025-06-13 12:45 | disposition home or self-care (01) ==
LOC: HO.US 12:44
PROVIDERS: PCP Internal Medicine; Visit Provider Surgery Vascular Surgery
DX: I65.23 Occlusion and stenosis of bilateral carotid arteries (principal)
CPT/HCPCS: 93880

== ENCOUNTER → 2025-06-13 12:45 | Outpatient (BNV) | payer OTHER, SELFPAY | PROVIDERS: PCP Internal Medicine; Visit Provider Radiology Diagnostic Radiology | DX: I65.23 Occlusion and stenosis of bilateral carotid arteries (principal) | CPT/HCPCS: 93880 ==

== ENCOUNTER 2025-07-13 10:54 | Outpatient (AMB) | payer OTHER, SELFPAY ==
--- NOTE | 2025-07-13 10:56 | A.OFFPC_ITS ---
Vital Signs 07/13/25 10:57 Height 5 ft 8 in Weight 179 lb 2 oz BMI 27.2 BP 124/66 Blood Pressure Location Lt brachial Position Sitting Respiration 20 Pulse 83 Pulse Source Pulse Oximeter Temp 97.3 F Temp Source Temporal Artery Scan Pulse Oximetry (%) 96 Oxygen Delivery Method Room Air Intake Visit Reasons: annual exam - see comments Intake Note: annual exam Recreational Vehicle Resort Manager Required: Yes Recreational Vehicle Resort Manager Language: Mexican Accompanied by: Self / Same As Patient Allergies cyclobenzaprine Allergy (Intermediate, Verified 07/13/25 11:10) inadequate response morphine Allergy (Intermediate, Verified 07/13/25 11:10) urinary retention Medication List - Last Reconciled 07/13/25 by Angela Nava MD aspirin 81 mg PO DAILY 90 days atorvastatin 80 mg PO DAILY 90 days budesonide-formoterol 80-4.5 mcg/actuation (Symbicort) 2 puffs inhalation Q12H cholecalciferol (vitamin D3) 25 mcg PO DAILY 90 days clopidogrel 75 mg PO DAILY dapaglifloz propaned-metformin 5-1,000 mg ER (Xigduo XR) 1 tab PO DAILY 90 days lancets (Accu-Chek Softclix Lancets) Use 1 lancet once a day lancets (Accu-Chek Softclix Lancets) Use 1 lancet once a day lancets (FreeStyle Lancets) Use 1 lancet once a day levofloxacin 750 mg PO Q24H lisinopril 40 mg PO DAILY magnesium oxide 400 mg PO BID 90 days metoprolol succinate ER 25 mg PO DAILY 90 days metronidazole 500 mg PO Q8H 7 days ondansetron 4 mg PO Q8H PRN oxycodone 10 mg PO Q6H PRN 30 days pantoprazole 40 mg PO DAILY PRN 90 days pioglitazone 30 mg PO DAILY 90 days terazosin 10 mg PO BID 90 days tirzepatide (Mounjaro) 5 mg (0.5 mL) subcut QWEEK 4 weeks zolpidem 10 mg PO BEDTIME 30 days Tobacco use date assessed: 07/13/25 Fall risk assessment: No Falls in past year Last assessed Fall Risk: 07/13/25 Dental Screening Dental Screen Date: 07/13/25 Did you have a dental visit in the last 12 months?: Yes Did you have a dental problem in the last 6 months where you did not have access to dental care?: No Was dental information given to patient?: Patient has dentist HPI HPI Comments History of Present Illness Details The patient is a 70-year-old male presenting for follow-up of chronic medical conditions and review of recent test results. The patient has a history of gastrointestinal issues, with a recent CT of the abdomen showing nonspecific colitis. He has persistently low magnesium levels and experiences muscle cramps, which may be related to his use of pantoprazole for acid reflux. He has COPD follow by pulmonology. He has a skin lesion in gluteal region that has been present since childhood but is pruritic and has change in size and consistency. Will be referred to surgery for possible biopsy and removal. Regarding his vascular health, a recent carotid Doppler scan revealed 50-79% stenosis of the right carotid artery, while the left side was normal. He has a history of high cholesterol and is scheduled to see a vascular surgeon on July 26 for this issue. His medication regimen includes aspirin 81 mg, atorvastatin 80 mg, and clopidogrel. The patient's type 2 diabetes is managed with Sigduo, pioglitazone 30 mg, and a 5 mg Mounjaro injection. His last HbA1c on June 08 was 6.3%. He has a diagnosis of COPD, for which he is followed by a cashier supervisor and uses a Symbicort inhaler. He also takes zolpidem for sleep and reports symptoms of neuropathy. His allergies include Flexeril and morphine. For health maintenance, the patient completed an eye exam at the end of May, which showed no change in his vision. Last colonoscopy was 2011 and he refused to do colonoscopy therefore will do Cologuard. Tdap vaccine and flu vaccine administered today. [facility] Medical History Coronary artery calcification seen on CAT scan History of transcatheter aortic valve replacement (TAVR) Nicotine dependence, cigarettes, uncomplicated Diabetes mellitus, without long-term current use of insulin Hypertensive retinopathy of both eyes Cough Hyperlipidemia LDL goal <100 Hypercalcemia Low serum parathyroid hormone (PTH) Coronary artery disease Aortic stenosis Neck pain Inguinal hernia, left History of CVA (cerebrovascular accident) (~2018) COPD (chronic obstructive pulmonary disease) BPH (benign prostatic hyperplasia) GERD (gastroesophageal reflux disease) Essential hypertension Insomnia Chronic left shoulder pain Left shoulder pain Hypovitaminosis D Surgical History History of cardiac cath History of squamous cell carcinoma excision (~2010) History of colonoscopy History of right inguinal hernia repair (~1993) History of left inguinal hernia repair (~2018) History of surgery on arm (~1995) Family History (Updated 07/13/25 @ 11:23 by Angela Nava MD) Father Prostate cancer Mother Alzheimers disease Brother No problems noted. Sister No problems noted. Son No problems noted. Social History Household Members: Spouse Household Members Other:: sometimes lives with patient Housing: Apartment Alcohol intake: current Alcohol intake frequency: holidays/special occasions only Comment: once a year Patient Tobacco Use Status: Current everyday Tobacco user Tobacco use type: Cigarette Cigarette Packs Per Day: 1 Cigarettes Per Day: 20 Years Smoked: (onset 13yo, 1ppd x 53yrs, 50pyh) e-Cigarette/Vaping Use: Never Used Second Hand Smoke Exposure: Yes service: No Current occupational status: retired Cognitive needs: No Hearing needs: No Vision needs: Yes Questionnaire Thrive Questionnaire Date Thrive assessed: 10/15/24 EARNESTINE-7 AMB Questionnaire EARNESTINE-7 Date EARNESTINE - 7 assessed: 10/15/24 Source: Developed by Drs. Lenard Donald, Dina Lopez, Phil Law and colleagues, with an educational stan from [employer]. Review of Systems Const All systems reviewed & are unremarkable except as noted in HPI and below Card Denies chest pain at rest, Denies chest pain with activity, Denies edema, Denies irregular heart rhythm, Denies claudication, Denies orthopnea, Denies paroxysmal nocturnal dyspnea and Denies slow heart rate Physical exam (Primary Care) Vital Signs: Last Vital Signs Temp 97.3 F 07/13/25 10:57 Pulse 83 07/13/25 10:57 Resp 20 07/13/25 10:57 BP 124/66 07/13/25 10:57 Pulse Ox 96 07/13/25 10:57 Oxygen Delivery Method Room Air 07/13/25 10:57 BMI result Body Mass Index 27.2 Tobacco/Smoking Status: Tobacco use Status Tobacco use date assessed 07/13/25 07/13/25 11:03 Patient Tobacco Use Status Current everyday Tobacco 07/13/25 11:02 Tobacco use type Cigarette 07/13/25 11:02 e-Cigarette/Vaping Use Never Used 07/13/25 11:02 Are you ready to quit: No Tobacco cessation counseling provided: Yes Relapse Prevention: discussed the importance of a supportive environment Number of minutes spent counselin CPT code: Less than 3 minutes Thrive Assessment: Date of Thrive Assessment Date Thrive assessed 10/15/24 07/13/25 10:56 HENMT Head: Yes normal to inspection, Yes normocephalic and Yes atraumatic Ears: external ears normal Eyes General: appearance normal, both eyes and all related structures Eyelids: Yes eyelids normal Conjunctivae: conjunctivae normal Neck Neck: Yes normal visual inspection and Yes supple Resp Effort & Inspection: normal respiratory effort Auscultation: clear to auscultation bilaterally Cardio Jugular venous distension: no JVD Rate: regular rate Rhythm: regular rhythm Heart sounds: S1 normal heart sound present and S2 normal heart sound present GI Inspection: Yes normal to inspection Palpation (GI): Soft to palpation and nontender Auscultation: normal bowel sounds Skin General skin exam: no rashes or lesions noted Neuro General: no focal motor deficits Extrem General: Yes full ROM Psych Appearance: grossly normal Office Procedures Flu Questionnaire Does the patient have a severe egg allergy?: No Does the patient have severe life threatening allergies?: No Does the patient have a fever or illness today?: No Has the patient ever had Guillain-[place] Syndrome?: No Has the patient ever had any past reaction to a flu shot?: No Immunizations Fluarix [id number] (PF) 45 mcg (15 mcg x 3)/0.5 mL IM syringe Performing Provider: Angela Nava MD [place] [facility] [place] [facility] Administered by: Kenan Granados CMA on 07/13/25 11:42 Dose Route Admin Location Dispensed Lot Number Expiration Date [facility] Licensed Direct Entry Midwife 0.5 mL IM Left Deltoid 0.5 mL [id number] 02/21/26 16621-861-29 GL AXOSMITHKLINE VIS Given Date VIS Provided VIS Publication Date 07/13/25 Single Vaccine 24 Eligibility Eligibility Date Funding Source [facility] Eligible-Medicaid 07/13/25 Private Boostrix Tdap 2.5 Lf unit-8 mcg-5 Lf/0.5 mL intramuscular syringe Performing Provider: Angela Nava MD [place] [facility] [place] [facility] Administered by: Kenan Granados CMA on 07/13/25 11:42 Dose Route Admin Location Dispensed Lot Number Expiration Date [facility] Licensed Direct Entry Midwife 0.5 mL IM Left Deltoid 0.5 mL [id number] 02/04/28 20825-070-30 Sourcery Total Dispensed Waste 0.5 mL 0 % VIS Given Date VIS Provided VIS Publication Date 07/13/25 Single Vaccine 21 Eligibility Eligibility Date Funding Source [facility] Eligible-Medicaid 07/13/25 Private Coding Level of Care Code Est Pt Level 3 (01155) Est Pt Prev Care >65y(24067) Diagnoses Physical exam Z00.00 Type 2 diabetes mellitus with hyperglycemia, without long-term current use of insulin E11.65 Diabetes mellitus complication status: with hyperglycemia Diabetes mellitus type: type 2 Chronic obstructive pulmonary disease, unspecified COPD type J44.9 COPD type: unspecified COPD Skin lesion L98.9 Time Spent (min) 33 Assessment & Plan Assessment & Plan (1) Physical exam: Code(s): Z00.00 - Encounter for general adult medical examination without abnormal findings Category: Medical (2) Diabetes mellitus, without long-term current use of insulin: Code(s): E11.9 - Type 2 diabetes mellitus without complications Category: Medical Qualifiers: Diabetes mellitus complication status: with hyperglycemia Diabetes mellitus type: type 2 Qualified Code(s): E11.65 - Type 2 diabetes mellitus with hyperglycemia (3) COPD (chronic obstructive pulmonary disease): Comment: Has Mild COPOD . Pulmonary function test was basically normal except for decreased DLCO.( sec to Emphysematous changes ) Spirometry on last visit , c/w very mild obstructive airway disorder Breathing status has been very stable, needs to use rescue inhaler( albuterol ) only once in a while Code(s): J44.9 - Chronic obstructive pulmonary disease, unspecified Category: Medical Qualifiers: COPD type: unspecified COPD Qualified Code(s): J44.9 - Chronic obstructive pulmonary disease, unspecified (4) Skin lesion: Code(s): L98.9 - Disorder of the skin and subcutaneous tissue, unspecified Category: Medical Plan Plan 1. Physical exam Repeat in a year. Tdap and flu vaccine administered today. Cologuard ordered to screen for colon cancer. 2. Type 2 Diabetes Mellitus The patient's diabetes is well-controlled with a recent HbA1c of 6.3%. He will continue his current medication regimen, which includes Sigduo, pioglitazone, and Mounjaro. 3. Chronic Obstructive Pulmonary Disease The patient is followed by pulmonology for COPD. He will continue using his Sy mbicort inhaler as prescribed. 4. Skin lesion Referred to surgery. Orders: Orders Comprehensive [place]. Panel Fast 4 Months I10 - Essential (primary) hypertension Influenza [id number] Immunization Today Z23 - Encounter for immunization Lipid Panel 4 Months E78.5 - Hyperlipidemia, unspecified Microalbumin, Random (w Creat) 4 Months R80.9 - Proteinuria, unspecified Magnesium 4 Months E83.42 - Hypomagnesemia TDaP Immunization Today Z23 - Encounter for immunization Referrals General Surgery Referral L98.9 - Disorder of the skin and subcutaneous tissue, unspecified Cologuard Test Z12.11 - Encounter for screening for malignant neoplasm of colon, Z12.12 - Encounter for screening for malignant neoplasm of rectum
[2025-07-13 10:57] VITALS: BP 124/66; PULSE 83; RESP 20; TEMP 36.3; O2SAT 96; BMI 27.2
--- OUTSIDE RECORDS SUMMARY | 2025-07-13 21:32 | XMS_ITS | Clinical Summary ---
Author Organization [employer] Address [address] [place] [address] Care Team Providers Care Retail Account Executive Name Role Phone Unavailable Primary Care Provider [...]
== END 2025-07-13 11:41 | disposition home or self-care (01) ==
LOC: HO.HMCH 10:55
PROVIDERS: PCP Internal Medicine; Visit Provider Internal Medicine
DX: Z00.00 Encounter for general adult medical examination without abnormal findings (principal); E11.65 Type 2 diabetes mellitus with hyperglycemia; J44.9 Chronic obstructive pulmonary disease, unspecified; L98.9 Disorder of the skin and subcutaneous tissue, unspecified; Z23 Encounter for immunization

== ENCOUNTER → 2025-07-13 10:54 | Outpatient (BNVA) | payer OTHER, SELFPAY | PROVIDERS: PCP Internal Medicine; Visit Provider Internal Medicine | DX: Z00.00 Encounter for general adult medical examination without abnormal findings (principal); Z71.2 Person consulting for explanation of examination or test findings; E11.65 Type 2 diabetes mellitus with hyperglycemia; J44.9 Chronic obstructive pulmonary disease, unspecified; L98.9 Disorder of the skin and subcutaneous tissue, unspecified; Z23 Encounter for immunization | CPT/HCPCS: 90471; 90656; 90715; 99397 ==

== ENCOUNTER 2025-07-18 09:06 | Outpatient (AMB) | payer OTHER, SELFPAY ==
--- NOTE | 2025-07-18 09:08 | A.OFFVIS_ITS ---
Vital Signs 3 07/18/25 09:13 Height 5 ft 8 in Weight 180 lb BMI 27.4 BP 122/66 Blood Pressure Location Rt brachial Position Sitting Pulse 91 Intake Visit Reasons: Skin lesion Intake Note: Patient referred by PCP Dr. Suman Nava for assessment of skin lesion on lt gluteal region. Present since childhood. Patient c/o: irregular border, enlarging. Denies bleeding, itch. Reports hx of Squamous cell carcinoma on Lt arm. [employer] Required: Yes Information Interpreted: non-clinical & clinical (Constanza BLANDON) Accompanied by: Self / Same As Patient Allergies cyclobenzaprine Allergy (Intermediate, Verified 07/18/25 09:15) inadequate response morphine Allergy (Intermediate, Verified 07/18/25 09:15) urinary retention Medication List - Last Reconciled 07/18/25 by Ochoa Betancur MD aspirin 81 mg PO DAILY 90 days atorvastatin 80 mg PO DAILY 90 days budesonide-formoterol 80-4.5 mcg/actuation (Symbicort) 2 puffs inhalation Q12H cholecalciferol (vitamin D3) 25 mcg PO DAILY 90 days clopidogrel 75 mg PO DAILY dapaglifloz propaned-metformin 5-1,000 mg ER (Xigduo XR) 1 tab PO DAILY 90 days lancets (Accu-Chek Softclix Lancets) Use 1 lancet once a day lancets (Accu-Chek Softclix Lancets) Use 1 lancet once a day lancets (FreeStyle Lancets) Use 1 lancet once a day levofloxacin 750 mg PO Q24H lisinopril 40 mg PO DAILY magnesium oxide 400 mg PO BID 90 days metoprolol succinate ER 25 mg PO DAILY 90 days metronidazole 500 mg PO Q8H 7 days ondansetron 4 mg PO Q8H PRN oxycodone 10 mg PO Q6H PRN 30 days pantoprazole 40 mg PO DAILY PRN 90 days pioglitazone 30 mg PO DAILY 90 days terazosin 10 mg PO BID 90 days tirzepatide (Mounjaro) 5 mg (0.5 mL) subcut QWEEK 4 weeks zolpidem 10 mg PO BEDTIME 30 days HPI Comments Details: A 70-year-old male presents with concerns of a skin lesion involving his left buttock. He reports that he has had this ?ever since I was very very little. ?. He goes on to say that even when he was a baby the lesion was present. He does not think it has changed at all. He is not really able to explain why he is seeking attention for the lesion at this point as ?it has always been the same?. He denies any pain or drainage and denies any real aggravating or relieving factors. [facility] Medical History Coronary artery calcification seen on CAT scan History of transcatheter aortic valve replacement (TAVR) Nicotine dependence, cigarettes, uncomplicated Diabetes mellitus, without long-term current use of insulin Hypertensive retinopathy of both eyes Cough Hyperlipidemia LDL goal <100 Hypercalcemia Low serum parathyroid hormone (PTH) Coronary artery disease Aortic stenosis Neck pain Inguinal hernia, left History of CVA (cerebrovascular accident) (~2017) COPD (chronic obstructive pulmonary disease) BPH (benign prostatic hyperplasia) GERD (gastroesophageal reflux disease) Essential hypertension Insomnia Chronic left shoulder pain Left shoulder pain Hypovitaminosis D Surgical History History of cardiac cath History of squamous cell carcinoma excision (~2010) History of colonoscopy History of right inguinal hernia repair (~1993) History of left inguinal hernia repair (~2018) History of surgery on arm (~1995) Family History Father Prostate cancer Mother Alzheimers disease Brother No problems noted. Sister No problems noted. Son No problems noted. Social History Household Members: Spouse Household Members Other:: sometimes lives with patient Housing: Apartment Alcohol intake: current Alcohol intake frequency: holidays/special occasions only Comment: once a year Patient Tobacco Use Status: Current everyday Tobacco user Tobacco use type: Cigarette Cigarette Packs Per Day: 1 Cigarettes Per Day: 20 Years Smoked: (onset 13yo, 1ppd x 53yrs, 50pyh) e-Cigarette/Vaping Use: Never Used Second Hand Smoke Exposure: Yes service: No Current occupational status: retired Cognitive needs: No Hearing needs: No Vision needs: Yes Review of Systems Const All systems reviewed & are unremarkable except as noted in HPI and below Physical Exam Vital Signs: Last Vital Signs Pulse 91 07/18/25 09:13 BP 122/66 07/18/25 09:13 BMI result Body Mass Index 27.4 Const General: cooperative, healthy appearing, comfortable and no acute distress Orientation/consciousness: oriented to person, oriented to place and oriented to time HEENT Head: Yes normal to inspection Eyes Pupils: Equal, round and reactive pupils present EOM: EOMs intact bilaterally Neck Neck: Yes normal visual inspection Chest Chest palpation & inspection: normal inspection of the chest Resp Effort & Inspection: normal respiratory effort and able to speak in complete sentences Cardio Rate: regular rate Rhythm: regular rhythm GI Inspection: Yes normal to inspection Back/Spine/Pelvis Cervical Spine: normal cervical lordosis Thoracic/Lumbar Spine: thoracic and lumbar spine normal to inspection Skin Full body images: 2 1. Medial aspect of left buttock exhibits a 0.25-0.5in flat nevus with some irregular border but consistent coloring. Central skin tag. Nontender. Neuro General: oriented to person, oriented to place and oriented to time Cranial nerves: Yes CN's II-XII intact bilaterally and Yes Equal, round and reactive pupils present Assessment & Plan Assessment & Plan (1) Nevus: Code(s): D22.9 - Melanocytic nevi, unspecified Category: Medical Plan: I told the patient that the nevus appeared to have a benign presentation in added that without change a mole present since childhood I felt had a relatively low malignant potential. I went on to say that I am not an expert on moles and melanoma and I offered him a referral to Dermatology for assessment. He declined. He accepts the risks of conservative management. He has agreed to let us know should there be any changes in his also agreed to follow up with us in approximately 1 year for a recheck. Coding Level of Care Code New Pt Level 3 (18830) Diagnoses Nevus D22.9 Time Spent (min) 30
[2025-07-18 09:13] VITALS: BP 122/66; PULSE 91; BMI 27.4
--- OUTSIDE RECORDS SUMMARY | 2025-07-18 09:58 | XMS_ITS | Clinical Summary ---
Author Organization [employer] Address [address] [place] [address] Care Team Providers Care Fabrication Supervisor Name Role Phone Unavailable Primary Care Provider [...]
== END 2025-07-18 09:23 | disposition home or self-care (01) ==
LOC: HO.HGS 09:07
PROVIDERS: PCP Internal Medicine; Visit Provider Surgery
DX: D22.9 Melanocytic nevi, unspecified (principal)
CPT/HCPCS: 99203

== ENCOUNTER → 2025-07-18 09:06 | Outpatient (BNVA) | payer OTHER, SELFPAY | PROVIDERS: PCP Internal Medicine; Visit Provider Surgery | DX: D22.72 Melanocytic nevi of left lower limb, including hip (principal); F17.210 Nicotine dependence, cigarettes, uncomplicated | CPT/HCPCS: 99202 ==

== ENCOUNTER 2025-07-26 11:01 | Outpatient (AMB) | payer OTHER, SELFPAY ==
--- NOTE | 2025-07-26 11:05 | A.OFFVIS_ITS ---
Intake Visit Reasons: 1y follow up Carotid US 06/13/25 Intake Note: Patient presents for 1 year follow up carotid. No complaints. Accompanied by: Spouse Allergies cyclobenzaprine Allergy (Intermediate, Verified 07/26/25 11:08) inadequate response morphine Allergy (Intermediate, Verified 07/26/25 11:08) urinary retention HPI HPI 1y follow up Carotid US 06/13/25: Details: 70-year-old gentleman presents for annual surveillance follow-up regarding his carotids. He has no interval issues. Continues to smoke about a pack a day. He is a diabetic. He denies any lateralizing signs or symptoms visual loss or speech disturbances. He is being maintained on aspirin and high-dose statin. [facility] Medical History Coronary artery calcification seen on CAT scan History of transcatheter aortic valve replacement (TAVR) Nicotine dependence, cigarettes, uncomplicated Diabetes mellitus, without long-term current use of insulin Hypertensive retinopathy of both eyes Cough Hyperlipidemia LDL goal <100 Hypercalcemia Low serum parathyroid hormone (PTH) Coronary artery disease Aortic stenosis Neck pain Inguinal hernia, left History of CVA (cerebrovascular accident) (~2017) COPD (chronic obstructive pulmonary disease) BPH (benign prostatic hyperplasia) GERD (gastroesophageal reflux disease) Essential hypertension Insomnia Chronic left shoulder pain Left shoulder pain Hypovitaminosis D Surgical History History of cardiac cath History of squamous cell carcinoma excision (~2010) History of colonoscopy History of right inguinal hernia repair (~1993) History of left inguinal hernia repair (~2018) History of surgery on arm (~1995) Family History Father Prostate cancer Mother Alzheimers disease Brother No problems noted. Sister No problems noted. Son No problems noted. Social History Household Members: Spouse Household Members Other:: sometimes lives with patient Housing: Apartment Alcohol intake: current Alcohol intake frequency: holidays/special occasions only Comment: once a year Patient Tobacco Use Status: Current everyday Tobacco user Tobacco use type: Cigarette Cigarette Packs Per Day: 1 Cigarettes Per Day: 20 Years Smoked: (onset 13yo, 1ppd x 53yrs, 50pyh) e-Cigarette/Vaping Use: Never Used Second Hand Smoke Exposure: Yes service: No Current occupational status: retired Cognitive needs: No Hearing needs: No Vision needs: Yes Review of Systems Const All systems reviewed & are unremarkable except as noted in HPI and below Reports no additional complaints ENT Reports Normal hearing present Card Denies chest pain, Denies chest pain at rest, Denies chest pain with activity and Denies pedal edema Resp Denies cough GI Denies abdominal pain Musc Denies abnormal gait, Denies muscle cramps and Denies radiating pain into limb Skin/Breast Denies skin ulcer and Denies wounds Neuro Reports Normal hearing present and Denies abnormal gait Psych Reports no additional complaints Physical Exam Const General: cooperative, healthy appearing and comfortable Orientation/consciousness: oriented to person, oriented to place and oriented to time HEENT Head: Yes normal to inspection Neck Neck: Yes normal visual inspection Carotids: no bruits Chest Chest palpation & inspection: normal inspection of the chest Resp Effort & Inspection: normal respiratory effort and able to speak in complete sentences Auscultation: clear to auscultation bilaterally, no crackles, no rales, no rhonchi and no wheezes Cardio Rate: regular rate Rhythm: regular rhythm Heart sounds: S1 normal heart sound present and S2 normal heart sound present Bruits: no carotid bruits Peripheral pulses: Peripheral pulses 2+ throughout GI Inspection: Yes normal to inspection Skin Wounds: no wounds Hair: normal Neuro General: oriented to person, oriented to place and oriented to time Cranial nerves: Yes CN's II-XII intact bilaterally and Yes Normal hearing present Cognition (Neuro): normal cognition Motor exam (neuro): 5/5 motor strength present throughout Extrem Other: venous exam: No significant superficial varicosities or spider telangiectasias, minimal edema General: No clubbing, No cyanosis and No edema Psych Appearance: grossly normal Mental Status: mental status grossly normal Speech and movement: Normal speech and movement present Results Reviewed Results Reviewed: Carotid testing dated 06/13/2025 demonstrates right side 50-79 % left side 0-49 % right side has a peak systolic of 127 and I would consider this more 0-49 %. I disagree with radiology findings. Assessment & Plan Assessment & Plan (1) Carotid artery stenosis: Code(s): I65.29 - Occlusion and stenosis of unspecified carotid artery Category: Medical Qualifiers: Laterality: bilateral Qualified Code(s): I65.23 - Occlusion and tina nosis of bilateral carotid arteries Plan: In short patient has asymptomatic carotid disease. We have reviewed signs and symptoms of a stroke. We also discussed risk factor modification inclusive a healthy diet low in cholesterol. The patient will follow up with us with surveillance ultrasound of the carotids 1 year. Should there be any changes or signs or symptoms of a stroke we will be happy to see them back sooner. Thank you for allowing us to participate in this patient's care. If there are any questions or concerns please do not hesitate to contact us. Orders: Orders US carotid duplex BI 1 Year I65.23 - Occlusion and stenosis of bilateral carotid arteries Coding Level of Care Code Est Pt Level 4 (33220) Diagnoses Bilateral carotid artery stenosis I65.23 Laterality: bilateral
--- OUTSIDE RECORDS SUMMARY | 2025-07-26 13:01 | XMS_ITS | Clinical Summary ---
Author Organization [employer] Address [address] [place] [address] Care Team Providers Care Communications Project Manager Name Role Phone Unavailable Primary Care Provider [...]
== END 2025-07-26 11:28 | disposition home or self-care (01) ==
LOC: HO.HVS 11:02
PROVIDERS: PCP Internal Medicine; Visit Provider Surgery Vascular Surgery
DX: I65.23 Occlusion and stenosis of bilateral carotid arteries (principal)
CPT/HCPCS: 99214

== ENCOUNTER → 2025-07-26 11:01 | Outpatient (BNVA) | payer OTHER, SELFPAY | PROVIDERS: PCP Internal Medicine; Visit Provider Surgery Vascular Surgery | DX: I65.23 Occlusion and stenosis of bilateral carotid arteries (principal); F17.210 Nicotine dependence, cigarettes, uncomplicated | CPT/HCPCS: 99212 ==